=== PATIENT | male | born 1985 | race Two or more races ===

== ENCOUNTER 2017-09-08 10:29 | Inpatient (IN) | payer MEDICAID ==
[~2017-09-08] VITALS: Ht 177.8 cm; Wt 102.7 kg
[2017-09-08 11:00] VITALS: BP 170/98
[2017-09-08] MEDS ORDERED: Morphine Sulfate 4mg/ml Inj IVP ONE ×2 (11:00→12:45)
[2017-09-08 11:29] LABS: HEMATOCRIT 31.5 % (42.0-52.0); HEMOGLOBIN 10.2 G/DL (14.2-18.0); MEAN CORPUSCULAR VOLUME 92 FL (80-99); PLATELET COUNT 186 K/UL (150-450); RED BLOOD COUNT 3.41 M/UL (4.70-6.10); RED CELL DISTRIBUTION WIDTH 15.7 % (11.6-14.8); WHITE BLOOD COUNT 8.8 K/UL (4.8-10.8)
--- NOTE | 2017-09-08 11:30 | Diagnostic Imaging Report ---
Indication: Chest pain Technique: XRAY Chest 1v Comparison: None Findings: Limited exam with low lung volumes. Heart size is likely within normal limits. Mediastinal contours are sharp. Question linear atelectasis or scarring in the left mid/lower lung periphery. No pleural effusion or pneumothorax. No acute osseous abnormality appreciated. Impression: Limited exam with low lung volumes. Question linear atelectasis or scarring in the peripheral left mid/lower lung. Otherwise, no focal consolidation, pleural effusion or pneumothorax.
[2017-09-08 11:50] LABS: ANION GAP 10 mmol/L (5-15); BLOOD UREA NITROGEN 56 mg/dL (7-18); CALCIUM 7.7 MG/DL (8.5-10.1); CARBON DIOXIDE 19 MMOL/L (21-32); CHLORIDE 111 MMOL/L (98-107); CREATININE 4.4 MG/DL (0.55-1.30); POTASSIUM 5.1 MMOL/L (3.5-5.1); SODIUM 140 MMOL/L (136-145)
[2017-09-08 12:13] LABS: ALANINE AMINOTRANSFERASE 137 U/L (12-78); ALBUMIN 1.6 G/DL (3.4-5.0); ALBUMIN/GLOBULIN RATIO 0.5 (1.0-2.7); ALKALINE PHOSPHATASE 208 U/L (46-116); ASPARTATE AMINO TRANSFERASE 68 U/L (15-37); BILIRUBIN,TOTAL 0.2 MG/DL (0.2-1.0); CKMB 23.9 NG/ML (0.0-3.6); CREATINE KINASE 646 U/L (26-308)
[2017-09-08 13:00] VITALS: BP 167/87
[2017-09-08 13:24] LABS: APPEARANCE,URINE CLEAR; BILIRUBIN, URINE NEGATIVE (NEGATIVE); COLOR,URINE PALE YELLOW; GLUCOSE, URINE (UA) 2+ (NEGATIVE); KETONES,URINE 1+ (NEGATIVE); LEUKOCYTE ESTERASE ,URINE NEGATIVE (NEGATIVE); NITRITE,URINE NEGATIVE (NEGATIVE); PH,URINE 5 (4.5-8.0); PROTEIN,URINE 4+ (NEGATIVE); UROBILINOGEN,URINE NORMAL MG/DL (0.0-1.0)
[2017-09-08] MEDS ORDERED: D5 1/2NS 1,000 ML IV SCH (15:36)
[2017-09-08] MEDS ORDERED: Nitroglycerin Subl 0.4mg tab SL PRN (15:45)
[2017-09-08] MEDS ORDERED: Labetalol 5mg/ml 20ml vial IV PRN (15:45)
[2017-09-08] MEDS ORDERED: Morphine Sulfate 2mg/ml Inj IVP PRN (15:45)
[2017-09-08] MEDS ORDERED: Miralax 17gm pkt ORAL PRN (15:45)
[2017-09-08] MEDS ORDERED: Enalaprilat 2.5mg/2ml Inj IV PRN (15:45)
[2017-09-08] MEDS ORDERED: Mylanta II UD 30ml ORAL PRN (15:45)
--- NOTE | 2017-09-08 16:38 | Consultation ---
Consult Note Consult Note asked to eval for renal failure- Known CKD alerjovan: Abhijito- Reglan- Promethazine Assessment/Plan status: CKD Type I DM HTN NPO- IV fluid BP and BS control IV protonix 2D Echo OCT[facility]IO kidney 24 H urine collection LEXIS PRESTON Sep 08, 2017 16:38
--- NOTE | 2017-09-08 16:42 | Consultation ---
History of Present Illness General Date patient seen: Sep 08, 2017 Chief Complaint: Abdominal pain abnormal CXR Referring physician: Dr. Sarabia Reason for Consultation: Abnormal CXR possible pnuemonia edema Present Illness HPI Patient is a 32 yo male with pmhx of DM I HTN ESRD anemia who presents to [facility] with chief complaint of intractable abdominal pain. The patient also reported cough to his primary care doctor and I was asked to consult from internal medicine and pulmonary point of view. The patient admits to weakness and lethargy but does not admit to fever or productive cough. Upon examination of the CXR the patient may have a questionable process relating to the right lung, with patchy infiltrative patterns however hazel radiograph is not ideal because it appears the patient may have been in expiration of air during the capture. I have discussed with the patient my wishes to repeat the chest radiograph in a few days especially after hemodialysis to help rule out infectious causes. Allergies: Coded Allergies: METOCLOPRAMIDE (Unverified Allergy, Severe, 09/08/17) PROCHLORPERAZINE (Unverified Allergy, Severe, 09/08/17) VANCOMYCIN (Unverified Allergy, Severe, 09/08/17) Medication History Scheduled Amlodipine Besylate (Norvasc), 10 MG ORAL DAILY, (Reported) Carvedilol* (Carvedilol*), 12.5 MG ORAL BID, (Reported) Clonidine Hcl* (Catapres*), 0.1 MG ORAL TID, (Reported) Lisinopril (Lisinopril*), 20 MG ORAL BID, (Reported) Omeprazole (Omeprazole), 20 MG ORAL DAILY, (Reported) Sevelamer Carbonate (Renvela), 800 MG ORAL THREE TIMES A DAY, (Reported) Sevelamer Carbonate* (Renvela*), 800 MG ORAL THREE TIMES A DAY, (Reported) Scheduled PRN Diphenhydramine Hcl* (Benadryl*), 25 MG ORAL QID PRN for Itching, (Reported) Loperamide HCl (Imodium A-D), 4 MG PO TID PRN for Diarrhea, (Reported) Patient History Healthcare decision maker Resuscitation status Full Code Advanced Directive on File Past Medical/Surgical History Past Medical/Surgical History: (1) Abdominal distention (2) Anemia (3) Renal disease (4) Chronic pancreatitis (5) Gastroparesis (6) Diabetes type 1, controlled (7) Diarrhea (8) Renal failure (ARF), acute on chronic (9) Diabetic nephropathy (10) Ascites (11) ESRD (end stage renal disease) (12) Abdominal pain (13) HTN (hypertension) (14) Anemia of renal disease (15) Hypothyroidism (16) CHF (congestive heart failure) (17) Nephrotic syndrome Review of Systems Constitutional: Reports: malaise, weakness Respiratory: Reports: cough Cardiovascular: Reports: chest pain Gastrointestinal: Reports: abdominal pain Physical Exam General Appearance: moderate distress Lines, tubes and drains: peripheral HEENT: normocephalic, atraumatic, anicteric, PERRL Neck: non-tender, normal alignment, supple, normal inspection Respiratory/Chest: chest wall non-tender, decreased breath sounds, accessory muscle use, crackles/rales, rhonchi - right Breasts: no masses Cardiovascular/Chest: normal peripheral pulses, normal rate, regular rhythm, no JVD Abdomen: normal bowel sounds, non tender, soft, no organomegaly, no mass Genitourinary/Rectal: normal genital exam, normal rectal exam Extremities: normal range of motion, non-tender, normal inspection, no calf tenderness Skin Exam: normal pigmentation, warm/dry Neurologic: organic chemist II-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 grossly normal, no motor/sensory deficits Last 24 Hour Vital Signs Date Time Temp Pulse Resp B/P (MAP) Pulse Ox O2 Delivery O2 Flow Rate FiO2 09/08/17 10:31 98.8 78 18 170/98 98 Room Air Laboratory Tests Test 09/08/17 10:55 09/08/17 12:35 White Blood Count 8.8 K/UL (4.8-10.8) Red Blood Count 3.41 M/UL (4.70-6.10) L Hemoglobin 10.2 G/DL (14.2-18.0) L Hematocrit 31.5 % (42.0-52.0) L Mean Corpuscular Volume 92 FL (80-99) Mean Corpuscular Hemoglobin 30.0 PG (27.0-31.0) Mean Corpuscular Hemoglobin Concent 32.5 G/DL (32.0-36.0) Red Cell Distribution Width 15.7 % (11.6-14.8) H Platelet Count 186 K/UL (150-450) Mean Platelet Volume 7.4 FL (6.5-10.1) Neutrophils (%) (Auto) % (45.0-75.0) Lymphocytes (%) (Auto) % (20.0-45.0) Monocytes (%) (Auto) % (1.0-10.0) Eosinophils (%) (Auto) % (0.0-3.0) Basophils (%) (Auto) % (0.0-2.0) Differential Total Cells Counted 100 Neutrophils % (Manual) 86 % (45-75) H Lymphocytes % (Manual) 8 % (20-45) L Monocytes % (Manual) 4 % (1-10) Eosinophils % (Manual) 1 % (0-3) Basophils % (Manual) 0 % (0-2) Band Neutrophils 1 % (0-8) Platelet Estimate Adequate Platelet Morphology Normal Hypochromasia 1+ Anisocytosis 1+ Sodium Level 140 MMOL/L (136-145) Potassium Level 5.1 MMOL/L (3.5-5.1) Chloride Level 111 MMOL/L (98-107) H Carbon Dioxide Level 19 MMOL/L (21-32) L Anion Gap 10 mmol/L (5-15) Blood Urea Nitrogen 56 mg/dL (7-18) H Creatinine 4.4 MG/DL (0.55-1.30) H Estimat Glomerular Filtration Rate 15.8 mL/min (>60) Glucose Level 138 MG/DL (74-106) H Lactic Acid Level 1.10 mmol/L (0.66-2.22) Calcium Level 7.7 MG/DL (8.5-10.1) L Total Bilirubin 0.2 MG/DL (0.2-1.0) Aspartate Amino Transf (AST/SGOT) 68 U/L (15-37) H Alanine Aminotransferase (ALT/SGPT) 137 U/L (12-78) H Alkaline Phosphatase 208 U/L (46-116) H Total Creatine Kinase 646 U/L (26-308) H Creatine Kinase MB 23.9 NG/ML (0.0-3.6) H Creatine Kinase MB Relative Index 3.6 Total Protein 4.7 G/DL (6.4-8.2) L Albumin 1.6 G/DL (3.4-5.0) L Globulin 3.1 g/dL Albumin/Globulin Ratio 0.5 (1.0-2.7) L Lipase 25 U/L (73-393) L Urine Color Pale yellow Urine Appearance Clear Urine pH 5 (4.5-8.0) Urine Specific [place] 1.015 (1.005-1.035) Urine Protein 4+ (NEGATIVE) H Urine Glucose (UA) 2+ (NEGATIVE) H Urine Ketones 1+ (NEGATIVE) H Urine Occult Blood 1+ (NEGATIVE) H Urine Nitrite Negative (NEGATIVE) Urine Bilirubin Negative (NEGATIVE) Urine Urobilinogen Normal MG/DL (0.0-1.0) Urine Leukocyte Esterase Negative (NEGATIVE) Urine RBC 0-2 /HPF (0 - 0) H Urine WBC 0-2 /HPF (0 - 0) Urine Squamous Epithelial Cells Occasional /LPF Urine Bacteria Occasional /HPF (NONE) Height (Feet): 5 Height (Inches): 10.00 Weight (Pounds): 202 Medications Current Medications Medications (Trade) Dose Ordered Sig/Michelle Route PRN Reason Start Time Stop Time Status Last Admin Dose Admin Acetaminophen (Tylenol) 650 mg Q4H PRN ORAL fever 09/08/17 15:45 10/08/17 15:44 Dextrose (Dextrose 50%) STAT PRN IV Hypoglycemia 09/08/17 15:45 10/08/17 15:44 Dextrose/Sodium Chloride 1,000 ml @ 50 mls/hr Q20H IV 09/09/17 15:36 10/09/17 15:35 UNV Diphenhydramine HCl (Benadryl) 25 mg Q6H PRN ORAL Itching/Pruritis 09/08/17 15:45 10/08/17 15:44 Enalaprilat (Vasotec) 2.5 mg EVERY 4 HOURS PRN IV sbp more than 200 09/08/17 15:45 10/08/17 15:44 Heparin Sodium (Porcine) (Heparin 5000 units/ml) 5,000 units EVERY 12 HOURS SUBQ 09/08/17 21:00 10/08/17 20:59 Hydralazine HCl (Apresoline) 10 mg Q4H PRN IV sbp more than 160 09/08/17 19:45 10/08/17 19:44 UNV Labetalol HCl (Normodyne) 20 mg EVERY HOUR PRN IV sbo more than 180 09/08/17 15:45 10/08/17 15:44 Lorazepam (Ativan 2mg/ml 1ml) 1 mg EVERY 4 HOURS PRN IV agitation 09/08/17 15:45 09/15/17 15:44 Morphine Sulfate (Morphine Sulfate) 2 mg EVERY 4 HOURS PRN IVP severe Pain (Pain Scale 7-10) 09/08/17 15:45 09/15/17 15:44 09/08/17 16:39 Nitroglycerin (Ntg) 0.4 mg Q5M X 3 DOSES PRN SL Prn Chest Pain 09/08/17 15:45 10/08/17 15:44 Ondansetron HCl (Zofran) 4 mg Q6H PRN IVP Nausea & Vomiting 09/08/17 15:45 10/08/17 15:44 Pantoprazole (Protonix) 40 mg DAILY IV 09/09/17 09:00 10/09/17 08:59 Polyethylene Glycol (Miralax) 17 gm HSPRN PRN ORAL Constipation 09/08/17 15:45 10/08/17 15:44 Tamsulosin HCl (Flomax) 0.4 mg BID ORAL 09/08/17 18:00 10/08/17 17:59 UNV Temazepam (Restoril) 15 mg HSPRN PRN ORAL Insomnia 09/08/17 15:45 09/15/17 15:44 Assessment/Plan Status: stable, progressing Assessment/Plan Acute abdominal pain Rule out pancreatitis vs. obstruction Bronchitis Rule out right lung pneumonia Pulmonary edema? ESRD HTN DM I Diabetic gastroparesis PLAN Repeat CXR in a few days after HD Monitor WBC and cough symptoms/vitals Will wait before starting antbx Anti-tussives prn Pain management RICARDO POLANCO Sep 08, 2017 16:42
--- NOTE | 2017-09-08 16:45 | GI Initial Consult Note ---
History of Present Illness General Date patient seen: Sep 08, 2017 Time patient seen: 16:30 Reason for Hospitalization: Abdominal Pain Referring physician: AMY PERSAUD Reason for Consultation: ABDOMINAL PAIN Present Illness HPI 32 year male with history of renal insufficiency, chronic pancreatitis, DM type 1, gastroparesis presents today with c/o of diarrhea x 2 months. Denies hematochezia / melena. Stated he had a negative hepatis panel performed recently at [facility]. In addition, the patient c/o of severe epigastric pain, requesting for Dilaudid. Labs show anemia, transaminitis with elevated alkaline phosphatase, hypoalbuminemia and elevated creatinine. Denies any ETOH/ IVDA. Patient is tobacco user. No history of endoscopy / colonoscopies. Patient states he is ALLERGIC to Reglan, Compazine, and Vancomycin. Med list reviewed/reconciled: Yes Allergies: Coded Allergies: Compazine (Unverified Allergy, Severe, 09/08/17) Reglan (Unverified Allergy, Severe, 09/08/17) Vancomycin (Unverified Allergy, Severe, 09/08/17) Patient History History Provided By: Patient PMH Narrative See HPI. Social History: Denies: smoking, alcohol use, drug use, other Review of Systems All Other Systems: negative except mentioned in HPI Physical Exam Vital Signs Date Time Temp Pulse Resp B/P (MAP) Pulse Ox O2 Delivery O2 Flow Rate FiO2 09/08/17 10:31 98.8 78 18 170/98 98 Room Air Sp02 EP Interpretation: reviewed, normal Labs Laboratory Tests Test 09/08/17 10:55 09/08/17 12:35 White Blood Count 8.8 K/UL (4.8-10.8) Red Blood Count 3.41 M/UL (4.70-6.10) L Hemoglobin 10.2 G/DL (14.2-18.0) L Hematocrit 31.5 % (42.0-52.0) L Mean Corpuscular Volume 92 FL (80-99) Mean Corpuscular Hemoglobin 30.0 PG (27.0-31.0) Mean Corpuscular Hemoglobin Concent 32.5 G/DL (32.0-36.0) Red Cell Distribution Width 15.7 % (11.6-14.8) H Platelet Count 186 K/UL (150-450) Mean Platelet Volume 7.4 FL (6.5-10.1) Neutrophils (%) (Auto) % (45.0-75.0) Lymphocytes (%) (Auto) % (20.0-45.0) Monocytes (%) (Auto) % (1.0-10.0) Eosinophils (%) (Auto) % (0.0-3.0) Basophils (%) (Auto) % (0.0-2.0) Differential Total Cells Counted 100 Neutrophils % (Manual) 86 % (45-75) H Lymphocytes % (Manual) 8 % (20-45) L Monocytes % (Manual) 4 % (1-10) Eosinophils % (Manual) 1 % (0-3) Basophils % (Manual) 0 % (0-2) Band Neutrophils 1 % (0-8) Platelet Estimate Adequate Platelet Morphology Normal Hypochromasia 1+ Anisocytosis 1+ Sodium Level 140 MMOL/L (136-145) Potassium Level 5.1 MMOL/L (3.5-5.1) Chloride Level 111 MMOL/L (98-107) H Carbon Dioxide Level 19 MMOL/L (21-32) L Anion Gap 10 mmol/L (5-15) Blood Urea Nitrogen 56 mg/dL (7-18) H Creatinine 4.4 MG/DL (0.55-1.30) H Estimat Glomerular Filtration Rate 15.8 mL/min (>60) Glucose Level 138 MG/DL (74-106) H Lactic Acid Level 1.10 mmol/L (0.66-2.22) Calcium Level 7.7 MG/DL (8.5-10.1) L Total Bilirubin 0.2 MG/DL (0.2-1.0) Aspartate Amino Transf (AST/SGOT) 68 U/L (15-37) H Alanine Aminotransferase (ALT/SGPT) 137 U/L (12-78) H Alkaline Phosphatase 208 U/L (46-116) H Total Creatine Kinase 646 U/L (26-308) H Creatine Kinase MB 23.9 NG/ML (0.0-3.6) H Creatine Kinase MB Relative Index 3.6 Total Protein 4.7 G/DL (6.4-8.2) L Albumin 1.6 G/DL (3.4-5.0) L Globulin 3.1 g/dL Albumin/Globulin Ratio 0.5 (1.0-2.7) L Lipase 25 U/L (73-393) L Urine Color Pale yellow Urine Appearance Clear Urine pH 5 (4.5-8.0) Urine Specific [place] 1.015 (1.005-1.035) Urine Protein 4+ (NEGATIVE) H Urine Glucose (UA) 2+ (NEGATIVE) H Urine Ketones 1+ (NEGATIVE) H Urine Occult Blood 1+ (NEGATIVE) H Urine Nitrite Negative (NEGATIVE) Urine Bilirubin Negative (NEGATIVE) Urine Urobilinogen Normal MG/DL (0.0-1.0) Urine Leukocyte Esterase Negative (NEGATIVE) Urine RBC 0-2 /HPF (0 - 0) H Urine WBC 0-2 /HPF (0 - 0) Urine Squamous Epithelial Cells Occasional /LPF Urine Bacteria Occasional /HPF (NONE) General Appearance: well appearing, no apparent distress, alert Head: normocephalic EENT: PERRL/EOMI, normal ENT inspection Neck: supple Respiratory: normal breath sounds, no respiratory distress Cardiovascular: normal rate Gastrointestinal: normal inspection, non tender, soft, normal bowel sounds, non -distended Rectal: deferred Genitourinary: deferred Musculoskeletal: normal inspection, back normal Neurologic: normal inspection, alert, oriented x3, responsive Psychiatric: normal inspection, judgement/insight normal, memory normal Skin: normal inspection, normal color, no rash, warm/dry, palpation normal, well hydrated Lymphatic: normal inspection, no adenopathy Other Organ Systems generalized anasarca Current Medications Current Medications Medications (Trade) Dose Ordered Sig/Michelle Route PRN Reason Start Time Stop Time Status Last Admin Dose Admin Acetaminophen (Tylenol) 650 mg Q4H PRN ORAL fever 09/08/17 15:45 10/08/17 15:44 Al Hydroxide/Mg Hydroxide (Mylanta II) 30 ml Q6H PRN ORAL dyspepsia 09/08/17 15:45 10/08/17 15:44 Dextrose (Dextrose 50%) STAT PRN IV Hypoglycemia 09/08/17 15:45 10/08/17 15:44 Dextrose/Sodium Chloride 1,000 ml @ 75 mls/hr [id number] IV 09/08/17 15:36 10/08/17 15:35 09/08/17 16:07 Diphenhydramine HCl (Benadryl) 25 mg Q6H PRN ORAL Itching/Pruritis 09/08/17 15:45 10/08/17 15:44 Enalaprilat (Vasotec) 2.5 mg EVERY 4 HOURS PRN IV sbp more than 200 09/08/17 15:45 10/08/17 15:44 Heparin Sodium (Porcine) (Heparin 5000 units/ml) 5,000 units EVERY 12 HOURS SUBQ 09/08/17 21:00 10/08/17 20:59 Hydralazine HCl (Apresoline) 20 mg Q4H PRN IV sbp more than 160 09/08/17 15:45 10/08/17 15:44 Labetalol HCl (Normodyne) 20 mg EVERY HOUR PRN IV sbo more than 180 09/08/17 15:45 10/08/17 15:44 Lorazepam (Ativan 2mg/ml 1ml) 1 mg EVERY 4 HOURS PRN IV agitation 09/08/17 15:45 09/15/17 15:44 Morphine Sulfate (Morphine Sulfate) 2 mg EVERY 4 HOURS PRN IVP severe Pain (Pain Scale 7-10) 09/08/17 15:45 09/15/17 15:44 Nitroglycerin (Ntg) 0.4 mg Q5M X 3 DOSES PRN SL Prn Chest Pain 09/08/17 15:45 10/08/17 15:44 Ondansetron HCl (Zofran) 4 mg Q6H PRN IVP Nausea & Vomiting 09/08/17 15:45 10/08/17 15:44 Pantoprazole (Protonix) 40 mg DAILY IV 09/09/17 09:00 10/09/17 08:59 Polyethylene Glycol (Miralax) 17 gm HSPRN PRN ORAL Constipation 09/08/17 15:45 10/08/17 15:44 Promethazine HCl (Phenergan) 25 mg EVERY 8 HOURS PRN IV refractory nausea 09/08/17 15:45 10/08/17 15:44 Temazepam (Restoril) 15 mg HSPRN PRN ORAL Insomnia 09/08/17 15:45 09/15/17 15:44 GI: Plan Problems: (1) Renal disease (2) Gastroparesis (3) Diabetes type 1, controlled (4) Chronic pancreatitis (5) Anemia (6) Abdominal distention (7) Diarrhea Plan hepatitis panel per patient was done at [facility] and negative maintain NPO + IVFs fu abdominal U/S DM mgmt anemia work up >> most likely 2/2 to renal disease will check lipase levels pain mgmt ppi simethicone prn fu labs Discussed with Dr. Schultz. Thank you for this patient referral, we will follow. Amber Clark N.P. Sep 08, 2017 16:45
[2017-09-08] MEDS ORDERED: Simethicone 80mg tab ORAL ONE (17:00)
--- NOTE | 2017-09-08 17:12 | History & Physical ---
History and Physical History & Physicial Dictated for Int Med-Dr Voss no. [id number]. SANJIV TALBOT Sep 08, 2017 17:12
[2017-09-08] MEDS ORDERED: Simethicone 80mg tab ORAL PRN (17:15)
[2017-09-08] MEDS: Tamsulosin 0.4mg cap ORAL SCH (17:38)
[2017-09-08 20:00] VITALS: BP 152/87
[2017-09-08] MEDS ORDERED: Morphine Sulfate 4mg/ml Inj ONE (20:52)
[2017-09-08] MEDS: Morphine Sulfate 4mg/ml Inj IVP PRN (21:09)
[2017-09-08] MEDS: Heparin 5000 units/ml inj SUBQ SCH (21:10)
--- NOTE | 2017-09-08 21:30 | History and Physical Report ---
DATE OF ADMISSION: 09/08/2017 CHIEF COMPLAINT: The patient is a 32-year-old male with a history of end-stage renal disease, who presents with a chief complaint of abdominal pain. HISTORY OF PRESENT ILLNESS: The patient has a history of type 1 diabetes. The patient has a history of chronic renal failure. The patient states that history of present illness began approximately two months ago. The patient began to have profuse watery stools. The patient has up to eight stools daily. Stools used to be liquid in nature. The patient states his stool had some formed elements. The patient also began to experience left upper quadrant abdominal pain last evening. The patient presented to [place] emergency room. The patient is admitted for abdominal pain to rule out acute pancreatitis. PAST MEDICAL HISTORY: Significant for: 1. Type 1 diabetes. 2. Hypertension. 3. End-stage renal disease. 4. Anemia. 5. Diabetic gastroparesis. PAST SURGICAL HISTORY: The patient denies. CURRENT MEDICATIONS: The patient does not know dosages of any of his medications. 1. Lantus. 2. Humalog. 3. Protonix. 4. Organ. 5. Pepcid. 6. Zantac. 7. Lasix. ALLERGIES: 1. Reglan. 2. Promethazine. 3. Vancomycin. SOCIAL HISTORY: The patient is single and is disabled. The patient admits to tobacco use of one-quarter pack per day. The patient denies alcohol use. REVIEW OF SYSTEMS: CONSTITUTIONAL: The patient denies weight loss or weight gain. The patient denies fevers or chills. HEENT: The patient denies ear or throat pain. The patient denies headache. CARDIOVASCULAR: The patient denies palpitations or chest pain. CHEST: The patient denies wheeze or shortness of breath. ABDOMEN: The patient complains of abdominal pain as above. The patient complains of diarrhea as above. The patient denies constipation, nausea, or vomiting. GENITOURINARY: The patient denies dysuria or increased frequency of urination. NEUROMUSCULAR: The patient denies seizures or generalized weakness. PHYSICAL EXAMINATION: VITAL SIGNS: Temperature 98.8, respirations 18, pulse 70, and blood pressure 170/98. GENERAL: The patient is a well-developed and well-nourished white male, appears to be in moderate distress. HEENT: Eyes, pupils equal and responsive to light and accommodation. Extraocular movements are intact. NECK: Supple without lymphadenopathy. CHEST: Lungs are clear to auscultation bilaterally without wheezes or rales. CARDIOVASCULAR: Regular rhythm and rate. S1 and S2 are normal without murmurs, rubs, or gallops. ABDOMEN: Soft and tender to palpation in the bilateral upper quadrants, with decreased bowel sounds. No evidence of hepatosplenomegaly. Currently, no rebound or guarding noted. EXTREMITIES: Negative for clubbing, cyanosis, or edema. RECTAL/GENITAL: Refused. NEUROLOGIC: Cranial nerves II to XII are grossly intact without focal deficits. Motor strength is 5/5 bilaterally. Deep tendon reflexes are 2+ plantar. LABORATORY STUDIES: WBC 8.8, hemoglobin 10.2, hematocrit 31.5, and platelets 186,000. Sodium 140, potassium 5.1, chloride 111, CO2 19, BUN 56, creatinine 4.4, and glucose 138. Liver function tests elevated with AST 68, ALT elevated at 137, alkaline phosphatase elevated at 208, total CK elevated at 646. Lipase is normal at 25. Urinalysis showed 4+ protein, 2+ glucose, 1+ ketones, and 1+ occult blood. ASSESSMENT: This is a 32-year-old male. 1. Bilateral upper quadrant pain. 2. Diarrhea. 3. Diabetic gastroparesis. 4. Diabetes type 1. 5. Hypertension. 6. End-stage renal disease. 7. Anemia. TREATMENT: 1. Abdominal pain/diarrhea. A Gastroenterology consultation has been obtained with Dr. Demetrius Schultz. An abdominal ultrasound is pending. We will follow recommendations of Gastroenterology. The patient is currently receiving intravenous Dilaudid for pain management. 2. Diabetic gastroparesis. We will follow recommendations of Gastroenterology. 3. Diabetes type 1. The patient has been started on a Humalog sliding scale. 4. Hypertension. The patient is currently not on antihypertensive medication. 5. End-stage renal disease. A Nephrology consultation has been obtained with Dr. Garrett. 6. Anemia of chronic renal disease. Ozzy Sarabia M.D. DR: MARA JOB#: [id number] CC:
[2017-09-08] MEDS: LORazepam Inj 2mg/ml 1ml IV PRN (21:55)
[2017-09-09] VITALS: BP 162/90
[2017-09-09] MEDS: Morphine Sulfate 4mg/ml Inj IVP PRN ×3 (03:18→13:43)
[2017-09-09 04:00] VITALS: BP 158/91
--- NOTE | 2017-09-09 07:25 | Emergency Room Report ---
History of Present Illness General Chief Complaint: Abdominal Pain Source: Patient Present Illness HPI Patient present with complaints of diffuse upper abdominal pain Nausea vomiting Patient reports that he was just discharged from at [facility] He reports having history of renal insufficiency Patient reports several episodes of vomiting since yesterday Also complains of diarrhea Denies any chest pain or shortness of breath He does feel fevers and chills at home Denies any neck pain or photophobia Pain is 8/10 Allergies: Coded Allergies: METOCLOPRAMIDE (Unverified Allergy, Severe, 09/08/17) PROCHLORPERAZINE (Unverified Allergy, Severe, 09/08/17) VANCOMYCIN (Unverified Allergy, Severe, 09/08/17) Patient History Past Medical History: see triage record Pertinent Family History: none Reviewed Nursing Documentation: PMH: Agreed, PSxH: Agreed Nursing Documentation-PMH Past Medical History: No History, Except For Hx Cardiac Problems: No Hx Diabetes: Yes - Type 1 Hx Cancer: No Hx Gastrointestinal Problems: Yes - Gastroparesis Hx Neurological Problems: No Review of Systems All Other Systems: negative except mentioned in HPI Physical Exam Vital Signs Date Time Temp Pulse Resp B/P (MAP) Pulse Ox O2 Delivery O2 Flow Rate FiO2 09/08/17 10:31 98.8 78 18 170/98 98 Room Air Sp02 EP Interpretation: reviewed, normal General Appearance: mild distress - Appears tremulous and jaundice Head: normocephalic, atraumatic Eyes: bilateral eye PERRL, bilateral eye EOMI ENT: hearing grossly normal, TMs + canals normal, uvula midline, dry mucus membranes Neck: full range of motion, supple, no meningismus, no bony tend Respiratory: lungs clear, normal breath sounds, no rhonchi, no respiratory distress, no retraction, no accessory muscle use Cardiovascular #1: normal peripheral pulses, no gallop, no JVD, no murmur, tachycardia Gastrointestinal: normal bowel sounds, soft, no mass, no organomegaly, non- distended, no guarding, no hernia, no pulsatile mass, no rebound, tenderness - Epigastric region Genitourinary: no CVA tenderness Musculoskeletal: normal inspection Neurologic: oriented x3, responsive, learning and development administrator III-XII nml as tested, motor strength/ tone normal, sensory intact Psychiatric: mood/affect normal Skin: no rash, warm/dry, other - Dependent edema bilaterally Lymphatic: other - Lymphedema Medical Decision Making Diagnostic Impression: Primary Impression: Vomiting Additional Impressions: Diarrhea Renal failure ER Course With the history exam and presentation, multiple differentials considered, including but not limited to appendicitis, gastritis, cholecystitis, diverticulitis Patient provided with IV hydration pain medication Kidney function tests appear abnormal Patient has continued vomiting Reports history of gastroparesis With type 1 diabetes Is admitted for further care Labs Test 09/08/17 10:55 09/08/17 12:35 White Blood Count 8.8 K/UL (4.8-10.8) Red Blood Count 3.41 M/UL (4.70-6.10) Hemoglobin 10.2 G/DL (14.2-18.0) Hematocrit 31.5 % (42.0-52.0) Mean Corpuscular Volume 92 FL (80-99) Mean Corpuscular Hemoglobin 30.0 PG (27.0-31.0) Mean Corpuscular Hemoglobin Concent 32.5 G/DL (32.0-36.0) Red Cell Distribution Width 15.7 % (11.6-14.8) Platelet Count 186 K/UL (150-450) Mean Platelet Volume 7.4 FL (6.5-10.1) Neutrophils (%) (Auto) % (45.0-75.0) Lymphocytes (%) (Auto) % (20.0-45.0) Monocytes (%) (Auto) % (1.0-10.0) Eosinophils (%) (Auto) % (0.0-3.0) Basophils (%) (Auto) % (0.0-2.0) Differential Total Cells Counted 100 Neutrophils % (Manual) 86 % (45-75) Lymphocytes % (Manual) 8 % (20-45) Monocytes % (Manual) 4 % (1-10) Eosinophils % (Manual) 1 % (0-3) Basophils % (Manual) 0 % (0-2) Band Neutrophils 1 % (0-8) Platelet Estimate Adequate Platelet Morphology Normal Hypochromasia 1+ Anisocytosis 1+ Sodium Level 140 MMOL/L (136-145) Potassium Level 5.1 MMOL/L (3.5-5.1) Chloride Level 111 MMOL/L (98-107) Carbon Dioxide Level 19 MMOL/L (21-32) Anion Gap 10 mmol/L (5-15) Blood Urea Nitrogen 56 mg/dL (7-18) Creatinine 4.4 MG/DL (0.55-1.30) Estimat Glomerular Filtration Rate 15.8 mL/min (>60) Glucose Level 138 MG/DL (74-106) Lactic Acid Level 1.10 mmol/L (0.66-2.22) Calcium Level 7.7 MG/DL (8.5-10.1) Total Bilirubin 0.2 MG/DL (0.2-1.0) Aspartate Amino Transf (AST/SGOT) 68 U/L (15-37) Alanine Aminotransferase (ALT/SGPT) 137 U/L (12-78) Alkaline Phosphatase 208 U/L (46-116) Total Creatine Kinase 646 U/L (26-308) Creatine Kinase MB 23.9 NG/ML (0.0-3.6) Creatine Kinase MB Relative Index 3.6 Total Protein 4.7 G/DL (6.4-8.2) Albumin 1.6 G/DL (3.4-5.0) Globulin 3.1 g/dL Albumin/Globulin Ratio 0.5 (1.0-2.7) Lipase 25 U/L (73-393) Urine Color Pale yellow Urine Appearance Clear Urine pH 5 (4.5-8.0) Urine Specific [place] 1.015 (1.005-1.035) Urine Protein 4+ (NEGATIVE) Urine Glucose (UA) 2+ (NEGATIVE) Urine Ketones 1+ (NEGATIVE) Urine Occult Blood 1+ (NEGATIVE) Urine Nitrite Negative (NEGATIVE) Urine Bilirubin Negative (NEGATIVE) Urine Urobilinogen Normal MG/DL (0.0-1.0) Urine Leukocyte Esterase Negative (NEGATIVE) Urine RBC 0-2 /HPF (0 - 0) Urine WBC 0-2 /HPF (0 - 0) Urine Squamous Epithelial Cells Occasional /LPF Urine Bacteria Occasional /HPF (NONE) Rhythm Strip Diag. Results EP Interpretation: yes Rate: 105 Rhythm: no PVC's, no ectopy, other - Sinus tach Chest X-Ray Diagnostic Results Chest X-Ray Diagnostic Results : Chest X-Ray Ordered: Yes # of Views/Limited/Complete: 1 View Indication: Chest Pain EP Interpretation: Yes Interpretation: no consolidation, no effusion, no pneumothorax, no acute cardiopulmonary disease - Mild atelectasis Impression: No acute disease Electronically Signed by: Ali Jamehdor, DO Last Vital Signs Date Time Temp Pulse Resp B/P (MAP) Pulse Ox O2 Delivery O2 Flow Rate FiO2 09/09/17 04:00 65 09/09/17 04:00 97.9 22 158/91 98 Room Air Status: improved Disposition: ADMITTED INPATIENT Condition: Serious Referrals: NOT CHOSEN IPA/,REFERRING (PCP) ZEN ZHANG D.O. Sep 09, 2017 07:25
[2017-09-09 08:00] VITALS: BP 188/109
[2017-09-09] MEDS: Tamsulosin 0.4mg cap ORAL SCH ×2 (08:42→18:00)
[2017-09-09] MEDS: Heparin 5000 units/ml inj SUBQ SCH ×2 (08:44→21:38)
[2017-09-09] MEDS ORDERED: Pantoprazole Inj IV SCH (09:00)
[2017-09-09 09:27] LABS: BASOPHILS % (AUTO) 0.6 % (0.0-2.0); EOSINOPHILS % (AUTO) 0.5 % (0.0-3.0); HEMATOCRIT 28.3 % (42.0-52.0); HEMOGLOBIN 9.2 G/DL (14.2-18.0); LYMPHOCYTES % (AUTO) 8.1 % (20.0-45.0); MEAN CORPUSCULAR VOLUME 92 FL (80-99); MONOCYTES % (AUTO) 5.9 % (1.0-10.0); NEUTROPHILS % (AUTO) 84.9 % (45.0-75.0); PLATELET COUNT 167 K/UL (150-450); RED BLOOD COUNT 3.06 M/UL (4.70-6.10); RED CELL DISTRIBUTION WIDTH 15.8 % (11.6-14.8)
--- NOTE | 2017-09-09 09:44 | Diagnostic Imaging Report ---
Indication: Abdominal pain Technique: Guzmán-scale and duplex images of the upper abdomen were obtained Comparison: none Findings: Gallbladder demonstrates wall thickening, gallbladder wall measuring just over 3 mm thick. No gallstones are demonstrated. Sonographic Marks's sign is negative. Common bile duct measures 3 mm in diameter. No intrahepatic biliary ductal dilatation. There are demonstrates coarsened echogenicity. No focal abnormality. Portal vein and hepatic veins are patent. Pancreas is obscured by bowel gas. Spleen is unremarkable. Left kidney measures 11.8 cm in length. Right kidney measures 9.6 cm length. Kidneys demonstrate diffusely increased echogenicity. No hydronephrosis. there is a small left lower pole renal cyst . Abdominal aorta is obscured by bowel gas . There is a small to moderate amount of ascites fluid present. There is also suggestion of bilateral pleural effusions effusion. Impression: Ascites Suspect bilateral pleural effusions Negative for gallstones. There is mild gallbladder wall thickening, probably related to the same process that is causing ascites. Acute acalculous cholecystitis cannot completely excludable, however, and consideration should be given to a hepatobiliary nuclear scanning if there is high clinical suspicion Negative for dilated ducts Increased renal echogenicity bilaterally, consistent with medical renal disease Nonvisualization of the abdominal aorta and pancreas Incidental finding small left renal cyst
[2017-09-09 09:49] LABS: % IRON SATURATION 35 % (15-50); IRON 37 ug/dL (50-175); TOTAL IRON BINDING CAPACITY 106 ug/dL (250-450)
[2017-09-09 10:27] LABS: CREATINE KINASE 287 U/L (26-308); GAMMA GLUTAMYL TRANSPEPTIDASE 32 U/L (5-85); PHOSPHORUS 7.3 MG/DL (2.5-4.9)
[2017-09-09 10:38] LABS: ALANINE AMINOTRANSFERASE 112 U/L (12-78); ALBUMIN 1.4 G/DL (3.4-5.0); ALBUMIN/GLOBULIN RATIO 0.6 (1.0-2.7); ALKALINE PHOSPHATASE 189 U/L (46-116); AMYLASE 5 U/L (25-115); ANION GAP 10 mmol/L (5-15); ASPARTATE AMINO TRANSFERASE 49 U/L (15-37); BILIRUBIN,TOTAL 0.1 MG/DL (0.2-1.0); BLOOD UREA NITROGEN 55 mg/dL (7-18); CALCIUM 7.4 MG/DL (8.5-10.1); CARBON DIOXIDE 18 MMOL/L (21-32); CHLORIDE 112 MMOL/L (98-107); CHOLESTEROL 90 MG/DL (< 200); CREATININE 4.2 MG/DL (0.55-1.30); FERRITIN 496 NG/ML (8-388); HDL CHOLESTEROL 47 MG/DL (40-60); POTASSIUM 5.7 MMOL/L (3.5-5.1); SODIUM 140 MMOL/L (136-145); TRIGLYCERIDES 54 MG/DL (30-150)
[2017-09-09 12:00] VITALS: BP 177/108
[2017-09-09] MEDS: Sodium Citrate 30ml ORAL SCH ×3 (12:00→23:44)
--- NOTE | 2017-09-09 12:00 | Nephrology Progress Note ---
Assessment/Plan Problem List: (1) Renal failure (ARF), acute on chronic (2) Diabetic nephropathy Assessment Advanced renal failure due to Type I DM DIabetic Nephropathy -. Bilateral upper quadrant pain. -. Diarrhea. -. Diabetic gastroparesis. -. Diabetes type 1. -. Hypertension. -. Anemia. due to CKD -. HypoThyroid Plan Plan: Per GI 24 h urine collection pending Phos supplements Monitor renal parameters , BS and BP Avoid nephrotoxics 2D Echo pending need to entertain dialysis - discussed OCTAVIO: Left kidney measures 11.8 cm in length. Right kidney measures 9.6 cm length. Kidneys demonstrate diffusely increased echogenicity. No hydronephrosis. there is a small left lower pole renal cyst Subjective ROS Limited/Unobtainable: No Constitutional: Reports: malaise, weakness Objective Objective Last 24 Hour Vital Signs Date Time Temp Pulse Resp B/P (MAP) Pulse Ox O2 Delivery O2 Flow Rate FiO2 09/09/17 11:11 187/106 09/09/17 08:00 97.0 68 20 188/109 96 09/09/17 08:00 64 09/09/17 04:00 65 09/09/17 04:00 97.9 86 22 158/91 98 Room Air 09/09/17 00:00 97.8 65 16 162/90 97 Room Air 09/09/17 00:00 58 09/08/17 20:00 97.4 62 18 152/87 96 Room Air 09/08/17 20:00 64 09/08/17 16:20 137/72 09/08/17 16:00 61 09/08/17 14:31 62 09/08/17 13:00 98.8 18 167/87 98 Room Air Intake and Output 09/08/17 09/09/17 19:00 07:00 Intake Total 131.25 ml Balance 131.25 ml Intake Oral 0 ml IV Total 131.25 ml # Voids 2 # Bowel Movements 1 Laboratory Tests 09/08/17 12:35: Urine Color Pale yellow, Urine Appearance Clear, Urine pH 5, Urine Specific [place] 1.015, Urine Protein 4+H, Urine Glucose (UA) 2+H, Urine Ketones 1+H, Urine Occult Blood 1+H, Urine Nitrite Negative, Urine Bilirubin Negative, Urine Urobilinogen Normal, Urine Leukocyte Esterase Negative, Urine RBC 0-2H, Urine WBC 0-2, Urine Squamous Epithelial Cells Occasional, Urine Bacteria Occasional 09/09/17 08:10: White Blood Count 8.0, Red Blood Count 3.06L, Hemoglobin 9.2L, Hematocrit 28.3L , Mean Corpuscular Volume 92, Mean Corpuscular Hemoglobin 30.2, Mean Corpuscular Hemoglobin Concent 32.7, Red Cell Distribution Width 15.8H, Platelet Count 167, Mean Platelet Volume 7.5, Neutrophils (%) (Auto) 84.9H, Lymphocytes (%) (Auto) 8.1L, Monocytes (%) (Auto) 5.9, Eosinophils (%) (Auto) 0.5, Basophils (%) (Auto) 0.6, Activated Partial Thromboplast Time 27, Sodium Level 140, Potassium Level 5.7H, Chloride Level 112H, Carbon Dioxide Level 18L, Anion Gap 10, Blood Urea Nitrogen 55H, Creatinine 4.2H, Estimat Glomerular Filtration Rate 16.6, Glucose Level 88, Hemoglobin A1c 5.7, Uric Acid 7.3H, Calcium Level 7.4L, Phosphorus Level 7.3H, Magnesium Level 1.5L, Iron Level 37L , Total Iron Binding Capacity 106L, Percent Iron Saturation 35, Unsaturated Iron Binding 69L, Ferritin 496H, Total Bilirubin 0.1L, Gamma Glutamyl Transpeptidase 32, Aspartate Amino Transf (AST/SGOT) 49H, Alanine Aminotransferase (ALT/SGPT) 112H, Alkaline Phosphatase 189H, Total Creatine Kinase 287, C-Reactive Protein, Quantitative < 0.4, Total Protein 3.8L, Albumin 1.4L, Globulin 2.4, Albumin/Globulin Ratio 0.6L, Triglycerides Level 54, Cholesterol Level 90, LDL Cholesterol 44, HDL Cholesterol 47, Cholesterol/HDL Ratio 1.9L, Amylase Level 5L, Lipase 21L, Vitamin B12 Level 1433H, Folate 7.0L, Thyroid Stimulating Hormone (TSH) 8.524H 09/09/17 11:45: Hepatitis A IgM Antibody [Pending], Hepatitis B Surface Antigen [Pending], Hepatitis B Core IgM Antibody [Pending], Hepatitis C Antibody [Pending] Height (Feet): 5 Height (Inches): 10.00 Weight (Pounds): 212 General Appearance: no apparent distress, lethargic Cardiovascular: regular rhythm Respiratory/Chest: decreased breath sounds Abdomen: distended Extremities: other - 1+ edema LEXIS PRESTON Sep 09, 2017 12:00
--- NOTE | 2017-09-09 12:31 | GI Progress Note ---
Assessment/Plan Problems: (1) Renal failure (ARF), acute on chronic ICD Codes: N17.9 - Acute kidney failure, unspecified; N18.9 - Chronic kidney disease, unspecified SNOMED: 956019758 (2) Diarrhea ICD Codes: R19.7 - Diarrhea, unspecified SNOMED: 50332876 (3) Vomiting ICD Codes: R11.10 - Vomiting, unspecified SNOMED: 277089687 (4) Diabetes type 1, controlled ICD Codes: E10.9 - Type 1 diabetes mellitus without complications SNOMED: 80408755, 699963407 (5) Gastroparesis ICD Codes: K31.84 - Gastroparesis SNOMED: 521227871 (6) Chronic pancreatitis ICD Codes: K86.1 - Other chronic pancreatitis SNOMED: 995505160 (7) Anemia ICD Codes: D64.9 - Anemia, unspecified SNOMED: 211555727 Status: unchanged Status Narrative Discussed with Dr. Schultz. Assessment/Plan abdominal U/S reviewed, see full report. >> ascites. bilateral pleural effusion fu nephro recs renal diet DM mgmt anemia work up >> most likely 2/2 to renal disease pain mgmt ppi simethicone prn abdominal paracentesis >> r/o SBP fu labs, hepatitis panel, free T4 Subjective Subjective abdominal pain Objective Last 24 Hour Vital Signs Date Time Temp Pulse Resp B/P (MAP) Pulse Ox O2 Delivery O2 Flow Rate FiO2 09/09/17 11:11 187/106 09/09/17 08:00 97.0 68 20 188/109 96 09/09/17 08:00 64 09/09/17 04:00 65 09/09/17 04:00 97.9 86 22 158/91 98 Room Air 09/09/17 00:00 97.8 65 16 162/90 97 Room Air 09/09/17 00:00 58 09/08/17 20:00 97.4 62 18 152/87 96 Room Air 09/08/17 20:00 64 09/08/17 16:20 137/72 09/08/17 16:00 61 09/08/17 14:31 62 09/08/17 13:00 98.8 18 167/87 98 Room Air Intake and Output 09/08/17 09/09/17 19:00 07:00 Intake Total 131.25 ml Balance 131.25 ml Intake Oral 0 ml IV Total 131.25 ml # Voids 2 # Bowel Movements 1 Laboratory Tests Test 09/08/17 12:35 09/09/17 08:10 09/09/17 11:45 Urine Color Pale yellow Urine Appearance Clear Urine pH 5 (4.5-8.0) Urine Specific [place] 1.015 (1.005-1.035) Urine Protein 4+ (NEGATIVE) H Urine Glucose (UA) 2+ (NEGATIVE) H Urine Ketones 1+ (NEGATIVE) H Urine Occult Blood 1+ (NEGATIVE) H Urine Nitrite Negative (NEGATIVE) Urine Bilirubin Negative (NEGATIVE) Urine Urobilinogen Normal MG/DL (0.0-1.0) Urine Leukocyte Esterase Negative (NEGATIVE) Urine RBC 0-2 /HPF (0 - 0) H Urine WBC 0-2 /HPF (0 - 0) Urine Squamous Epithelial Cells Occasional /LPF Urine Bacteria Occasional /HPF (NONE) White Blood Count 8.0 K/UL (4.8-10.8) Red Blood Count 3.06 M/UL (4.70-6.10) L Hemoglobin 9.2 G/DL (14.2-18.0) L Hematocrit 28.3 % (42.0-52.0) L Mean Corpuscular Volume 92 FL (80-99) Mean Corpuscular Hemoglobin 30.2 PG (27.0-31.0) Mean Corpuscular Hemoglobin Concent 32.7 G/DL (32.0-36.0) Red Cell Distribution Width 15.8 % (11.6-14.8) H Platelet Count 167 K/UL (150-450) Mean Platelet Volume 7.5 FL (6.5-10.1) Neutrophils (%) (Auto) 84.9 % (45.0-75.0) H Lymphocytes (%) (Auto) 8.1 % (20.0-45.0) L Monocytes (%) (Auto) 5.9 % (1.0-10.0) Eosinophils (%) (Auto) 0.5 % (0.0-3.0) Basophils (%) (Auto) 0.6 % (0.0-2.0) Activated Partial Thromboplast Time 27 SEC (23-33) Sodium Level 140 MMOL/L (136-145) Potassium Level 5.7 MMOL/L (3.5-5.1) H Chloride Level 112 MMOL/L (98-107) H Carbon Dioxide Level 18 MMOL/L (21-32) L Anion Gap 10 mmol/L (5-15) Blood Urea Nitrogen 55 mg/dL (7-18) H Creatinine 4.2 MG/DL (0.55-1.30) H Estimat Glomerular Filtration Rate 16.6 mL/min (>60) Glucose Level 88 MG/DL (74-106) Hemoglobin A1c 5.7 % (4.3-6.0) Uric Acid 7.3 MG/DL (2.6-7.2) H Calcium Level 7.4 MG/DL (8.5-10.1) L Phosphorus Level 7.3 MG/DL (2.5-4.9) H Magnesium Level 1.5 MG/DL (1.8-2.4) L Iron Level 37 ug/dL (50-175) L Total Iron Binding Capacity 106 ug/dL (250-450) L Percent Iron Saturation 35 % (15-50) Unsaturated Iron Binding 69 ug/dL (112-346) L Ferritin 496 NG/ML (8-388) H Total Bilirubin 0.1 MG/DL (0.2-1.0) L Gamma Glutamyl Transpeptidase 32 U/L (5-85) Aspartate Amino Transf (AST/SGOT) 49 U/L (15-37) H Alanine Aminotransferase (ALT/SGPT) 112 U/L (12-78) H Alkaline Phosphatase 189 U/L (46-116) H Total Creatine Kinase 287 U/L (26-308) C-Reactive Protein, Quantitative < 0.4 mg/dL (0.00-0.90) Total Protein 3.8 G/DL (6.4-8.2) L Albumin 1.4 G/DL (3.4-5.0) L Globulin 2.4 g/dL Albumin/Globulin Ratio 0.6 (1.0-2.7) L Triglycerides Level 54 MG/DL (30-150) Cholesterol Level 90 MG/DL (< 200) LDL Cholesterol 44 mg/dL (<100) HDL Cholesterol 47 MG/DL (40-60) Cholesterol/HDL Ratio 1.9 (3.3-4.4) L Amylase Level 5 U/L (25-115) L Lipase 21 U/L (73-393) L Vitamin B12 Level 1433 PG/ML (193-986) H Folate 7.0 NG/ML (8.6-58.9) L Thyroid Stimulating Hormone (TSH) 8.524 uiU/mL (0.358-3.740) Hepatitis A IgM Antibody Pending Hepatitis B Surface Antigen Pending Hepatitis B Core IgM Antibody Pending Hepatitis C Antibody Pending Microbiology Date/Time Source Procedure Growth Status 09/09/17 04:00 Stool Stool Culture Pending Resulted 09/09/17 04:00 Stool Clostridium difficile Toxin Assay - Final Resulted Height (Feet): 5 Height (Inches): 10.00 Weight (Pounds): 212 General Appearance: WD/WN, no apparent distress, alert Cardiovascular: normal rate Respiratory/Chest: normal breath sounds, no respiratory distress Abdominal Exam: normal bowel sounds, non tender, soft Extremities: normal range of motion, non-tender Amber Clark N.P. Sep 09, 2017 12:31
[2017-09-09] MEDS: Docusate 100mg cap ORAL SCH ×2 (13:00→18:00)
--- NOTE | 2017-09-09 14:23 | Pulmonology Progress Note ---
Assessment/Plan Problems: (1) Renal failure (ARF), acute on chronic (2) Diabetic nephropathy (3) Diabetes type 1, controlled (4) Abdominal distention (5) Chronic pancreatitis (6) Gastroparesis Assessment/Plan renal w/u pending check electrolytes ABd US might need dialysis Subjective ROS Limited/Unobtainable: No Interval Events: still c/o abd pain Constitutional: Reports: no symptoms HEENT: Repors: no symptoms Allergies: Coded Allergies: METOCLOPRAMIDE (Unverified Allergy, Severe, 09/08/17) PROCHLORPERAZINE (Unverified Allergy, Severe, 09/08/17) VANCOMYCIN (Unverified Allergy, Severe, 09/08/17) Objective Last 24 Hour Vital Signs Date Time Temp Pulse Resp B/P (MAP) Pulse Ox O2 Delivery O2 Flow Rate FiO2 09/09/17 12:00 97.0 72 20 177/108 96 09/09/17 11:11 187/106 09/09/17 08:00 97.0 68 20 188/109 96 09/09/17 08:00 64 09/09/17 04:00 65 09/09/17 04:00 97.9 86 22 158/91 98 Room Air 09/09/17 00:00 97.8 65 16 162/90 97 Room Air 09/09/17 00:00 58 09/08/17 20:00 97.4 62 18 152/87 96 Room Air 09/08/17 20:00 64 09/08/17 16:20 137/72 09/08/17 16:00 61 09/08/17 14:31 62 Intake and Output 09/08/17 09/09/17 19:00 07:00 Intake Total 131.25 ml Balance 131.25 ml Intake Oral 0 ml IV Total 131.25 ml # Voids 2 # Bowel Movements 1 General Appearance: cachetic HEENT: normocephalic, atraumatic Respiratory/Chest: chest wall non-tender, lungs clear Cardiovascular: normal peripheral pulses, regular rhythm Abdomen: normal bowel sounds, soft, non tender Genitourinary: normal external genitalia Extremities: no clubbing Skin: no rash Lymphatic: no neck adenopathy Microbiology Date/Time Source Procedure Growth Status 09/09/17 04:00 Stool Stool Culture Pending Resulted 09/09/17 04:00 Stool Clostridium difficile Toxin Assay - Final Resulted Laboratory Tests 09/09/17 08:10: White Blood Count 8.0, Red Blood Count 3.06L, Hemoglobin 9.2L, Hematocrit 28.3L , Mean Corpuscular Volume 92, Mean Corpuscular Hemoglobin 30.2, Mean Corpuscular Hemoglobin Concent 32.7, Red Cell Distribution Width 15.8H, Platelet Count 167, Mean Platelet Volume 7.5, Neutrophils (%) (Auto) 84.9H, Lymphocytes (%) (Auto) 8.1L, Monocytes (%) (Auto) 5.9, Eosinophils (%) (Auto) 0.5, Basophils (%) (Auto) 0.6, Activated Partial Thromboplast Time 27, Sodium Level 140, Potassium Level 5.7H, Chloride Level 112H, Carbon Dioxide Level 18L, Anion Gap 10, Blood Urea Nitrogen 55H, Creatinine 4.2H, Estimat Glomerular Filtration Rate 16.6, Glucose Level 88, Hemoglobin A1c 5.7, Uric Acid 7.3H, Calcium Level 7.4L, Phosphorus Level 7.3H, Magnesium Level 1.5L, Iron Level 37L , Total Iron Binding Capacity 106L, Percent Iron Saturation 35, Unsaturated Iron Binding 69L, Ferritin 496H, Total Bilirubin 0.1L, Gamma Glutamyl Transpeptidase 32, Aspartate Amino Transf (AST/SGOT) 49H, Alanine Aminotransferase (ALT/SGPT) 112H, Alkaline Phosphatase 189H, Total Creatine Kinase 287, C-Reactive Protein, Quantitative 0.5, Total Protein 3.8L, Albumin 1.4L, Globulin 2.4, Albumin/Globulin Ratio 0.6L, Triglycerides Level 54, Cholesterol Level 90, LDL Cholesterol 44, HDL Cholesterol 47, Cholesterol/HDL Ratio 1.9L, Amylase Level 5L, Lipase 21L, Vitamin B12 Level 1433H, Folate 7.0L, Thyroid Stimulating Hormone (TSH) 8.524H 09/09/17 11:45: Hepatitis A IgM Antibody [Pending], Hepatitis B Surface Antigen [Pending], Hepatitis B Core IgM Antibody [Pending], Hepatitis C Antibody [Pending] Current Medications Medications (Trade) Dose Ordered Sig/Michelle Route PRN Reason Start Time Stop Time Status Last Admin Dose Admin Acetaminophen (Tylenol) 650 mg Q4H PRN ORAL fever 09/08/17 15:45 10/08/17 15:44 Aspirin (ASA) 81 mg DAILY ORAL 09/10/17 09:00 10/10/17 08:59 Dextrose (Dextrose 50%) STAT PRN IV Hypoglycemia 09/08/17 15:45 10/08/17 15:44 Dextrose/Sodium Chloride 1,000 ml @ 50 mls/hr Q20H IV 09/09/17 17:00 10/09/17 16:59 09/08/17 17:00 Diphenhydramine HCl (Benadryl) 25 mg Q6H PRN ORAL Itching/Pruritis 09/08/17 15:45 10/08/17 15:44 Docusate Sodium (Colace) 100 mg THREE TIMES A DAY ORAL 09/09/17 13:00 10/09/17 12:59 Heparin Sodium (Porcine) (Heparin 5000 units/ml) 5,000 units EVERY 12 HOURS SUBQ 09/08/17 21:00 10/08/17 20:59 09/09/17 08:44 Hydralazine HCl (Apresoline) 10 mg Q4H PRN IV sbp more than 160 09/08/17 17:00 10/08/17 16:59 09/09/17 11:11 Levothyroxine Sodium (Synthroid) 25 mcg DAILY@0630 ORAL 09/10/17 06:30 10/10/17 06:29 Lorazepam (Ativan 2mg/ml 1ml) 1 mg EVERY 4 HOURS PRN IV agitation 09/08/17 15:45 09/15/17 15:44 09/08/17 21:55 Morphine Sulfate (Morphine Sulfate) 2 mg Q4H PRN IVP Severe Pain (Pain Scale 7-10) 09/09/17 18:00 09/15/17 21:14 Nitroglycerin (Ntg) 0.4 mg Q5M X 3 DOSES PRN SL Prn Chest Pain 09/08/17 15:45 10/08/17 15:44 Ondansetron HCl (Zofran) 4 mg Q6H PRN IVP Nausea & Vomiting 09/08/17 15:45 10/08/17 15:44 Pantoprazole (Protonix) 40 mg DAILY IV 09/09/17 09:00 10/09/17 08:59 09/09/17 08:42 Polyethylene Glycol (Miralax) 17 gm HSPRN PRN ORAL Constipation 09/08/17 15:45 10/08/17 15:44 Sevelamer Carbonate (Renvela) 1,600 mg THREE TIMES A DAY ORAL 09/09/17 13:00 10/09/17 12:59 09/09/17 13:52 Simethicone (Mylicon) 80 mg QIDPRN PRN ORAL GAS PAIN 09/08/17 17:15 10/08/17 17:14 Sodium Citrate (Bicitra) 30 ml EVERY 6 HOURS ORAL 09/09/17 12:00 10/09/17 11:59 Tamsulosin HCl (Flomax) 0.4 mg BID ORAL 09/08/17 18:00 10/08/17 17:59 09/09/17 08:42 Temazepam (Restoril) 15 mg HSPRN PRN ORAL Insomnia 09/08/17 15:45 09/15/17 15:44 RICARDO POLANCO Sep 09, 2017 14:23
[2017-09-09 16:00] VITALS: BP 189/99
--- NOTE | 2017-09-09 16:21 | Cardiology Report ---
APPROVED REPORT EXAM: Two-dimensional and M-mode echocardiogram with Doppler and color Doppler. INDICATION Congestive Heart Failure M-Mode DIMENSIONS IVSd1.1 (0.7-1.1cm)Left Atrium (MM)4.0 (1.6-4.0cm) LVDd4.7 (3.5-5.6cm)Aortic Root4.2 (2.0-3.7cm) PWd1.4 (0.7-1.1cm)Aortic Cusp Exc.2.2 (1.5-2.0cm) IVSs1.6 cm LVDs3.3 (2.5-4.0cm) PWs1.4 cm Technically difficult study due to pts moving and pt breathing. Normal left ventricular chamber size, systolic function and wall motion to extent visualized. Left ventricular ejection fraction estimated to be 60 %. No evidence of left ventricular hypertrophy. Trace pericardial effusion . Moderate left atrial enlargement. All other cardiac chamber sizes are within normal limits. Focal aortic valve sclerosis with adequate cusp excursion. Thickened mitral valve leaflets with normal excursion. Mild Mitral annulus and aortic root calcification. Pulmonic valve not well visualized. Normal tricuspid valve structure. IVC at normal size with physiologic collapse . A color flow and spectral Doppler study was performed and revealed: No aortic insufficiency . Trace mitral regurgitation. Normal left ventricular diastolic function . Mild tricuspid regurgitation. Tricuspid systolic velocities suggests peak right ventricular systolic pressure of 29 mmHg. No Pulmonic regurgitation present.
--- NOTE | 2017-09-09 16:42 | Cardiology Report ---
APPROVED REPORT EKG Measurement Heart [id number] Normal sinus rhythm Normal ECG
[2017-09-09] MEDS ORDERED: Morphine Sulfate 2mg/ml Inj IVP PRN ×2 (16:45→18:00)
[2017-09-09] MEDS: Morphine Sulfate 2mg/ml Inj IVP PRN ×2 (16:58→19:58)
[2017-09-09] MEDS ORDERED: D5 1/2NS 1,000 ML IV SCH ×2 (17:00→22:30)
[2017-09-09] MEDS ORDERED: guaiFENesin 100mg/5ml Liq ud ORAL PRN (19:00)
--- NOTE | 2017-09-09 19:08 | Internal Med Progress Note ---
Subjective Date of Service: Sep 09, 2017 Physician Name TalbotOzzy Attending Physician Serafin Voss MD Current Medications Medications (Trade) Dose Ordered Sig/Michelle Route PRN Reason Start Time Stop Time Status Last Admin Dose Admin Acetaminophen (Tylenol) 650 mg Q4H PRN ORAL fever 09/08/17 15:45 10/08/17 15:44 Aspirin (ASA) 81 mg DAILY ORAL 09/10/17 09:00 10/10/17 08:59 Dextrose (Dextrose 50%) STAT PRN IV Hypoglycemia 09/08/17 15:45 10/08/17 15:44 Dextrose/Sodium Chloride 1,000 ml @ 50 mls/hr Q20H IV 09/09/17 17:00 10/09/17 16:59 09/08/17 17:00 Diphenhydramine HCl (Benadryl) 25 mg Q6H PRN ORAL Itching/Pruritis 09/08/17 15:45 10/08/17 15:44 Docusate Sodium (Colace) 100 mg THREE TIMES A DAY ORAL 09/09/17 13:00 10/09/17 12:59 Guaifenesin (Robitussin) 200 mg Q6HR PRN ORAL For Cough 09/09/17 19:00 10/09/17 18:59 Heparin Sodium (Porcine) (Heparin 5000 units/ml) 5,000 units EVERY 12 HOURS SUBQ 09/08/17 21:00 10/08/17 20:59 09/09/17 08:44 Hydralazine HCl (Apresoline) 10 mg Q4H PRN IV sbp more than 160 09/08/17 17:00 10/08/17 16:59 09/09/17 17:20 Levothyroxine Sodium (Synthroid) 25 mcg DAILY@0630 ORAL 09/10/17 06:30 10/10/17 06:29 Lorazepam (Ativan 2mg/ml 1ml) 1 mg EVERY 4 HOURS PRN IV agitation 09/08/17 15:45 09/15/17 15:44 09/08/17 21:55 Morphine Sulfate (Morphine Sulfate) 2 mg Q3HR PRN IVP Severe Pain (Pain Scale 7-10) 09/09/17 16:45 09/16/17 16:44 09/09/17 16:58 Nitroglycerin (Ntg) 0.4 mg Q5M X 3 DOSES PRN SL Prn Chest Pain 09/08/17 15:45 10/08/17 15:44 Ondansetron HCl (Zofran) 4 mg Q6H PRN IVP Nausea & Vomiting 09/08/17 15:45 10/08/17 15:44 Pantoprazole (Protonix) 40 mg DAILY IV 09/09/17 09:00 10/09/17 08:59 09/09/17 08:42 Polyethylene Glycol (Miralax) 17 gm HSPRN PRN ORAL Constipation 09/08/17 15:45 10/08/17 15:44 Sevelamer Carbonate (Renvela) 1,600 mg THREE TIMES A DAY ORAL 09/09/17 13:00 10/09/17 12:59 09/09/17 13:52 Simethicone (Mylicon) 80 mg QIDPRN PRN ORAL GAS PAIN 09/08/17 17:15 10/08/17 17:14 Sodium Citrate (Bicitra) 30 ml EVERY 6 HOURS ORAL 09/09/17 12:00 10/09/17 11:59 Tamsulosin HCl (Flomax) 0.4 mg BID ORAL 09/08/17 18:00 10/08/17 17:59 09/09/17 08:42 Temazepam (Restoril) 15 mg HSPRN PRN ORAL Insomnia 09/08/17 15:45 09/15/17 15:44 Allergies: Coded Allergies: METOCLOPRAMIDE (Unverified Allergy, Severe, 09/08/17) PROCHLORPERAZINE (Unverified Allergy, Severe, 09/08/17) VANCOMYCIN (Unverified Allergy, Severe, 09/08/17) ROS Limited/Unobtainable: No Constitutional: Reports: no symptoms HEENT: Reports: no symptoms Cardiovascular: Reports: no symptoms Respiratory: Reports: no symptoms Gastrointestinal/Abdominal: Reports: abdominal pain Genitourinary: Reports: no symptoms Neurologic/Psychiatric: Reports: no symptoms Subjective 32 YO M admitted with abdominal pain. Now renal failure. Cover for Int Med-Dr Voss. Await paracentesis. Objective Last Vital Signs Date Time Temp Pulse Resp B/P (MAP) Pulse Ox O2 Delivery O2 Flow Rate FiO2 09/09/17 17:20 186/99 09/09/17 16:00 96.6 86 20 96 2/9/18 04:00 Room Air General Appearance: WD/WN, alert, mild distress EENT: PERRL/EOMI, normal ENT inspection Neck: non-tender, normal alignment, supple, normal inspection Cardiovascular: normal peripheral pulses, normal rate, regular rhythm, no gallop/murmur, no JVD Respiratory/Chest: chest wall non-tender, lungs clear, normal breath sounds, no respiratory distress, no accessory muscle use Abdomen: no organomegaly, no mass, decreased bowel sounds, distended, guarding , tender Extremities: normal range of motion 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 grossly normal, no motor/sensory deficits Skin: normal pigmentation, warm/dry Laboratory Tests Test 09/09/17 08:10 09/09/17 11:45 White Blood Count 8.0 K/UL (4.8-10.8) Red Blood Count 3.06 M/UL (4.70-6.10) L Hemoglobin 9.2 G/DL (14.2-18.0) L Hematocrit 28.3 % (42.0-52.0) L Mean Corpuscular Volume 92 FL (80-99) Mean Corpuscular Hemoglobin 30.2 PG (27.0-31.0) Mean Corpuscular Hemoglobin Concent 32.7 G/DL (32.0-36.0) Red Cell Distribution Width 15.8 % (11.6-14.8) H Platelet Count 167 K/UL (150-450) Mean Platelet Volume 7.5 FL (6.5-10.1) Neutrophils (%) (Auto) 84.9 % (45.0-75.0) H Lymphocytes (%) (Auto) 8.1 % (20.0-45.0) L Monocytes (%) (Auto) 5.9 % (1.0-10.0) Eosinophils (%) (Auto) 0.5 % (0.0-3.0) Basophils (%) (Auto) 0.6 % (0.0-2.0) Activated Partial Thromboplast Time 27 SEC (23-33) Sodium Level 140 MMOL/L (136-145) Potassium Level 5.7 MMOL/L (3.5-5.1) H Chloride Level 112 MMOL/L (98-107) H Carbon Dioxide Level 18 MMOL/L (21-32) L Anion Gap 10 mmol/L (5-15) Blood Urea Nitrogen 55 mg/dL (7-18) H Creatinine 4.2 MG/DL (0.55-1.30) H Estimat Glomerular Filtration Rate 16.6 mL/min (>60) Glucose Level 88 MG/DL (74-106) Hemoglobin A1c 5.7 % (4.3-6.0) Uric Acid 7.3 MG/DL (2.6-7.2) H Calcium Level 7.4 MG/DL (8.5-10.1) L Phosphorus Level 7.3 MG/DL (2.5-4.9) H Magnesium Level 1.5 MG/DL (1.8-2.4) L Iron Level 37 ug/dL (50-175) L Total Iron Binding Capacity 106 ug/dL (250-450) L Percent Iron Saturation 35 % (15-50) Unsaturated Iron Binding 69 ug/dL (112-346) L Ferritin 496 NG/ML (8-388) H Total Bilirubin 0.1 MG/DL (0.2-1.0) L Gamma Glutamyl Transpeptidase 32 U/L (5-85) Aspartate Amino Transf (AST/SGOT) 49 U/L (15-37) H Alanine Aminotransferase (ALT/SGPT) 112 U/L (12-78) H Alkaline Phosphatase 189 U/L (46-116) H Total Creatine Kinase 287 U/L (26-308) C-Reactive Protein, Quantitative 0.5 mg/dL (0.00-0.90) Total Protein 3.8 G/DL (6.4-8.2) L Albumin 1.4 G/DL (3.4-5.0) L Globulin 2.4 g/dL Albumin/Globulin Ratio 0.6 (1.0-2.7) L Triglycerides Level 54 MG/DL (30-150) Cholesterol Level 90 MG/DL (< 200) LDL Cholesterol 44 mg/dL (<100) HDL Cholesterol 47 MG/DL (40-60) Cholesterol/HDL Ratio 1.9 (3.3-4.4) L Amylase Level 5 U/L (25-115) L Lipase 21 U/L (73-393) L Vitamin B12 Level 1433 PG/ML (193-986) H Folate 7.0 NG/ML (8.6-58.9) L Thyroid Stimulating Hormone (TSH) 8.524 uiU/mL (0.358-3.740) Hepatitis A IgM Antibody Pending Hepatitis B Surface Antigen Pending Hepatitis B Core IgM Antibody Pending Hepatitis C Antibody Pending Microbiology Date/Time Source Procedure Growth Status 09/09/17 04:00 Stool Stool Culture Pending Resulted 09/09/17 04:00 Stool Clostridium difficile Toxin Assay - Final Resulted Intake and Output 09/08/17 09/09/17 19:00 07:00 Intake Total 131.25 ml Balance 131.25 ml Intake Oral 0 ml IV Total 131.25 ml # Voids 2 # Bowel Movements 1 Assessment/Plan Problem List: (1) ESRD (end stage renal disease) Assessment & Plan: See nephrology note. (2) Anemia of renal disease (3) HTN (hypertension) (4) Ascites Assessment & Plan: Await paracentesis. See GI note. (5) Abdominal pain (6) Abdominal distention (7) Diarrhea Assessment & Plan: C. Diff neg; await stool culture (8) Gastroparesis (9) Diabetes type 1, controlled Assessment & Plan: Continue novolog sliding scale. (10) Hypothyroidism Assessment & Plan: Continue levoxyl OZZY TALBOT Sep 09, 2017 19:08
[2017-09-09 20:00] VITALS: BP 179/86
[2017-09-09] MEDS: LORazepam Inj 2mg/ml 1ml IV PRN (21:35)
[2017-09-09] MEDS ORDERED: Nitroglycerin Subl 0.4mg tab SL PRN (22:30)
[2017-09-10] VITALS: BP 171/98
[2017-09-10 04:00] VITALS: BP 185/112
[2017-09-10] MEDS: LORazepam Inj 2mg/ml 1ml IV PRN ×2 (04:15→20:45)
[2017-09-10] MEDS: Sodium Citrate 30ml ORAL SCH ×4 (06:00→23:48)
[2017-09-10] MEDS: Levothyroxine 25mcg tab ORAL SCH (06:15)
[2017-09-10] MEDS ORDERED: Levothyroxine 25mcg tab ORAL SCH (06:30)
[2017-09-10 08:48] VITALS: BP 193/123
[2017-09-10] MEDS: Aspirin Baby 81mg ORAL SCH (08:54)
[2017-09-10] MEDS: Morphine Sulfate 2mg/ml Inj IVP PRN ×4 (08:55→23:15)
[2017-09-10] MEDS: Docusate 100mg cap ORAL SCH ×3 (08:55→17:05)
[2017-09-10] MEDS: Heparin 5000 units/ml inj SUBQ SCH ×2 (09:00→20:45)
[2017-09-10] MEDS ORDERED: Pantoprazole Inj IV SCH (09:00)
[2017-09-10] MEDS ORDERED: Aspirin Baby 81mg ORAL SCH (09:00)
[2017-09-10] MEDS: Tamsulosin 0.4mg cap ORAL SCH ×2 (09:07→18:15)
[2017-09-10] MEDS: guaiFENesin 100mg/5ml Liq ud ORAL PRN (09:13)
[2017-09-10 09:24] LABS: BASOPHILS % (AUTO) 0.5 % (0.0-2.0); EOSINOPHILS % (AUTO) 0.5 % (0.0-3.0); HEMATOCRIT 28.4 % (42.0-52.0); HEMOGLOBIN 9.2 G/DL (14.2-18.0); LYMPHOCYTES % (AUTO) 8.5 % (20.0-45.0); MEAN CORPUSCULAR VOLUME 93 FL (80-99); MONOCYTES % (AUTO) 5.9 % (1.0-10.0); NEUTROPHILS % (AUTO) 84.6 % (45.0-75.0); PLATELET COUNT 175 K/UL (150-450); RED BLOOD COUNT 3.06 M/UL (4.70-6.10); RED CELL DISTRIBUTION WIDTH 15.9 % (11.6-14.8); WHITE BLOOD COUNT 8.9 K/UL (4.8-10.8)
[2017-09-10 10:06] LABS: ALANINE AMINOTRANSFERASE 116 U/L (12-78); ALBUMIN 1.3 G/DL (3.4-5.0); ALBUMIN/GLOBULIN RATIO 0.4 (1.0-2.7); ALKALINE PHOSPHATASE 198 U/L (46-116); ANION GAP 9 mmol/L (5-15); ASPARTATE AMINO TRANSFERASE 75 U/L (15-37); BILIRUBIN,TOTAL 0.1 MG/DL (0.2-1.0); BLOOD UREA NITROGEN 55 mg/dL (7-18); CALCIUM 7.5 MG/DL (8.5-10.1); CARBON DIOXIDE 18 MMOL/L (21-32); CHLORIDE 110 MMOL/L (98-107); CREATININE 4.3 MG/DL (0.55-1.30); POTASSIUM 5.9 MMOL/L (3.5-5.1); SODIUM 138 MMOL/L (136-145)
--- NOTE | 2017-09-10 11:13 | Nephrology Progress Note ---
Assessment/Plan Problem List: (1) Renal failure (ARF), acute on chronic (2) Diabetic nephropathy (3) HTN (hypertension) Assessment: hypertensive kidney disease Assessment Advanced renal failure due to Type I DM DIabetic Nephropathy- Most likely NS -. Bilateral upper quadrant pain. -. Diarrhea. -. Diabetic gastroparesis. -. Diabetes type 1. -. Hypertension. -. Anemia. due to CKD -. HypoThyroid Plan Plan: Kayexelate- Add Norvasc and Clonidin to BP meds- DC ARBs for high K Per GI 24 h urine collection pending Phos supplements Monitor renal parameters , BS and BP Avoid nephrotoxics 2D Echo : Left ventricular ejection fraction estimated to be 60 %. No evidence of left ventricular hypertrophy. Trace pericardial effusion . Moderate left atrial enlargement. need to entertain dialysis - discussed OCTAVIO: Left kidney measures 11.8 cm in length. Right kidney measures 9.6 cm length. Kidneys demonstrate diffusely increased echogenicity. No hydronephrosis. there is a small left lower pole renal cyst Subjective ROS Limited/Unobtainable: No Constitutional: Reports: malaise Objective Objective Last 24 Hour Vital Signs Date Time Temp Pulse Resp B/P (MAP) Pulse Ox O2 Delivery O2 Flow Rate FiO2 09/10/17 10:33 193/123 09/10/17 09:25 98.6 09/10/17 09:07 193/123 09/10/17 08:55 85 193/123 09/10/17 08:48 98.6 85 20 193/123 91 09/10/17 04:00 98.2 78 20 185/112 91 Room Air 09/10/17 00:00 98.2 71 18 171/98 91 Room Air 09/09/17 20:00 97.7 80 22 179/86 95 09/09/17 17:20 186/99 09/09/17 16:00 96.6 86 20 189/99 96 09/09/17 12:00 83 09/09/17 12:00 97.0 72 20 177/108 96 09/09/17 11:11 187/106 Intake and Output 09/09/17 09/10/17 19:00 07:00 Intake Total 550 ml 150 ml Output Total 650 ml Balance -100 ml 150 ml Intake Oral 500 ml IV Total 50 ml 150 ml Output Urine Total 650 ml # Voids 1 # Bowel Movements 2 Laboratory Tests 09/09/17 11:45: Hepatitis A IgM Antibody [Pending], Hepatitis B Surface Antigen [Pending], Hepatitis B Core IgM Antibody [Pending], Hepatitis C Antibody [Pending] 09/09/17 22:00: Urine Opiates Screen PositiveH, Urine Barbiturates Screen Negative, Phencyclidine (PCP) Screen Negative, Urine Amphetamines Screen Negative, Urine Benzodiazepines Screen Negative, Urine Cocaine Screen Negative, Urine Marijuana (THC) Screen Negative 09/10/17 06:40: White Blood Count 8.9, Red Blood Count 3.06L, Hemoglobin 9.2L, Hematocrit 28.4L , Mean Corpuscular Volume 93, Mean Corpuscular Hemoglobin 30.1, Mean Corpuscular Hemoglobin Concent 32.5, Red Cell Distribution Width 15.9H, Platelet Count 175, Mean Platelet Volume 7.8, Neutrophils (%) (Auto) 84.6H, Lymphocytes (%) (Auto) 8.5L, Monocytes (%) (Auto) 5.9, Eosinophils (%) (Auto) 0.5, Basophils (%) (Auto) 0.5, Sodium Level 138, Potassium Level 5.9H, Chloride Level 110H, Carbon Dioxide Level 18L, Anion Gap 9, Blood Urea Nitrogen 55H, Creatinine 4.3H, Estimat Glomerular Filtration Rate 16.2, Glucose Level 74, Uric Acid 7.2, Calcium Level 7.5L, Phosphorus Level 7.0H, Magnesium Level 1.5L, Total Bilirubin 0.1L, Aspartate Amino Transf (AST/SGOT) 75H, Alanine Aminotransferase (ALT/SGPT) 116H, Alkaline Phosphatase 198H, Pro-B-Type Natriuretic Peptide 17500F, Total Protein 4.2L, Albumin 1.3L, Globulin 2.9, Albumin/Globulin Ratio 0.4L, Free Thyroxine 0.80 Height (Feet): 5 Height (Inches): 10.00 Weight (Pounds): 206 General Appearance: no apparent distress Cardiovascular: regular rhythm Respiratory/Chest: decreased breath sounds Abdomen: soft LEXIS PRESTON Sep 10, 2017 11:13
[2017-09-10] MEDS ORDERED: Sodium Polystyrene Sulfonate 15gm Powder ORAL ONE (11:30)
[2017-09-10 11:57] VITALS: BP 196/122
--- NOTE | 2017-09-10 12:39 | Pulmonology Progress Note ---
Assessment/Plan Problems: (1) Renal failure (ARF), acute on chronic (2) Diabetic nephropathy (3) Diabetes type 1, controlled (4) Abdominal distention (5) Chronic pancreatitis (6) Gastroparesis Assessment/Plan renal w/u pending check electrolytes ABd US might need dialysis pt thinking about HD now, not decided Subjective ROS Limited/Unobtainable: No Constitutional: Reports: no symptoms HEENT: Repors: no symptoms Allergies: Coded Allergies: METOCLOPRAMIDE (Unverified Allergy, Severe, 09/08/17) PROCHLORPERAZINE (Unverified Allergy, Severe, 09/08/17) VANCOMYCIN (Unverified Allergy, Severe, 09/08/17) Objective Last 24 Hour Vital Signs Date Time Temp Pulse Resp B/P (MAP) Pulse Ox O2 Delivery O2 Flow Rate FiO2 09/10/17 12:06 74 196/122 09/10/17 12:06 196/122 09/10/17 11:57 98.4 74 20 196/122 92 09/10/17 10:33 193/123 09/10/17 09:25 98.6 09/10/17 09:07 193/123 09/10/17 08:55 85 193/123 09/10/17 08:48 98.6 85 20 193/123 91 09/10/17 04:00 98.2 78 20 185/112 91 Room Air 09/10/17 00:00 98.2 71 18 171/98 91 Room Air 09/09/17 20:00 97.7 80 22 179/86 95 09/09/17 17:20 186/99 09/09/17 16:00 96.6 86 20 189/99 96 Intake and Output 09/09/17 09/10/17 19:00 07:00 Intake Total 550 ml 150 ml Output Total 650 ml Balance -100 ml 150 ml Intake Oral 500 ml IV Total 50 ml 150 ml Output Urine Total 650 ml # Voids 1 # Bowel Movements 2 General Appearance: WD/WN HEENT: normocephalic, atraumatic Respiratory/Chest: chest wall non-tender, lungs clear Cardiovascular: normal peripheral pulses, normal rate Abdomen: normal bowel sounds, soft, non tender Genitourinary: normal external genitalia 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 Complete 09/09/17 04:00 Stool Stool Culture Pending Resulted 09/09/17 04:00 Stool Clostridium difficile Toxin Assay - Final Resulted 09/08/17 13:00 Rectum VRE Culture - Final NO VANCOMYCIN RESISTANT ENTEROCOCCUS ... Complete Laboratory Tests 09/09/17 22:00: Urine Opiates Screen PositiveH, Urine Barbiturates Screen Negative, Phencyclidine (PCP) Screen Negative, Urine Amphetamines Screen Negative, Urine Benzodiazepines Screen Negative, Urine Cocaine Screen Negative, Urine Marijuana (THC) Screen Negative 09/10/17 06:40: White Blood Count 8.9, Red Blood Count 3.06L, Hemoglobin 9.2L, Hematocrit 28.4L , Mean Corpuscular Volume 93, Mean Corpuscular Hemoglobin 30.1, Mean Corpuscular Hemoglobin Concent 32.5, Red Cell Distribution Width 15.9H, Platelet Count 175, Mean Platelet Volume 7.8, Neutrophils (%) (Auto) 84.6H, Lymphocytes (%) (Auto) 8.5L, Monocytes (%) (Auto) 5.9, Eosinophils (%) (Auto) 0.5, Basophils (%) (Auto) 0.5, Sodium Level 138, Potassium Level 5.9H, Chloride Level 110H, Carbon Dioxide Level 18L, Anion Gap 9, Blood Urea Nitrogen 55H, Creatinine 4.3H, Estimat Glomerular Filtration Rate 16.2, Glucose Level 74, Uric Acid 7.2, Calcium Level 7.5L, Phosphorus Level 7.0H, Magnesium Level 1.5L, Total Bilirubin 0.1L, Aspartate Amino Transf (AST/SGOT) 75H, Alanine Aminotransferase (ALT/SGPT) 116H, Alkaline Phosphatase 198H, Pro-B-Type Natriuretic Peptide 93626D, Total Protein 4.2L, Albumin 1.3L, Globulin 2.9, Albumin/Globulin Ratio 0.4L, Free Thyroxine 0.80 Current Medications Medications (Trade) Dose Ordered Sig/Michelle Route PRN Reason Start Time Stop Time Status Last Admin Dose Admin Acetaminophen (Tylenol) 650 mg Q4H PRN ORAL fever 09/09/17 23:45 10/08/17 15:44 Amlodipine Besylate (Norvasc) 10 mg DAILY ORAL 09/11/17 09:00 10/11/17 08:59 Aspirin (ASA) 81 mg DAILY ORAL 09/10/17 09:00 10/10/17 08:59 09/10/17 08:54 Carvedilol (Coreg) 3.125 mg EVERY 12 HOURS ORAL 09/10/17 09:00 10/10/17 08:59 09/10/17 08:55 Clonidine HCl (Catapres Tab) 0.1 mg EVERY 8 HOURS ORAL 09/10/17 14:00 10/10/17 13:59 Clonidine HCl (Catapres Tab) 0.1 mg Q6H PRN ORAL SYSTOLIC BP > 160 09/10/17 08:30 10/10/17 08:29 09/10/17 09:07 Dextrose (Dextrose 50%) STAT PRN IV Hypoglycemia 09/10/17 15:45 10/08/17 15:44 Diphenhydramine HCl (Benadryl) 25 mg Q6H PRN ORAL Itching/Pruritis 09/10/17 03:45 10/08/17 15:44 Docusate Sodium (Colace) 100 mg THREE TIMES A DAY ORAL 09/10/17 09:00 10/09/17 12:59 09/10/17 08:55 Guaifenesin (Robitussin) 200 mg Q6HR PRN ORAL For Cough 09/10/17 00:00 10/09/17 18:59 09/10/17 09:13 Heparin Sodium (Porcine) (Heparin 5000 units/ml) 5,000 units EVERY 12 HOURS SUBQ 09/10/17 09:00 10/08/17 20:59 Lansoprazole (Prevacid) 30 mg DAILY ORAL 09/11/17 09:00 10/11/17 08:59 Levothyroxine Sodium (Synthroid) 25 mcg DAILY@0630 ORAL 09/10/17 06:30 10/10/17 06:29 Lorazepam (Ativan 2mg/ml 1ml) 1 mg EVERY 4 HOURS PRN IV agitation 09/10/17 01:00 09/15/17 15:44 09/10/17 04:15 Magnesium Sulfate 100 ml @ 100 mls/hr Q1H IVPB 09/10/17 12:00 09/10/17 13:59 Morphine Sulfate (Morphine Sulfate) 2 mg Q3HR PRN IVP Severe Pain (Pain Scale 7-10) 09/10/17 00:00 09/16/17 16:44 09/10/17 08:55 Nitroglycerin (Ntg) 0.4 mg Q5M X 3 DOSES PRN SL Prn Chest Pain 09/09/17 22:30 10/08/17 15:44 Ondansetron HCl (Zofran) 4 mg Q6H PRN IVP Nausea & Vomiting 09/10/17 03:45 10/08/17 15:44 Polyethylene Glycol (Miralax) 17 gm HSPRN PRN ORAL Constipation 09/10/17 15:45 10/08/17 15:44 Sevelamer Carbonate (Renvela) 1,600 mg THREE TIMES A DAY ORAL 09/10/17 09:00 10/09/17 12:59 09/10/17 08:54 Simethicone (Mylicon) 80 mg QIDPRN PRN ORAL GAS PAIN 09/10/17 17:15 10/08/17 17:14 Sodium Citrate (Bicitra) 30 ml EVERY 6 HOURS ORAL 09/10/17 00:00 10/09/17 11:59 Tamsulosin HCl (Flomax) 0.4 mg BID ORAL 09/10/17 09:00 10/08/17 17:59 09/10/17 09:07 Temazepam (Restoril) 15 mg HSPRN PRN ORAL Insomnia 09/10/17 15:45 09/15/17 15:44 RICARDO POLANCO Sep 10, 2017 12:39
[2017-09-10] MEDS ORDERED: Miralax 17gm pkt ORAL PRN (15:45)
[2017-09-10 16:15] VITALS: BP 160/56
--- NOTE | 2017-09-10 16:23 | Internal Med Progress Note ---
Subjective Date of Service: Sep 10, 2017 Physician Name TalbotOzzy Attending Physician Serafin Voss MD Current Medications Medications (Trade) Dose Ordered Sig/Michelle Route PRN Reason Start Time Stop Time Status Last Admin Dose Admin Acetaminophen (Tylenol) 650 mg Q4H PRN ORAL fever 09/09/17 23:45 10/08/17 15:44 Amlodipine Besylate (Norvasc) 10 mg DAILY ORAL 09/11/17 09:00 10/11/17 08:59 Aspirin (ASA) 81 mg DAILY ORAL 09/10/17 09:00 10/10/17 08:59 09/10/17 08:54 Carvedilol (Coreg) 3.125 mg EVERY 12 HOURS ORAL 09/10/17 09:00 10/10/17 08:59 09/10/17 08:55 Clonidine HCl (Catapres Tab) 0.1 mg EVERY 8 HOURS ORAL 09/10/17 14:00 10/10/17 13:59 09/10/17 14:30 Clonidine HCl (Catapres Tab) 0.1 mg Q6H PRN ORAL SYSTOLIC BP > 160 09/10/17 08:30 10/10/17 08:29 09/10/17 09:07 Dextrose (Dextrose 50%) STAT PRN IV Hypoglycemia 09/10/17 15:45 10/08/17 15:44 Diphenhydramine HCl (Benadryl) 25 mg Q6H PRN ORAL Itching/Pruritis 09/10/17 03:45 10/08/17 15:44 Docusate Sodium (Colace) 100 mg THREE TIMES A DAY ORAL 09/10/17 09:00 10/09/17 12:59 09/10/17 08:55 Guaifenesin (Robitussin) 200 mg Q6HR PRN ORAL For Cough 09/10/17 00:00 10/09/17 18:59 09/10/17 09:13 Heparin Sodium (Porcine) (Heparin 5000 units/ml) 5,000 units EVERY 12 HOURS SUBQ 09/10/17 09:00 10/08/17 20:59 Lansoprazole (Prevacid) 30 mg DAILY ORAL 09/11/17 09:00 10/11/17 08:59 Levothyroxine Sodium (Synthroid) 25 mcg DAILY@0630 ORAL 09/10/17 06:30 10/10/17 06:29 Lorazepam (Ativan 2mg/ml 1ml) 1 mg EVERY 4 HOURS PRN IV agitation 09/10/17 01:00 09/15/17 15:44 09/10/17 04:15 Morphine Sulfate (Morphine Sulfate) 2 mg Q3HR PRN IVP Severe Pain (Pain Scale 7-10) 09/10/17 00:00 09/16/17 16:44 09/10/17 15:16 Nitroglycerin (Ntg) 0.4 mg Q5M X 3 DOSES PRN SL Prn Chest Pain 09/09/17 22:30 10/08/17 15:44 Ondansetron HCl (Zofran) 4 mg Q6H PRN IVP Nausea & Vomiting 09/10/17 03:45 10/08/17 15:44 Polyethylene Glycol (Miralax) 17 gm HSPRN PRN ORAL Constipation 09/10/17 15:45 10/08/17 15:44 Sevelamer Carbonate (Renvela) 1,600 mg THREE TIMES A DAY ORAL 09/10/17 09:00 10/09/17 12:59 09/10/17 13:10 Simethicone (Mylicon) 80 mg QIDPRN PRN ORAL GAS PAIN 09/10/17 17:15 10/08/17 17:14 Sodium Citrate (Bicitra) 30 ml EVERY 6 HOURS ORAL 09/10/17 00:00 10/09/17 11:59 09/10/17 13:10 Tamsulosin HCl (Flomax) 0.4 mg BID ORAL 09/10/17 09:00 10/08/17 17:59 09/10/17 09:07 Temazepam (Restoril) 15 mg HSPRN PRN ORAL Insomnia 09/10/17 15:45 09/15/17 15:44 Allergies: Coded Allergies: METOCLOPRAMIDE (Unverified Allergy, Severe, 09/08/17) PROCHLORPERAZINE (Unverified Allergy, Severe, 09/08/17) VANCOMYCIN (Unverified Allergy, Severe, 09/08/17) ROS Limited/Unobtainable: No Constitutional: Reports: no symptoms HEENT: Reports: no symptoms Cardiovascular: Reports: no symptoms Respiratory: Reports: no symptoms Gastrointestinal/Abdominal: Reports: abdominal pain Genitourinary: Reports: no symptoms Neurologic/Psychiatric: Reports: no symptoms Subjective 32 YO M admitted with abdominal pain. Now renal failure. Cover for Int Med-Dr Voss. Await paracentesis. Objective Last Vital Signs Date Time Temp Pulse Resp B/P (MAP) Pulse Ox O2 Delivery O2 Flow Rate FiO2 09/10/17 15:46 98.4 09/10/17 14:30 163/92 09/10/17 12:06 74 09/10/17 11:57 20 92 09/10/17 04:00 Room Air Laboratory Tests Test 09/09/17 22:00 09/10/17 06:40 Urine Opiates Screen Positive (NEGATIVE) H Urine Barbiturates Screen Negative (NEGATIVE) Phencyclidine (PCP) Screen Negative (NEGATIVE) Urine Amphetamines Screen Negative (NEGATIVE) Urine Benzodiazepines Screen Negative (NEGATIVE) Urine Cocaine Screen Negative (NEGATIVE) Urine Marijuana (THC) Screen Negative (NEGATIVE) White Blood Count 8.9 K/UL (4.8-10.8) Red Blood Count 3.06 M/UL (4.70-6.10) L Hemoglobin 9.2 G/DL (14.2-18.0) L Hematocrit 28.4 % (42.0-52.0) L Mean Corpuscular Volume 93 FL (80-99) Mean Corpuscular Hemoglobin 30.1 PG (27.0-31.0) Mean Corpuscular Hemoglobin Concent 32.5 G/DL (32.0-36.0) Red Cell Distribution Width 15.9 % (11.6-14.8) H Platelet Count 175 K/UL (150-450) Mean Platelet Volume 7.8 FL (6.5-10.1) Neutrophils (%) (Auto) 84.6 % (45.0-75.0) H Lymphocytes (%) (Auto) 8.5 % (20.0-45.0) L Monocytes (%) (Auto) 5.9 % (1.0-10.0) Eosinophils (%) (Auto) 0.5 % (0.0-3.0) Basophils (%) (Auto) 0.5 % (0.0-2.0) Sodium Level 138 MMOL/L (136-145) Potassium Level 5.9 MMOL/L (3.5-5.1) H Chloride Level 110 MMOL/L (98-107) H Carbon Dioxide Level 18 MMOL/L (21-32) L Anion Gap 9 mmol/L (5-15) Blood Urea Nitrogen 55 mg/dL (7-18) H Creatinine 4.3 MG/DL (0.55-1.30) H Estimat Glomerular Filtration Rate 16.2 mL/min (>60) Glucose Level 74 MG/DL (74-106) Uric Acid 7.2 MG/DL (2.6-7.2) Calcium Level 7.5 MG/DL (8.5-10.1) L Phosphorus Level 7.0 MG/DL (2.5-4.9) H Magnesium Level 1.5 MG/DL (1.8-2.4) L Total Bilirubin 0.1 MG/DL (0.2-1.0) L Aspartate Amino Transf (AST/SGOT) 75 U/L (15-37) H Alanine Aminotransferase (ALT/SGPT) 116 U/L (12-78) H Alkaline Phosphatase 198 U/L (46-116) H Pro-B-Type Natriuretic Peptide 26045 pg/mL (0-125) H Total Protein 4.2 G/DL (6.4-8.2) L Albumin 1.3 G/DL (3.4-5.0) L Globulin 2.9 g/dL Albumin/Globulin Ratio 0.4 (1.0-2.7) L Free Thyroxine 0.80 NG/DL (0.76-1.46) Microbiology Date/Time Source Procedure Growth Status 09/08/17 10:55 Blood Blood Culture - Preliminary NO GROWTH AFTER 24 HOURS Resulted 09/08/17 10:55 Blood Blood Culture - Preliminary NO GROWTH AFTER 24 HOURS Resulted 09/08/17 13:00 Nasal Nares MRSA Culture - Final NO METHICILLIN RESISTANT STAPH AUREUS... Complete 09/09/17 04:00 Stool Stool Culture Pending Resulted 09/09/17 04:00 Stool Clostridium difficile Toxin Assay - Final Resulted 09/08/17 13:00 Rectum VRE Culture - Final NO VANCOMYCIN RESISTANT ENTEROCOCCUS ... Complete Intake and Output 09/09/17 09/10/17 19:00 07:00 Intake Total 550 ml 150 ml Output Total 650 ml Balance -100 ml 150 ml Intake Oral 500 ml IV Total 50 ml 150 ml Output Urine Total 650 ml # Voids 1 # Bowel Movements 2 Objective General Appearance: WD/WN, alert, mild distress EENT: PERRL/EOMI, normal ENT inspection Neck: non-tender, normal alignment, supple, normal inspection Cardiovascular: normal peripheral pulses, normal rate, regular rhythm, no gallop/murmur, no JVD Respiratory/Chest: chest wall non-tender, lungs clear, normal breath sounds, no respiratory distress, no accessory muscle use Abdomen: no organomegaly, no mass, decreased bowel sounds, distended, guarding , tender Extremities: normal range of motion 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 (2) Anemia of renal disease (3) HTN (hypertension) Assessment & Plan: Uncontrolled. Await cardiology consult. Cont coreg and norvasc. (4) Ascites Assessment & Plan: Await paracentesis. See GI note. (5) Abdominal pain (6) Abdominal distention (7) Diarrhea Assessment & Plan: C. Diff neg; await stool culture (8) Gastroparesis (9) Diabetes type 1, controlled Assessment & Plan: Continue novolog sliding scale. (10) Hypothyroidism Assessment & Plan: Continue levoxyl Status: not improved OZZY TALBOT Sep 10, 2017 16:23
[2017-09-10] MEDS ORDERED: Simethicone 80mg tab ORAL PRN (17:15)
--- NOTE | 2017-09-10 17:37 | Cardiac Electrophysiology PN ---
Subjective Subjective [id number] Objective Last 24 Hour Vital Signs Date Time Temp Pulse Resp B/P (MAP) Pulse Ox O2 Delivery O2 Flow Rate FiO2 09/10/17 16:15 97.9 90 21 160/56 100 Room Air 09/10/17 15:46 98.4 09/10/17 14:30 163/92 09/10/17 12:06 74 196/122 09/10/17 12:06 196/122 09/10/17 11:57 98.4 74 20 196/122 92 09/10/17 10:33 193/123 09/10/17 09:07 193/123 09/10/17 08:55 85 193/123 09/10/17 08:48 98.6 85 20 193/123 91 09/10/17 04:00 98.2 78 20 185/112 91 Room Air 09/10/17 00:00 98.2 71 18 171/98 91 Room Air 09/09/17 20:00 97.7 80 22 179/86 95 Intake and Output 09/09/17 09/10/17 19:00 07:00 Intake Total 550 ml 150 ml Output Total 650 ml Balance -100 ml 150 ml Intake Oral 500 ml IV Total 50 ml 150 ml Output Urine Total 650 ml # Voids 1 # Bowel Movements 2 Laboratory Tests Test 09/09/17 22:00 09/10/17 06:40 Urine Opiates Screen Positive (NEGATIVE) H Urine Barbiturates Screen Negative (NEGATIVE) Phencyclidine (PCP) Screen Negative (NEGATIVE) Urine Amphetamines Screen Negative (NEGATIVE) Urine Benzodiazepines Screen Negative (NEGATIVE) Urine Cocaine Screen Negative (NEGATIVE) Urine Marijuana (THC) Screen Negative (NEGATIVE) White Blood Count 8.9 K/UL (4.8-10.8) Red Blood Count 3.06 M/UL (4.70-6.10) L Hemoglobin 9.2 G/DL (14.2-18.0) L Hematocrit 28.4 % (42.0-52.0) L Mean Corpuscular Volume 93 FL (80-99) Mean Corpuscular Hemoglobin 30.1 PG (27.0-31.0) Mean Corpuscular Hemoglobin Concent 32.5 G/DL (32.0-36.0) Red Cell Distribution Width 15.9 % (11.6-14.8) H Platelet Count 175 K/UL (150-450) Mean Platelet Volume 7.8 FL (6.5-10.1) Neutrophils (%) (Auto) 84.6 % (45.0-75.0) H Lymphocytes (%) (Auto) 8.5 % (20.0-45.0) L Monocytes (%) (Auto) 5.9 % (1.0-10.0) Eosinophils (%) (Auto) 0.5 % (0.0-3.0) Basophils (%) (Auto) 0.5 % (0.0-2.0) Sodium Level 138 MMOL/L (136-145) Potassium Level 5.9 MMOL/L (3.5-5.1) H Chloride Level 110 MMOL/L (98-107) H Carbon Dioxide Level 18 MMOL/L (21-32) L Anion Gap 9 mmol/L (5-15) Blood Urea Nitrogen 55 mg/dL (7-18) H Creatinine 4.3 MG/DL (0.55-1.30) H Estimat Glomerular Filtration Rate 16.2 mL/min (>60) Glucose Level 74 MG/DL (74-106) Uric Acid 7.2 MG/DL (2.6-7.2) Calcium Level 7.5 MG/DL (8.5-10.1) L Phosphorus Level 7.0 MG/DL (2.5-4.9) H Magnesium Level 1.5 MG/DL (1.8-2.4) L Total Bilirubin 0.1 MG/DL (0.2-1.0) L Aspartate Amino Transf (AST/SGOT) 75 U/L (15-37) H Alanine Aminotransferase (ALT/SGPT) 116 U/L (12-78) H Alkaline Phosphatase 198 U/L (46-116) H Pro-B-Type Natriuretic Peptide 75154 pg/mL (0-125) H Total Protein 4.2 G/DL (6.4-8.2) L Albumin 1.3 G/DL (3.4-5.0) L Globulin 2.9 g/dL Albumin/Globulin Ratio 0.4 (1.0-2.7) L Free Thyroxine 0.80 NG/DL (0.76-1.46) Microbiology Date/Time Source Procedure Growth Status 09/08/17 10:55 Blood Blood Culture - Preliminary NO GROWTH AFTER 24 HOURS Resulted 09/08/17 10:55 Blood Blood Culture - Preliminary NO GROWTH AFTER 24 HOURS Resulted 09/08/17 13:00 Nasal Nares MRSA Culture - Final NO METHICILLIN RESISTANT STAPH AUREUS... Complete 09/09/17 04:00 Stool Stool Culture Pending Resulted 09/09/17 04:00 Stool Clostridium difficile Toxin Assay - Final Resulted 09/08/17 13:00 Rectum VRE Culture - Final NO VANCOMYCIN RESISTANT ENTEROCOCCUS ... Complete MONICA DANGELO Sep 10, 2017 17:37
--- NOTE | 2017-09-10 18:06 | General Progress Note ---
Assessment/Plan Assessment/Plan Assessment (1) Renal failure (ARF), acute on chronic ICD Codes: N17.9 - Acute kidney failure, unspecified; N18.9 - Chronic kidney disease, unspecified SNOMED: 862345202 (2) Diarrhea ICD Codes: R19.7 - Diarrhea, unspecified SNOMED: 98096211 (3) Vomiting ICD Codes: R11.10 - Vomiting, unspecified SNOMED: 970793729 (4) Diabetes type 1, controlled ICD Codes: E10.9 - Type 1 diabetes mellitus without complications SNOMED: 13566222, 234679146 (5) Gastroparesis ICD Codes: K31.84 - Gastroparesis SNOMED: 946712953 (6) Chronic pancreatitis ICD Codes: K86.1 - Other chronic pancreatitis SNOMED: 180709215 (7) Anemia ICD Codes: D64.9 - Anemia, unspecified SNOMED: 536389487 Status: unchanged Assessment/Plan abdominal U/S reviewed, see full report. >> ascites. bilateral pleural effusion fu nephro recs renal diet DM mgmt anemia work up >> most likely 2/2 to renal disease pain mgmt ppi simethicone prn abdominal paracentesis >> r/o SBP fu labs, hepatitis panel, free T4 Subjective Allergies: Coded Allergies: METOCLOPRAMIDE (Unverified Allergy, Severe, 09/08/17) PROCHLORPERAZINE (Unverified Allergy, Severe, 09/08/17) VANCOMYCIN (Unverified Allergy, Severe, 09/08/17) Subjective Feels ok ate well (+) diarrhea x 2 no N/V Objective Last 24 Hour Vital Signs Date Time Temp Pulse Resp B/P (MAP) Pulse Ox O2 Delivery O2 Flow Rate FiO2 09/10/17 16:15 97.9 90 21 160/56 100 Room Air 09/10/17 15:46 98.4 09/10/17 14:30 163/92 09/10/17 12:06 74 196/122 09/10/17 12:06 196/122 09/10/17 11:57 98.4 74 20 196/122 92 09/10/17 10:33 193/123 09/10/17 09:07 193/123 09/10/17 08:55 85 193/123 09/10/17 08:48 98.6 85 20 193/123 91 09/10/17 04:00 98.2 78 20 185/112 91 Room Air 09/10/17 00:00 98.2 71 18 171/98 91 Room Air 09/09/17 20:00 97.7 80 22 179/86 95 Intake and Output 09/09/17 09/10/17 19:00 07:00 Intake Total 550 ml 150 ml Output Total 650 ml Balance -100 ml 150 ml Intake Oral 500 ml IV Total 50 ml 150 ml Output Urine Total 650 ml # Voids 1 # Bowel Movements 2 Laboratory Tests 09/09/17 22:00: Urine Opiates Screen PositiveH, Urine Barbiturates Screen Negative, Phencyclidine (PCP) Screen Negative, Urine Amphetamines Screen Negative, Urine Benzodiazepines Screen Negative, Urine Cocaine Screen Negative, Urine Marijuana (THC) Screen Negative 09/10/17 06:40: White Blood Count 8.9, Red Blood Count 3.06L, Hemoglobin 9.2L, Hematocrit 28.4L , Mean Corpuscular Volume 93, Mean Corpuscular Hemoglobin 30.1, Mean Corpuscular Hemoglobin Concent 32.5, Red Cell Distribution Width 15.9H, Platelet Count 175, Mean Platelet Volume 7.8, Neutrophils (%) (Auto) 84.6H, Lymphocytes (%) (Auto) 8.5L, Monocytes (%) (Auto) 5.9, Eosinophils (%) (Auto) 0.5, Basophils (%) (Auto) 0.5, Sodium Level 138, Potassium Level 5.9H, Chloride Level 110H, Carbon Dioxide Level 18L, Anion Gap 9, Blood Urea Nitrogen 55H, Creatinine 4.3H, Estimat Glomerular Filtration Rate 16.2, Glucose Level 74, Uric Acid 7.2, Calcium Level 7.5L, Phosphorus Level 7.0H, Magnesium Level 1.5L, Total Bilirubin 0.1L, Aspartate Amino Transf (AST/SGOT) 75H, Alanine Aminotransferase (ALT/SGPT) 116H, Alkaline Phosphatase 198H, Pro-B-Type Natriuretic Peptide 51560D, Total Protein 4.2L, Albumin 1.3L, Globulin 2.9, Albumin/Globulin Ratio 0.4L, Free Thyroxine 0.80 Height (Feet): 5 Height (Inches): 10.00 Weight (Pounds): 206 Objective WDWN man NCAT supple CTA RRR soft ND, (+) LUQ TTP no edema JUDIT BRICE Sep 10, 2017 18:06
[2017-09-10 20:00] VITALS: BP 182/109
[2017-09-10] MEDS: Carvedilol 12.5mg tab ORAL SCH (20:45)
[2017-09-10] MEDS: guaiFENesin w/Codeine 5ml Liq ud ORAL PRN (22:37)
--- NOTE | 2017-09-10 23:15 | Consultation ---
DATE OF CONSULTATION: 09/10/2017 CARDIOLOGY CONSULTATION CONSULTING PHYSICIAN: Aly Acharya M.D. REFERRING PHYSICIAN: Serafin Voss M.D. REASON FOR CONSULTATION: Accelerated hypertension. HISTORY OF PRESENT ILLNESS: The patient is a 32-year-old gentleman with history of insulin-dependent diabetes and hypertension, who was admitted to the emergency room with abdominal pain. No nausea or vomiting. The patient apparently was recently discharged from [facility], has history of renal insufficiency. The patient did not have any chest pain or shortness of breath. The patient was admitted and blood pressure was as high as almost 200. A Cardiology consultation was requested for further evaluation and management. PAST MEDICAL HISTORY: 1. Hypertension. 2. Diabetes. 3. Chronic kidney disease. 4. Gastroparesis. FAMILY HISTORY: Noncontributory. REVIEW OF SYSTEMS: Review of systems was performed and was negative other than what was mentioned in the history of present illness. PHYSICAL EXAMINATION: VITAL SIGNS: Blood pressure is 196/122, pulse 90, respirations 20, and temperature 97.9. HEAD AND NECK: Showed no JVD. LUNGS: Clear. CARDIOVASCULAR: Shows regular S1 and S2. No gallop or murmur. ABDOMEN: Soft. EXTREMITIES: No pitting edema. LABORATORY DATA: White count of 8.9, hemoglobin 9.2, hematocrit 28.4, and platelet count was 175. Sodium 138, potassium 5.9, BUN of 55, creatinine 4.3. PTT is 27. Urine toxicology is positive for opiates. ASSESSMENT AND PLAN: 1. Accelerated hypertension. He is on Norvasc 10 mg daily and clonidine 0.1 mg every eight hours. I will increase clonidine to 0.2 mg every eight hours and increase the Coreg to 6.25 mg. Avoid ALEJANDRO inhibitor and angiotensin receptor blockers in view of patient's renal failure. 2. Chronic kidney disease. Volume overload. Further evaluation by Dr. Garrett. 3. Insulin-dependent diabetes. 4. Anemia of renal disease. 5. Abdominal pain and distention, diarrhea, and gastroparesis. Further evaluation by GI. 6. Hypothyroidism, on Synthroid. Thank very much, Dr. Voss, for allowing me to participate in the care of this patient. Please do not hesitate to contact me for any questions regarding my evaluation. Aly Acharya M.D. DR: Nimisha JOB#: [id number] CC:
[2017-09-11 00:15] VITALS: BP 144/97
[2017-09-11] MEDS: Morphine Sulfate 2mg/ml Inj IVP PRN ×4 (02:59→21:49)
[2017-09-11 04:16] VITALS: BP 165/94
[2017-09-11] MEDS: Levothyroxine 25mcg tab ORAL SCH (06:01)
[2017-09-11] MEDS: Sodium Citrate 30ml ORAL SCH (06:04)
[2017-09-11] MEDS: guaiFENesin 100mg/5ml Liq ud ORAL PRN (06:35)
[2017-09-11 08:00] VITALS: BP 148/85
[2017-09-11 08:32] LABS: BASOPHILS % (AUTO) 0.3 % (0.0-2.0); EOSINOPHILS % (AUTO) 0.5 % (0.0-3.0); HEMOGLOBIN 8.4 G/DL (14.2-18.0); MEAN CORPUSCULAR VOLUME 92 FL (80-99); MONOCYTES % (AUTO) 5.1 % (1.0-10.0); NEUTROPHILS % (AUTO) 83.1 % (45.0-75.0); PLATELET COUNT 144 K/UL (150-450); RED BLOOD COUNT 2.73 M/UL (4.70-6.10); RED CELL DISTRIBUTION WIDTH 15.2 % (11.6-14.8); WHITE BLOOD COUNT 8.3 K/UL (4.8-10.8)
[2017-09-11] MEDS: Heparin 5000 units/ml inj SUBQ SCH ×2 (09:00→21:32)
[2017-09-11] MEDS: Docusate 100mg cap ORAL SCH ×3 (09:00→18:00)
[2017-09-11 09:27] LABS: ALANINE AMINOTRANSFERASE 90 U/L (12-78); ALBUMIN 1.1 G/DL (3.4-5.0); ALBUMIN/GLOBULIN RATIO 0.4 (1.0-2.7); ALKALINE PHOSPHATASE 169 U/L (46-116); ANION GAP 8 mmol/L (5-15); ASPARTATE AMINO TRANSFERASE 50 U/L (15-37); BILIRUBIN,TOTAL 0.1 MG/DL (0.2-1.0); BLOOD UREA NITROGEN 55 mg/dL (7-18); CALCIUM 7.2 MG/DL (8.5-10.1); CARBON DIOXIDE 19 MMOL/L (21-32); CHLORIDE 109 MMOL/L (98-107); CREATININE 4.2 MG/DL (0.55-1.30); PHOSPHORUS 7.6 MG/DL (2.5-4.9); POTASSIUM 5.2 MMOL/L (3.5-5.1); SODIUM 136 MMOL/L (136-145)
[2017-09-11] MEDS: Aspirin Baby 81mg ORAL SCH (09:39)
[2017-09-11] MEDS: Tamsulosin 0.4mg cap ORAL SCH ×2 (09:39→18:32)
[2017-09-11] MEDS: Carvedilol 12.5mg tab ORAL SCH ×2 (09:40→21:29)
[2017-09-11] MEDS: guaiFENesin w/Codeine 5ml Liq ud ORAL PRN (09:58)
[2017-09-11] MEDS ORDERED: Sodium Polystyrene Sulfonate 15gm Powder ORAL ONE (10:00)
--- NOTE | 2017-09-11 10:44 | Diagnostic Imaging Report ---
Indication: Cough Technique: XRAY Chest 1v Comparison: September 08, 2017 Findings: Limited exam as low lung volumes. Heart size and mediastinal contours are stable. There is development of interstitial opacification and patchy predominantly right-sided airspace opacities. There is no large pleural effusion. No definite pneumothorax. Impression: Interval development of slight interstitial haziness and patchy predominantly right-sided airspace opacities. Findings are most concerning for multifocal pneumonia given history of cough. Degree of interstitial edema not entirely excluded. Clinical correlation and follow-up exam recommended.
--- NOTE | 2017-09-11 11:03 | Nephrology Progress Note ---
Assessment/Plan Problem List: (1) Renal failure (ARF), acute on chronic (2) Diabetic nephropathy (3) HTN (hypertension) Assessment: hypertensive kidney disease Assessment Advanced renal failure due to Type I DM DIabetic Nephropathy- Most likely NS -. Bilateral upper quadrant pain. -. Diarrhea. -. Diabetic gastroparesis. -. Diabetes type 1. -. Hypertension. -. Anemia. due to CKD -. HypoThyroid Plan Plan: agreed with HD- Will do in am after insertion of permacath Kayexelate- Add Norvasc and Clonidin to BP meds- DC ARBs for high K Per GI 24 h urine collection pending Phos supplements Monitor renal parameters , BS and BP Avoid nephrotoxics 2D Echo : Left ventricular ejection fraction estimated to be 60 %. No evidence of left ventricular hypertrophy. Trace pericardial effusion . Moderate left atrial enlargement. need to entertain dialysis - discussed OCTAVIO: Left kidney measures 11.8 cm in length. Right kidney measures 9.6 cm length. Kidneys demonstrate diffusely increased echogenicity. No hydronephrosis. there is a small left lower pole renal cyst Subjective ROS Limited/Unobtainable: No Constitutional: Reports: malaise Objective Objective Last 24 Hour Vital Signs Date Time Temp Pulse Resp B/P (MAP) Pulse Ox O2 Delivery O2 Flow Rate FiO2 09/11/17 09:40 63 148/85 09/11/17 09:40 63 148/85 09/11/17 08:00 98.2 63 19 148/85 93 09/11/17 06:39 97.7 09/11/17 06:02 165/94 09/11/17 04:16 97.7 72 20 165/94 98 Room Air 09/11/17 00:15 97.7 71 21 144/97 98 09/10/17 22:36 162/100 09/10/17 20:45 83 182/109 09/10/17 20:00 97.7 83 21 182/109 98 09/10/17 16:15 97.9 90 21 160/56 100 Room Air 09/10/17 14:30 163/92 09/10/17 12:06 74 196/122 09/10/17 12:06 196/122 09/10/17 11:57 98.4 74 20 196/122 92 Intake and Output 09/10/17 09/11/17 19:00 07:00 Intake Total 1200 ml Output Total 700 ml Balance 1200 ml -700 ml Intake Oral 1200 ml Output Urine Total 700 ml # Voids 2 2 Laboratory Tests 09/11/17 06:25: White Blood Count 8.3, Red Blood Count 2.73L, Hemoglobin 8.4L, Hematocrit 25.0L , Mean Corpuscular Volume 92, Mean Corpuscular Hemoglobin 30.6, Mean Corpuscular Hemoglobin Concent 33.4, Red Cell Distribution Width 15.2H, Platelet Count 144L, Mean Platelet Volume 7.0, Neutrophils (%) (Auto) 83.1H, Lymphocytes (%) (Auto) 11.0L, Monocytes (%) (Auto) 5.1, Eosinophils (%) (Auto) 0.5, Basophils (%) (Auto) 0.3, Sodium Level 136, Potassium Level 5.2H, Chloride Level 109H, Carbon Dioxide Level 19L, Anion Gap 8, Blood Urea Nitrogen 55H, Creatinine 4.2H, Estimat Glomerular Filtration Rate 16.6, Glucose Level 113H, Uric Acid 7.1, Calcium Level 7.2L, Phosphorus Level 7.6H, Magnesium Level 1.5L, Total Bilirubin 0.1L, Aspartate Amino Transf (AST/SGOT) 50H, Alanine Aminotransferase (ALT/SGPT) 90H, Alkaline Phosphatase 169H, C-Reactive Protein, Quantitative 4.2H, Pro-B-Type Natriuretic Peptide 10620N, Total Protein 3.9L, Albumin 1.1L, Globulin 2.8, Albumin/Globulin Ratio 0.4L Height (Feet): 5 Height (Inches): 10.00 Weight (Pounds): 205 General Appearance: no apparent distress, lethargic Cardiovascular: normal rate Respiratory/Chest: decreased breath sounds Abdomen: distended Extremities: other - edema LEXIS PRESTON Sep 11, 2017 11:03
--- NOTE | 2017-09-11 11:13 | Pulmonology Progress Note ---
Assessment/Plan Problems: (1) Renal failure (ARF), acute on chronic (2) Diabetic nephropathy (3) Diabetes type 1, controlled (4) Abdominal distention (5) Chronic pancreatitis (6) Gastroparesis Assessment/Plan renal w/u pending check electrolytes ABd US might need dialysis pt agreed about HD now, Subjective ROS Limited/Unobtainable: No Interval Events: wants more pain med Allergies: Coded Allergies: METOCLOPRAMIDE (Unverified Allergy, Severe, 09/08/17) PROCHLORPERAZINE (Unverified Allergy, Severe, 09/08/17) VANCOMYCIN (Unverified Allergy, Severe, 09/08/17) Objective Last 24 Hour Vital Signs Date Time Temp Pulse Resp B/P (MAP) Pulse Ox O2 Delivery O2 Flow Rate FiO2 09/11/17 09:40 63 148/85 09/11/17 09:40 63 148/85 09/11/17 08:00 98.2 63 19 148/85 93 09/11/17 06:39 97.7 09/11/17 06:02 165/94 09/11/17 04:16 97.7 72 20 165/94 98 Room Air 09/11/17 00:15 97.7 71 21 144/97 98 09/10/17 22:36 162/100 09/10/17 20:45 83 182/109 09/10/17 20:00 97.7 83 21 182/109 98 09/10/17 16:15 97.9 90 21 160/56 100 Room Air 09/10/17 14:30 163/92 09/10/17 12:06 74 196/122 09/10/17 12:06 196/122 09/10/17 11:57 98.4 74 20 196/122 92 Intake and Output 09/10/17 09/11/17 19:00 07:00 Intake Total 1200 ml Output Total 700 ml Balance 1200 ml -700 ml Intake Oral 1200 ml Output Urine Total 700 ml # Voids 2 2 Objective General Appearance: no apparent distress Head: normocephalic, atraumatic Eyes: bilateral eye PERRL, bilateral eye EOMI ENT: normal pharynx, no angioedema Neck: supple, thyroid normal Respiratory: lungs clear, normal breath sounds Cardiovascular #1: regular rate, rhythm Gastrointestinal: non tender, soft Microbiology Date/Time Source Procedure Growth Status 09/08/17 13:00 Nasal Nares MRSA Culture - Final NO METHICILLIN RESISTANT STAPH AUREUS... Complete 09/09/17 04:00 Stool Stool Culture Pending Resulted 09/09/17 04:00 Stool Clostridium difficile Toxin Assay - Final Resulted 09/08/17 13:00 Rectum VRE Culture - Final NO VANCOMYCIN RESISTANT ENTEROCOCCUS ... Complete Laboratory Tests 09/11/17 06:25: White Blood Count 8.3, Red Blood Count 2.73L, Hemoglobin 8.4L, Hematocrit 25.0L , Mean Corpuscular Volume 92, Mean Corpuscular Hemoglobin 30.6, Mean Corpuscular Hemoglobin Concent 33.4, Red Cell Distribution Width 15.2H, Platelet Count 144L, Mean Platelet Volume 7.0, Neutrophils (%) (Auto) 83.1H, Lymphocytes (%) (Auto) 11.0L, Monocytes (%) (Auto) 5.1, Eosinophils (%) (Auto) 0.5, Basophils (%) (Auto) 0.3, Sodium Level 136, Potassium Level 5.2H, Chloride Level 109H, Carbon Dioxide Level 19L, Anion Gap 8, Blood Urea Nitrogen 55H, Creatinine 4.2H, Estimat Glomerular Filtration Rate 16.6, Glucose Level 113H, Uric Acid 7.1, Calcium Level 7.2L, Phosphorus Level 7.6H, Magnesium Level 1.5L, Total Bilirubin 0.1L, Aspartate Amino Transf (AST/SGOT) 50H, Alanine Aminotransferase (ALT/SGPT) 90H, Alkaline Phosphatase 169H, C-Reactive Protein, Quantitative 4.2H, Pro-B-Type Natriuretic Peptide 67268Z, Total Protein 3.9L, Albumin 1.1L, Globulin 2.8, Albumin/Globulin Ratio 0.4L Current Medications Medications (Trade) Dose Ordered Sig/Michelle Route PRN Reason Start Time Stop Time Status Last Admin Dose Admin Acetaminophen (Tylenol) 650 mg Q4H PRN ORAL fever 09/09/17 23:45 10/08/17 15:44 Amlodipine Besylate (Norvasc) 10 mg DAILY ORAL 09/11/17 09:00 10/11/17 08:59 09/11/17 09:40 Aspirin (ASA) 81 mg DAILY ORAL 09/10/17 09:00 10/10/17 08:59 09/11/17 09:39 Carvedilol (Coreg) 12.5 mg EVERY 12 HOURS ORAL 09/10/17 21:00 10/10/17 20:59 09/11/17 09:40 Clonidine HCl (Catapres Tab) 0.1 mg EVERY 8 HOURS ORAL 09/10/17 14:00 10/10/17 13:59 09/11/17 06:02 Clonidine HCl (Catapres Tab) 0.1 mg Q6H PRN ORAL SYSTOLIC BP > 160 09/10/17 08:30 10/10/17 08:29 09/10/17 09:07 Dextrose (Dextrose 50%) STAT PRN IV Hypoglycemia 09/10/17 15:45 10/08/17 15:44 Diphenhydramine HCl (Benadryl) 25 mg Q6H PRN ORAL Itching/Pruritis 09/10/17 03:45 10/08/17 15:44 Docusate Sodium (Colace) 100 mg THREE TIMES A DAY ORAL 09/10/17 09:00 10/09/17 12:59 09/10/17 08:55 Epoetin Curry (Procrit (for ESRD on dialysis)) 10,000 units TUE-TUE-TUE SUBQ 09/12/17 21:00 10/12/17 20:59 Guaifenesin (Robitussin) 200 mg Q6HR PRN ORAL For Cough 09/10/17 00:00 10/09/17 18:59 09/11/17 06:35 Guaifenesin/ Codeine Phosphate (Robitussin with codeine) 5 ml Q6H PRN ORAL For Cough 09/10/17 17:00 10/10/17 16:59 09/11/17 09:58 Heparin Sodium (Porcine) (Heparin 5000 units/ml) 5,000 units EVERY 12 HOURS SUBQ 09/10/17 09:00 10/08/17 20:59 Lansoprazole (Prevacid) 30 mg DAILY ORAL 09/11/17 09:00 10/11/17 08:59 09/11/17 09:39 Levothyroxine Sodium (Synthroid) 25 mcg DAILY@0630 ORAL 09/10/17 06:30 10/10/17 06:29 09/11/17 06:01 Lorazepam (Ativan 2mg/ml 1ml) 1 mg EVERY 4 HOURS PRN IV agitation 09/10/17 01:00 09/15/17 15:44 09/10/17 20:45 Morphine Sulfate (Morphine Sulfate) 2 mg Q3HR PRN IVP Severe Pain (Pain Scale 7-10) 09/10/17 00:00 09/16/17 16:44 09/11/17 06:01 Nitroglycerin (Ntg) 0.4 mg Q5M X 3 DOSES PRN SL Prn Chest Pain 09/09/17 22:30 10/08/17 15:44 Ondansetron HCl (Zofran) 4 mg Q6H PRN IVP Nausea & Vomiting 09/10/17 03:45 10/08/17 15:44 Polyethylene Glycol (Miralax) 17 gm HSPRN PRN ORAL Constipation 09/10/17 15:45 10/08/17 15:44 Sevelamer Carbonate (Renvela) 2,400 mg THREE TIMES A DAY ORAL 09/11/17 13:00 10/11/17 12:59 Tamsulosin HCl (Flomax) 0.4 mg BID ORAL 09/10/17 09:00 10/08/17 17:59 09/11/17 09:39 Temazepam (Restoril) 15 mg HSPRN PRN ORAL Insomnia 09/10/17 15:45 09/15/17 15:44 RICARDO POLANCO Sep 11, 2017 11:12
[2017-09-11 12:00] VITALS: BP 172/69
[2017-09-11] MEDS: LORazepam Inj 2mg/ml 1ml IV PRN ×2 (15:35→22:57)
[2017-09-11 16:00] VITALS: BP 139/77
--- NOTE | 2017-09-11 17:17 | Internal Med Progress Note ---
Subjective Date of Service: Sep 11, 2017 Physician Name Sanjiv Talbot Attending Physician Serafin Voss MD Current Medications Medications (Trade) Dose Ordered Sig/Michelle Route PRN Reason Start Time Stop Time Status Last Admin Dose Admin Acetaminophen (Tylenol) 650 mg Q4H PRN ORAL fever 09/09/17 23:45 10/08/17 15:44 Amlodipine Besylate (Norvasc) 10 mg DAILY ORAL 09/11/17 09:00 10/11/17 08:59 09/11/17 09:40 Aspirin (ASA) 81 mg DAILY ORAL 09/10/17 09:00 10/10/17 08:59 09/11/17 09:39 Carvedilol (Coreg) 12.5 mg EVERY 12 HOURS ORAL 09/10/17 21:00 10/10/17 20:59 09/11/17 09:40 Clonidine HCl (Catapres Tab) 0.1 mg EVERY 8 HOURS ORAL 09/10/17 14:00 10/10/17 13:59 09/11/17 13:10 Clonidine HCl (Catapres Tab) 0.1 mg Q6H PRN ORAL SYSTOLIC BP > 160 09/10/17 08:30 10/10/17 08:29 09/10/17 09:07 Dextrose (Dextrose 50%) STAT PRN IV Hypoglycemia 09/10/17 15:45 10/08/17 15:44 Diphenhydramine HCl (Benadryl) 25 mg Q6H PRN ORAL Itching/Pruritis 09/10/17 03:45 10/08/17 15:44 Docusate Sodium (Colace) 100 mg THREE TIMES A DAY ORAL 09/10/17 09:00 10/09/17 12:59 09/10/17 08:55 Epoetin Curry (Procrit (for ESRD on dialysis)) 10,000 units MON-WED-TUE SUBQ 09/12/17 21:00 10/12/17 20:59 Guaifenesin (Robitussin) 200 mg Q6HR PRN ORAL For Cough 09/10/17 00:00 10/09/17 18:59 09/11/17 06:35 Guaifenesin/ Codeine Phosphate (Robitussin with codeine) 5 ml Q6H PRN ORAL For Cough 09/10/17 17:00 10/10/17 16:59 09/11/17 09:58 Heparin Sodium (Porcine) (Heparin 5000 units/ml) 5,000 units EVERY 12 HOURS SUBQ 09/10/17 09:00 10/08/17 20:59 Lansoprazole (Prevacid) 30 mg DAILY ORAL 09/11/17 09:00 10/11/17 08:59 09/11/17 09:39 Levothyroxine Sodium (Synthroid) 25 mcg DAILY@0630 ORAL 09/10/17 06:30 10/10/17 06:29 09/11/17 06:01 Lorazepam (Ativan 2mg/ml 1ml) 1 mg EVERY 4 HOURS PRN IV agitation 09/10/17 01:00 09/15/17 15:44 09/11/17 15:35 Morphine Sulfate (Morphine Sulfate) 2 mg Q3HR PRN IVP Severe Pain (Pain Scale 7-10) 09/10/17 00:00 09/16/17 16:44 09/11/17 14:10 Nitroglycerin (Ntg) 0.4 mg Q5M X 3 DOSES PRN SL Prn Chest Pain 09/09/17 22:30 10/08/17 15:44 Ondansetron HCl (Zofran) 4 mg Q6H PRN IVP Nausea & Vomiting 09/10/17 03:45 10/08/17 15:44 Polyethylene Glycol (Miralax) 17 gm HSPRN PRN ORAL Constipation 09/10/17 15:45 10/08/17 15:44 Sevelamer Carbonate (Renvela) 2,400 mg THREE TIMES A DAY ORAL 09/11/17 13:00 10/11/17 12:59 09/11/17 13:11 Tamsulosin HCl (Flomax) 0.4 mg BID ORAL 09/10/17 09:00 10/08/17 17:59 09/11/17 09:39 Temazepam (Restoril) 15 mg HSPRN PRN ORAL Insomnia 09/10/17 15:45 09/15/17 15:44 Allergies: Coded Allergies: METOCLOPRAMIDE (Unverified Allergy, Severe, 09/08/17) PROCHLORPERAZINE (Unverified Allergy, Severe, 09/08/17) VANCOMYCIN (Unverified Allergy, Severe, 09/08/17) ROS Limited/Unobtainable: No Constitutional: Reports: no symptoms HEENT: Reports: no symptoms Cardiovascular: Reports: no symptoms Respiratory: Reports: no symptoms Gastrointestinal/Abdominal: Reports: abdomen distended, abdominal pain Genitourinary: Reports: no symptoms Neurologic/Psychiatric: Reports: no symptoms Subjective 32 YO M admitted with abdominal pain. Now renal failure. Cover for Int Reinaldo-Dr Voss. Await paracentesis. Objective Last Vital Signs Date Time Temp Pulse Resp B/P (MAP) Pulse Ox O2 Delivery O2 Flow Rate FiO2 09/11/17 16:00 98.2 68 19 139/77 90 09/11/17 04:16 Room Air Laboratory Tests Test 09/11/17 06:25 White Blood Count 8.3 K/UL (4.8-10.8) Red Blood Count 2.73 M/UL (4.70-6.10) L Hemoglobin 8.4 G/DL (14.2-18.0) L Hematocrit 25.0 % (42.0-52.0) L Mean Corpuscular Volume 92 FL (80-99) Mean Corpuscular Hemoglobin 30.6 PG (27.0-31.0) Mean Corpuscular Hemoglobin Concent 33.4 G/DL (32.0-36.0) Red Cell Distribution Width 15.2 % (11.6-14.8) H Platelet Count 144 K/UL (150-450) L Mean Platelet Volume 7.0 FL (6.5-10.1) Neutrophils (%) (Auto) 83.1 % (45.0-75.0) H Lymphocytes (%) (Auto) 11.0 % (20.0-45.0) L Monocytes (%) (Auto) 5.1 % (1.0-10.0) Eosinophils (%) (Auto) 0.5 % (0.0-3.0) Basophils (%) (Auto) 0.3 % (0.0-2.0) Sodium Level 136 MMOL/L (136-145) Potassium Level 5.2 MMOL/L (3.5-5.1) H Chloride Level 109 MMOL/L (98-107) H Carbon Dioxide Level 19 MMOL/L (21-32) L Anion Gap 8 mmol/L (5-15) Blood Urea Nitrogen 55 mg/dL (7-18) H Creatinine 4.2 MG/DL (0.55-1.30) H Estimat Glomerular Filtration Rate 16.6 mL/min (>60) Glucose Level 113 MG/DL (74-106) H Uric Acid 7.1 MG/DL (2.6-7.2) Calcium Level 7.2 MG/DL (8.5-10.1) L Phosphorus Level 7.6 MG/DL (2.5-4.9) H Magnesium Level 1.5 MG/DL (1.8-2.4) L Total Bilirubin 0.1 MG/DL (0.2-1.0) L Aspartate Amino Transf (AST/SGOT) 50 U/L (15-37) H Alanine Aminotransferase (ALT/SGPT) 90 U/L (12-78) H Alkaline Phosphatase 169 U/L (46-116) H C-Reactive Protein, Quantitative 4.2 mg/dL (0.00-0.90) H Pro-B-Type Natriuretic Peptide 05163 pg/mL (0-125) H Total Protein 3.9 G/DL (6.4-8.2) L Albumin 1.1 G/DL (3.4-5.0) L Globulin 2.8 g/dL Albumin/Globulin Ratio 0.4 (1.0-2.7) L Microbiology Date/Time Source Procedure Growth Status 09/09/17 04:00 Stool Stool Culture - Preliminary NO SALMONELLA,SHIGELLA,OR CAMPYLOBACT... Resulted 09/09/17 04:00 Stool Clostridium difficile Toxin Assay - Final Resulted Intake and Output 09/10/17 09/11/17 19:00 07:00 Intake Total 1200 ml Output Total 700 ml Balance 1200 ml -700 ml Intake Oral 1200 ml Output Urine Total 700 ml # Voids 2 2 Objective General Appearance: WD/WN, alert, mild distress EENT: PERRL/EOMI, normal ENT inspection Neck: non-tender, normal alignment, supple, normal inspection Cardiovascular: normal peripheral pulses, normal rate, regular rhythm, no gallop/murmur, no JVD Respiratory/Chest: chest wall non-tender, lungs clear, normal breath sounds, no respiratory distress, no accessory muscle use Abdomen: no organomegaly, no mass, decreased bowel sounds, distended, guarding , tender Extremities: normal range of motion 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 (2) Anemia of renal disease (3) HTN (hypertension) Assessment & Plan: Uncontrolled. Await cardiology consult. Cont coreg and norvasc. (4) Ascites Assessment & Plan: Await paracentesis. See GI note. (5) Abdominal pain (6) Abdominal distention (7) Diarrhea Assessment & Plan: C. Diff neg; await stool culture (8) Gastroparesis (9) Diabetes type 1, controlled Assessment & Plan: Continue novolog sliding scale. (10) Hypothyroidism Assessment & Plan: Continue levoxyl Status: progressing SANJIV TALBOT Sep 11, 2017 17:17
[2017-09-11 20:00] VITALS: BP 178/110
--- NOTE | 2017-09-11 20:58 | General Progress Note ---
Assessment/Plan Assessment/Plan Assessment (1) Renal failure (ARF), acute on chronic ICD Codes: N17.9 - Acute kidney failure, unspecified; N18.9 - Chronic kidney disease, unspecified SNOMED: 363699581 (2) Diarrhea ICD Codes: R19.7 - Diarrhea, unspecified SNOMED: 70190146 (3) Vomiting ICD Codes: R11.10 - Vomiting, unspecified SNOMED: 937788197 (4) Diabetes type 1, controlled ICD Codes: E10.9 - Type 1 diabetes mellitus without complications SNOMED: 87584384, 565837239 (5) Gastroparesis ICD Codes: K31.84 - Gastroparesis SNOMED: 862478232 (6) Chronic pancreatitis ICD Codes: K86.1 - Other chronic pancreatitis SNOMED: 206050887 (7) Anemia ICD Codes: D64.9 - Anemia, unspecified SNOMED: 573778208 Status: unchanged Assessment/Plan abdominal U/S reviewed --> will check CT fu nephro recs renal diet DM mgmt anemia work up >> most likely 2/2 to renal disease pain mgmt ppi simethicone prn abdominal paracentesis >> r/o SBP fu labs, hepatitis panel, free T4 Subjective Allergies: Coded Allergies: METOCLOPRAMIDE (Unverified Allergy, Severe, 09/08/17) PROCHLORPERAZINE (Unverified Allergy, Severe, 09/08/17) VANCOMYCIN (Unverified Allergy, Severe, 09/08/17) Subjective c/o loose stools c/o some abd pain tolerating PO Objective Last 24 Hour Vital Signs Date Time Temp Pulse Resp B/P (MAP) Pulse Ox O2 Delivery O2 Flow Rate FiO2 09/11/17 20:00 97.9 75 19 178/110 91 09/11/17 16:00 98.2 68 19 139/77 90 09/11/17 14:40 98.0 09/11/17 13:10 172/69 09/11/17 12:00 98.0 69 19 172/69 94 09/11/17 09:40 63 148/85 09/11/17 09:40 63 148/85 09/11/17 08:00 98.2 63 19 148/85 93 09/11/17 06:02 165/94 09/11/17 04:16 97.7 72 20 165/94 98 Room Air 09/11/17 00:15 97.7 71 21 144/97 98 09/10/17 22:36 162/100 Intake and Output 09/10/17 09/11/17 19:00 07:00 Intake Total 1200 ml Output Total 700 ml Balance 1200 ml -700 ml Intake Oral 1200 ml Output Urine Total 700 ml # Voids 2 2 Laboratory Tests 09/11/17 06:25: White Blood Count 8.3, Red Blood Count 2.73L, Hemoglobin 8.4L, Hematocrit 25.0L , Mean Corpuscular Volume 92, Mean Corpuscular Hemoglobin 30.6, Mean Corpuscular Hemoglobin Concent 33.4, Red Cell Distribution Width 15.2H, Platelet Count 144L, Mean Platelet Volume 7.0, Neutrophils (%) (Auto) 83.1H, Lymphocytes (%) (Auto) 11.0L, Monocytes (%) (Auto) 5.1, Eosinophils (%) (Auto) 0.5, Basophils (%) (Auto) 0.3, Sodium Level 136, Potassium Level 5.2H, Chloride Level 109H, Carbon Dioxide Level 19L, Anion Gap 8, Blood Urea Nitrogen 55H, Creatinine 4.2H, Estimat Glomerular Filtration Rate 16.6, Glucose Level 113H, Uric Acid 7.1, Calcium Level 7.2L, Phosphorus Level 7.6H, Magnesium Level 1.5L, Total Bilirubin 0.1L, Aspartate Amino Transf (AST/SGOT) 50H, Alanine Aminotransferase (ALT/SGPT) 90H, Alkaline Phosphatase 169H, C-Reactive Protein, Quantitative 4.2H, Pro-B-Type Natriuretic Peptide 26702Q, Total Protein 3.9L, Albumin 1.1L, Globulin 2.8, Albumin/Globulin Ratio 0.4L Height (Feet): 5 Height (Inches): 10.00 Weight (Pounds): 205 Objective WDWN man NCAT supple CTA RRR soft ND, mild diffuse TTP no edema JUDIT BRICE Sep 11, 2017 20:58
[2017-09-12] VITALS (7 sets, daily range): BP systolic 147–188; BP diastolic 95–113
[2017-09-12] MEDS: guaiFENesin w/Codeine 5ml Liq ud ORAL PRN (01:37)
[2017-09-12] MEDS: Morphine Sulfate 2mg/ml Inj IVP PRN ×4 (03:19→13:55)
[2017-09-12] MEDS: Levothyroxine 25mcg tab ORAL SCH (06:27)
[2017-09-12 08:08] LABS: HEMATOCRIT 24.5 % (42.0-52.0); HEMOGLOBIN 7.9 G/DL (14.2-18.0); MEAN CORPUSCULAR VOLUME 92 FL (80-99); PLATELET COUNT 163 K/UL (150-450); RED BLOOD COUNT 2.66 M/UL (4.70-6.10); WHITE BLOOD COUNT 6.1 K/UL (4.8-10.8)
[2017-09-12 08:31] LABS: ALANINE AMINOTRANSFERASE 74 U/L (12-78); ALBUMIN 1.1 G/DL (3.4-5.0); ALBUMIN/GLOBULIN RATIO 0.4 (1.0-2.7); ALKALINE PHOSPHATASE 155 U/L (46-116); ANION GAP 9 mmol/L (5-15); ASPARTATE AMINO TRANSFERASE 47 U/L (15-37); BILIRUBIN,TOTAL 0.2 MG/DL (0.2-1.0); BLOOD UREA NITROGEN 53 mg/dL (7-18); CALCIUM 6.9 MG/DL (8.5-10.1); CARBON DIOXIDE 20 MMOL/L (21-32); CHLORIDE 111 MMOL/L (98-107); CREATININE 4.3 MG/DL (0.55-1.30); PHOSPHORUS 7.3 MG/DL (2.5-4.9); POTASSIUM 5.2 MMOL/L (3.5-5.1); SODIUM 140 MMOL/L (136-145)
[2017-09-12] MEDS: Carvedilol 12.5mg tab ORAL SCH ×2 (09:00→21:25)
[2017-09-12] MEDS: Heparin 5000 units/ml inj SUBQ SCH ×2 (09:00→21:00)
[2017-09-12] MEDS: Aspirin Baby 81mg ORAL SCH (09:00)
[2017-09-12] MEDS: Tamsulosin 0.4mg cap ORAL SCH ×2 (09:00→18:03)
[2017-09-12] MEDS: Docusate 100mg cap ORAL SCH ×3 (09:00→18:00)
--- NOTE | 2017-09-12 11:04 | Nephrology Progress Note ---
Assessment/Plan Problem List: (1) Renal failure (ARF), acute on chronic (2) Diabetic nephropathy (3) HTN (hypertension) Assessment: hypertensive kidney disease Assessment Advanced renal failure due to Type I DM DIabetic Nephropathy- Most likely NS -. Bilateral upper quadrant pain. -. Diarrhea. -. Diabetic gastroparesis. -. Diabetes type 1. -. Hypertension. -. Anemia. due to CKD -. HypoThyroid Plan Plan: agreed with HD- Will do HD today after insertion of permacath Add Norvasc and Clonidin to BP meds- DC ARBs for high K Per GI 24 h urine collection pending Phos supplements Monitor renal parameters , BS and BP Avoid nephrotoxics 2D Echo : Left ventricular ejection fraction estimated to be 60 %. No evidence of left ventricular hypertrophy. Trace pericardial effusion . Moderate left atrial enlargement. need to entertain dialysis - discussed OCTAVIO: Left kidney measures 11.8 cm in length. Right kidney measures 9.6 cm length. Kidneys demonstrate diffusely increased echogenicity. No hydronephrosis. there is a small left lower pole renal cyst Subjective ROS Limited/Unobtainable: No Constitutional: Reports: malaise Objective Objective Last 24 Hour Vital Signs Date Time Temp Pulse Resp B/P (MAP) Pulse Ox O2 Delivery O2 Flow Rate FiO2 09/12/17 08:00 98.2 60 20 153/95 94 09/12/17 06:28 160/100 09/12/17 03:43 98.4 63 20 167/102 96 Room Air 09/12/17 00:00 98.4 79 20 170/100 92 09/11/17 21:30 161/103 09/11/17 21:29 80 161/103 09/11/17 20:00 97.9 75 19 178/110 91 09/11/17 16:00 98.2 68 19 139/77 90 09/11/17 14:40 98.0 09/11/17 13:10 172/69 09/11/17 12:00 98.0 69 19 172/69 94 Intake and Output 09/11/17 09/12/17 19:00 07:00 Intake Total 560 ml 650 ml Output Total 1000 ml Balance 560 ml -350 ml Intake Oral 560 ml 650 ml Output Urine Total 1000 ml # Voids 1 # Bowel Movements 2 2 Laboratory Tests 09/12/17 07:35: White Blood Count 6.1, Red Blood Count 2.66L, Hemoglobin 7.9L, Hematocrit 24.5L , Mean Corpuscular Volume 92, Mean Corpuscular Hemoglobin 29.5, Mean Corpuscular Hemoglobin Concent 32.1, Red Cell Distribution Width 15.0H, Platelet Count 163, Mean Platelet Volume 7.5, Neutrophils (%) (Auto) , Lymphocytes (%) (Auto) , Monocytes (%) (Auto) , Eosinophils (%) (Auto) , Basophils (%) (Auto) , Differential Total Cells Counted 100, Neutrophils % ( Manual) 70, Lymphocytes % (Manual) 20, Monocytes % (Manual) 8, Eosinophils % ( Manual) 2, Basophils % (Manual) 0, Band Neutrophils 0, Platelet Estimate Adequate, Platelet Morphology Normal, Hypochromasia 1+, Anisocytosis 1+, Prothrombin Time 10.8, Prothromb Time International Ratio 1.0, Activated Partial Thromboplast Time 27, Sodium Level 140, Potassium Level 5.2H, Chloride Level 111H, Carbon Dioxide Level 20L, Anion Gap 9, Blood Urea Nitrogen 53H, Creatinine 4.3H, Estimat Glomerular Filtration Rate 16.2, Glucose Level 114H, Uric Acid 7.0, Calcium Level 6.9L, Phosphorus Level 7.3H, Magnesium Level 1.5L, Total Bilirubin 0.2, Aspartate Amino Transf (AST/SGOT) 47H, Alanine Aminotransferase (ALT/SGPT) 74, Alkaline Phosphatase 155H, C-Reactive Protein, Quantitative 5.8H, Pro-B-Type Natriuretic Peptide 74923X, Total Protein 3.8L, Albumin 1.1L, Globulin 2.7, Albumin/Globulin Ratio 0.4L, Hepatitis B Surface Antigen [Pending], Hepatitis B Surface Antibody, Quant [Pending], Hepatitis C Antibody [Pending] Height (Feet): 5 Height (Inches): 10.00 Weight (Pounds): 206 General Appearance: no apparent distress Respiratory/Chest: decreased breath sounds Abdomen: distended Objective no change LEXIS PRESTON Sep 12, 2017 11:04
--- NOTE | 2017-09-12 11:50 | GI Progress Note ---
Assessment/Plan Problems: (1) Renal failure (ARF), acute on chronic ICD Codes: N17.9 - Acute kidney failure, unspecified; N18.9 - Chronic kidney disease, unspecified SNOMED: 429718828 (2) Diarrhea ICD Codes: R19.7 - Diarrhea, unspecified SNOMED: 90808256 (3) Vomiting ICD Codes: R11.10 - Vomiting, unspecified SNOMED: 681426070 (4) Diabetes type 1, controlled ICD Codes: E10.9 - Type 1 diabetes mellitus without complications SNOMED: 53014616, 874075841 (5) Gastroparesis ICD Codes: K31.84 - Gastroparesis SNOMED: 204832089 (6) Chronic pancreatitis ICD Codes: K86.1 - Other chronic pancreatitis SNOMED: 524667001 (7) Anemia ICD Codes: D64.9 - Anemia, unspecified SNOMED: 464488817 Status: unchanged Status Narrative Discussed with Dr. Schultz. Assessment/Plan abdominal U/S reviewed --> will check CT Hep panel negative cdiff / O&P negative fu nephro recs renal diet DM mgmt anemia work up >> most likely 2/2 to renal disease pain mgmt ppi simethicone prn abdominal paracentesis >> r/o SBP fu labs, free T4 Subjective Subjective abdominal pain Objective Last 24 Hour Vital Signs Date Time Temp Pulse Resp B/P (MAP) Pulse Ox O2 Delivery O2 Flow Rate FiO2 09/12/17 08:00 98.2 60 20 153/95 94 09/12/17 06:28 160/100 09/12/17 03:43 98.4 63 20 167/102 96 Room Air 09/12/17 00:00 98.4 79 20 170/100 92 09/11/17 21:30 161/103 09/11/17 21:29 80 161/103 09/11/17 20:00 97.9 75 19 178/110 91 09/11/17 16:00 98.2 68 19 139/77 90 09/11/17 14:40 98.0 09/11/17 13:10 172/69 09/11/17 12:00 98.0 69 19 172/69 94 Intake and Output 09/11/17 09/12/17 19:00 07:00 Intake Total 560 ml 650 ml Output Total 1000 ml Balance 560 ml -350 ml Intake Oral 560 ml 650 ml Output Urine Total 1000 ml # Voids 1 # Bowel Movements 2 2 Laboratory Tests Test 09/12/17 07:35 White Blood Count 6.1 K/UL (4.8-10.8) Red Blood Count 2.66 M/UL (4.70-6.10) L Hemoglobin 7.9 G/DL (14.2-18.0) L Hematocrit 24.5 % (42.0-52.0) L Mean Corpuscular Volume 92 FL (80-99) Mean Corpuscular Hemoglobin 29.5 PG (27.0-31.0) Mean Corpuscular Hemoglobin Concent 32.1 G/DL (32.0-36.0) Red Cell Distribution Width 15.0 % (11.6-14.8) H Platelet Count 163 K/UL (150-450) Mean Platelet Volume 7.5 FL (6.5-10.1) Neutrophils (%) (Auto) % (45.0-75.0) Lymphocytes (%) (Auto) % (20.0-45.0) Monocytes (%) (Auto) % (1.0-10.0) Eosinophils (%) (Auto) % (0.0-3.0) Basophils (%) (Auto) % (0.0-2.0) Differential Total Cells Counted 100 Neutrophils % (Manual) 70 % (45-75) Lymphocytes % (Manual) 20 % (20-45) Monocytes % (Manual) 8 % (1-10) Eosinophils % (Manual) 2 % (0-3) Basophils % (Manual) 0 % (0-2) Band Neutrophils 0 % (0-8) Platelet Estimate Adequate Platelet Morphology Normal Hypochromasia 1+ Anisocytosis 1+ Prothrombin Time 10.8 SEC (9.30-11.50) Prothromb Time International Ratio 1.0 (0.9-1.1) Activated Partial Thromboplast Time 27 SEC (23-33) Sodium Level 140 MMOL/L (136-145) Potassium Level 5.2 MMOL/L (3.5-5.1) H Chloride Level 111 MMOL/L (98-107) H Carbon Dioxide Level 20 MMOL/L (21-32) L Anion Gap 9 mmol/L (5-15) Blood Urea Nitrogen 53 mg/dL (7-18) H Creatinine 4.3 MG/DL (0.55-1.30) H Estimat Glomerular Filtration Rate 16.2 mL/min (>60) Glucose Level 114 MG/DL (74-106) H Uric Acid 7.0 MG/DL (2.6-7.2) Calcium Level 6.9 MG/DL (8.5-10.1) L Phosphorus Level 7.3 MG/DL (2.5-4.9) H Magnesium Level 1.5 MG/DL (1.8-2.4) L Total Bilirubin 0.2 MG/DL (0.2-1.0) Aspartate Amino Transf (AST/SGOT) 47 U/L (15-37) H Alanine Aminotransferase (ALT/SGPT) 74 U/L (12-78) Alkaline Phosphatase 155 U/L (46-116) H C-Reactive Protein, Quantitative 5.8 mg/dL (0.00-0.90) H Pro-B-Type Natriuretic Peptide 28177 pg/mL (0-125) H Total Protein 3.8 G/DL (6.4-8.2) L Albumin 1.1 G/DL (3.4-5.0) L Globulin 2.7 g/dL Albumin/Globulin Ratio 0.4 (1.0-2.7) L Hepatitis B Surface Antigen Pending Hepatitis B Surface Antibody, Quant Pending Hepatitis C Antibody Pending Height (Feet): 5 Height (Inches): 10.00 Weight (Pounds): 206 General Appearance: WD/WN, no apparent distress, alert Cardiovascular: normal rate Respiratory/Chest: no respiratory distress Abdominal Exam: normal bowel sounds, non tender, soft, distended, ascites Extremities: non-tender Amber Clark N.P. Sep 12, 2017 11:50
--- NOTE | 2017-09-12 12:16 | Cardiac Electrophysiology PN ---
Assessment/Plan Assessment/Plan 1. Accelerated hypertension. Better on Norvasc 10 mg daily and clonidine 0.1 mg every eight hours and Coreg 12.5 mg bid. Avoid ALEJANDRO inhibitor and angiotensin receptor blockers in view of patient's renal failure. 2. Chronic kidney disease. Volume overload. HD catheter pending today by Dr. Garrett. 3. Insulin-dependent diabetes. 4. Anemia of renal disease. 5. Abdominal pain and distention, diarrhea, and gastroparesis. Further evaluation by GI. 6. Hypothyroidism, on Synthroid. SUZANNA RN Subjective Subjective Scheduled ofr HD catheter placement and paracentesis today.No CP. SOB better. Objective Last 24 Hour Vital Signs Date Time Temp Pulse Resp B/P (MAP) Pulse Ox O2 Delivery O2 Flow Rate FiO2 09/12/17 11:55 97.7 57 20 147/99 95 09/12/17 09:35 97.7 09/12/17 09:00 57 147/99 09/12/17 09:00 57 147/99 09/12/17 08:00 98.2 60 20 153/95 94 09/12/17 06:28 160/100 09/12/17 03:43 98.4 63 20 167/102 96 Room Air 09/12/17 00:00 98.4 79 20 170/100 92 09/11/17 21:30 161/103 09/11/17 21:29 80 161/103 09/11/17 20:00 97.9 75 19 178/110 91 09/11/17 16:00 98.2 68 19 139/77 90 09/11/17 13:10 172/69 Intake and Output 09/11/17 09/12/17 19:00 07:00 Intake Total 560 ml 650 ml Output Total 1000 ml Balance 560 ml -350 ml Intake Oral 560 ml 650 ml Output Urine Total 1000 ml # Voids 1 # Bowel Movements 2 2 Laboratory Tests Test 09/12/17 07:35 White Blood Count 6.1 K/UL (4.8-10.8) Red Blood Count 2.66 M/UL (4.70-6.10) L Hemoglobin 7.9 G/DL (14.2-18.0) L Hematocrit 24.5 % (42.0-52.0) L Mean Corpuscular Volume 92 FL (80-99) Mean Corpuscular Hemoglobin 29.5 PG (27.0-31.0) Mean Corpuscular Hemoglobin Concent 32.1 G/DL (32.0-36.0) Red Cell Distribution Width 15.0 % (11.6-14.8) H Platelet Count 163 K/UL (150-450) Mean Platelet Volume 7.5 FL (6.5-10.1) Neutrophils (%) (Auto) % (45.0-75.0) Lymphocytes (%) (Auto) % (20.0-45.0) Monocytes (%) (Auto) % (1.0-10.0) Eosinophils (%) (Auto) % (0.0-3.0) Basophils (%) (Auto) % (0.0-2.0) Differential Total Cells Counted 100 Neutrophils % (Manual) 70 % (45-75) Lymphocytes % (Manual) 20 % (20-45) Monocytes % (Manual) 8 % (1-10) Eosinophils % (Manual) 2 % (0-3) Basophils % (Manual) 0 % (0-2) Band Neutrophils 0 % (0-8) Platelet Estimate Adequate Platelet Morphology Normal Hypochromasia 1+ Anisocytosis 1+ Prothrombin Time 10.8 SEC (9.30-11.50) Prothromb Time International Ratio 1.0 (0.9-1.1) Activated Partial Thromboplast Time 27 SEC (23-33) Sodium Level 140 MMOL/L (136-145) Potassium Level 5.2 MMOL/L (3.5-5.1) H Chloride Level 111 MMOL/L (98-107) H Carbon Dioxide Level 20 MMOL/L (21-32) L Anion Gap 9 mmol/L (5-15) Blood Urea Nitrogen 53 mg/dL (7-18) H Creatinine 4.3 MG/DL (0.55-1.30) H Estimat Glomerular Filtration Rate 16.2 mL/min (>60) Glucose Level 114 MG/DL (74-106) H Uric Acid 7.0 MG/DL (2.6-7.2) Calcium Level 6.9 MG/DL (8.5-10.1) L Phosphorus Level 7.3 MG/DL (2.5-4.9) H Magnesium Level 1.5 MG/DL (1.8-2.4) L Total Bilirubin 0.2 MG/DL (0.2-1.0) Aspartate Amino Transf (AST/SGOT) 47 U/L (15-37) H Alanine Aminotransferase (ALT/SGPT) 74 U/L (12-78) Alkaline Phosphatase 155 U/L (46-116) H C-Reactive Protein, Quantitative 5.8 mg/dL (0.00-0.90) H Pro-B-Type Natriuretic Peptide 02865 pg/mL (0-125) H Total Protein 3.8 G/DL (6.4-8.2) L Albumin 1.1 G/DL (3.4-5.0) L Globulin 2.7 g/dL Albumin/Globulin Ratio 0.4 (1.0-2.7) L Hepatitis B Surface Antigen Pending Hepatitis B Surface Antibody, Quant Pending Hepatitis C Antibody Pending Objective HEAD AND NECK: No JVD. LUNGS: Clear. CARDIOVASCULAR: Regular S1 and S2. No gallop or murmur. ABDOMEN: Soft. EXTREMITIES: No pitting edema. MONICA DANGELO Sep 12, 2017 12:16
--- NOTE | 2017-09-12 13:42 | Internal Med Progress Note ---
Subjective Date of Service: Sep 12, 2017 Physician Name Sanjiv Talbot Attending Physician Serafin Voss MD Current Medications Medications (Trade) Dose Ordered Sig/Michelle Route PRN Reason Start Time Stop Time Status Last Admin Dose Admin Acetaminophen (Tylenol) 650 mg Q4H PRN ORAL fever 09/09/17 23:45 10/08/17 15:44 Amlodipine Besylate (Norvasc) 10 mg DAILY ORAL 09/11/17 09:00 10/11/17 08:59 09/11/17 09:40 Aspirin (ASA) 81 mg DAILY ORAL 09/10/17 09:00 10/10/17 08:59 09/11/17 09:39 Carvedilol (Coreg) 12.5 mg EVERY 12 HOURS ORAL 09/10/17 21:00 10/10/17 20:59 09/11/17 21:29 Clonidine HCl (Catapres Tab) 0.1 mg EVERY 8 HOURS ORAL 09/10/17 14:00 10/10/17 13:59 09/12/17 06:28 Clonidine HCl (Catapres Tab) 0.1 mg Q6H PRN ORAL SYSTOLIC BP > 160 09/10/17 08:30 10/10/17 08:29 09/10/17 09:07 Dextrose (Dextrose 50%) STAT PRN IV Hypoglycemia 09/10/17 15:45 10/08/17 15:44 Diphenhydramine HCl (Benadryl) 25 mg Q6H PRN ORAL Itching/Pruritis 09/10/17 03:45 10/08/17 15:44 Docusate Sodium (Colace) 100 mg THREE TIMES A DAY ORAL 09/10/17 09:00 10/09/17 12:59 09/10/17 08:55 Epoetin Curry (Procrit (for ESRD on dialysis)) 10,000 units TUE-WED-TUE SUBQ 09/12/17 21:00 10/12/17 20:59 Guaifenesin (Robitussin) 200 mg Q6HR PRN ORAL For Cough 09/10/17 00:00 10/09/17 18:59 09/11/17 06:35 Guaifenesin/ Codeine Phosphate (Robitussin with codeine) 5 ml Q6H PRN ORAL For Cough 09/10/17 17:00 10/10/17 16:59 09/12/17 01:37 Heparin Sodium (Porcine) (Heparin 5000 units/ml) 5,000 units EVERY 12 HOURS SUBQ 09/10/17 09:00 10/08/17 20:59 09/11/17 21:32 Lansoprazole (Prevacid) 30 mg DAILY ORAL 09/11/17 09:00 10/11/17 08:59 09/11/17 09:39 Levothyroxine Sodium (Synthroid) 25 mcg DAILY@0630 ORAL 09/10/17 06:30 10/10/17 06:29 09/12/17 06:27 Lorazepam (Ativan 2mg/ml 1ml) 1 mg EVERY 4 HOURS PRN IV agitation 09/10/17 01:00 09/15/17 15:44 09/11/17 22:57 Morphine Sulfate (Morphine Sulfate) 2 mg Q3HR PRN IVP Severe Pain (Pain Scale 7-10) 09/10/17 00:00 09/16/17 16:44 09/12/17 09:05 Nitroglycerin (Ntg) 0.4 mg Q5M X 3 DOSES PRN SL Prn Chest Pain 09/09/17 22:30 10/08/17 15:44 Ondansetron HCl (Zofran) 4 mg Q6H PRN IVP Nausea & Vomiting 09/10/17 03:45 10/08/17 15:44 Polyethylene Glycol (Miralax) 17 gm HSPRN PRN ORAL Constipation 09/10/17 15:45 10/08/17 15:44 Sevelamer Carbonate (Renvela) 2,400 mg THREE TIMES A DAY ORAL 09/11/17 13:00 10/11/17 12:59 09/11/17 18:32 Tamsulosin HCl (Flomax) 0.4 mg BID ORAL 09/10/17 09:00 10/08/17 17:59 09/11/17 18:32 Temazepam (Restoril) 15 mg HSPRN PRN ORAL Insomnia 09/10/17 15:45 09/15/17 15:44 Allergies: Coded Allergies: METOCLOPRAMIDE (Unverified Allergy, Severe, 09/08/17) PROCHLORPERAZINE (Unverified Allergy, Severe, 09/08/17) VANCOMYCIN (Unverified Allergy, Severe, 09/08/17) ROS Limited/Unobtainable: No Constitutional: Reports: no symptoms HEENT: Reports: no symptoms Cardiovascular: Reports: no symptoms Respiratory: Reports: no symptoms Gastrointestinal/Abdominal: Reports: no symptoms Genitourinary: Reports: no symptoms Neurologic/Psychiatric: Reports: no symptoms Subjective 32 YO M admitted with abdominal pain. Now renal failure. Cover for Int Reinaldo-Dr Voss. Await paracentesis. Objective Last Vital Signs Date Time Temp Pulse Resp B/P (MAP) Pulse Ox O2 Delivery O2 Flow Rate FiO2 09/12/17 11:55 97.7 57 20 147/99 95 09/12/17 03:43 Room Air Laboratory Tests Test 09/12/17 07:35 White Blood Count 6.1 K/UL (4.8-10.8) Red Blood Count 2.66 M/UL (4.70-6.10) L Hemoglobin 7.9 G/DL (14.2-18.0) L Hematocrit 24.5 % (42.0-52.0) L Mean Corpuscular Volume 92 FL (80-99) Mean Corpuscular Hemoglobin 29.5 PG (27.0-31.0) Mean Corpuscular Hemoglobin Concent 32.1 G/DL (32.0-36.0) Red Cell Distribution Width 15.0 % (11.6-14.8) H Platelet Count 163 K/UL (150-450) Mean Platelet Volume 7.5 FL (6.5-10.1) Neutrophils (%) (Auto) % (45.0-75.0) Lymphocytes (%) (Auto) % (20.0-45.0) Monocytes (%) (Auto) % (1.0-10.0) Eosinophils (%) (Auto) % (0.0-3.0) Basophils (%) (Auto) % (0.0-2.0) Differential Total Cells Counted 100 Neutrophils % (Manual) 70 % (45-75) Lymphocytes % (Manual) 20 % (20-45) Monocytes % (Manual) 8 % (1-10) Eosinophils % (Manual) 2 % (0-3) Basophils % (Manual) 0 % (0-2) Band Neutrophils 0 % (0-8) Platelet Estimate Adequate Platelet Morphology Normal Hypochromasia 1+ Anisocytosis 1+ Prothrombin Time 10.8 SEC (9.30-11.50) Prothromb Time International Ratio 1.0 (0.9-1.1) Activated Partial Thromboplast Time 27 SEC (23-33) Sodium Level 140 MMOL/L (136-145) Potassium Level 5.2 MMOL/L (3.5-5.1) H Chloride Level 111 MMOL/L (98-107) H Carbon Dioxide Level 20 MMOL/L (21-32) L Anion Gap 9 mmol/L (5-15) Blood Urea Nitrogen 53 mg/dL (7-18) H Creatinine 4.3 MG/DL (0.55-1.30) H Estimat Glomerular Filtration Rate 16.2 mL/min (>60) Glucose Level 114 MG/DL (74-106) H Uric Acid 7.0 MG/DL (2.6-7.2) Calcium Level 6.9 MG/DL (8.5-10.1) L Phosphorus Level 7.3 MG/DL (2.5-4.9) H Magnesium Level 1.5 MG/DL (1.8-2.4) L Total Bilirubin 0.2 MG/DL (0.2-1.0) Aspartate Amino Transf (AST/SGOT) 47 U/L (15-37) H Alanine Aminotransferase (ALT/SGPT) 74 U/L (12-78) Alkaline Phosphatase 155 U/L (46-116) H C-Reactive Protein, Quantitative 5.8 mg/dL (0.00-0.90) H Pro-B-Type Natriuretic Peptide 07237 pg/mL (0-125) H Total Protein 3.8 G/DL (6.4-8.2) L Albumin 1.1 G/DL (3.4-5.0) L Globulin 2.7 g/dL Albumin/Globulin Ratio 0.4 (1.0-2.7) L Hepatitis B Surface Antigen Pending Hepatitis B Surface Antibody, Quant Pending Hepatitis C Antibody Pending Intake and Output 09/11/17 09/12/17 19:00 07:00 Intake Total 560 ml 650 ml Output Total 1000 ml Balance 560 ml -350 ml Intake Oral 560 ml 650 ml Output Urine Total 1000 ml # Voids 1 # Bowel Movements 2 2 Objective General Appearance: WD/WN, alert, mild distress EENT: PERRL/EOMI, normal ENT inspection Neck: non-tender, normal alignment, supple, normal inspection Cardiovascular: normal peripheral pulses, normal rate, regular rhythm, no gallop/murmur, no JVD Respiratory/Chest: chest wall non-tender, lungs clear, normal breath sounds, no respiratory distress, no accessory muscle use Abdomen: no organomegaly, no mass, decreased bowel sounds, distended, guarding , tender Extremities: normal range of motion 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 (2) Anemia of renal disease (3) HTN (hypertension) Assessment & Plan: Uncontrolled. Await cardiology consult. Cont coreg and norvasc. (4) Ascites Assessment & Plan: Await paracentesis. See GI note. (5) Abdominal pain (6) Abdominal distention (7) Diarrhea Assessment & Plan: C. Diff neg; await stool culture (8) Gastroparesis (9) Diabetes type 1, controlled Assessment & Plan: Continue novolog sliding scale. (10) Hypothyroidism Assessment & Plan: Continue levoxyl Status: not improved SANJIV TALBOT Sep 12, 2017 13:42
[2017-09-12] MEDS: LORazepam Inj 2mg/ml 1ml IV PRN ×2 (13:55→21:27)
[2017-09-12 16:47] LABS: CREATININE 4.2 MG/DL (0.55-1.30)
--- NOTE | 2017-09-12 18:02 | Pulmonology Progress Note ---
Assessment/Plan Problems: (1) Renal failure (ARF), acute on chronic (2) Diabetic nephropathy (3) Diabetes type 1, controlled (4) Abdominal distention (5) Chronic pancreatitis (6) Gastroparesis Assessment/Plan renal w/u pending check electrolytes getting Hd symptomatic treatment dvt prophylaxis Subjective Allergies: Coded Allergies: METOCLOPRAMIDE (Unverified Allergy, Severe, 09/08/17) PROCHLORPERAZINE (Unverified Allergy, Severe, 09/08/17) VANCOMYCIN (Unverified Allergy, Severe, 09/08/17) Objective Last 24 Hour Vital Signs Date Time Temp Pulse Resp B/P (MAP) Pulse Ox O2 Delivery O2 Flow Rate FiO2 09/12/17 15:51 97.7 61 20 161/97 95 09/12/17 14:25 97.7 09/12/17 14:00 147/99 09/12/17 13:55 97.7 09/12/17 11:55 97.7 57 20 147/99 95 09/12/17 09:00 57 147/99 09/12/17 09:00 57 147/99 09/12/17 08:00 98.2 60 20 153/95 94 09/12/17 06:28 160/100 09/12/17 03:43 98.4 63 20 167/102 96 Room Air 09/12/17 00:00 98.4 79 20 170/100 92 09/11/17 21:30 161/103 09/11/17 21:29 80 161/103 09/11/17 20:00 97.9 75 19 178/110 91 Intake and Output 09/11/17 09/12/17 19:00 07:00 Intake Total 560 ml 650 ml Output Total 1000 ml Balance 560 ml -350 ml Intake Oral 560 ml 650 ml Output Urine Total 1000 ml # Voids 1 # Bowel Movements 2 2 Objective General Appearance: no apparent distress Head: normocephalic, atraumatic Eyes: bilateral eye PERRL, bilateral eye EOMI ENT: normal pharynx, no angioedema Neck: supple, thyroid normal Respiratory: lungs clear, normal breath sounds Cardiovascular #1: regular rate, rhythm Gastrointestinal: non tender, soft Laboratory Tests 09/12/17 07:35: White Blood Count 6.1, Red Blood Count 2.66L, Hemoglobin 7.9L, Hematocrit 24.5L , Mean Corpuscular Volume 92, Mean Corpuscular Hemoglobin 29.5, Mean Corpuscular Hemoglobin Concent 32.1, Red Cell Distribution Width 15.0H, Platelet Count 163, Mean Platelet Volume 7.5, Neutrophils (%) (Auto) , Lymphocytes (%) (Auto) , Monocytes (%) (Auto) , Eosinophils (%) (Auto) , Basophils (%) (Auto) , Differential Total Cells Counted 100, Neutrophils % ( Manual) 70, Lymphocytes % (Manual) 20, Monocytes % (Manual) 8, Eosinophils % ( Manual) 2, Basophils % (Manual) 0, Band Neutrophils 0, Platelet Estimate Adequate, Platelet Morphology Normal, Hypochromasia 1+, Anisocytosis 1+, Prothrombin Time 10.8, Prothromb Time International Ratio 1.0, Activated Partial Thromboplast Time 27, Sodium Level 140, Potassium Level 5.2H, Chloride Level 111H, Carbon Dioxide Level 20L, Anion Gap 9, Blood Urea Nitrogen 53H, Creatinine 4.3H, Estimat Glomerular Filtration Rate 16.2, Glucose Level 114H, Uric Acid 7.0, Calcium Level 6.9L, Phosphorus Level 7.3H, Magnesium Level 1.5L, Total Bilirubin 0.2, Aspartate Amino Transf (AST/SGOT) 47H, Alanine Aminotransferase (ALT/SGPT) 74, Alkaline Phosphatase 155H, C-Reactive Protein, Quantitative 5.8H, Pro-B-Type Natriuretic Peptide 04258J, Total Protein 3.8L, Albumin 1.1L, Globulin 2.7, Albumin/Globulin Ratio 0.4L, Hepatitis B Surface Antigen [Pending], Hepatitis B Surface Antibody, Quant [Pending], Hepatitis C Antibody [Pending] Current Medications Medications (Trade) Dose Ordered Sig/Michelle Route PRN Reason Start Time Stop Time Status Last Admin Dose Admin Acetaminophen (Tylenol) 650 mg Q4H PRN ORAL fever 09/09/17 23:45 10/08/17 15:44 Amlodipine Besylate (Norvasc) 10 mg DAILY ORAL 09/11/17 09:00 10/11/17 08:59 09/11/17 09:40 Aspirin (ASA) 81 mg DAILY ORAL 09/10/17 09:00 10/10/17 08:59 09/11/17 09:39 Carvedilol (Coreg) 12.5 mg EVERY 12 HOURS ORAL 09/10/17 21:00 10/10/17 20:59 09/11/17 21:29 Clonidine HCl (Catapres Tab) 0.1 mg EVERY 8 HOURS ORAL 09/10/17 14:00 10/10/17 13:59 09/12/17 06:28 Clonidine HCl (Catapres Tab) 0.1 mg Q6H PRN ORAL SYSTOLIC BP > 160 09/10/17 08:30 10/10/17 08:29 09/10/17 09:07 Dextrose (Dextrose 50%) STAT PRN IV Hypoglycemia 09/10/17 15:45 10/08/17 15:44 Diphenhydramine HCl (Benadryl) 25 mg Q6H PRN ORAL Itching/Pruritis 09/10/17 03:45 10/08/17 15:44 Docusate Sodium (Colace) 100 mg THREE TIMES A DAY ORAL 09/10/17 09:00 10/09/17 12:59 09/10/17 08:55 Epoetin Curry (Procrit (for ESRD on dialysis)) 10,000 units TUE-TUE-TUE SUBQ 09/12/17 21:00 10/12/17 20:59 Guaifenesin (Robitussin) 200 mg Q6HR PRN ORAL For Cough 09/10/17 00:00 10/09/17 18:59 09/11/17 06:35 Guaifenesin/ Codeine Phosphate (Robitussin with codeine) 5 ml Q6H PRN ORAL For Cough 09/10/17 17:00 10/10/17 16:59 09/12/17 01:37 Heparin Sodium (Porcine) (Heparin 5000 units/ml) 5,000 units EVERY 12 HOURS SUBQ 09/10/17 09:00 10/08/17 20:59 09/11/17 21:32 Lansoprazole (Prevacid) 30 mg DAILY ORAL 09/11/17 09:00 10/11/17 08:59 09/11/17 09:39 Levothyroxine Sodium (Synthroid) 25 mcg DAILY@0630 ORAL 09/10/17 06:30 10/10/17 06:29 09/12/17 06:27 Lorazepam (Ativan 2mg/ml 1ml) 1 mg EVERY 4 HOURS PRN IV agitation 09/10/17 01:00 09/15/17 15:44 09/12/17 13:55 Morphine Sulfate (Morphine Sulfate) 2 mg Q3HR PRN IVP Severe Pain (Pain Scale 7-10) 09/10/17 00:00 09/16/17 16:44 09/12/17 13:55 Nitroglycerin (Ntg) 0.4 mg Q5M X 3 DOSES PRN SL Prn Chest Pain 09/09/17 22:30 10/08/17 15:44 Ondansetron HCl (Zofran) 4 mg Q6H PRN IVP Nausea & Vomiting 09/10/17 03:45 10/08/17 15:44 Polyethylene Glycol (Miralax) 17 gm HSPRN PRN ORAL Constipation 09/10/17 15:45 10/08/17 15:44 Sevelamer Carbonate (Renvela) 2,400 mg THREE TIMES A DAY ORAL 09/11/17 13:00 10/11/17 12:59 09/11/17 18:32 Tamsulosin HCl (Flomax) 0.4 mg BID ORAL 09/10/17 09:00 10/08/17 17:59 09/11/17 18:32 Temazepam (Restoril) 15 mg HSPRN PRN ORAL Insomnia 09/10/17 15:45 09/15/17 15:44 RICARDO POLANCO Sep 12, 2017 18:02
[2017-09-12] MEDS: Epogen (for ESRD on dialysis) SUBQ SCH (21:26)
[2017-09-13] VITALS (25 sets, daily range): BP systolic 129–207; BP diastolic 8–128
[2017-09-13] MEDS: Morphine Sulfate 2mg/ml Inj IVP PRN ×5 (00:51→21:28)
[2017-09-13] MEDS: LORazepam Inj 2mg/ml 1ml IV PRN ×3 (02:55→22:02)
[2017-09-13] MEDS: Levothyroxine 25mcg tab ORAL SCH (06:29)
[2017-09-13] MEDS: guaiFENesin 100mg/5ml Liq ud ORAL PRN (06:48)
[2017-09-13 07:16] LABS: HEMOGLOBIN 7.7 G/DL (14.2-18.0); MEAN CORPUSCULAR VOLUME 92 FL (80-99); PLATELET COUNT 165 K/UL (150-450); RED CELL DISTRIBUTION WIDTH 15.6 % (11.6-14.8); WHITE BLOOD COUNT 6.4 K/UL (4.8-10.8)
[2017-09-13 07:53] LABS: ALANINE AMINOTRANSFERASE 88 U/L (12-78); ALBUMIN/GLOBULIN RATIO 0.4 (1.0-2.7); ALKALINE PHOSPHATASE 177 U/L (46-116); ANION GAP 9 mmol/L (5-15); ASPARTATE AMINO TRANSFERASE 66 U/L (15-37); BILIRUBIN,TOTAL 0.1 MG/DL (0.2-1.0); BLOOD UREA NITROGEN 53 mg/dL (7-18); CALCIUM 7.1 MG/DL (8.5-10.1); CARBON DIOXIDE 19 MMOL/L (21-32); CHLORIDE 111 MMOL/L (98-107); PHOSPHORUS 6.7 MG/DL (2.5-4.9); POTASSIUM 4.9 MMOL/L (3.5-5.1); SODIUM 139 MMOL/L (136-145)
[2017-09-13] MEDS: Tamsulosin 0.4mg cap ORAL SCH ×2 (08:59→17:57)
[2017-09-13] MEDS: Carvedilol 12.5mg tab ORAL SCH ×2 (08:59→21:28)
[2017-09-13] MEDS: Docusate 100mg cap ORAL SCH ×3 (08:59→17:57)
[2017-09-13] MEDS: Aspirin Baby 81mg ORAL SCH (09:00)
[2017-09-13] MEDS: Heparin 5000 units/ml inj SUBQ SCH ×2 (09:00→21:32)
[2017-09-13] MEDS ORDERED: Heparin 2000 units/Ns 1000ml 1,000 ML ONE (09:20)
[2017-09-13] MEDS ORDERED: Heparin Sod 1000 units/ml 10ml ONE (09:20)
[2017-09-13] MEDS ORDERED: Lidocaine 2% 20mg/ml/Epi 0.005mg/ml 20ml vial INJ ONE (09:45)
[2017-09-13] MEDS ORDERED: fentaNYL 100 mcg/2 mL IV ONE ×3 (10:14→14:00)
[2017-09-13] MEDS ORDERED: Midazolam 2mg/2ml Inj IVP ONE (10:15)
--- NOTE | 2017-09-13 10:32 | Pre-Procedure Note/Attestation ---
Pre-Procedure Note/Attestation Complete Prior to Procedure Planned Procedure: right Procedure Narrative: permacath for hemodialysis Indications for Procedure Pre-Operative Diagnosis: requires hemodialysis Attestation I attest that I discussed the nature of the procedure; its benefits; risks and complications; and alternatives (and the risks and benefits of such alternatives ), prior to the procedure, with the patient (or the patient's legal sales and merchandising representative). I attest that, if there was a reasonable possibility of needing a blood transfusion, the patient (or the patient's legal sales and merchandising representative) was given the [facility] standardized written summary, pursuant to the Jonah Dary Blood Safety Act ([place] Health and Safety Code # 1645, as amended). I attest that I re-evaluated the patient just prior to the surgery and that there has been no change in the patient's H&P, except as documented below: MELANIA ALMEIDA M.D. Sep 13, 2017 10:32
--- NOTE | 2017-09-13 10:35 | Moderate Sedation - Procedural ---
Moderate Sedation Patient History Allergies: Coded Allergies: METOCLOPRAMIDE (Unverified Allergy, Severe, 09/08/17) PROCHLORPERAZINE (Unverified Allergy, Severe, 09/08/17) VANCOMYCIN (Unverified Allergy, Severe, 09/08/17) PAST MEDICAL HISTORY: Past Surgeries: Social History: Pre-Procedural Mod Sedation Date: Sep 13, 2017 Pre-Assessment Time: 10:35 Vital Signs stable Pre-Sedation Assessment: Elective Airway Assessment (Malampati): I Heart: normal Lungs: normal Abdomen: normal Extremities: normal Pre-op Diagnosis: requires hemodialysis. renal failure Evaluation Hx of untoward rxns to mod sed: No Procedures/Plans: Radiology Plan for Moderate Sedation: Midazolam, Fentanyl ASA Score: II Informed Consent The nature of the procedure/sedation; its benefits; risks and complications; and alternatives (and the risks and benefits of such alternatives) were discussed with the patient (or their legal customer sales representative), prior to the procedure. All questions were answered to the patient's (or their legal customer sales representative's) satisfaction and the patient (or their legal customer sales representative) gave informed consent to the procedure. I attest that I re-evaluated the patient just prior to the surgery and that there has been no change in the patient's H&P, except as documented below: MELANIA ALMEIDA M.D. Sep 13, 2017 10:35
--- NOTE | 2017-09-13 11:38 | Nephrology Progress Note ---
Assessment/Plan Problem List: (1) Renal failure (ARF), acute on chronic (2) Diabetic nephropathy (3) HTN (hypertension) Assessment: hypertensive kidney disease Assessment Advanced renal failure due to Type I DM DIabetic Nephropathy- Most likely NS -. Bilateral upper quadrant pain. -. Diarrhea. -. Diabetic gastroparesis. -. Diabetes type 1. -. Hypertension. -. Anemia. due to CKD -. HypoThyroid Plan Plan: agreed with HD- Cath placement and dialysis not done yesterday due to Radiology issues abd being done today- due for one unit blood transfusion today- Add Norvasc and Clonidine to BP meds- DC ARBs for high K Per GI 24 h urine collection over 3 gram protein Monitor renal parameters , BS and BP Avoid nephrotoxics 2D Echo : Left ventricular ejection fraction estimated to be 60 %. No evidence of left ventricular hypertrophy. Trace pericardial effusion . Moderate left atrial enlargement. OCTAVIO: Left kidney measures 11.8 cm in length. Right kidney measures 9.6 cm length. Kidneys demonstrate diffusely increased echogenicity. No hydronephrosis. there is a small left lower pole renal cyst Subjective ROS Limited/Unobtainable: No Constitutional: Reports: malaise Objective Objective Last 24 Hour Vital Signs Date Time Temp Pulse Resp B/P (MAP) Pulse Ox O2 Delivery O2 Flow Rate FiO2 09/13/17 11:10 67 15 207/121 100 Nasal Cannula 2.0 09/13/17 11:05 66 15 165/103 100 Nasal Cannula 2.0 09/13/17 11:00 67 15 164/104 100 Nasal Cannula 2.0 09/13/17 10:55 66 20 171/107 100 Nasal Cannula 2.0 09/13/17 10:50 65 16 168/106 99 Nasal Cannula 2.0 09/13/17 09:00 71 155/95 09/13/17 08:59 71 155/95 09/13/17 08:01 98.2 71 20 155/95 96 Room Air 09/13/17 06:29 150/100 09/13/17 05:10 97.9 09/13/17 04:38 97.9 09/13/17 04:00 97.9 72 20 150/100 95 Room Air 09/13/17 00:51 187/113 09/13/17 00:51 97.9 09/12/17 23:47 97.9 78 20 187/113 96 Room Air 09/12/17 21:25 74 188/107 09/12/17 21:25 188/107 09/12/17 20:02 97.7 74 20 188/107 95 Room Air 09/12/17 15:51 97.7 61 20 161/97 95 09/12/17 14:00 147/99 09/12/17 13:55 97.7 09/12/17 11:55 97.7 57 20 147/99 95 Intake and Output 09/12/17 09/13/17 19:00 07:00 Intake Total 240 ml Balance 240 ml Intake Oral 240 ml # Voids 3 2 # Bowel Movements 2 1 Laboratory Tests 09/13/17 05:30: White Blood Count 6.4, Red Blood Count 2.60L, Hemoglobin 7.7L, Hematocrit 24.0L , Mean Corpuscular Volume 92, Mean Corpuscular Hemoglobin 29.6, Mean Corpuscular Hemoglobin Concent 32.2, Red Cell Distribution Width 15.6H, Platelet Count 165, Mean Platelet Volume 7.3, Neutrophils (%) (Auto) , Lymphocytes (%) (Auto) , Monocytes (%) (Auto) , Eosinophils (%) (Auto) , Basophils (%) (Auto) , Differential Total Cells Counted 100, Neutrophils % ( Manual) 75, Lymphocytes % (Manual) 20, Monocytes % (Manual) 5, Eosinophils % ( Manual) 0, Basophils % (Manual) 0, Band Neutrophils 0, Platelet Estimate Adequate, Platelet Morphology Normal, Hypochromasia 1+, Anisocytosis 1+, Sodium Level 139, Potassium Level 4.9, Chloride Level 111H, Carbon Dioxide Level 19L, Anion Gap 9, Blood Urea Nitrogen 53H, Creatinine 4.0H, Estimat Glomerular Filtration Rate 17.6, Glucose Level 104, Calcium Level 7.1L, Phosphorus Level 6.7H, Magnesium Level 1.4L, Total Bilirubin 0.1L, Aspartate Amino Transf (AST/ SGOT) 66H, Alanine Aminotransferase (ALT/SGPT) 88H, Alkaline Phosphatase 177H, Pro-B-Type Natriuretic Peptide 15290N, Total Protein 3.8L, Albumin 1.0L, Globulin 2.8, Albumin/Globulin Ratio 0.4L Height (Feet): 5 Height (Inches): 10.00 Weight (Pounds): 207 General Appearance: no apparent distress Objective no change LEXIS PRESTON Sep 13, 2017 11:38
--- NOTE | 2017-09-13 12:20 | Diagnostic Imaging Report ---
Indication: Abdominal pain Technique: Continuous helical transaxial imaging of the abdomen and pelvis was obtained from the lung bases to the pubic symphysis. No intravenous contrast was administered. Coronal 2-D reformats were also obtained. Automatic Exposure Control was utilized. Total Dose length Product (DLP): 1221.[address] Dose Index Volume (CTDIvol): 19.28 mGy Comparison: none Findings: Patchy infiltrates are demonstrated within the visualized lung bases characterized by both linear and airspace opacities and groundglass opacities. Small bilateral pleural effusions are present. There is ascites noted. Evaluation is limited by the absence of intravenous contrast not given. There is oral contrast in the stomach and small bowel. Gallbladder is identified but not evaluated well. There is a moderate amount of fecal retention within the colon. The bladder is mildly distended. There is generalized anasarca. Appendix is not seen. There is no free air. Arterial calcifications noted involving small vessels mainly, which is seen usually in end-stage renal disease. Patient has known end-stage renal disease. The pancreas is atrophic. There are parenchymal calcifications within the pancreas. IMPRESSION: Mild to moderate ascites. Bilateral pleural effusions. Anasarca Multifocal infiltrates suspected within the lungs bilaterally. Small vessel arterial vascular disease. Moderate stool retention Limited evaluation due to absence of intravenous contrast. The CT scanner at [facility] is accredited by the [employer] and the scans are performed using dose optimization techniques as appropriate to a performed exam including Automatic Exposure control.
--- NOTE | 2017-09-13 13:23 | Diagnostic Imaging Report ---
Indication: Patient requires long-term hemodialysis. Findings: After the indications, procedure, risks, complications, and alternatives of the procedure were explained, written informed consent was obtained. Patient was brought to the angio-fluoroscopic suite and placed supine on the table. All elements of maximum sterile barrier technique were followed including use of a cap and mask, sterile gown, sterile gloves, and a large sterile sheet. Alcohol used to prep the skin. 1% lidocaine was used to anesthetize the skin and subcutaneous tissue. Sonographic evaluation of the the right jugular vein was performed demonstrating a patent and compressible vein. Access using an 18 gauge needle was obtained under real-time ultrasound guidance and digital image was saved in archive. An 035 wire was then advanced into the vein and negotiated fluoroscopically into the inferior vena cava. Lidocaine infiltration of the right anterior chest wall was then performed followed by dermatotomy. A tunnel of lidocaine was then made between this site and the venous puncture site. A 14.5 surinamese 23 cm dual-lumen catheter was then tunneled through the tract. The wire within the jugular vein was then exchanged for a dilator. Serial dilatations were performed. The catheter was then inserted into the last dilator/peel-away sheath such that the tip resides in the SVC. The dilator/peel-away sheath and wire were removed and the catheter was completely buried under the skin. Proximal portion of the catheter was secured to the skin using 2-0 Prolene suture. Both ports aspirate and flush easily. Both dermatotomy sites were closed with Dermabond. Total fluoroscopic time 1.8 minutes. Impression: Successful placement of tunneled right jugular hemodialysis catheter. No complications.
--- NOTE | 2017-09-13 13:43 | GI Progress Note ---
Assessment/Plan Problems: (1) Renal failure (ARF), acute on chronic ICD Codes: N17.9 - Acute kidney failure, unspecified; N18.9 - Chronic kidney disease, unspecified SNOMED: 950628006 (2) Diarrhea ICD Codes: R19.7 - Diarrhea, unspecified SNOMED: 38010962 (3) Vomiting ICD Codes: R11.10 - Vomiting, unspecified SNOMED: 214651154 (4) Diabetes type 1, controlled ICD Codes: E10.9 - Type 1 diabetes mellitus without complications SNOMED: 15360192, 922262901 (5) Gastroparesis ICD Codes: K31.84 - Gastroparesis SNOMED: 958523347 (6) Chronic pancreatitis ICD Codes: K86.1 - Other chronic pancreatitis SNOMED: 601535184 (7) Anemia ICD Codes: D64.9 - Anemia, unspecified SNOMED: 969963737 Status: unchanged Status Narrative Discussed with Dr. Schultz. Assessment/Plan abdominal U/S reviewed Hep panel >> negative cdiff / O&P >> negative CT reviewed >> stool retention >> begin mild bowel regime fu nephro recs renal diet DM mgmt anemia work up >> most likely 2/2 to renal disease pain mgmt ppi simethicone prn fu labs, free T4 Subjective Subjective generalized weakness denies any diarrhea at this time Objective Last 24 Hour Vital Signs Date Time Temp Pulse Resp B/P (MAP) Pulse Ox O2 Delivery O2 Flow Rate FiO2 09/13/17 12:30 98.5 71 15 154/97 100 Nasal Cannula 3.0 09/13/17 12:20 72 19 158/98 100 Nasal Cannula 3.0 09/13/17 12:15 71 16 154/100 100 Nasal Cannula 3.0 09/13/17 12:10 71 19 164/100 100 Nasal Cannula 3.0 09/13/17 12:05 71 15 162/104 100 Nasal Cannula 3.0 09/13/17 12:00 98.2 75 16 167/108 100 Nasal Cannula 3.0 09/13/17 11:50 77 15 175/110 99 Nasal Cannula 2.0 09/13/17 11:35 80 15 180/114 100 Nasal Cannula 2.0 09/13/17 11:30 82 15 194/118 100 Nasal Cannula 2.0 09/13/17 11:25 82 22 191/121 100 Nasal Cannula 2.0 09/13/17 11:20 83 22 205/128 100 Nasal Cannula 2.0 09/13/17 11:15 86 15 206/127 100 Nasal Cannula 2.0 09/13/17 11:10 67 15 207/121 100 Nasal Cannula 2.0 09/13/17 11:05 66 15 165/103 100 Nasal Cannula 2.0 09/13/17 11:00 67 15 164/104 100 Nasal Cannula 2.0 09/13/17 10:55 66 20 171/107 100 Nasal Cannula 2.0 09/13/17 10:50 65 16 168/106 99 Nasal Cannula 2.0 09/13/17 10:27 98.0 80 20 100 Nasal Cannula 2.0 65 96 09/13/17 09:00 71 155/95 09/13/17 08:59 71 155/95 09/13/17 08:01 98.2 71 20 155/95 96 Room Air 09/13/17 06:29 150/100 09/13/17 05:10 97.9 09/13/17 04:38 97.9 09/13/17 04:00 97.9 72 20 150/100 95 Room Air 09/13/17 00:51 187/113 09/13/17 00:51 97.9 09/12/17 23:47 97.9 78 20 187/113 96 Room Air 09/12/17 21:25 74 188/107 09/12/17 21:25 188/107 09/12/17 20:02 97.7 74 20 188/107 95 Room Air 09/12/17 15:51 97.7 61 20 161/97 95 09/12/17 14:00 147/99 09/12/17 13:55 97.7 Intake and Output 09/12/17 09/13/17 19:00 07:00 Intake Total 240 ml Balance 240 ml Intake Oral 240 ml # Voids 3 2 # Bowel Movements 2 1 Laboratory Tests Test 09/13/17 05:30 White Blood Count 6.4 K/UL (4.8-10.8) Red Blood Count 2.60 M/UL (4.70-6.10) L Hemoglobin 7.7 G/DL (14.2-18.0) L Hematocrit 24.0 % (42.0-52.0) L Mean Corpuscular Volume 92 FL (80-99) Mean Corpuscular Hemoglobin 29.6 PG (27.0-31.0) Mean Corpuscular Hemoglobin Concent 32.2 G/DL (32.0-36.0) Red Cell Distribution Width 15.6 % (11.6-14.8) H Platelet Count 165 K/UL (150-450) Mean Platelet Volume 7.3 FL (6.5-10.1) Neutrophils (%) (Auto) % (45.0-75.0) Lymphocytes (%) (Auto) % (20.0-45.0) Monocytes (%) (Auto) % (1.0-10.0) Eosinophils (%) (Auto) % (0.0-3.0) Basophils (%) (Auto) % (0.0-2.0) Differential Total Cells Counted 100 Neutrophils % (Manual) 75 % (45-75) Lymphocytes % (Manual) 20 % (20-45) Monocytes % (Manual) 5 % (1-10) Eosinophils % (Manual) 0 % (0-3) Basophils % (Manual) 0 % (0-2) Band Neutrophils 0 % (0-8) Platelet Estimate Adequate Platelet Morphology Normal Hypochromasia 1+ Anisocytosis 1+ Sodium Level 139 MMOL/L (136-145) Potassium Level 4.9 MMOL/L (3.5-5.1) Chloride Level 111 MMOL/L (98-107) H Carbon Dioxide Level 19 MMOL/L (21-32) L Anion Gap 9 mmol/L (5-15) Blood Urea Nitrogen 53 mg/dL (7-18) H Creatinine 4.0 MG/DL (0.55-1.30) H Estimat Glomerular Filtration Rate 17.6 mL/min (>60) Glucose Level 104 MG/DL (74-106) Calcium Level 7.1 MG/DL (8.5-10.1) L Phosphorus Level 6.7 MG/DL (2.5-4.9) H Magnesium Level 1.4 MG/DL (1.8-2.4) L Total Bilirubin 0.1 MG/DL (0.2-1.0) L Aspartate Amino Transf (AST/SGOT) 66 U/L (15-37) H Alanine Aminotransferase (ALT/SGPT) 88 U/L (12-78) H Alkaline Phosphatase 177 U/L (46-116) H C-Reactive Protein, Quantitative 4.8 mg/dL (0.00-0.90) H Pro-B-Type Natriuretic Peptide 62254 pg/mL (0-125) H Total Protein 3.8 G/DL (6.4-8.2) L Albumin 1.0 G/DL (3.4-5.0) L Globulin 2.8 g/dL Albumin/Globulin Ratio 0.4 (1.0-2.7) L Height (Feet): 5 Height (Inches): 10.00 Weight (Pounds): 207 General Appearance: WD/WN, no apparent distress, alert Cardiovascular: normal rate Respiratory/Chest: normal breath sounds, no respiratory distress Abdominal Exam: normal bowel sounds, non tender, soft, ascites Extremities: non-tender Amber Clark N.P. Sep 13, 2017 13:43
[2017-09-13] MEDS ORDERED: ceFAZolin 1gm/50ml Premix 50 ML IV ONE ×2 (13:45→16:00)
--- NOTE | 2017-09-13 16:22 | Pulmonology Progress Note ---
Assessment/Plan Problems: (1) Renal failure (ARF), acute on chronic (2) Diabetic nephropathy (3) Diabetes type 1, controlled (4) Abdominal distention (5) Chronic pancreatitis (6) Gastroparesis Assessment/Plan renal w/u pending check electrolytes getting Hd symptomatic treatment dvt prophylaxis dc planning Subjective ROS Limited/Unobtainable: No Constitutional: Reports: no symptoms HEENT: Repors: no symptoms Respiratory: Reports: no symptoms Allergies: Coded Allergies: METOCLOPRAMIDE (Unverified Allergy, Severe, 09/08/17) PROCHLORPERAZINE (Unverified Allergy, Severe, 09/08/17) VANCOMYCIN (Unverified Allergy, Severe, 09/08/17) Objective Last 24 Hour Vital Signs Date Time Temp Pulse Resp B/P (MAP) Pulse Ox O2 Delivery O2 Flow Rate FiO2 09/13/17 15:37 98.2 65 18 150/100 97 Room Air 09/13/17 14:29 154/97 09/13/17 14:13 98.5 09/13/17 12:30 98.5 71 15 154/97 100 Nasal Cannula 3.0 09/13/17 12:20 72 19 158/98 100 Nasal Cannula 3.0 09/13/17 12:15 71 16 154/100 100 Nasal Cannula 3.0 09/13/17 12:10 71 19 164/100 100 Nasal Cannula 3.0 09/13/17 12:05 71 15 162/104 100 Nasal Cannula 3.0 09/13/17 12:00 98.2 75 16 167/108 100 Nasal Cannula 3.0 09/13/17 11:50 77 15 175/110 99 Nasal Cannula 2.0 09/13/17 11:35 80 15 180/114 100 Nasal Cannula 2.0 09/13/17 11:30 82 15 194/118 100 Nasal Cannula 2.0 09/13/17 11:25 82 22 191/121 100 Nasal Cannula 2.0 09/13/17 11:20 83 22 205/128 100 Nasal Cannula 2.0 09/13/17 11:15 86 15 206/127 100 Nasal Cannula 2.0 09/13/17 11:10 67 15 207/121 100 Nasal Cannula 2.0 09/13/17 11:05 66 15 165/103 100 Nasal Cannula 2.0 09/13/17 11:00 67 15 164/104 100 Nasal Cannula 2.0 09/13/17 10:55 66 20 171/107 100 Nasal Cannula 2.0 09/13/17 10:50 65 16 168/106 99 Nasal Cannula 2.0 09/13/17 10:27 98.0 80 20 100 Nasal Cannula 2.0 65 96 09/13/17 09:00 71 155/95 09/13/17 08:59 71 155/95 09/13/17 08:01 98.2 71 20 155/95 96 Room Air 09/13/17 06:29 150/100 09/13/17 05:10 97.9 09/13/17 04:38 97.9 09/13/17 04:00 97.9 72 20 150/100 95 Room Air 09/13/17 00:51 187/113 09/13/17 00:51 97.9 09/12/17 23:47 97.9 78 20 187/113 96 Room Air 09/12/17 21:25 74 188/107 09/12/17 21:25 188/107 09/12/17 20:02 97.7 74 20 188/107 95 Room Air Intake and Output 09/12/17 09/13/17 19:00 07:00 Intake Total 240 ml Balance 240 ml Intake Oral 240 ml # Voids 3 2 # Bowel Movements 2 1 Objective General Appearance: no apparent distress Head: normocephalic, atraumatic Eyes: bilateral eye PERRL, bilateral eye EOMI ENT: normal pharynx, no angioedema Neck: supple, thyroid normal Respiratory: lungs clear, normal breath sounds Cardiovascular #1: regular rate, rhythm Gastrointestinal: non tender, soft Laboratory Tests 09/13/17 05:30: White Blood Count 6.4, Red Blood Count 2.60L, Hemoglobin 7.7L, Hematocrit 24.0L , Mean Corpuscular Volume 92, Mean Corpuscular Hemoglobin 29.6, Mean Corpuscular Hemoglobin Concent 32.2, Red Cell Distribution Width 15.6H, Platelet Count 165, Mean Platelet Volume 7.3, Neutrophils (%) (Auto) , Lymphocytes (%) (Auto) , Monocytes (%) (Auto) , Eosinophils (%) (Auto) , Basophils (%) (Auto) , Differential Total Cells Counted 100, Neutrophils % ( Manual) 75, Lymphocytes % (Manual) 20, Monocytes % (Manual) 5, Eosinophils % ( Manual) 0, Basophils % (Manual) 0, Band Neutrophils 0, Platelet Estimate Adequate, Platelet Morphology Normal, Hypochromasia 1+, Anisocytosis 1+, Sodium Level 139, Potassium Level 4.9, Chloride Level 111H, Carbon Dioxide Level 19L, Anion Gap 9, Blood Urea Nitrogen 53H, Creatinine 4.0H, Estimat Glomerular Filtration Rate 17.6, Glucose Level 104, Calcium Level 7.1L, Phosphorus Level 6.7H, Magnesium Level 1.4L, Total Bilirubin 0.1L, Aspartate Amino Transf (AST/ SGOT) 66H, Alanine Aminotransferase (ALT/SGPT) 88H, Alkaline Phosphatase 177H, C -Reactive Protein, Quantitative 4.8H, Pro-B-Type Natriuretic Peptide 40937M, Total Protein 3.8L, Albumin 1.0L, Globulin 2.8, Albumin/Globulin Ratio 0.4L Current Medications Medications (Trade) Dose Ordered Sig/Michelle Route PRN Reason Start Time Stop Time Status Last Admin Dose Admin Acetaminophen (Tylenol) 650 mg Q4H PRN ORAL fever 09/09/17 23:45 10/08/17 15:44 Amlodipine Besylate (Norvasc) 10 mg DAILY ORAL 09/11/17 09:00 10/11/17 08:59 09/13/17 09:00 Aspirin (ASA) 81 mg DAILY ORAL 09/10/17 09:00 10/10/17 08:59 09/11/17 09:39 Carvedilol (Coreg) 12.5 mg EVERY 12 HOURS ORAL 09/10/17 21:00 10/10/17 20:59 09/13/17 08:59 Cefazolin Sodium 50 ml @ 100 mls/hr ONCE ONCE IV 09/13/17 16:00 09/13/17 16:29 09/13/17 16:15 Clonidine HCl (Catapres Tab) 0.1 mg EVERY 8 HOURS ORAL 09/10/17 14:00 10/10/17 13:59 09/13/17 14:29 Clonidine HCl (Catapres Tab) 0.1 mg Q6H PRN ORAL SYSTOLIC BP > 160 09/10/17 08:30 10/10/17 08:29 09/13/17 00:51 Dextrose (Dextrose 50%) STAT PRN IV Hypoglycemia 09/10/17 15:45 10/08/17 15:44 Diphenhydramine HCl (Benadryl) 25 mg Q6H PRN ORAL Itching/Pruritis 09/10/17 03:45 10/08/17 15:44 Docusate Sodium (Colace) 100 mg THREE TIMES A DAY ORAL 09/10/17 09:00 10/09/17 12:59 09/13/17 14:29 Epoetin Curry (Procrit (for ESRD on dialysis)) 10,000 units TUE-TUE-TUE SUBQ 09/12/17 21:00 10/12/17 20:59 09/12/17 21:26 Guaifenesin/ Codeine Phosphate (Robitussin with codeine) 5 ml Q6H PRN ORAL For Cough 09/10/17 17:00 10/10/17 16:59 09/12/17 01:37 Heparin Sodium (Porcine) (Heparin 5000 units/ml) 5,000 units EVERY 12 HOURS SUBQ 09/10/17 09:00 10/08/17 20:59 09/11/17 21:32 Lansoprazole (Prevacid) 30 mg DAILY ORAL 09/11/17 09:00 10/11/17 08:59 09/13/17 08:59 Levothyroxine Sodium (Synthroid) 25 mcg DAILY@0630 ORAL 09/10/17 06:30 10/10/17 06:29 09/13/17 06:29 Lorazepam (Ativan 2mg/ml 1ml) 1 mg EVERY 4 HOURS PRN IV agitation 09/10/17 01:00 09/15/17 15:44 09/13/17 06:48 Morphine Sulfate (Morphine Sulfate) 2 mg Q3HR PRN IVP Severe Pain (Pain Scale 7-10) 09/10/17 00:00 09/16/17 16:44 09/13/17 09:38 Nitroglycerin (Ntg) 0.4 mg Q5M X 3 DOSES PRN SL Prn Chest Pain 09/09/17 22:30 10/08/17 15:44 Ondansetron HCl (Zofran) 4 mg Q6H PRN IVP Nausea & Vomiting 09/10/17 03:45 10/08/17 15:44 Polyethylene Glycol (Miralax) 17 gm HSPRN PRN ORAL Constipation 09/10/17 15:45 10/08/17 15:44 Sevelamer Carbonate (Renvela) 2,400 mg THREE TIMES A DAY ORAL 09/11/17 13:00 10/11/17 12:59 09/13/17 14:31 Tamsulosin HCl (Flomax) 0.4 mg BID ORAL 09/10/17 09:00 10/08/17 17:59 09/13/17 08:59 Temazepam (Restoril) 15 mg HSPRN PRN ORAL Insomnia 09/10/17 15:45 09/15/17 15:44 RICARDO POLANCO Sep 13, 2017 16:22
--- NOTE | 2017-09-13 16:50 | Cardiac Electrophysiology PN ---
Assessment/Plan Assessment/Plan 1. Accelerated hypertension.Continue Norvasc 10 mg daily, clonidine 0.1 mg every eight hours, HD and Coreg 12.5 mg bid. Avoid ALEJANDRO inhibitor and angiotensin receptor blockers in view of patient's renal failure. 2. Chronic kidney disease. Volume overload. On HD by Dr. Garrett. 3. Insulin-dependent diabetes. 4. Anemia of renal disease. 5. Abdominal pain and distention, diarrhea, and gastroparesis. Further evaluation by GI. 6. Hypothyroidism, on Synthroid. SUZANNA RN Subjective Subjective Getting HD .No CP. SOB better. Objective Last 24 Hour Vital Signs Date Time Temp Pulse Resp B/P (MAP) Pulse Ox O2 Delivery O2 Flow Rate FiO2 09/13/17 15:37 98.2 65 18 150/100 97 Room Air 09/13/17 14:29 154/97 09/13/17 14:13 98.5 09/13/17 12:30 98.5 71 15 154/97 100 Nasal Cannula 3.0 09/13/17 12:20 72 19 158/98 100 Nasal Cannula 3.0 09/13/17 12:15 71 16 154/100 100 Nasal Cannula 3.0 09/13/17 12:10 71 19 164/100 100 Nasal Cannula 3.0 09/13/17 12:05 71 15 162/104 100 Nasal Cannula 3.0 09/13/17 12:00 98.2 75 16 167/108 100 Nasal Cannula 3.0 09/13/17 11:50 77 15 175/110 99 Nasal Cannula 2.0 09/13/17 11:35 80 15 180/114 100 Nasal Cannula 2.0 09/13/17 11:30 82 15 194/118 100 Nasal Cannula 2.0 09/13/17 11:25 82 22 191/121 100 Nasal Cannula 2.0 09/13/17 11:20 83 22 205/128 100 Nasal Cannula 2.0 09/13/17 11:15 86 15 206/127 100 Nasal Cannula 2.0 09/13/17 11:10 67 15 207/121 100 Nasal Cannula 2.0 09/13/17 11:05 66 15 165/103 100 Nasal Cannula 2.0 09/13/17 11:00 67 15 164/104 100 Nasal Cannula 2.0 09/13/17 10:55 66 20 171/107 100 Nasal Cannula 2.0 09/13/17 10:50 65 16 168/106 99 Nasal Cannula 2.0 09/13/17 10:27 98.0 80 20 100 Nasal Cannula 2.0 65 96 09/13/17 09:00 71 155/95 09/13/17 08:59 71 155/95 09/13/17 08:01 98.2 71 20 155/95 96 Room Air 09/13/17 06:29 150/100 09/13/17 05:10 97.9 09/13/17 04:38 97.9 09/13/17 04:00 97.9 72 20 150/100 95 Room Air 09/13/17 00:51 187/113 09/13/17 00:51 97.9 09/12/17 23:47 97.9 78 20 187/113 96 Room Air 09/12/17 21:25 74 188/107 09/12/17 21:25 188/107 09/12/17 20:02 97.7 74 20 188/107 95 Room Air Intake and Output 09/12/17 09/13/17 19:00 07:00 Intake Total 240 ml Balance 240 ml Intake Oral 240 ml # Voids 3 2 # Bowel Movements 2 1 Laboratory Tests Test 09/13/17 05:30 White Blood Count 6.4 K/UL (4.8-10.8) Red Blood Count 2.60 M/UL (4.70-6.10) L Hemoglobin 7.7 G/DL (14.2-18.0) L Hematocrit 24.0 % (42.0-52.0) L Mean Corpuscular Volume 92 FL (80-99) Mean Corpuscular Hemoglobin 29.6 PG (27.0-31.0) Mean Corpuscular Hemoglobin Concent 32.2 G/DL (32.0-36.0) Red Cell Distribution Width 15.6 % (11.6-14.8) H Platelet Count 165 K/UL (150-450) Mean Platelet Volume 7.3 FL (6.5-10.1) Neutrophils (%) (Auto) % (45.0-75.0) Lymphocytes (%) (Auto) % (20.0-45.0) Monocytes (%) (Auto) % (1.0-10.0) Eosinophils (%) (Auto) % (0.0-3.0) Basophils (%) (Auto) % (0.0-2.0) Differential Total Cells Counted 100 Neutrophils % (Manual) 75 % (45-75) Lymphocytes % (Manual) 20 % (20-45) Monocytes % (Manual) 5 % (1-10) Eosinophils % (Manual) 0 % (0-3) Basophils % (Manual) 0 % (0-2) Band Neutrophils 0 % (0-8) Platelet Estimate Adequate Platelet Morphology Normal Hypochromasia 1+ Anisocytosis 1+ Sodium Level 139 MMOL/L (136-145) Potassium Level 4.9 MMOL/L (3.5-5.1) Chloride Level 111 MMOL/L (98-107) H Carbon Dioxide Level 19 MMOL/L (21-32) L Anion Gap 9 mmol/L (5-15) Blood Urea Nitrogen 53 mg/dL (7-18) H Creatinine 4.0 MG/DL (0.55-1.30) H Estimat Glomerular Filtration Rate 17.6 mL/min (>60) Glucose Level 104 MG/DL (74-106) Calcium Level 7.1 MG/DL (8.5-10.1) L Phosphorus Level 6.7 MG/DL (2.5-4.9) H Magnesium Level 1.4 MG/DL (1.8-2.4) L Total Bilirubin 0.1 MG/DL (0.2-1.0) L Aspartate Amino Transf (AST/SGOT) 66 U/L (15-37) H Alanine Aminotransferase (ALT/SGPT) 88 U/L (12-78) H Alkaline Phosphatase 177 U/L (46-116) H C-Reactive Protein, Quantitative 4.8 mg/dL (0.00-0.90) H Pro-B-Type Natriuretic Peptide 74105 pg/mL (0-125) H Total Protein 3.8 G/DL (6.4-8.2) L Albumin 1.0 G/DL (3.4-5.0) L Globulin 2.8 g/dL Albumin/Globulin Ratio 0.4 (1.0-2.7) L Objective HEAD AND NECK: No JVD. LUNGS: Clear. CARDIOVASCULAR: Regular S1 and S2. No gallop or murmur. ABDOMEN: Soft. EXTREMITIES: No pitting edema. MONICA DANGELO Sep 13, 2017 16:50
--- NOTE | 2017-09-13 16:53 | Internal Med Progress Note ---
Subjective Date of Service: Sep 13, 2017 Physician Name Sanjiv Talbot Attending Physician Serafin Voss MD Current Medications Medications (Trade) Dose Ordered Sig/Michelle Route PRN Reason Start Time Stop Time Status Last Admin Dose Admin Acetaminophen (Tylenol) 650 mg Q4H PRN ORAL fever 09/09/17 23:45 10/08/17 15:44 Amlodipine Besylate (Norvasc) 10 mg DAILY ORAL 09/11/17 09:00 10/11/17 08:59 09/13/17 09:00 Aspirin (ASA) 81 mg DAILY ORAL 09/10/17 09:00 10/10/17 08:59 09/11/17 09:39 Carvedilol (Coreg) 12.5 mg EVERY 12 HOURS ORAL 09/10/17 21:00 10/10/17 20:59 09/13/17 08:59 Clonidine HCl (Catapres Tab) 0.1 mg EVERY 8 HOURS ORAL 09/10/17 14:00 10/10/17 13:59 09/13/17 14:29 Clonidine HCl (Catapres Tab) 0.1 mg Q6H PRN ORAL SYSTOLIC BP > 160 09/10/17 08:30 10/10/17 08:29 09/13/17 00:51 Dextrose (Dextrose 50%) STAT PRN IV Hypoglycemia 09/10/17 15:45 10/08/17 15:44 Diphenhydramine HCl (Benadryl) 25 mg Q6H PRN ORAL Itching/Pruritis 09/10/17 03:45 10/08/17 15:44 Docusate Sodium (Colace) 100 mg THREE TIMES A DAY ORAL 09/10/17 09:00 10/09/17 12:59 09/13/17 14:29 Epoetin Curry (Procrit (for ESRD on dialysis)) 10,000 units MON-WED-TUE SUBQ 09/12/17 21:00 10/12/17 20:59 09/12/17 21:26 Guaifenesin/ Codeine Phosphate (Robitussin with codeine) 5 ml Q6H PRN ORAL For Cough 09/10/17 17:00 10/10/17 16:59 09/12/17 01:37 Heparin Sodium (Porcine) (Heparin 5000 units/ml) 5,000 units EVERY 12 HOURS SUBQ 09/10/17 09:00 10/08/17 20:59 09/11/17 21:32 Lansoprazole (Prevacid) 30 mg DAILY ORAL 09/11/17 09:00 10/11/17 08:59 09/13/17 08:59 Levothyroxine Sodium (Synthroid) 25 mcg DAILY@0630 ORAL 09/10/17 06:30 10/10/17 06:29 09/13/17 06:29 Lorazepam (Ativan 2mg/ml 1ml) 1 mg EVERY 4 HOURS PRN IV agitation 09/10/17 01:00 09/15/17 15:44 09/13/17 06:48 Morphine Sulfate (Morphine Sulfate) 2 mg Q3HR PRN IVP Severe Pain (Pain Scale 7-10) 09/10/17 00:00 09/16/17 16:44 09/13/17 09:38 Nitroglycerin (Ntg) 0.4 mg Q5M X 3 DOSES PRN SL Prn Chest Pain 09/09/17 22:30 10/08/17 15:44 Ondansetron HCl (Zofran) 4 mg Q6H PRN IVP Nausea & Vomiting 09/10/17 03:45 10/08/17 15:44 Polyethylene Glycol (Miralax) 17 gm HSPRN PRN ORAL Constipation 09/10/17 15:45 10/08/17 15:44 Sevelamer Carbonate (Renvela) 2,400 mg THREE TIMES A DAY ORAL 09/11/17 13:00 10/11/17 12:59 09/13/17 14:31 Tamsulosin HCl (Flomax) 0.4 mg BID ORAL 09/10/17 09:00 10/08/17 17:59 09/13/17 08:59 Temazepam (Restoril) 15 mg HSPRN PRN ORAL Insomnia 09/10/17 15:45 09/15/17 15:44 Allergies: Coded Allergies: METOCLOPRAMIDE (Unverified Allergy, Severe, 09/08/17) PROCHLORPERAZINE (Unverified Allergy, Severe, 09/08/17) VANCOMYCIN (Unverified Allergy, Severe, 09/08/17) ROS Limited/Unobtainable: No Constitutional: Reports: no symptoms HEENT: Reports: no symptoms Cardiovascular: Reports: no symptoms Respiratory: Reports: no symptoms Gastrointestinal/Abdominal: Reports: no symptoms Genitourinary: Reports: no symptoms Neurologic/Psychiatric: Reports: no symptoms Subjective 32 YO M admitted with abdominal pain. Now renal failure. S/P central line placement for dialysis today. Cover for Int Med-Dr Voss. Await paracentesis. Objective Last Vital Signs Date Time Temp Pulse Resp B/P (MAP) Pulse Ox O2 Delivery O2 Flow Rate FiO2 09/13/17 15:37 98.2 65 18 150/100 97 Room Air 09/13/17 12:30 3.0 Laboratory Tests Test 09/13/17 05:30 White Blood Count 6.4 K/UL (4.8-10.8) Red Blood Count 2.60 M/UL (4.70-6.10) L Hemoglobin 7.7 G/DL (14.2-18.0) L Hematocrit 24.0 % (42.0-52.0) L Mean Corpuscular Volume 92 FL (80-99) Mean Corpuscular Hemoglobin 29.6 PG (27.0-31.0) Mean Corpuscular Hemoglobin Concent 32.2 G/DL (32.0-36.0) Red Cell Distribution Width 15.6 % (11.6-14.8) H Platelet Count 165 K/UL (150-450) Mean Platelet Volume 7.3 FL (6.5-10.1) Neutrophils (%) (Auto) % (45.0-75.0) Lymphocytes (%) (Auto) % (20.0-45.0) Monocytes (%) (Auto) % (1.0-10.0) Eosinophils (%) (Auto) % (0.0-3.0) Basophils (%) (Auto) % (0.0-2.0) Differential Total Cells Counted 100 Neutrophils % (Manual) 75 % (45-75) Lymphocytes % (Manual) 20 % (20-45) Monocytes % (Manual) 5 % (1-10) Eosinophils % (Manual) 0 % (0-3) Basophils % (Manual) 0 % (0-2) Band Neutrophils 0 % (0-8) Platelet Estimate Adequate Platelet Morphology Normal Hypochromasia 1+ Anisocytosis 1+ Sodium Level 139 MMOL/L (136-145) Potassium Level 4.9 MMOL/L (3.5-5.1) Chloride Level 111 MMOL/L (98-107) H Carbon Dioxide Level 19 MMOL/L (21-32) L Anion Gap 9 mmol/L (5-15) Blood Urea Nitrogen 53 mg/dL (7-18) H Creatinine 4.0 MG/DL (0.55-1.30) H Estimat Glomerular Filtration Rate 17.6 mL/min (>60) Glucose Level 104 MG/DL (74-106) Calcium Level 7.1 MG/DL (8.5-10.1) L Phosphorus Level 6.7 MG/DL (2.5-4.9) H Magnesium Level 1.4 MG/DL (1.8-2.4) L Total Bilirubin 0.1 MG/DL (0.2-1.0) L Aspartate Amino Transf (AST/SGOT) 66 U/L (15-37) H Alanine Aminotransferase (ALT/SGPT) 88 U/L (12-78) H Alkaline Phosphatase 177 U/L (46-116) H C-Reactive Protein, Quantitative 4.8 mg/dL (0.00-0.90) H Pro-B-Type Natriuretic Peptide 45980 pg/mL (0-125) H Total Protein 3.8 G/DL (6.4-8.2) L Albumin 1.0 G/DL (3.4-5.0) L Globulin 2.8 g/dL Albumin/Globulin Ratio 0.4 (1.0-2.7) L Intake and Output 09/12/17 09/13/17 19:00 07:00 Intake Total 240 ml Balance 240 ml Intake Oral 240 ml # Voids 3 2 # Bowel Movements 2 1 Objective General Appearance: WD/WN, alert, mild distress EENT: PERRL/EOMI, normal ENT inspection Neck: non-tender, normal alignment, supple, normal inspection Cardiovascular: normal peripheral pulses, normal rate, regular rhythm, no gallop/murmur, no JVD Respiratory/Chest: chest wall non-tender, lungs clear, normal breath sounds, no respiratory distress, no accessory muscle use Abdomen: no organomegaly, no mass, decreased bowel sounds, distended, guarding , tender Extremities: normal range of motion Neurologic: drag out man II-XII grossly normal, no motor/sensory deficits Skin: normal pigmentation, warm/dry Assessment/Plan Problem List: (1) ESRD (end stage renal disease) Assessment & Plan: S/P central line placement today. Await hemodialysis. See nephrology note. (2) Anemia of renal disease Assessment & Plan: Transfuse 1 unit PRBC today. (3) HTN (hypertension) Assessment & Plan: Uncontrolled. Await cardiology consult. Cont coreg and norvasc. (4) Ascites Assessment & Plan: Await paracentesis. See GI note. (5) Abdominal pain (6) Abdominal distention (7) Diarrhea Assessment & Plan: C. Diff neg; await stool culture (8) Gastroparesis (9) Diabetes type 1, controlled Assessment & Plan: Continue novolog sliding scale. (10) Hypothyroidism Assessment & Plan: Continue levoxyl (11) CHF (congestive heart failure) Assessment & Plan: Volume overload. See cardiology note. await hemodialysis SANJIV TALBOT Sep 13, 2017 16:53
[2017-09-13] MEDS ORDERED: Docusate 100mg cap ORAL SCH (18:00)
[2017-09-13] MEDS: guaiFENesin w/Codeine 5ml Liq ud ORAL PRN (22:11)
[2017-09-14] VITALS: BP 171/98
[2017-09-14] MEDS ORDERED: Morphine Sulfate 4mg/ml Inj ONE ×3 (00:51→09:09)
[2017-09-14] MEDS: Morphine Sulfate 2mg/ml Inj IVP PRN ×2 (01:00→04:11)
[2017-09-14] MEDS: LORazepam Inj 2mg/ml 1ml IV PRN ×3 (02:10→15:48)
[2017-09-14 04:00] VITALS: BP 155/85
[2017-09-14] MEDS: Levothyroxine 25mcg tab ORAL SCH (06:16)
[2017-09-14 07:42] LABS: HEMATOCRIT 26.1 % (42.0-52.0); HEMOGLOBIN 8.6 G/DL (14.2-18.0); MEAN CORPUSCULAR VOLUME 92 FL (80-99); PLATELET COUNT 163 K/UL (150-450); RED BLOOD COUNT 2.86 M/UL (4.70-6.10); WHITE BLOOD COUNT 5.5 K/UL (4.8-10.8)
[2017-09-14 07:43] LABS: BASOPHILS % (AUTO) 1.2 % (0.0-2.0); EOSINOPHILS % (AUTO) 1.4 % (0.0-3.0); LYMPHOCYTES % (AUTO) 24.8 % (20.0-45.0); MONOCYTES % (AUTO) 8.4 % (1.0-10.0); NEUTROPHILS % (AUTO) 64.2 % (45.0-75.0)
[2017-09-14 08:00] VITALS: BP 161/95
[2017-09-14 08:15] LABS: ALANINE AMINOTRANSFERASE 73 U/L (12-78); ALBUMIN/GLOBULIN RATIO 0.3 (1.0-2.7); ALKALINE PHOSPHATASE 169 U/L (46-116); ANION GAP 6 mmol/L (5-15); ASPARTATE AMINO TRANSFERASE 50 U/L (15-37); BILIRUBIN,TOTAL 0.2 MG/DL (0.2-1.0); BLOOD UREA NITROGEN 33 mg/dL (7-18); CALCIUM 6.9 MG/DL (8.5-10.1); CARBON DIOXIDE 27 MMOL/L (21-32); CHLORIDE 107 MMOL/L (98-107); GAMMA GLUTAMYL TRANSPEPTIDASE 25 U/L (5-85); PHOSPHORUS 5.6 MG/DL (2.5-4.9); POTASSIUM 4.6 MMOL/L (3.5-5.1); SODIUM 140 MMOL/L (136-145)
[2017-09-14] MEDS: Aspirin Baby 81mg ORAL SCH (09:00)
[2017-09-14] MEDS: Docusate 100mg cap ORAL SCH ×2 (09:00→12:01)
[2017-09-14] MEDS: Heparin 5000 units/ml inj SUBQ SCH ×2 (09:00→21:25)
[2017-09-14] MEDS: Tamsulosin 0.4mg cap ORAL SCH (09:41)
[2017-09-14] MEDS: Carvedilol 12.5mg tab ORAL SCH ×2 (09:43→21:26)
[2017-09-14] MEDS: Morphine Sulfate 4mg/ml Inj IVP PRN ×4 (09:43→22:09)
[2017-09-14 12:00] VITALS: BP 157/92
--- NOTE | 2017-09-14 12:30 | Internal Med Progress Note ---
Subjective Date of Service: Sep 14, 2017 Physician Name Sanjiv Sarabia Attending Physician Serafin Voss MD Current Medications Medications (Trade) Dose Ordered Sig/Michelle Route PRN Reason Start Time Stop Time Status Last Admin Dose Admin Acetaminophen (Tylenol) 650 mg Q4H PRN ORAL fever 09/09/17 23:45 10/08/17 15:44 Amlodipine Besylate (Norvasc) 10 mg DAILY ORAL 09/11/17 09:00 10/11/17 08:59 09/14/17 09:42 Aspirin (ASA) 81 mg DAILY ORAL 09/10/17 09:00 10/10/17 08:59 09/11/17 09:39 Carvedilol (Coreg) 12.5 mg EVERY 12 HOURS ORAL 09/10/17 21:00 10/10/17 20:59 09/14/17 09:43 Clonidine HCl (Catapres Tab) 0.1 mg EVERY 8 HOURS ORAL 09/10/17 14:00 10/10/17 13:59 09/14/17 00:05 Clonidine HCl (Catapres Tab) 0.1 mg Q6H PRN ORAL SYSTOLIC BP > 160 09/10/17 08:30 10/10/17 08:29 09/14/17 00:10 Dextrose (Dextrose 50%) STAT PRN IV Hypoglycemia 09/10/17 15:45 10/08/17 15:44 Diphenhydramine HCl (Benadryl) 25 mg Q6H PRN ORAL Itching/Pruritis 09/10/17 03:45 10/08/17 15:44 Docusate Sodium (Colace) 100 mg THREE TIMES A DAY ORAL 09/10/17 09:00 10/09/17 12:59 09/13/17 17:57 Epoetin Curry (Procrit (for ESRD on dialysis)) 10,000 units MON-WED-TUE SUBQ 09/12/17 21:00 10/12/17 20:59 09/12/17 21:26 Guaifenesin/ Codeine Phosphate (Robitussin with codeine) 5 ml Q6H PRN ORAL For Cough 09/10/17 17:00 10/10/17 16:59 09/13/17 22:11 Heparin Sodium (Porcine) (Heparin 5000 units/ml) 5,000 units EVERY 12 HOURS SUBQ 09/10/17 09:00 10/08/17 20:59 09/13/17 21:32 Lansoprazole (Prevacid) 30 mg DAILY ORAL 09/11/17 09:00 10/11/17 08:59 09/14/17 09:42 Levothyroxine Sodium (Synthroid) 25 mcg DAILY@0630 ORAL 09/10/17 06:30 10/10/17 06:29 09/14/17 06:16 Lorazepam (Ativan 2mg/ml 1ml) 1 mg EVERY 4 HOURS PRN IV agitation 09/10/17 01:00 09/15/17 15:44 09/14/17 06:16 Morphine Sulfate (Morphine Sulfate) 2 mg Q3H PRN IVP Severe Pain (Pain Scale 7-10) 09/14/17 09:30 09/21/17 09:29 09/14/17 09:43 Nitroglycerin (Ntg) 0.4 mg Q5M X 3 DOSES PRN SL Prn Chest Pain 09/09/17 22:30 10/08/17 15:44 Ondansetron HCl (Zofran) 4 mg Q6H PRN IVP Nausea & Vomiting 09/10/17 03:45 10/08/17 15:44 Polyethylene Glycol (Miralax) 17 gm HSPRN PRN ORAL Constipation 09/10/17 15:45 10/08/17 15:44 Sevelamer Carbonate (Renvela) 2,400 mg THREE TIMES A DAY ORAL 09/11/17 13:00 10/11/17 12:59 09/14/17 12:02 Tamsulosin HCl (Flomax) 0.4 mg BID ORAL 09/10/17 09:00 10/08/17 17:59 09/14/17 09:41 Temazepam (Restoril) 15 mg HSPRN PRN ORAL Insomnia 09/10/17 15:45 09/15/17 15:44 Allergies: Coded Allergies: METOCLOPRAMIDE (Unverified Allergy, Severe, 09/08/17) PROCHLORPERAZINE (Unverified Allergy, Severe, 09/08/17) VANCOMYCIN (Unverified Allergy, Severe, 09/08/17) ROS Limited/Unobtainable: No Constitutional: Reports: no symptoms HEENT: Reports: no symptoms Cardiovascular: Reports: no symptoms Respiratory: Reports: no symptoms Gastrointestinal/Abdominal: Reports: no symptoms Genitourinary: Reports: no symptoms Neurologic/Psychiatric: Reports: no symptoms Subjective 32 YO M admitted with abdominal pain. Now renal failure; S/P hemodialysis . Cover for Int Med-Dr Voss. Await paracentesis. Objective Last Vital Signs Date Time Temp Pulse Resp B/P (MAP) Pulse Ox O2 Delivery O2 Flow Rate FiO2 09/14/17 10:13 98.6 09/14/17 09:43 67 161/95 09/14/17 08:00 19 96 09/13/17 18:40 Room Air 09/13/17 12:30 3.0 Laboratory Tests Test 09/14/17 05:25 White Blood Count 5.5 K/UL (4.8-10.8) Red Blood Count 2.86 M/UL (4.70-6.10) L Hemoglobin 8.6 G/DL (14.2-18.0) L Hematocrit 26.1 % (42.0-52.0) L Mean Corpuscular Volume 92 FL (80-99) Mean Corpuscular Hemoglobin 30.0 PG (27.0-31.0) Mean Corpuscular Hemoglobin Concent 32.8 G/DL (32.0-36.0) Red Cell Distribution Width 15.0 % (11.6-14.8) H Platelet Count 163 K/UL (150-450) Mean Platelet Volume 7.2 FL (6.5-10.1) Neutrophils (%) (Auto) 64.2 % (45.0-75.0) Lymphocytes (%) (Auto) 24.8 % (20.0-45.0) Monocytes (%) (Auto) 8.4 % (1.0-10.0) Eosinophils (%) (Auto) 1.4 % (0.0-3.0) Basophils (%) (Auto) 1.2 % (0.0-2.0) Sodium Level 140 MMOL/L (136-145) Potassium Level 4.6 MMOL/L (3.5-5.1) Chloride Level 107 MMOL/L (98-107) Carbon Dioxide Level 27 MMOL/L (21-32) Anion Gap 6 mmol/L (5-15) Blood Urea Nitrogen 33 mg/dL (7-18) H Creatinine 3.0 MG/DL (0.55-1.30) H Estimat Glomerular Filtration Rate 24.5 mL/min (>60) Glucose Level 101 MG/DL (74-106) Uric Acid 5.1 MG/DL (2.6-7.2) Calcium Level 6.9 MG/DL (8.5-10.1) L Phosphorus Level 5.6 MG/DL (2.5-4.9) H Magnesium Level 1.5 MG/DL (1.5-2.4) Total Bilirubin 0.2 MG/DL (0.2-1.0) Gamma Glutamyl Transpeptidase 25 U/L (5-85) Aspartate Amino Transf (AST/SGOT) 50 U/L (15-37) H Alanine Aminotransferase (ALT/SGPT) 73 U/L (12-78) Alkaline Phosphatase 169 U/L (46-116) H C-Reactive Protein, Quantitative 4.2 mg/dL (0.00-0.90) H Pro-B-Type Natriuretic Peptide 78189 pg/mL (0-125) H Total Protein 4.0 G/DL (6.4-8.2) L Albumin 1.0 G/DL (3.4-5.0) L Globulin 3.0 g/dL Albumin/Globulin Ratio 0.3 (1.0-2.7) L Intake and Output 09/13/17 09/14/17 18:59 06:59 Intake Total 200 ml 240 ml Output Total 2000 ml Balance -1800 ml 240 ml Intake Oral 240 ml IV Total 200 ml Hemodialysis UF 2000 ml # Voids 1 # Bowel Movements 2 Objective General Appearance: WD/WN, alert, mild distress EENT: PERRL/EOMI, normal ENT inspection Neck: non-tender, normal alignment, supple, normal inspection Cardiovascular: normal peripheral pulses, normal rate, regular rhythm, no gallop/murmur, no JVD Respiratory/Chest: chest wall non-tender, lungs clear, normal breath sounds, no respiratory distress, no accessory muscle use Abdomen: no organomegaly, no mass, decreased bowel sounds, distended, guarding , tender Extremities: normal range of motion Neurologic: welder gas II-XII grossly normal, no motor/sensory deficits Skin: normal pigmentation, warm/dry Assessment/Plan Problem List: (1) ESRD (end stage renal disease) Assessment & Plan: S/P hemodialysis09/13/17. See nephrology note. (2) Anemia of renal disease Assessment & Plan: Transfuse 1 unit PRBC today. (3) HTN (hypertension) Assessment & Plan: Uncontrolled. Await cardiology consult. Cont coreg and norvasc. (4) Ascites Assessment & Plan: Await paracentesis. See GI note. (5) Abdominal pain (6) Abdominal distention (7) Diarrhea Assessment & Plan: C. Diff neg; await stool culture (8) Gastroparesis (9) Diabetes type 1, controlled Assessment & Plan: Continue novolog sliding scale. (10) Hypothyroidism Assessment & Plan: Continue levoxyl (11) CHF (congestive heart failure) Assessment & Plan: Volume overload. See cardiology note. await hemodialysis Status: SANJIV Steve Sep 14, 2017 12:30
--- NOTE | 2017-09-14 12:40 | GI Progress Note ---
Assessment/Plan Problems: (1) Renal failure (ARF), acute on chronic ICD Codes: N17.9 - Acute kidney failure, unspecified; N18.9 - Chronic kidney disease, unspecified SNOMED: 378725443 (2) Diarrhea ICD Codes: R19.7 - Diarrhea, unspecified SNOMED: 31304832 (3) Vomiting ICD Codes: R11.10 - Vomiting, unspecified SNOMED: 173538376 (4) Diabetes type 1, controlled ICD Codes: E10.9 - Type 1 diabetes mellitus without complications SNOMED: 82437347, 140828480 (5) Gastroparesis ICD Codes: K31.84 - Gastroparesis SNOMED: 050559091 (6) Chronic pancreatitis ICD Codes: K86.1 - Other chronic pancreatitis SNOMED: 474951223 (7) Anemia ICD Codes: D64.9 - Anemia, unspecified SNOMED: 440386973 Status: progressing Status Narrative Discussed with Dr. Schultz. Assessment/Plan abdominal U/S reviewed Hep panel >> negative cdiff / O&P >> negative CT reviewed >> stool retention fu nephro recs renal diet DM mgmt anemia work up >> most likely 2/2 to renal disease colace pain mgmt ppi fu labs Subjective Subjective generalized weakness c/o of diarrhea feels better after dialysis Objective Last 24 Hour Vital Signs Date Time Temp Pulse Resp B/P (MAP) Pulse Ox O2 Delivery O2 Flow Rate FiO2 09/14/17 12:00 97.3 68 19 157/92 93 09/14/17 10:13 98.6 09/14/17 09:43 98.6 09/14/17 09:43 67 161/95 09/14/17 09:42 67 161/95 09/14/17 08:00 98.6 67 19 161/95 96 09/14/17 04:00 97.1 67 18 155/85 94 09/14/17 00:10 171/98 09/14/17 00:05 171/98 09/14/17 00:00 99.7 79 18 171/98 91 09/13/17 22:25 99.0 72 16 156/89 95 09/13/17 22:24 156/89 09/13/17 21:28 60 146/8 09/13/17 20:00 97.0 60 16 146/8 95 09/13/17 18:40 98.0 60 20 129/78 Room Air 09/13/17 18:30 Room Air 09/13/17 15:37 98.2 65 18 150/100 97 Room Air 09/13/17 15:00 Room Air 09/13/17 15:00 97.8 63 20 153/103 Room Air 09/13/17 14:29 154/97 09/13/17 14:13 98.5 Intake and Output 09/13/17 09/14/17 19:00 07:00 Intake Total 200 ml 240 ml Output Total 2000 ml Balance -1800 ml 240 ml Intake Oral 240 ml IV Total 200 ml Hemodialysis UF 2000 ml # Voids 1 # Bowel Movements 2 Laboratory Tests Test 09/14/17 05:25 White Blood Count 5.5 K/UL (4.8-10.8) Red Blood Count 2.86 M/UL (4.70-6.10) L Hemoglobin 8.6 G/DL (14.2-18.0) L Hematocrit 26.1 % (42.0-52.0) L Mean Corpuscular Volume 92 FL (80-99) Mean Corpuscular Hemoglobin 30.0 PG (27.0-31.0) Mean Corpuscular Hemoglobin Concent 32.8 G/DL (32.0-36.0) Red Cell Distribution Width 15.0 % (11.6-14.8) H Platelet Count 163 K/UL (150-450) Mean Platelet Volume 7.2 FL (6.5-10.1) Neutrophils (%) (Auto) 64.2 % (45.0-75.0) Lymphocytes (%) (Auto) 24.8 % (20.0-45.0) Monocytes (%) (Auto) 8.4 % (1.0-10.0) Eosinophils (%) (Auto) 1.4 % (0.0-3.0) Basophils (%) (Auto) 1.2 % (0.0-2.0) Sodium Level 140 MMOL/L (136-145) Potassium Level 4.6 MMOL/L (3.5-5.1) Chloride Level 107 MMOL/L (98-107) Carbon Dioxide Level 27 MMOL/L (21-32) Anion Gap 6 mmol/L (5-15) Blood Urea Nitrogen 33 mg/dL (7-18) H Creatinine 3.0 MG/DL (0.55-1.30) H Estimat Glomerular Filtration Rate 24.5 mL/min (>60) Glucose Level 101 MG/DL (74-106) Uric Acid 5.1 MG/DL (2.6-7.2) Calcium Level 6.9 MG/DL (8.5-10.1) L Phosphorus Level 5.6 MG/DL (2.5-4.9) H Magnesium Level 1.5 MG/DL (1.5-2.4) Total Bilirubin 0.2 MG/DL (0.2-1.0) Gamma Glutamyl Transpeptidase 25 U/L (5-85) Aspartate Amino Transf (AST/SGOT) 50 U/L (15-37) H Alanine Aminotransferase (ALT/SGPT) 73 U/L (12-78) Alkaline Phosphatase 169 U/L (46-116) H C-Reactive Protein, Quantitative 4.2 mg/dL (0.00-0.90) H Pro-B-Type Natriuretic Peptide 93416 pg/mL (0-125) H Total Protein 4.0 G/DL (6.4-8.2) L Albumin 1.0 G/DL (3.4-5.0) L Globulin 3.0 g/dL Albumin/Globulin Ratio 0.3 (1.0-2.7) L Height (Feet): 5 Height (Inches): 10.00 Weight (Pounds): 207 General Appearance: WD/WN, no apparent distress, alert Cardiovascular: normal rate Respiratory/Chest: normal breath sounds, no respiratory distress Abdominal Exam: normal bowel sounds, non tender, soft, ascites Extremities: normal range of motion, non-tender Amber Clark N.P. Sep 14, 2017 12:40
--- NOTE | 2017-09-14 14:48 | Nephrology Progress Note ---
Assessment/Plan Problem List: (1) Renal failure (ARF), acute on chronic (2) Diabetic nephropathy (3) HTN (hypertension) Assessment: hypertensive kidney disease Assessment Advanced renal failure due to Type I DM DIabetic Nephropathy- Most likely NS -. Bilateral upper quadrant pain. -. Diarrhea. -. Diabetic gastroparesis. -. Diabetes type 1. -. Hypertension. -. Anemia. due to CKD -. HypoThyroid Plan Plan: dialysed 09/13 nexr 09/15 Transfused yesterday Add Norvasc and Clonidine to BP meds- DC ARBs for high K Per GI 24 h urine collection over 3 gram protein Monitor renal parameters , BS and BP Avoid nephrotoxics 2D Echo : Left ventricular ejection fraction estimated to be 60 %. No evidence of left ventricular hypertrophy. Trace pericardial effusion . Moderate left atrial enlargement. OCTAVIO: Left kidney measures 11.8 cm in length. Right kidney measures 9.6 cm length. Kidneys demonstrate diffusely increased echogenicity. No hydronephrosis. there is a small left lower pole renal cyst Subjective ROS Limited/Unobtainable: No Constitutional: Reports: malaise, weakness Objective Objective Last 24 Hour Vital Signs Date Time Temp Pulse Resp B/P (MAP) Pulse Ox O2 Delivery O2 Flow Rate FiO2 09/14/17 13:54 97.3 09/14/17 13:24 97.3 09/14/17 13:24 157/92 09/14/17 12:00 97.3 68 19 157/92 93 09/14/17 09:43 98.6 09/14/17 09:43 67 161/95 09/14/17 09:42 67 161/95 09/14/17 08:00 98.6 67 19 161/95 96 09/14/17 04:00 97.1 67 18 155/85 94 09/14/17 00:10 171/98 09/14/17 00:05 171/98 09/14/17 00:00 99.7 79 18 171/98 91 09/13/17 22:25 99.0 72 16 156/89 95 09/13/17 22:24 156/89 09/13/17 21:28 60 146/8 09/13/17 20:00 97.0 60 16 146/8 95 09/13/17 18:40 98.0 60 20 129/78 Room Air 09/13/17 18:30 Room Air 2/13/18 15:37 98.2 65 18 150/100 97 Room Air 09/13/17 15:00 Room Air 09/13/17 15:00 97.8 63 20 153/103 Room Air Intake and Output 09/13/17 09/14/17 19:00 07:00 Intake Total 200 ml 240 ml Output Total 2000 ml Balance -1800 ml 240 ml Intake Oral 240 ml IV Total 200 ml Hemodialysis UF 2000 ml # Voids 1 # Bowel Movements 2 Laboratory Tests 09/14/17 05:25: White Blood Count 5.5, Red Blood Count 2.86L, Hemoglobin 8.6L, Hematocrit 26.1L , Mean Corpuscular Volume 92, Mean Corpuscular Hemoglobin 30.0, Mean Corpuscular Hemoglobin Concent 32.8, Red Cell Distribution Width 15.0H, Platelet Count 163, Mean Platelet Volume 7.2, Neutrophils (%) (Auto) 64.2, Lymphocytes (%) (Auto) 24.8, Monocytes (%) (Auto) 8.4, Eosinophils (%) (Auto) 1.4, Basophils (%) (Auto) 1.2, Sodium Level 140, Potassium Level 4.6, Chloride Level 107, Carbon Dioxide Level 27, Anion Gap 6, Blood Urea Nitrogen 33H, Creatinine 3.0H, Estimat Glomerular Filtration Rate 24.5, Glucose Level 101, Uric Acid 5.1, Calcium Level 6.9L, Phosphorus Level 5.6H, Magnesium Level 1.5, Total Bilirubin 0.2, Gamma Glutamyl Transpeptidase 25, Aspartate Amino Transf ( AST/SGOT) 50H, Alanine Aminotransferase (ALT/SGPT) 73, Alkaline Phosphatase 169H , C-Reactive Protein, Quantitative 4.2H, Pro-B-Type Natriuretic Peptide 07911N, Total Protein 4.0L, Albumin 1.0L, Globulin 3.0, Albumin/Globulin Ratio 0.3L Height (Feet): 5 Height (Inches): 10.00 Weight (Pounds): 207 General Appearance: no apparent distress Cardiovascular: normal rate Respiratory/Chest: decreased breath sounds Abdomen: soft Objective no change LEXIS PRESTON Sep 14, 2017 14:48
--- NOTE | 2017-09-14 15:28 | Cardiac Electrophysiology PN ---
Assessment/Plan Assessment/Plan 1. Accelerated hypertension.Continue Norvasc 10 mg daily, clonidine 0.1 mg every eight hours, Coreg 12.5 mg bid and HD 2. Chronic kidney disease. Volume overload. On HD by Dr. Garrett. 3. Insulin-dependent diabetes. 4. Anemia of renal disease. 5. Abdominal pain and distention, diarrhea, and gastroparesis. Further evaluation by GI. 6. Hypothyroidism, on Synthroid. SUZANNA RN Subjective Subjective S/P HD yesterday .No CP. SOB better. Objective Last 24 Hour Vital Signs Date Time Temp Pulse Resp B/P (MAP) Pulse Ox O2 Delivery O2 Flow Rate FiO2 09/14/17 13:54 97.3 09/14/17 13:24 97.3 09/14/17 13:24 157/92 09/14/17 12:00 97.3 68 19 157/92 93 09/14/17 09:43 98.6 09/14/17 09:43 67 161/95 09/14/17 09:42 67 161/95 09/14/17 08:00 98.6 67 19 161/95 96 09/14/17 04:00 97.1 67 18 155/85 94 09/14/17 00:10 171/98 09/14/17 00:05 171/98 09/14/17 00:00 99.7 79 18 171/98 91 09/13/17 22:25 99.0 72 16 156/89 95 09/13/17 22:24 156/89 09/13/17 21:28 60 146/8 09/13/17 20:00 97.0 60 16 146/8 95 09/13/17 18:40 98.0 60 20 129/78 Room Air 09/13/17 18:30 Room Air 09/13/17 15:37 98.2 65 18 150/100 97 Room Air Intake and Output 09/13/17 09/14/17 19:00 07:00 Intake Total 200 ml 240 ml Output Total 2000 ml Balance -1800 ml 240 ml Intake Oral 240 ml IV Total 200 ml Hemodialysis UF 2000 ml # Voids 1 # Bowel Movements 2 Laboratory Tests Test 09/14/17 05:25 White Blood Count 5.5 K/UL (4.8-10.8) Red Blood Count 2.86 M/UL (4.70-6.10) L Hemoglobin 8.6 G/DL (14.2-18.0) L Hematocrit 26.1 % (42.0-52.0) L Mean Corpuscular Volume 92 FL (80-99) Mean Corpuscular Hemoglobin 30.0 PG (27.0-31.0) Mean Corpuscular Hemoglobin Concent 32.8 G/DL (32.0-36.0) Red Cell Distribution Width 15.0 % (11.6-14.8) H Platelet Count 163 K/UL (150-450) Mean Platelet Volume 7.2 FL (6.5-10.1) Neutrophils (%) (Auto) 64.2 % (45.0-75.0) Lymphocytes (%) (Auto) 24.8 % (20.0-45.0) Monocytes (%) (Auto) 8.4 % (1.0-10.0) Eosinophils (%) (Auto) 1.4 % (0.0-3.0) Basophils (%) (Auto) 1.2 % (0.0-2.0) Sodium Level 140 MMOL/L (136-145) Potassium Level 4.6 MMOL/L (3.5-5.1) Chloride Level 107 MMOL/L (98-107) Carbon Dioxide Level 27 MMOL/L (21-32) Anion Gap 6 mmol/L (5-15) Blood Urea Nitrogen 33 mg/dL (7-18) H Creatinine 3.0 MG/DL (0.55-1.30) H Estimat Glomerular Filtration Rate 24.5 mL/min (>60) Glucose Level 101 MG/DL (74-106) Uric Acid 5.1 MG/DL (2.6-7.2) Calcium Level 6.9 MG/DL (8.5-10.1) L Phosphorus Level 5.6 MG/DL (2.5-4.9) H Magnesium Level 1.5 MG/DL (1.5-2.4) Total Bilirubin 0.2 MG/DL (0.2-1.0) Gamma Glutamyl Transpeptidase 25 U/L (5-85) Aspartate Amino Transf (AST/SGOT) 50 U/L (15-37) H Alanine Aminotransferase (ALT/SGPT) 73 U/L (12-78) Alkaline Phosphatase 169 U/L (46-116) H C-Reactive Protein, Quantitative 4.2 mg/dL (0.00-0.90) H Pro-B-Type Natriuretic Peptide 96870 pg/mL (0-125) H Total Protein 4.0 G/DL (6.4-8.2) L Albumin 1.0 G/DL (3.4-5.0) L Globulin 3.0 g/dL Albumin/Globulin Ratio 0.3 (1.0-2.7) L Objective HEAD AND NECK: No JVD.Right IJ HD LUNGS: Clear. CARDIOVASCULAR: Regular S1 and S2. No gallop or murmur. ABDOMEN: Soft. EXTREMITIES: No pitting edema. MONICA DANGELO Sep 14, 2017 15:28
--- NOTE | 2017-09-14 15:35 | Pulmonology Progress Note ---
Assessment/Plan Problems: (1) Renal failure (ARF), acute on chronic (2) Diabetic nephropathy (3) Diabetes type 1, controlled (4) Abdominal distention (5) Chronic pancreatitis (6) Gastroparesis Assessment/Plan no new complains renal w/u pending check electrolytes getting Hd symptomatic treatment dvt prophylaxis dc planning Subjective ROS Limited/Unobtainable: No Allergies: Coded Allergies: METOCLOPRAMIDE (Unverified Allergy, Severe, 09/08/17) PROCHLORPERAZINE (Unverified Allergy, Severe, 09/08/17) VANCOMYCIN (Unverified Allergy, Severe, 09/08/17) Objective Last 24 Hour Vital Signs Date Time Temp Pulse Resp B/P (MAP) Pulse Ox O2 Delivery O2 Flow Rate FiO2 09/14/17 13:54 97.3 09/14/17 13:24 97.3 09/14/17 13:24 157/92 09/14/17 12:00 97.3 68 19 157/92 93 09/14/17 09:43 98.6 09/14/17 09:43 67 161/95 09/14/17 09:42 67 161/95 09/14/17 08:00 98.6 67 19 161/95 96 09/14/17 04:00 97.1 67 18 155/85 94 09/14/17 00:10 171/98 09/14/17 00:05 171/98 09/14/17 00:00 99.7 79 18 171/98 91 09/13/17 22:25 99.0 72 16 156/89 95 09/13/17 22:24 156/89 09/13/17 21:28 60 146/8 09/13/17 20:00 97.0 60 16 146/8 95 09/13/17 18:40 98.0 60 20 129/78 Room Air 09/13/17 18:30 Room Air 09/13/17 15:37 98.2 65 18 150/100 97 Room Air Intake and Output 09/13/17 09/14/17 19:00 07:00 Intake Total 200 ml 240 ml Output Total 2000 ml Balance -1800 ml 240 ml Intake Oral 240 ml IV Total 200 ml Hemodialysis UF 2000 ml # Voids 1 # Bowel Movements 2 Objective General Appearance: no apparent distress Head: normocephalic, atraumatic Eyes: bilateral eye PERRL, bilateral eye EOMI ENT: normal pharynx, no angioedema Neck: supple, thyroid normal Respiratory: lungs clear, normal breath sounds Cardiovascular #1: regular rate, rhythm Gastrointestinal: non tender, soft Laboratory Tests 09/14/17 05:25: White Blood Count 5.5, Red Blood Count 2.86L, Hemoglobin 8.6L, Hematocrit 26.1L , Mean Corpuscular Volume 92, Mean Corpuscular Hemoglobin 30.0, Mean Corpuscular Hemoglobin Concent 32.8, Red Cell Distribution Width 15.0H, Platelet Count 163, Mean Platelet Volume 7.2, Neutrophils (%) (Auto) 64.2, Lymphocytes (%) (Auto) 24.8, Monocytes (%) (Auto) 8.4, Eosinophils (%) (Auto) 1.4, Basophils (%) (Auto) 1.2, Sodium Level 140, Potassium Level 4.6, Chloride Level 107, Carbon Dioxide Level 27, Anion Gap 6, Blood Urea Nitrogen 33H, Creatinine 3.0H, Estimat Glomerular Filtration Rate 24.5, Glucose Level 101, Uric Acid 5.1, Calcium Level 6.9L, Phosphorus Level 5.6H, Magnesium Level 1.5, Total Bilirubin 0.2, Gamma Glutamyl Transpeptidase 25, Aspartate Amino Transf ( AST/SGOT) 50H, Alanine Aminotransferase (ALT/SGPT) 73, Alkaline Phosphatase 169H , C-Reactive Protein, Quantitative 4.2H, Pro-B-Type Natriuretic Peptide 71261M, Total Protein 4.0L, Albumin 1.0L, Globulin 3.0, Albumin/Globulin Ratio 0.3L Current Medications Medications (Trade) Dose Ordered Sig/Michelle Route PRN Reason Start Time Stop Time Status Last Admin Dose Admin Acetaminophen (Tylenol) 650 mg Q4H PRN ORAL fever 09/09/17 23:45 10/08/17 15:44 Amlodipine Besylate (Norvasc) 10 mg DAILY ORAL 09/11/17 09:00 10/11/17 08:59 09/14/17 09:42 Aspirin (ASA) 81 mg DAILY ORAL 09/10/17 09:00 10/10/17 08:59 09/11/17 09:39 Carvedilol (Coreg) 12.5 mg EVERY 12 HOURS ORAL 09/10/17 21:00 10/10/17 20:59 09/14/17 09:43 Clonidine HCl (Catapres Tab) 0.1 mg EVERY 8 HOURS ORAL 09/10/17 14:00 10/10/17 13:59 09/14/17 13:24 Clonidine HCl (Catapres Tab) 0.1 mg Q6H PRN ORAL SYSTOLIC BP > 160 09/10/17 08:30 10/10/17 08:29 09/14/17 00:10 Dextrose (Dextrose 50%) STAT PRN IV Hypoglycemia 09/10/17 15:45 10/08/17 15:44 Diphenhydramine HCl (Benadryl) 25 mg Q6H PRN ORAL Itching/Pruritis 09/10/17 03:45 10/08/17 15:44 Epoetin Curry (Procrit (for ESRD on dialysis)) 10,000 units TUE-TUE-TUE SUBQ 09/12/17 21:00 10/12/17 20:59 09/12/17 21:26 Guaifenesin/ Codeine Phosphate (Robitussin with codeine) 5 ml Q6H PRN ORAL For Cough 09/10/17 17:00 10/10/17 16:59 09/13/17 22:11 Heparin Sodium (Porcine) (Heparin 5000 units/ml) 5,000 units EVERY 12 HOURS SUBQ 09/10/17 09:00 10/08/17 20:59 09/13/17 21:32 Hydralazine HCl (Apresoline) 25 mg Q8HR ORAL 09/14/17 22:00 10/14/17 21:59 Lansoprazole (Prevacid) 30 mg DAILY ORAL 09/11/17 09:00 10/11/17 08:59 09/14/17 09:42 Levothyroxine Sodium (Synthroid) 25 mcg DAILY@0630 ORAL 09/10/17 06:30 10/10/17 06:29 09/14/17 06:16 Lorazepam (Ativan 2mg/ml 1ml) 1 mg EVERY 4 HOURS PRN IV agitation 09/10/17 01:00 09/15/17 15:44 09/14/17 06:16 Morphine Sulfate (Morphine Sulfate) 2 mg Q3H PRN IVP Severe Pain (Pain Scale 7-10) 09/14/17 09:30 09/21/17 09:29 09/14/17 13:24 Ondansetron HCl (Zofran) 4 mg Q6H PRN IVP Nausea & Vomiting 09/10/17 03:45 10/08/17 15:44 Polyethylene Glycol (Miralax) 17 gm HSPRN PRN ORAL Constipation 09/10/17 15:45 10/08/17 15:44 Sevelamer Carbonate (Renvela) 2,400 mg THREE TIMES A DAY ORAL 09/11/17 13:00 10/11/17 12:59 09/14/17 12:02 Temazepam (Restoril) 15 mg HSPRN PRN ORAL Insomnia 09/10/17 15:45 09/15/17 15:44 RICARDO POLANCO Sep 14, 2017 15:35
[2017-09-14 16:00] VITALS: BP 146/92
[2017-09-14 19:33] VITALS: BP 155/97
[2017-09-14] MEDS: HydrALAZINE 50mg tab ORAL SCH (21:25)
[2017-09-14] MEDS: Epogen (for ESRD on dialysis) SUBQ SCH (21:26)
[2017-09-15] VITALS (7 sets, daily range): BP systolic 142–177; BP diastolic 94–112
[2017-09-15] MEDS: LORazepam Inj 2mg/ml 1ml IV PRN ×4 (00:10→21:16)
[2017-09-15] MEDS: Morphine Sulfate 4mg/ml Inj IVP PRN ×4 (03:05→23:07)
[2017-09-15] MEDS: HydrALAZINE 50mg tab ORAL SCH (05:47)
[2017-09-15] MEDS: Levothyroxine 25mcg tab ORAL SCH (05:47)
--- NOTE | 2017-09-15 08:20 | Pulmonology Progress Note ---
Assessment/Plan Assessment/Plan ASSESSMENT Acute on chronic renal failure with new initiation of HD diabetic nephropathy most likely nephrotic syndrome DM type 1 HTN chronic pancreatitis gastroparesis anemia of renal disease hypothyroidism HTN urgency fluid overload elevated LFT PLAN OF CARE MS floor started on HD after placement by IR Right jugular HD catheter nephro follows monitor renal parameters, correct lytes, avoid nephrotoxic 24 hr urine with > 3 gm protein, most likely nephrotic syndrome abdominal OCTAVIO with evidence of increased echogenicity c/w medical renal disease , no hydro On EPO monitor HH, transfuse prn to keep Hgb above 7, s/p 1 u PRBC 09/14, HH at baseline LFT trending down hep panel negative abdominal US no gallstones, no dilated ducts ECHO with pEF 60% and RVSP of 29 BP management with BB, CCB, Clonidine and Hydralazine, currently controlled bl and stool cx negative, stool for OP negative lipase stable pain management bowel regimen Started on levothyroxine, check TFT in 1 month case discussed and evaluated by supervising physician Subjective Allergies: Coded Allergies: METOCLOPRAMIDE (Unverified Allergy, Severe, 09/08/17) PROCHLORPERAZINE (Unverified Allergy, Severe, 09/08/17) VANCOMYCIN (Unverified Allergy, Severe, 09/08/17) Subjective s/p initiation of HD, dialyzed 09/13 and 09/15 creat down to 3.1 afebrile, no leucocytosis s/p 1 u PBC 09/14 HH at baseline, BP still elevated Objective Last 24 Hour Vital Signs Date Time Temp Pulse Resp B/P (MAP) Pulse Ox O2 Delivery O2 Flow Rate FiO2 09/15/17 05:47 142/100 09/15/17 05:47 142/100 09/15/17 03:35 96.8 09/15/17 03:33 96.8 77 20 142/100 96 Room Air 09/15/17 02:02 98.1 91 20 156/98 98 Room Air 09/15/17 00:00 99 Room Air 09/15/17 00:00 98.1 91 20 153/98 99 Room Air 09/14/17 22:09 97.7 09/14/17 21:26 63 155/97 09/14/17 21:26 155/97 09/14/17 21:25 155/97 2/14/18 19:33 97.7 20 155/97 95 Room Air 09/14/17 19:33 95 Room Air 09/14/17 18:49 97.2 09/14/17 16:00 97.2 63 18 146/92 94 09/14/17 13:24 97.3 09/14/17 13:24 157/92 09/14/17 12:00 97.3 68 19 157/92 93 09/14/17 09:43 98.6 09/14/17 09:43 67 161/95 09/14/17 09:42 67 161/95 Intake and Output 09/14/17 09/15/17 19:00 07:00 Intake Total 560 ml Output Total 2 ml 2000 ml Balance 558 ml -2000 ml Intake Oral 560 ml Output Urine Total 2000 ml Stool Total 2 ml # Voids 6 # Bowel Movements 1 3 General Appearance: no acute distress HEENT: anicteric Respiratory/Chest: lungs clear, no respiratory distress Cardiovascular: normal rate, regular rhythm, other - R jugular HD catheter Abdomen: soft, non tender, non distended Extremities: no edema Neurologic/Psychiatric: no motor/sensory deficits, alert, oriented x 3, responsive Musculoskeletal: normal muscle bulk Current Medications Medications (Trade) Dose Ordered Sig/Michelle Route PRN Reason Start Time Stop Time Status Last Admin Dose Admin Acetaminophen (Tylenol) 650 mg Q4H PRN ORAL fever 09/09/17 23:45 10/08/17 15:44 Amlodipine Besylate (Norvasc) 10 mg DAILY ORAL 09/11/17 09:00 10/11/17 08:59 09/14/17 09:42 Aspirin (ASA) 81 mg DAILY ORAL 09/10/17 09:00 10/10/17 08:59 09/11/17 09:39 Carvedilol (Coreg) 12.5 mg EVERY 12 HOURS ORAL 09/10/17 21:00 10/10/17 20:59 09/14/17 21:26 Clonidine HCl (Catapres Tab) 0.1 mg EVERY 8 HOURS ORAL 09/10/17 14:00 10/10/17 13:59 09/15/17 05:47 Clonidine HCl (Catapres Tab) 0.1 mg Q6H PRN ORAL SYSTOLIC BP > 160 09/10/17 08:30 10/10/17 08:29 09/14/17 00:10 Dextrose (Dextrose 50%) STAT PRN IV Hypoglycemia 09/10/17 15:45 10/08/17 15:44 Diphenhydramine HCl (Benadryl) 25 mg Q6H PRN ORAL Itching/Pruritis 09/10/17 03:45 10/08/17 15:44 Epoetin Curry (Procrit (for ESRD on dialysis)) 10,000 units TUE-TUE-TUE SUBQ 09/12/17 21:00 10/12/17 20:59 09/14/17 21:26 Guaifenesin/ Codeine Phosphate (Robitussin with codeine) 5 ml Q6H PRN ORAL For Cough 09/10/17 17:00 10/10/17 16:59 09/13/17 22:11 Heparin Sodium (Porcine) (Heparin 5000 units/ml) 5,000 units EVERY 12 HOURS SUBQ 09/10/17 09:00 10/08/17 20:59 09/14/17 21:25 Hydralazine HCl (Apresoline) 25 mg Q8HR ORAL 09/14/17 22:00 10/14/17 21:59 09/15/17 05:47 Lansoprazole (Prevacid) 30 mg DAILY ORAL 09/11/17 09:00 10/11/17 08:59 09/14/17 09:42 Levothyroxine Sodium (Synthroid) 25 mcg DAILY@0630 ORAL 09/10/17 06:30 10/10/17 06:29 09/15/17 05:47 Lorazepam (Ativan 2mg/ml 1ml) 1 mg EVERY 4 HOURS PRN IV agitation 09/10/17 01:00 09/15/17 15:44 09/15/17 04:14 Morphine Sulfate (Morphine Sulfate) 2 mg Q3H PRN IVP Severe Pain (Pain Scale 7-10) 09/14/17 09:30 09/21/17 09:29 09/15/17 03:05 Ondansetron HCl (Zofran) 4 mg Q6H PRN IVP Nausea & Vomiting 09/10/17 03:45 10/08/17 15:44 Polyethylene Glycol (Miralax) 17 gm HSPRN PRN ORAL Constipation 09/10/17 15:45 10/08/17 15:44 Sevelamer Carbonate (Renvela) 2,400 mg THREE TIMES A DAY ORAL 09/11/17 13:00 10/11/17 12:59 09/14/17 17:21 Temazepam (Restoril) 15 mg HSPRN PRN ORAL Insomnia 09/10/17 15:45 09/15/17 15:44 Jesse ([facility])Shama NP Sep 15, 2017 08:20
[2017-09-15] MEDS: Aspirin Baby 81mg ORAL SCH (09:00)
[2017-09-15] MEDS: Heparin 5000 units/ml inj SUBQ SCH ×2 (09:00→21:21)
[2017-09-15] MEDS: Carvedilol 12.5mg tab ORAL SCH ×2 (09:24→21:15)
[2017-09-15 10:30] LABS: BASOPHILS % (AUTO) 0.8 % (0.0-2.0); EOSINOPHILS % (AUTO) 1.3 % (0.0-3.0); HEMATOCRIT 25.9 % (42.0-52.0); HEMOGLOBIN 8.5 G/DL (14.2-18.0); LYMPHOCYTES % (AUTO) 24.3 % (20.0-45.0); MEAN CORPUSCULAR VOLUME 92 FL (80-99); NEUTROPHILS % (AUTO) 65.6 % (45.0-75.0); PLATELET COUNT 174 K/UL (150-450); RED BLOOD COUNT 2.82 M/UL (4.70-6.10); RED CELL DISTRIBUTION WIDTH 14.9 % (11.6-14.8); WHITE BLOOD COUNT 5.4 K/UL (4.8-10.8)
--- NOTE | 2017-09-15 10:39 | Cardiac Electrophysiology PN ---
Assessment/Plan Assessment/Plan 1. Accelerated hypertension.Continue Norvasc 10 mg daily, clonidine 0.1 mg q8, Coreg 12.5 mg bid and HD 2. Chronic kidney disease. On HD by Dr. Garrett. 3. Insulin-dependent diabetes. 4. Anemia of renal disease. 5. Abdominal pain and distention, diarrhea, and gastroparesis. Further evaluation by GI. 6. Hypothyroidism, on Synthroid. SUZANNA RN Subjective Subjective No CP or SOB. Scheduled for HD today. Objective Last 24 Hour Vital Signs Date Time Temp Pulse Resp B/P (MAP) Pulse Ox O2 Delivery O2 Flow Rate FiO2 09/15/17 09:25 64 172/95 09/15/17 09:24 64 172/95 09/15/17 08:00 97.7 64 20 172/95 95 09/15/17 05:47 142/100 09/15/17 05:47 142/100 09/15/17 03:35 96.8 09/15/17 03:33 96.8 77 20 142/100 96 Room Air 09/15/17 02:02 98.1 91 20 156/98 98 Room Air 09/15/17 00:00 99 Room Air 09/15/17 00:00 98.1 91 20 153/98 99 Room Air 09/14/17 22:09 97.7 09/14/17 21:26 63 155/97 09/14/17 21:26 155/97 09/14/17 21:25 155/97 09/14/17 19:33 97.7 20 155/97 95 Room Air 09/14/17 19:33 95 Room Air 09/14/17 18:49 97.2 09/14/17 16:00 97.2 63 18 146/92 94 09/14/17 13:24 97.3 09/14/17 13:24 157/92 09/14/17 12:00 97.3 68 19 157/92 93 Intake and Output 09/14/17 09/15/17 19:00 07:00 Intake Total 560 ml Output Total 2 ml 2000 ml Balance 558 ml -2000 ml Intake Oral 560 ml Output Urine Total 2000 ml Stool Total 2 ml # Voids 6 # Bowel Movements 1 3 Laboratory Tests Test 09/15/17 10:00 White Blood Count 5.4 K/UL (4.8-10.8) Red Blood Count 2.82 M/UL (4.70-6.10) L Hemoglobin 8.5 G/DL (14.2-18.0) L Hematocrit 25.9 % (42.0-52.0) L Mean Corpuscular Volume 92 FL (80-99) Mean Corpuscular Hemoglobin 30.2 PG (27.0-31.0) Mean Corpuscular Hemoglobin Concent 32.9 G/DL (32.0-36.0) Red Cell Distribution Width 14.9 % (11.6-14.8) H Platelet Count 174 K/UL (150-450) Mean Platelet Volume 7.7 FL (6.5-10.1) Neutrophils (%) (Auto) 65.6 % (45.0-75.0) Lymphocytes (%) (Auto) 24.3 % (20.0-45.0) Monocytes (%) (Auto) 8.0 % (1.0-10.0) Eosinophils (%) (Auto) 1.3 % (0.0-3.0) Basophils (%) (Auto) 0.8 % (0.0-2.0) Sodium Level Pending Potassium Level Pending Chloride Level Pending Carbon Dioxide Level Pending Blood Urea Nitrogen Pending Creatinine Pending Estimat Glomerular Filtration Rate Pending Glucose Level Pending Calcium Level Pending Phosphorus Level Pending Magnesium Level Pending Total Bilirubin Pending Aspartate Amino Transf (AST/SGOT) Pending Alanine Aminotransferase (ALT/SGPT) Pending Alkaline Phosphatase Pending Total Protein Pending Albumin Pending Globulin Pending Objective HEAD AND NECK: No JVD.Right IJ HD LUNGS: Clear. CARDIOVASCULAR: Regular S1 and S2. No gallop or murmur. ABDOMEN: Soft. EXTREMITIES: No pitting edema. MONICA DANGELO Sep 15, 2017 10:39
--- NOTE | 2017-09-15 11:08 | GI Progress Note ---
Assessment/Plan Problems: (1) Renal failure (ARF), acute on chronic ICD Codes: N17.9 - Acute kidney failure, unspecified; N18.9 - Chronic kidney disease, unspecified SNOMED: 893501831 (2) Diarrhea ICD Codes: R19.7 - Diarrhea, unspecified SNOMED: 67128939 (3) Vomiting ICD Codes: R11.10 - Vomiting, unspecified SNOMED: 390460426 (4) Diabetes type 1, controlled ICD Codes: E10.9 - Type 1 diabetes mellitus without complications SNOMED: 28047216, 495494578 (5) Gastroparesis ICD Codes: K31.84 - Gastroparesis SNOMED: 022698308 (6) Chronic pancreatitis ICD Codes: K86.1 - Other chronic pancreatitis SNOMED: 027026437 (7) Anemia ICD Codes: D64.9 - Anemia, unspecified SNOMED: 972788419 Status: unchanged Status Narrative Discussed with Dr. Schultz. Assessment/Plan abdominal U/S reviewed Hep panel >> negative cdiff / O&P >> negative CT reviewed >> stool retention refused paracentesis anemia work up 2/2 to renal disease fu nephro recs renal diet DM mgmt imodium prn pain mgmt ppi fu labs Subjective Subjective generalized weakness c/o of diarrhea feels better after dialysis Objective Last 24 Hour Vital Signs Date Time Temp Pulse Resp B/P (MAP) Pulse Ox O2 Delivery O2 Flow Rate FiO2 09/15/17 09:25 64 172/95 09/15/17 09:24 64 172/95 09/15/17 08:00 97.7 64 20 172/95 95 09/15/17 05:47 142/100 09/15/17 05:47 142/100 09/15/17 03:35 96.8 09/15/17 03:33 96.8 77 20 142/100 96 Room Air 09/15/17 02:02 98.1 91 20 156/98 98 Room Air 09/15/17 00:00 99 Room Air 09/15/17 00:00 98.1 91 20 153/98 99 Room Air 09/14/17 22:09 97.7 09/14/17 21:26 63 155/97 09/14/17 21:26 155/97 09/14/17 21:25 155/97 09/14/17 19:33 97.7 20 155/97 95 Room Air 09/14/17 19:33 95 Room Air 09/14/17 18:49 97.2 09/14/17 16:00 97.2 63 18 146/92 94 09/14/17 13:24 97.3 09/14/17 13:24 157/92 09/14/17 12:00 97.3 68 19 157/92 93 Intake and Output 09/14/17 09/15/17 19:00 07:00 Intake Total 560 ml Output Total 2 ml 2000 ml Balance 558 ml -2000 ml Intake Oral 560 ml Output Urine Total 2000 ml Stool Total 2 ml # Voids 6 # Bowel Movements 1 3 Laboratory Tests Test 09/15/17 10:00 White Blood Count 5.4 K/UL (4.8-10.8) Red Blood Count 2.82 M/UL (4.70-6.10) L Hemoglobin 8.5 G/DL (14.2-18.0) L Hematocrit 25.9 % (42.0-52.0) L Mean Corpuscular Volume 92 FL (80-99) Mean Corpuscular Hemoglobin 30.2 PG (27.0-31.0) Mean Corpuscular Hemoglobin Concent 32.9 G/DL (32.0-36.0) Red Cell Distribution Width 14.9 % (11.6-14.8) H Platelet Count 174 K/UL (150-450) Mean Platelet Volume 7.7 FL (6.5-10.1) Neutrophils (%) (Auto) 65.6 % (45.0-75.0) Lymphocytes (%) (Auto) 24.3 % (20.0-45.0) Monocytes (%) (Auto) 8.0 % (1.0-10.0) Eosinophils (%) (Auto) 1.3 % (0.0-3.0) Basophils (%) (Auto) 0.8 % (0.0-2.0) Sodium Level Pending Potassium Level Pending Chloride Level Pending Carbon Dioxide Level Pending Blood Urea Nitrogen Pending Creatinine Pending Estimat Glomerular Filtration Rate Pending Glucose Level Pending Calcium Level Pending Phosphorus Level 6.0 MG/DL (2.5-4.9) H Magnesium Level 1.6 MG/DL (1.8-2.4) L Total Bilirubin Pending Aspartate Amino Transf (AST/SGOT) Pending Alanine Aminotransferase (ALT/SGPT) Pending Alkaline Phosphatase Pending Total Protein Pending Albumin Pending Globulin Pending Height (Feet): 5 Height (Inches): 10.00 Weight (Pounds): 210 General Appearance: WD/WN, no apparent distress, alert Cardiovascular: normal rate Respiratory/Chest: normal breath sounds, no respiratory distress Abdominal Exam: normal bowel sounds, non tender, soft Extremities: normal range of motion, non-tender Amber Clark N.P. Sep 15, 2017 11:08
[2017-09-15 11:16] LABS: ALANINE AMINOTRANSFERASE 68 U/L (12-78); ALBUMIN/GLOBULIN RATIO 0.3 (1.0-2.7); ALKALINE PHOSPHATASE 169 U/L (46-116); ANION GAP 3 mmol/L (5-15); ASPARTATE AMINO TRANSFERASE 46 U/L (15-37); BILIRUBIN,TOTAL 0.2 MG/DL (0.2-1.0); BLOOD UREA NITROGEN 38 mg/dL (7-18); CALCIUM 7.1 MG/DL (8.5-10.1); CARBON DIOXIDE 27 MMOL/L (21-32); CHLORIDE 107 MMOL/L (98-107); CREATININE 3.1 MG/DL (0.55-1.30); POTASSIUM 5.2 MMOL/L (3.5-5.1); SODIUM 137 MMOL/L (136-145)
--- NOTE | 2017-09-15 12:33 | Nephrology Progress Note ---
Assessment/Plan Problem List: (1) Renal failure (ARF), acute on chronic (2) Nephrotic syndrome (3) Diabetic nephropathy (4) HTN (hypertension) Assessment: hypertensive kidney disease Assessment Advanced renal failure due to Type I DM DIabetic Nephropathy- Most likely NS -. Bilateral upper quadrant pain. -. Diarrhea. -. Diabetic gastroparesis. -. Diabetes type 1. -. Hypertension. -. Anemia. due to CKD -. HypoThyroid Plan Plan: dialysed 09/13 next 09/15 Transfused yesterday Add Zestril Norvasc and Clonidine to BP meds- Per GI 24 h urine collection over 3 gram protein Monitor renal parameters , BS and BP Avoid nephrotoxics 2D Echo : Left ventricular ejection fraction estimated to be 60 %. No evidence of left ventricular hypertrophy. Trace pericardial effusion . Moderate left atrial enlargement. OCTAVIO: Left kidney measures 11.8 cm in length. Right kidney measures 9.6 cm length. Kidneys demonstrate diffusely increased echogenicity. No hydronephrosis. there is a small left lower pole renal cyst Subjective ROS Limited/Unobtainable: No Constitutional: Reports: malaise Objective Objective Last 24 Hour Vital Signs Date Time Temp Pulse Resp B/P (MAP) Pulse Ox O2 Delivery O2 Flow Rate FiO2 09/15/17 09:25 64 172/95 09/15/17 09:24 64 172/95 09/15/17 08:00 97.7 64 20 172/95 95 09/15/17 05:47 142/100 09/15/17 05:47 142/100 09/15/17 03:35 96.8 09/15/17 03:33 96.8 77 20 142/100 96 Room Air 09/15/17 02:02 98.1 91 20 156/98 98 Room Air 09/15/17 00:00 99 Room Air 09/15/17 00:00 98.1 91 20 153/98 99 Room Air 09/14/17 22:09 97.7 09/14/17 21:26 63 155/97 09/14/17 21:26 155/97 09/14/17 21:25 155/97 09/14/17 19:33 97.7 20 155/97 95 Room Air 09/14/17 19:33 95 Room Air 09/14/17 18:49 97.2 09/14/17 16:00 97.2 63 18 146/92 94 09/14/17 13:24 97.3 09/14/17 13:24 157/92 Intake and Output 09/14/17 09/15/17 19:00 07:00 Intake Total 560 ml Output Total 2 ml 2000 ml Balance 558 ml -2000 ml Intake Oral 560 ml Output Urine Total 2000 ml Stool Total 2 ml # Voids 6 # Bowel Movements 1 3 Laboratory Tests 09/15/17 10:00: White Blood Count 5.4, Red Blood Count 2.82L, Hemoglobin 8.5L, Hematocrit 25.9L , Mean Corpuscular Volume 92, Mean Corpuscular Hemoglobin 30.2, Mean Corpuscular Hemoglobin Concent 32.9, Red Cell Distribution Width 14.9H, Platelet Count 174, Mean Platelet Volume 7.7, Neutrophils (%) (Auto) 65.6, Lymphocytes (%) (Auto) 24.3, Monocytes (%) (Auto) 8.0, Eosinophils (%) (Auto) 1.3, Basophils (%) (Auto) 0.8, Sodium Level 137, Potassium Level 5.2H, Chloride Level 107, Carbon Dioxide Level 27, Anion Gap 3L, Blood Urea Nitrogen 38H, Creatinine 3.1H, Estimat Glomerular Filtration Rate 23.6, Glucose Level 124H, Calcium Level 7.1L, Phosphorus Level 6.0H, Magnesium Level 1.6L, Total Bilirubin 0.2, Aspartate Amino Transf (AST/SGOT) 46H, Alanine Aminotransferase ( ALT/SGPT) 68, Alkaline Phosphatase 169H, Total Protein 4.0L, Albumin 1.0L, Globulin 3.0, Albumin/Globulin Ratio 0.3L Height (Feet): 5 Height (Inches): 10.00 Weight (Pounds): 210 General Appearance: no apparent distress, lethargic Cardiovascular: normal rate Respiratory/Chest: decreased breath sounds Abdomen: distended Objective no change LEXIS PRESTON Sep 15, 2017 12:33
[2017-09-15] MEDS: Loperamide 2mg cap ORAL PRN ×2 (12:48→18:15)
[2017-09-15] MEDS ORDERED: Lisinopril 10mg tab ORAL ONE (13:00)
[2017-09-15] MEDS ORDERED: Tubing Blood Filter IV ONE (17:48)
[2017-09-15] MEDS ORDERED: Lisinopril 10mg tab ORAL SCH (18:00)
--- NOTE | 2017-09-15 18:27 | Internal Med Progress Note ---
Subjective Date of Service: Sep 15, 2017 Physician Name Sanjiv Talbot Attending Physician Serafin Voss MD Current Medications Medications (Trade) Dose Ordered Sig/Michelle Route PRN Reason Start Time Stop Time Status Last Admin Dose Admin Acetaminophen (Tylenol) 650 mg Q4H PRN ORAL fever 09/09/17 23:45 10/08/17 15:44 Amlodipine Besylate (Norvasc) 10 mg DAILY ORAL 09/11/17 09:00 10/11/17 08:59 09/15/17 18:16 Aspirin (ASA) 81 mg DAILY ORAL 09/10/17 09:00 10/10/17 08:59 09/11/17 09:39 Carvedilol (Coreg) 12.5 mg EVERY 12 HOURS ORAL 09/10/17 21:00 10/10/17 20:59 09/15/17 09:24 Clonidine HCl (Catapres Tab) 0.1 mg EVERY 12 HOURS ORAL 09/15/17 21:00 10/10/17 13:59 Clonidine HCl (Catapres Tab) 0.1 mg Q6H PRN ORAL SYSTOLIC BP > 160 09/10/17 08:30 10/10/17 08:29 09/14/17 00:10 Dextrose (Dextrose 50%) STAT PRN IV Hypoglycemia 09/10/17 15:45 10/08/17 15:44 Diphenhydramine HCl (Benadryl) 25 mg Q6H PRN ORAL Itching/Pruritis 09/10/17 03:45 10/08/17 15:44 Epoetin Curry (Procrit (for ESRD on dialysis)) 10,000 units TUE-TUE-TUE SUBQ 09/12/17 21:00 10/12/17 20:59 09/14/17 21:26 Guaifenesin/ Codeine Phosphate (Robitussin with codeine) 5 ml Q6H PRN ORAL For Cough 09/10/17 17:00 10/10/17 16:59 09/13/17 22:11 Heparin Sodium (Porcine) (Heparin 5000 units/ml) 5,000 units EVERY 12 HOURS SUBQ 09/10/17 09:00 10/08/17 20:59 09/14/17 21:25 Lansoprazole (Prevacid) 30 mg DAILY ORAL 09/11/17 09:00 10/11/17 08:59 09/15/17 09:25 Levothyroxine Sodium (Synthroid) 25 mcg DAILY@0630 ORAL 09/10/17 06:30 10/10/17 06:29 09/15/17 05:47 Lisinopril (Zestril) 10 mg BID ORAL 09/15/17 18:00 10/15/17 17:59 09/15/17 18:17 Loperamide HCl (Imodium) 2 mg Q4H PRN ORAL Diarrhea 09/15/17 11:15 10/15/17 11:14 09/15/17 18:15 Morphine Sulfate (Morphine Sulfate) 2 mg Q3H PRN IVP Severe Pain (Pain Scale 7-10) 09/14/17 09:30 09/21/17 09:29 09/15/17 15:38 Ondansetron HCl (Zofran) 4 mg Q6H PRN IVP Nausea & Vomiting 09/10/17 03:45 10/08/17 15:44 Polyethylene Glycol (Miralax) 17 gm HSPRN PRN ORAL Constipation 09/10/17 15:45 10/08/17 15:44 Sevelamer Carbonate (Renvela) 2,400 mg THREE TIMES A DAY ORAL 09/11/17 13:00 10/11/17 12:59 09/15/17 18:14 Allergies: Coded Allergies: METOCLOPRAMIDE (Unverified Allergy, Severe, 09/08/17) PROCHLORPERAZINE (Unverified Allergy, Severe, 09/08/17) VANCOMYCIN (Unverified Allergy, Severe, 09/08/17) Subjective 32 YO M admitted with abdominal pain. Now renal failure; S/P hemodialysis 09/15. Cover for Int Med-Dr Voss. Objective Last Vital Signs Date Time Temp Pulse Resp B/P (MAP) Pulse Ox O2 Delivery O2 Flow Rate FiO2 09/15/17 18:17 153/94 09/15/17 18:16 70 09/15/17 16:08 97.0 09/15/17 16:00 20 96 09/15/17 14:25 Room Air 09/13/17 12:30 3.0 Laboratory Tests Test 09/15/17 10:00 White Blood Count 5.4 K/UL (4.8-10.8) Red Blood Count 2.82 M/UL (4.70-6.10) L Hemoglobin 8.5 G/DL (14.2-18.0) L Hematocrit 25.9 % (42.0-52.0) L Mean Corpuscular Volume 92 FL (80-99) Mean Corpuscular Hemoglobin 30.2 PG (27.0-31.0) Mean Corpuscular Hemoglobin Concent 32.9 G/DL (32.0-36.0) Red Cell Distribution Width 14.9 % (11.6-14.8) H Platelet Count 174 K/UL (150-450) Mean Platelet Volume 7.7 FL (6.5-10.1) Neutrophils (%) (Auto) 65.6 % (45.0-75.0) Lymphocytes (%) (Auto) 24.3 % (20.0-45.0) Monocytes (%) (Auto) 8.0 % (1.0-10.0) Eosinophils (%) (Auto) 1.3 % (0.0-3.0) Basophils (%) (Auto) 0.8 % (0.0-2.0) Sodium Level 137 MMOL/L (136-145) Potassium Level 5.2 MMOL/L (3.5-5.1) H Chloride Level 107 MMOL/L (98-107) Carbon Dioxide Level 27 MMOL/L (21-32) Anion Gap 3 mmol/L (5-15) L Blood Urea Nitrogen 38 mg/dL (7-18) H Creatinine 3.1 MG/DL (0.55-1.30) H Estimat Glomerular Filtration Rate 23.6 mL/min (>60) Glucose Level 124 MG/DL (74-106) H Calcium Level 7.1 MG/DL (8.5-10.1) L Phosphorus Level 6.0 MG/DL (2.5-4.9) H Magnesium Level 1.6 MG/DL (1.8-2.4) L Total Bilirubin 0.2 MG/DL (0.2-1.0) Aspartate Amino Transf (AST/SGOT) 46 U/L (15-37) H Alanine Aminotransferase (ALT/SGPT) 68 U/L (12-78) Alkaline Phosphatase 169 U/L (46-116) H Total Protein 4.0 G/DL (6.4-8.2) L Albumin 1.0 G/DL (3.4-5.0) L Globulin 3.0 g/dL Albumin/Globulin Ratio 0.3 (1.0-2.7) L Intake and Output 09/14/17 09/15/17 19:00 07:00 Intake Total 560 ml Output Total 2 ml 2000 ml Balance 558 ml -2000 ml Intake Oral 560 ml Output Urine Total 2000 ml Stool Total 2 ml # Voids 6 # Bowel Movements 1 3 Objective General Appearance: WD/WN, alert, mild distress EENT: PERRL/EOMI, normal ENT inspection Neck: non-tender, normal alignment, supple, normal inspection Cardiovascular: normal peripheral pulses, normal rate, regular rhythm, no gallop/murmur, no JVD Respiratory/Chest: chest wall non-tender, lungs clear, normal breath sounds, no respiratory distress, no accessory muscle use Abdomen: no organomegaly, no mass, decreased bowel sounds, distended, guarding , tender Extremities: normal range of motion 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 See nephrology note. (2) Anemia of renal disease Assessment & Plan: Transfuse 1 unit PRBC today. (3) HTN (hypertension) Assessment & Plan: Uncontrolled. Await cardiology consult. Cont coreg and norvasc. (4) Ascites Assessment & Plan: Await paracentesis. See GI note. (5) Abdominal pain (6) Abdominal distention (7) Diarrhea Assessment & Plan: C. Diff neg; await stool culture (8) Gastroparesis (9) Diabetes type 1, controlled Assessment & Plan: Continue novolog sliding scale. (10) Hypothyroidism Assessment & Plan: Continue levoxyl (11) CHF (congestive heart failure) Assessment & Plan: Volume overload. See cardiology note. await hemodialysis (12) Anemia Assessment & Plan: S/P transfusion 1 unit PRBC on 09/13/17 SANJIV TALBOT Sep 15, 2017 18:27
[2017-09-15] MEDS ORDERED: LORazepam 0.5mg tab ORAL PRN (19:00)
[2017-09-16 00:42] VITALS: BP 144/87
[2017-09-16] MEDS: LORazepam Inj 2mg/ml 1ml IV PRN ×2 (01:59→06:41)
[2017-09-16 04:28] VITALS: BP 140/81
[2017-09-16] MEDS: Morphine Sulfate 4mg/ml Inj IVP PRN ×2 (04:34→09:00)
[2017-09-16] MEDS: Levothyroxine 25mcg tab ORAL SCH (06:13)
[2017-09-16 07:01] LABS: ALANINE AMINOTRANSFERASE 57 U/L (12-78); ALBUMIN/GLOBULIN RATIO 0.3 (1.0-2.7); ALKALINE PHOSPHATASE 160 U/L (46-116); ANION GAP 3 mmol/L (5-15); ASPARTATE AMINO TRANSFERASE 37 U/L (15-37); BILIRUBIN,TOTAL 0.2 MG/DL (0.2-1.0); BLOOD UREA NITROGEN 28 mg/dL (7-18); CALCIUM 6.8 MG/DL (8.5-10.1); CARBON DIOXIDE 27 MMOL/L (21-32); CHLORIDE 106 MMOL/L (98-107); CREATININE 2.8 MG/DL (0.55-1.30); PHOSPHORUS 5.2 MG/DL (2.5-4.9); POTASSIUM 4.7 MMOL/L (3.5-5.1); SODIUM 136 MMOL/L (136-145)
[2017-09-16 07:21] LABS: BASOPHILS % (AUTO) 1.2 % (0.0-2.0); EOSINOPHILS % (AUTO) 1.5 % (0.0-3.0); HEMATOCRIT 24.9 % (42.0-52.0); HEMOGLOBIN 8.1 G/DL (14.2-18.0); LYMPHOCYTES % (AUTO) 29.9 % (20.0-45.0); MEAN CORPUSCULAR VOLUME 92 FL (80-99); MONOCYTES % (AUTO) 8.3 % (1.0-10.0); NEUTROPHILS % (AUTO) 59.1 % (45.0-75.0); PLATELET COUNT 174 K/UL (150-450); RED BLOOD COUNT 2.72 M/UL (4.70-6.10); RED CELL DISTRIBUTION WIDTH 14.8 % (11.6-14.8); WHITE BLOOD COUNT 5.2 K/UL (4.8-10.8)
--- NOTE | 2017-09-16 07:52 | Pulmonology Progress Note ---
Assessment/Plan Assessment/Plan ASSESSMENT Acute on chronic renal failure with new initiation of HD diabetic nephropathy nephrotic syndrome DM type 1 HTN chronic pancreatitis gastroparesis anemia of renal disease hypothyroidism HTN urgency fluid overload elevated LFT PLAN OF CARE [facility] floor started on HD after placement by IR Right jugular HD catheter nephro follows monitor renal parameters, correct lytes, avoid nephrotoxic 24 hr urine with > 3 gm protein, most likely nephrotic syndrome abdominal OCTAVIO with evidence of increased echogenicity c/w medical renal disease , no hydro On EPO monitor HH, transfuse prn to keep Hgb above 7, s/p 1 u PRBC 09/14, LFT trending down hep panel negative abdominal US no gallstones, no dilated ducts ECHO with pEF 60% and RVSP of 29 BP management with BB, CCB, Clonidine and Hydralazine, currently controlled bl and stool cx negative, stool for OP negative lipase stable pain management bowel regimen Started on levothyroxine, check TFT in 1 month dc plan, creat trending down- to continue HD will need HD arrangement pt has tunneled HD catheter inserted Mg replacement per nephro dc plan working with PT not able to be dc until Tuesday - per JAMES Heart case discussed and evaluated by supervising physician Subjective Allergies: Coded Allergies: METOCLOPRAMIDE (Unverified Allergy, Severe, 09/08/17) PROCHLORPERAZINE (Unverified Allergy, Severe, 09/08/17) VANCOMYCIN (Unverified Allergy, Severe, 09/08/17) Subjective s/p initiation of HD, dialyzed 09/13 and 09/15 creat down to 2.8 afebrile, no leucocytosis s/p 1 u PRBC 09/14 awaiting for disposition Objective Last 24 Hour Vital Signs Date Time Temp Pulse Resp B/P (MAP) Pulse Ox O2 Delivery O2 Flow Rate FiO2 09/16/17 05:04 98.0 09/16/17 04:34 98.0 09/16/17 04:28 98.0 68 20 140/81 96 09/16/17 00:42 98.8 70 20 144/87 95 09/15/17 23:07 97.0 09/15/17 21:15 177/112 09/15/17 21:15 74 177/112 09/15/17 20:38 97.0 74 20 177/112 95 09/15/17 18:57 97.0 2/15/18 18:17 153/94 09/15/17 18:16 70 153/94 09/15/17 18:15 70 153/94 09/15/17 17:30 Room Air 09/15/17 16:00 97.7 71 20 153/94 96 09/15/17 15:38 97.0 09/15/17 14:25 Room Air 09/15/17 12:48 160/98 09/15/17 12:00 97.0 66 20 160/98 95 09/15/17 09:25 64 172/95 09/15/17 09:24 64 172/95 09/15/17 08:00 97.7 64 20 172/95 95 Intake and Output 09/15/17 09/16/17 19:00 07:00 Intake Total 240 ml 450 ml Output Total 6320 ml 1150 ml Balance -6080 ml -700 ml Intake Oral 240 ml 450 ml Output Urine Total 1150 ml Hemodialysis UF 6320 ml # Voids 2 # Bowel Movements 2 2 Objective General Appearance: no acute distress HEENT: anicteric Respiratory/Chest: lungs clear, no respiratory distress Cardiovascular: normal rate, regular rhythm, R jugular tunneled HD catheter Abdomen: soft, non tender, non distended Extremities: no edema Neurologic/Psychiatric: no motor/sensory deficits, alert, oriented x 3, responsive Musculoskeletal: normal muscle bulk Laboratory Tests 09/15/17 10:00: White Blood Count 5.4, Red Blood Count 2.82L, Hemoglobin 8.5L, Hematocrit 25.9L , Mean Corpuscular Volume 92, Mean Corpuscular Hemoglobin 30.2, Mean Corpuscular Hemoglobin Concent 32.9, Red Cell Distribution Width 14.9H, Platelet Count 174, Mean Platelet Volume 7.7, Neutrophils (%) (Auto) 65.6, Lymphocytes (%) (Auto) 24.3, Monocytes (%) (Auto) 8.0, Eosinophils (%) (Auto) 1.3, Basophils (%) (Auto) 0.8, Sodium Level 137, Potassium Level 5.2H, Chloride Level 107, Carbon Dioxide Level 27, Anion Gap 3L, Blood Urea Nitrogen 38H, Creatinine 3.1H, Estimat Glomerular Filtration Rate 23.6, Glucose Level 124H, Calcium Level 7.1L, Phosphorus Level 6.0H, Magnesium Level 1.6L, Total Bilirubin 0.2, Aspartate Amino Transf (AST/SGOT) 46H, Alanine Aminotransferase ( ALT/SGPT) 68, Alkaline Phosphatase 169H, Total Protein 4.0L, Albumin 1.0L, Globulin 3.0, Albumin/Globulin Ratio 0.3L 09/16/17 05:50: White Blood Count 5.2, Red Blood Count 2.72L, Hemoglobin 8.1L, Hematocrit 24.9L , Mean Corpuscular Volume 92, Mean Corpuscular Hemoglobin 29.7, Mean Corpuscular Hemoglobin Concent 32.4, Red Cell Distribution Width 14.8, Platelet Count 174, Mean Platelet Volume 7.1, Neutrophils (%) (Auto) 59.1, Lymphocytes (% ) (Auto) 29.9, Monocytes (%) (Auto) 8.3, Eosinophils (%) (Auto) 1.5, Basophils ( %) (Auto) 1.2, Sodium Level 136, Potassium Level 4.7, Chloride Level 106, Carbon Dioxide Level 27, Anion Gap 3L, Blood Urea Nitrogen 28H, Creatinine 2.8H , Estimat Glomerular Filtration Rate 26.6, Glucose Level 112H, Calcium Level 6.8L, Phosphorus Level 5.2H, Magnesium Level 1.4L, Total Bilirubin 0.2, Aspartate Amino Transf (AST/SGOT) 37, Alanine Aminotransferase (ALT/SGPT) 57, Alkaline Phosphatase 160H, Total Protein 3.9L, Albumin 1.0L, Globulin 2.9, Albumin/Globulin Ratio 0.3L Current Medications Medications (Trade) Dose Ordered Sig/Michelle Route PRN Reason Start Time Stop Time Status Last Admin Dose Admin Acetaminophen (Tylenol) 650 mg Q4H PRN ORAL fever 09/09/17 23:45 10/08/17 15:44 Amlodipine Besylate (Norvasc) 10 mg DAILY ORAL 09/11/17 09:00 10/11/17 08:59 09/15/17 18:16 Aspirin (ASA) 81 mg DAILY ORAL 09/10/17 09:00 10/10/17 08:59 09/11/17 09:39 Carvedilol (Coreg) 12.5 mg EVERY 12 HOURS ORAL 09/10/17 21:00 10/10/17 20:59 09/15/17 21:15 Clonidine HCl (Catapres Tab) 0.1 mg EVERY 12 HOURS ORAL 09/15/17 21:00 10/10/17 13:59 09/15/17 21:15 Clonidine HCl (Catapres Tab) 0.1 mg Q6H PRN ORAL SYSTOLIC BP > 160 09/10/17 08:30 10/10/17 08:29 09/14/17 00:10 Dextrose (Dextrose 50%) STAT PRN IV Hypoglycemia 09/10/17 15:45 10/08/17 15:44 Diphenhydramine HCl (Benadryl) 25 mg Q6H PRN ORAL Itching/Pruritis 09/10/17 03:45 10/08/17 15:44 09/16/17 00:51 Epoetin Curry (Procrit (for ESRD on dialysis)) 10,000 units TUE-TUE-TUE SUBQ 09/12/17 21:00 10/12/17 20:59 09/14/17 21:26 Guaifenesin/ Codeine Phosphate (Robitussin with codeine) 5 ml Q6H PRN ORAL For Cough 09/10/17 17:00 10/10/17 16:59 09/13/17 22:11 Heparin Sodium (Porcine) (Heparin 5000 units/ml) 5,000 units EVERY 12 HOURS SUBQ 09/10/17 09:00 10/08/17 20:59 09/15/17 21:21 Lansoprazole (Prevacid) 30 mg DAILY ORAL 09/11/17 09:00 10/11/17 08:59 09/15/17 09:25 Levothyroxine Sodium (Synthroid) 25 mcg DAILY@0630 ORAL 09/10/17 06:30 10/10/17 06:29 09/16/17 06:13 Lisinopril (Zestril) 10 mg BID ORAL 09/15/17 18:00 10/15/17 17:59 09/15/17 18:17 Loperamide HCl (Imodium) 2 mg Q4H PRN ORAL Diarrhea 09/15/17 11:15 10/15/17 11:14 09/15/17 18:15 Lorazepam (Ativan 2mg/ml 1ml) 1 mg Q4H PRN IV For Anxiety 09/15/17 19:00 09/22/17 18:59 09/16/17 06:41 Morphine Sulfate (Morphine Sulfate) 2 mg Q3H PRN IVP Severe Pain (Pain Scale 7-10) 09/14/17 09:30 09/21/17 09:29 09/16/17 04:34 Ondansetron HCl (Zofran) 4 mg Q6H PRN IVP Nausea & Vomiting 09/10/17 03:45 10/08/17 15:44 Polyethylene Glycol (Miralax) 17 gm HSPRN PRN ORAL Constipation 09/10/17 15:45 10/08/17 15:44 Sevelamer Carbonate (Renvela) 2,400 mg THREE TIMES A DAY ORAL 09/11/17 13:00 10/11/17 12:59 09/15/17 18:14 [facility]Shama NP Sep 16, 2017 07:52
[2017-09-16 08:00] VITALS: BP 147/96
[2017-09-16] MEDS: Loperamide 2mg cap ORAL PRN ×2 (08:57→15:57)
[2017-09-16] MEDS: Aspirin Baby 81mg ORAL SCH (08:57)
[2017-09-16] MEDS: Lisinopril 20mg tab ORAL SCH ×2 (08:58→17:48)
[2017-09-16] MEDS: Carvedilol 12.5mg tab ORAL SCH ×2 (08:58→20:43)
--- NOTE | 2017-09-16 09:09 | Cardiac Electrophysiology PN ---
Assessment/Plan Assessment/Plan 1. Accelerated hypertension.Continue Norvasc 10 mg daily, clonidine 0.1 mg q8, Coreg 12.5 mg bid and HD 2. Chronic kidney disease. On HD by Dr. Garrett. 3. Insulin-dependent diabetes. 4. Anemia of renal disease. 5. Abdominal pain and distention, diarrhea, and gastroparesis. Negative for C Diff. Still has diarrhea 6. Hypothyroidism, on Synthroid. DW RN Subjective Subjective No CP or SOB. Had HD yesterday. Still has diarrhea Objective Last 24 Hour Vital Signs Date Time Temp Pulse Resp B/P (MAP) Pulse Ox O2 Delivery O2 Flow Rate FiO2 09/16/17 08:00 98.1 72 20 147/96 94 09/16/17 05:04 98.0 09/16/17 04:34 98.0 09/16/17 04:28 98.0 68 20 140/81 96 09/16/17 00:42 98.8 70 20 144/87 95 09/15/17 23:07 97.0 09/15/17 21:15 177/112 09/15/17 21:15 74 177/112 09/15/17 20:38 97.0 74 20 177/112 95 09/15/17 18:57 97.0 09/15/17 18:17 153/94 09/15/17 18:16 70 153/94 09/15/17 18:15 70 153/94 09/15/17 17:30 Room Air 09/15/17 16:00 97.7 71 20 153/94 96 09/15/17 15:38 97.0 09/15/17 14:25 Room Air 09/15/17 12:48 160/98 09/15/17 12:00 97.0 66 20 160/98 95 09/15/17 09:25 64 172/95 09/15/17 09:24 64 172/95 Intake and Output 09/15/17 09/16/17 19:00 07:00 Intake Total 240 ml 450 ml Output Total 6320 ml 1150 ml Balance -6080 ml -700 ml Intake Oral 240 ml 450 ml Output Urine Total 1150 ml Hemodialysis UF 6320 ml # Voids 2 # Bowel Movements 2 2 Laboratory Tests Test 09/15/17 10:00 09/16/17 05:50 White Blood Count 5.4 K/UL (4.8-10.8) 5.2 K/UL (4.8-10.8) Red Blood Count 2.82 M/UL (4.70-6.10) L 2.72 M/UL (4.70-6.10) L Hemoglobin 8.5 G/DL (14.2-18.0) L 8.1 G/DL (14.2-18.0) L Hematocrit 25.9 % (42.0-52.0) L 24.9 % (42.0-52.0) L Mean Corpuscular Volume 92 FL (80-99) 92 FL (80-99) Mean Corpuscular Hemoglobin 30.2 PG (27.0-31.0) 29.7 PG (27.0-31.0) Mean Corpuscular Hemoglobin Concent 32.9 G/DL (32.0-36.0) 32.4 G/DL (32.0-36.0) Red Cell Distribution Width 14.9 % (11.6-14.8) H 14.8 % (11.6-14.8) Platelet Count 174 K/UL (150-450) 174 K/UL (150-450) Mean Platelet Volume 7.7 FL (6.5-10.1) 7.1 FL (6.5-10.1) Neutrophils (%) (Auto) 65.6 % (45.0-75.0) 59.1 % (45.0-75.0) Lymphocytes (%) (Auto) 24.3 % (20.0-45.0) 29.9 % (20.0-45.0) Monocytes (%) (Auto) 8.0 % (1.0-10.0) 8.3 % (1.0-10.0) Eosinophils (%) (Auto) 1.3 % (0.0-3.0) 1.5 % (0.0-3.0) Basophils (%) (Auto) 0.8 % (0.0-2.0) 1.2 % (0.0-2.0) Sodium Level 137 MMOL/L (136-145) 136 MMOL/L (136-145) Potassium Level 5.2 MMOL/L (3.5-5.1) H 4.7 MMOL/L (3.5-5.1) Chloride Level 107 MMOL/L (98-107) 106 MMOL/L (98-107) Carbon Dioxide Level 27 MMOL/L (21-32) 27 MMOL/L (21-32) Anion Gap 3 mmol/L (5-15) L 3 mmol/L (5-15) L Blood Urea Nitrogen 38 mg/dL (7-18) H 28 mg/dL (7-18) H Creatinine 3.1 MG/DL (0.55-1.30) H 2.8 MG/DL (0.55-1.30) H Estimat Glomerular Filtration Rate 23.6 mL/min (>60) 26.6 mL/min (>60) Glucose Level 124 MG/DL (74-106) H 112 MG/DL (74-106) H Calcium Level 7.1 MG/DL (8.5-10.1) L 6.8 MG/DL (8.5-10.1) L Phosphorus Level 6.0 MG/DL (2.5-4.9) H 5.2 MG/DL (2.5-4.9) H Magnesium Level 1.6 MG/DL (1.8-2.4) L 1.4 MG/DL (1.8-2.4) L Total Bilirubin 0.2 MG/DL (0.2-1.0) 0.2 MG/DL (0.2-1.0) Aspartate Amino Transf (AST/SGOT) 46 U/L (15-37) H 37 U/L (15-37) Alanine Aminotransferase (ALT/SGPT) 68 U/L (12-78) 57 U/L (12-78) Alkaline Phosphatase 169 U/L (46-116) H 160 U/L (46-116) H Total Protein 4.0 G/DL (6.4-8.2) L 3.9 G/DL (6.4-8.2) L Albumin 1.0 G/DL (3.4-5.0) L 1.0 G/DL (3.4-5.0) L Globulin 3.0 g/dL 2.9 g/dL Albumin/Globulin Ratio 0.3 (1.0-2.7) L 0.3 (1.0-2.7) L Objective HEAD AND NECK: No JVD. Right IJ HD LUNGS: Clear. CARDIOVASCULAR: Regular S1 and S2. No gallop or murmur. ABDOMEN: Soft. EXTREMITIES: No pitting edema. MONICA DANGELO Sep 16, 2017 09:09
[2017-09-16] MEDS: Heparin 5000 units/ml inj SUBQ SCH ×2 (09:10→20:51)
--- NOTE | 2017-09-16 10:48 | GI Progress Note ---
Assessment/Plan Problems: (1) Renal failure (ARF), acute on chronic ICD Codes: N17.9 - Acute kidney failure, unspecified; N18.9 - Chronic kidney disease, unspecified SNOMED: 790487335 (2) Diarrhea ICD Codes: R19.7 - Diarrhea, unspecified SNOMED: 38764981 (3) Vomiting ICD Codes: R11.10 - Vomiting, unspecified SNOMED: 750966154 (4) Diabetes type 1, controlled ICD Codes: E10.9 - Type 1 diabetes mellitus without complications SNOMED: 18084458, 561008484 (5) Gastroparesis ICD Codes: K31.84 - Gastroparesis SNOMED: 183323587 (6) Chronic pancreatitis ICD Codes: K86.1 - Other chronic pancreatitis SNOMED: 757695594 (7) Anemia ICD Codes: D64.9 - Anemia, unspecified SNOMED: 947272835 Status: unchanged Status Narrative Discussed with Dr. Schultz. Assessment/Plan abdominal U/S reviewed Hep panel >> negative cdiff / O&P >> negative CT reviewed >> stool retention refused paracentesis anemia work up 2/2 to renal disease fu nephro recs renal diet DM mgmt imodium prn pain mgmt ppi fu labs Subjective Subjective generalized weakness and pain c/o of diarrhea feels better after dialysis Objective Last 24 Hour Vital Signs Date Time Temp Pulse Resp B/P (MAP) Pulse Ox O2 Delivery O2 Flow Rate FiO2 09/16/17 09:30 98.1 09/16/17 09:00 98.1 09/16/17 08:58 147/96 09/16/17 08:58 72 147/96 09/16/17 08:57 147/96 09/16/17 08:00 98.1 72 20 147/96 94 09/16/17 04:34 98.0 09/16/17 04:28 98.0 68 20 140/81 96 09/16/17 00:42 98.8 70 20 144/87 95 09/15/17 23:07 97.0 09/15/17 21:15 177/112 09/15/17 21:15 74 177/112 09/15/17 20:38 97.0 74 20 177/112 95 09/15/17 18:57 97.0 09/15/17 18:17 153/94 09/15/17 18:16 70 153/94 09/15/17 18:15 70 153/94 09/15/17 17:30 Room Air 09/15/17 16:00 97.7 71 20 153/94 96 09/15/17 15:38 97.0 09/15/17 14:25 Room Air 09/15/17 12:48 160/98 09/15/17 12:00 97.0 66 20 160/98 95 Intake and Output 09/15/17 09/16/17 19:00 07:00 Intake Total 240 ml 450 ml Output Total 6320 ml 1150 ml Balance -6080 ml -700 ml Intake Oral 240 ml 450 ml Output Urine Total 1150 ml Hemodialysis UF 6320 ml # Voids 2 # Bowel Movements 2 2 Laboratory Tests Test 09/16/17 05:50 White Blood Count 5.2 K/UL (4.8-10.8) Red Blood Count 2.72 M/UL (4.70-6.10) L Hemoglobin 8.1 G/DL (14.2-18.0) L Hematocrit 24.9 % (42.0-52.0) L Mean Corpuscular Volume 92 FL (80-99) Mean Corpuscular Hemoglobin 29.7 PG (27.0-31.0) Mean Corpuscular Hemoglobin Concent 32.4 G/DL (32.0-36.0) Red Cell Distribution Width 14.8 % (11.6-14.8) Platelet Count 174 K/UL (150-450) Mean Platelet Volume 7.1 FL (6.5-10.1) Neutrophils (%) (Auto) 59.1 % (45.0-75.0) Lymphocytes (%) (Auto) 29.9 % (20.0-45.0) Monocytes (%) (Auto) 8.3 % (1.0-10.0) Eosinophils (%) (Auto) 1.5 % (0.0-3.0) Basophils (%) (Auto) 1.2 % (0.0-2.0) Sodium Level 136 MMOL/L (136-145) Potassium Level 4.7 MMOL/L (3.5-5.1) Chloride Level 106 MMOL/L (98-107) Carbon Dioxide Level 27 MMOL/L (21-32) Anion Gap 3 mmol/L (5-15) L Blood Urea Nitrogen 28 mg/dL (7-18) H Creatinine 2.8 MG/DL (0.55-1.30) H Estimat Glomerular Filtration Rate 26.6 mL/min (>60) Glucose Level 112 MG/DL (74-106) H Calcium Level 6.8 MG/DL (8.5-10.1) L Phosphorus Level 5.2 MG/DL (2.5-4.9) H Magnesium Level 1.4 MG/DL (1.8-2.4) L Total Bilirubin 0.2 MG/DL (0.2-1.0) Aspartate Amino Transf (AST/SGOT) 37 U/L (15-37) Alanine Aminotransferase (ALT/SGPT) 57 U/L (12-78) Alkaline Phosphatase 160 U/L (46-116) H Total Protein 3.9 G/DL (6.4-8.2) L Albumin 1.0 G/DL (3.4-5.0) L Globulin 2.9 g/dL Albumin/Globulin Ratio 0.3 (1.0-2.7) L Height (Feet): 5 Height (Inches): 10.00 Weight (Pounds): 211 General Appearance: WD/WN, no apparent distress, alert Cardiovascular: normal rate Respiratory/Chest: normal breath sounds, no respiratory distress Abdominal Exam: normal bowel sounds, non tender, soft Extremities: normal range of motion, non-tender Amber Clark N.P. Sep 16, 2017 10:48
[2017-09-16 11:46] VITALS: BP 147/96
--- NOTE | 2017-09-16 12:30 | Nephrology Progress Note ---
Assessment/Plan Problem List: (1) Renal failure (ARF), acute on chronic (2) Nephrotic syndrome (3) Diabetic nephropathy (4) HTN (hypertension) Assessment: hypertensive kidney disease Assessment Advanced renal failure due to Type I DM DIabetic Nephropathy- Most likely NS -. Bilateral upper quadrant pain. -. Diarrhea. -. Diabetic gastroparesis. -. Diabetes type 1. -. Hypertension. -. Anemia. due to CKD -. HypoThyroid Plan Plan: Dialysed 09/15 Transfused Add Zestril Norvasc and Clonidine to BP meds- Per GI 24 h urine collection over 3 gram protein Monitor renal parameters , BS and BP Avoid nephrotoxics Due DC and OP HD 2D Echo : Left ventricular ejection fraction estimated to be 60 %. No evidence of left ventricular hypertrophy. Trace pericardial effusion . Moderate left atrial enlargement. OCTAVIO: Left kidney measures 11.8 cm in length. Right kidney measures 9.6 cm length. Kidneys demonstrate diffusely increased echogenicity. No hydronephrosis. there is a small left lower pole renal cyst Subjective ROS Limited/Unobtainable: No Constitutional: Reports: malaise, weakness Objective Objective Last 24 Hour Vital Signs Date Time Temp Pulse Resp B/P (MAP) Pulse Ox O2 Delivery O2 Flow Rate FiO2 09/16/17 11:46 98.1 72 20 147/96 94 09/16/17 09:30 98.1 09/16/17 09:00 98.1 09/16/17 08:58 147/96 09/16/17 08:58 72 147/96 09/16/17 08:57 147/96 09/16/17 08:00 98.1 72 20 147/96 94 09/16/17 04:34 98.0 09/16/17 04:28 98.0 68 20 140/81 96 09/16/17 00:42 98.8 70 20 144/87 95 09/15/17 23:07 97.0 09/15/17 21:15 177/112 09/15/17 21:15 74 177/112 09/15/17 20:38 97.0 74 20 177/112 95 09/15/17 18:57 97.0 09/15/17 18:17 153/94 09/15/17 18:16 70 153/94 09/15/17 18:15 70 153/94 09/15/17 17:30 Room Air 09/15/17 16:00 97.7 71 20 153/94 96 09/15/17 15:38 97.0 09/15/17 14:25 Room Air 09/15/17 12:48 160/98 Intake and Output 09/15/17 09/16/17 19:00 07:00 Intake Total 240 ml 450 ml Output Total 6320 ml 1150 ml Balance -6080 ml -700 ml Intake Oral 240 ml 450 ml Output Urine Total 1150 ml Hemodialysis UF 6320 ml # Voids 2 # Bowel Movements 2 2 Current Medications Medications (Trade) Dose Ordered Sig/Michelle Route PRN Reason Start Time Stop Time Status Last Admin Dose Admin Acetaminophen (Tylenol) 650 mg Q4H PRN ORAL fever 09/09/17 23:45 10/08/17 15:44 Amlodipine Besylate (Norvasc) 10 mg DAILY ORAL 09/11/17 09:00 10/11/17 08:59 09/15/17 18:16 Aspirin (ASA) 81 mg DAILY ORAL 09/10/17 09:00 10/10/17 08:59 09/16/17 08:57 Carvedilol (Coreg) 12.5 mg EVERY 12 HOURS ORAL 09/10/17 21:00 10/10/17 20:59 09/16/17 08:58 Clonidine HCl (Catapres Tab) 0.1 mg EVERY 12 HOURS ORAL 09/15/17 21:00 10/10/17 13:59 09/16/17 08:57 Clonidine HCl (Catapres Tab) 0.1 mg Q6H PRN ORAL SYSTOLIC BP > 160 09/10/17 08:30 10/10/17 08:29 09/14/17 00:10 Dextrose (Dextrose 50%) STAT PRN IV Hypoglycemia 09/10/17 15:45 10/08/17 15:44 Diphenhydramine HCl (Benadryl) 25 mg Q6H PRN ORAL Itching/Pruritis 09/10/17 03:45 10/08/17 15:44 09/16/17 08:57 Guaifenesin/ Codeine Phosphate (Robitussin with codeine) 5 ml Q6H PRN ORAL For Cough 09/10/17 17:00 10/10/17 16:59 09/13/17 22:11 Heparin Sodium (Porcine) (Heparin 5000 units/ml) 5,000 units EVERY 12 HOURS SUBQ 09/10/17 09:00 10/08/17 20:59 09/16/17 09:10 Lansoprazole (Prevacid) 30 mg DAILY ORAL 09/11/17 09:00 10/11/17 08:59 09/16/17 08:57 Levothyroxine Sodium (Synthroid) 25 mcg DAILY@0630 ORAL 09/10/17 06:30 10/10/17 06:29 09/16/17 06:13 Lisinopril (Prinivil) 20 mg BID ORAL 09/16/17 09:00 10/16/17 08:59 09/16/17 08:58 Loperamide HCl (Imodium) 2 mg Q4H PRN ORAL Diarrhea 09/15/17 11:15 10/15/17 11:14 09/16/17 08:57 Polyethylene Glycol (Miralax) 17 gm HSPRN PRN ORAL Constipation 09/10/17 15:45 10/08/17 15:44 Sevelamer Carbonate (Renvela) 2,400 mg THREE TIMES A DAY ORAL 09/11/17 13:00 10/11/17 12:59 09/16/17 09:15 Laboratory Tests 09/16/17 05:50: White Blood Count 5.2, Red Blood Count 2.72L, Hemoglobin 8.1L, Hematocrit 24.9L , Mean Corpuscular Volume 92, Mean Corpuscular Hemoglobin 29.7, Mean Corpuscular Hemoglobin Concent 32.4, Red Cell Distribution Width 14.8, Platelet Count 174, Mean Platelet Volume 7.1, Neutrophils (%) (Auto) 59.1, Lymphocytes (% ) (Auto) 29.9, Monocytes (%) (Auto) Laboratory Tests Test 09/16/17 05:50 White Blood Count 5.2 K/UL (4.8-10.8) Red Blood Count 2.72 M/UL (4.70-6.10) L Hemoglobin 8.1 G/DL (14.2-18.0) L Hematocrit 24.9 % (42.0-52.0) L Mean Corpuscular Volume 92 FL (80-99) Mean Corpuscular Hemoglobin 29.7 PG (27.0-31.0) Mean Corpuscular Hemoglobin Concent 32.4 G/DL (32.0-36.0) Red Cell Distribution Width 14.8 % (11.6-14.8) Platelet Count 174 K/UL (150-450) Mean Platelet Volume 7.1 FL (6.5-10.1) Neutrophils (%) (Auto) 59.1 % (45.0-75.0) Lymphocytes (%) (Auto) 29.9 % (20.0-45.0) Monocytes (%) (Auto) 8.3 % (1.0-10.0) Eosinophils (%) (Auto) 1.5 % (0.0-3.0) Basophils (%) (Auto) 1.2 % (0.0-2.0) Sodium Level 136 MMOL/L (136-145) Potassium Level 4.7 MMOL/L (3.5-5.1) Chloride Level 106 MMOL/L (98-107) Carbon Dioxide Level 27 MMOL/L (21-32) Anion Gap 3 mmol/L (5-15) L Blood Urea Nitrogen 28 mg/dL (7-18) H Creatinine 2.8 MG/DL (0.55-1.30) H Estimat Glomerular Filtration Rate 26.6 mL/min (>60) Glucose Level 112 MG/DL (74-106) H Calcium Level 6.8 MG/DL (8.5-10.1) L Phosphorus Level 5.2 MG/DL (2.5-4.9) H Magnesium Level 1.4 MG/DL (1.8-2.4) L Total Bilirubin 0.2 MG/DL (0.2-1.0) Aspartate Amino Transf (AST/SGOT) 37 U/L (15-37) Alanine Aminotransferase (ALT/SGPT) 57 U/L (12-78) Alkaline Phosphatase 160 U/L (46-116) H Total Protein 3.9 G/DL (6.4-8.2) L Albumin 1.0 G/DL (3.4-5.0) L Globulin 2.9 g/dL Albumin/Globulin Ratio 0.3 (1.0-2.7) L 8.3, Eosinophils (%) (Auto) 1.5, Basophils (%) (Auto) 1.2, Sodium Level 136, Potassium Level 4.7, Chloride Level 106, Carbon Dioxide Level 27, Anion Gap 3L, Blood Urea Nitrogen 28H, Creatinine 2.8H, Estimat Glomerular Filtration Rate 26.6, Glucose Level 112H, Calcium Level 6.8L, Phosphorus Level 5.2H, Magnesium Level 1.4L, Total Bilirubin 0.2, Aspartate Amino Transf (AST/SGOT) 37, Alanine Aminotransferase (ALT/SGPT) 57, Alkaline Phosphatase 160H, Total Protein 3.9L, Albumin 1.0L, Globulin 2.9, Albumin/Globulin Ratio 0.3L Height (Feet): 5 Height (Inches): 10.00 Weight (Pounds): 211 General Appearance: no apparent distress, lethargic Cardiovascular: normal rate Respiratory/Chest: decreased breath sounds Abdomen: soft Objective no change LEXIS PRESTON Sep 16, 2017 12:30
[2017-09-16] MEDS: Norco 5mg/325mg tab ORAL PRN ×2 (15:57→20:43)
[2017-09-16 16:00] VITALS: BP 162/104
--- NOTE | 2017-09-16 17:47 | Internal Med Progress Note ---
Subjective Date of Service: Sep 16, 2017 Physician Name Ozzy Talbot Attending Physician Serafin Voss MD Current Medications Medications (Trade) Dose Ordered Sig/Michelle Route PRN Reason Start Time Stop Time Status Last Admin Dose Admin Acetaminophen (Tylenol) 650 mg Q4H PRN ORAL fever 09/09/17 23:45 10/08/17 15:44 Acetaminophen/ Hydrocodone Bitart ([place] 5/325) 1 tab Q4H PRN ORAL Moderate Pain (Pain Scale 4-6) 09/16/17 15:15 09/23/17 15:14 09/16/17 15:57 Amlodipine Besylate (Norvasc) 10 mg DAILY ORAL 09/11/17 09:00 10/11/17 08:59 09/15/17 18:16 Aspirin (ASA) 81 mg DAILY ORAL 09/10/17 09:00 10/10/17 08:59 09/16/17 08:57 Carvedilol (Coreg) 12.5 mg EVERY 12 HOURS ORAL 09/10/17 21:00 10/10/17 20:59 09/16/17 08:58 Clonidine HCl (Catapres Tab) 0.1 mg EVERY 12 HOURS ORAL 09/15/17 21:00 10/10/17 13:59 09/16/17 15:58 Clonidine HCl (Catapres Tab) 0.1 mg Q6H PRN ORAL SYSTOLIC BP > 160 09/10/17 08:30 10/10/17 08:29 09/14/17 00:10 Dextrose (Dextrose 50%) STAT PRN IV Hypoglycemia 09/10/17 15:45 10/08/17 15:44 Diphenhydramine HCl (Benadryl) 25 mg Q6H PRN ORAL Itching/Pruritis 09/10/17 03:45 10/08/17 15:44 09/16/17 08:57 Guaifenesin/ Codeine Phosphate (Robitussin with codeine) 5 ml Q6H PRN ORAL For Cough 09/10/17 17:00 10/10/17 16:59 09/13/17 22:11 Heparin Sodium (Porcine) (Heparin 5000 units/ml) 5,000 units EVERY 12 HOURS SUBQ 09/10/17 09:00 10/08/17 20:59 09/16/17 09:10 Lansoprazole (Prevacid) 30 mg DAILY ORAL 09/11/17 09:00 10/11/17 08:59 09/16/17 08:57 Levothyroxine Sodium (Synthroid) 25 mcg DAILY@0630 ORAL 09/10/17 06:30 10/10/17 06:29 09/16/17 06:13 Lisinopril (Prinivil) 20 mg BID ORAL 09/16/17 09:00 10/16/17 08:59 09/16/17 08:58 Loperamide HCl (Imodium) 2 mg Q4H PRN ORAL Diarrhea 09/15/17 11:15 10/15/17 11:14 09/16/17 15:57 Polyethylene Glycol (Miralax) 17 gm HSPRN PRN ORAL Constipation 09/10/17 15:45 10/08/17 15:44 Sevelamer Carbonate (Renvela) 2,400 mg THREE TIMES A DAY ORAL 09/11/17 13:00 10/11/17 12:59 09/16/17 13:54 Allergies: Coded Allergies: METOCLOPRAMIDE (Unverified Allergy, Severe, 09/08/17) PROCHLORPERAZINE (Unverified Allergy, Severe, 09/08/17) VANCOMYCIN (Unverified Allergy, Severe, 09/08/17) ROS Limited/Unobtainable: No Constitutional: Reports: no symptoms HEENT: Reports: no symptoms Cardiovascular: Reports: no symptoms Respiratory: Reports: no symptoms Gastrointestinal/Abdominal: Reports: no symptoms Genitourinary: Reports: no symptoms Neurologic/Psychiatric: Reports: no symptoms Subjective 32 YO M admitted with abdominal pain. Now renal failure; S/P hemodialysis 09/15. Cover for Int Med-Dr Voss. Discharge held-see soc work note. Objective Last Vital Signs Date Time Temp Pulse Resp B/P (MAP) Pulse Ox O2 Delivery O2 Flow Rate FiO2 09/16/17 16:56 98.1 09/16/17 16:00 74 20 162/104 95 09/15/17 17:30 Room Air 09/13/17 12:30 3.0 Laboratory Tests Test 09/16/17 05:50 White Blood Count 5.2 K/UL (4.8-10.8) Red Blood Count 2.72 M/UL (4.70-6.10) L Hemoglobin 8.1 G/DL (14.2-18.0) L Hematocrit 24.9 % (42.0-52.0) L Mean Corpuscular Volume 92 FL (80-99) Mean Corpuscular Hemoglobin 29.7 PG (27.0-31.0) Mean Corpuscular Hemoglobin Concent 32.4 G/DL (32.0-36.0) Red Cell Distribution Width 14.8 % (11.6-14.8) Platelet Count 174 K/UL (150-450) Mean Platelet Volume 7.1 FL (6.5-10.1) Neutrophils (%) (Auto) 59.1 % (45.0-75.0) Lymphocytes (%) (Auto) 29.9 % (20.0-45.0) Monocytes (%) (Auto) 8.3 % (1.0-10.0) Eosinophils (%) (Auto) 1.5 % (0.0-3.0) Basophils (%) (Auto) 1.2 % (0.0-2.0) Sodium Level 136 MMOL/L (136-145) Potassium Level 4.7 MMOL/L (3.5-5.1) Chloride Level 106 MMOL/L (98-107) Carbon Dioxide Level 27 MMOL/L (21-32) Anion Gap 3 mmol/L (5-15) L Blood Urea Nitrogen 28 mg/dL (7-18) H Creatinine 2.8 MG/DL (0.55-1.30) H Estimat Glomerular Filtration Rate 26.6 mL/min (>60) Glucose Level 112 MG/DL (74-106) H Calcium Level 6.8 MG/DL (8.5-10.1) L Phosphorus Level 5.2 MG/DL (2.5-4.9) H Magnesium Level 1.4 MG/DL (1.8-2.4) L Total Bilirubin 0.2 MG/DL (0.2-1.0) Aspartate Amino Transf (AST/SGOT) 37 U/L (15-37) Alanine Aminotransferase (ALT/SGPT) 57 U/L (12-78) Alkaline Phosphatase 160 U/L (46-116) H Total Protein 3.9 G/DL (6.4-8.2) L Albumin 1.0 G/DL (3.4-5.0) L Globulin 2.9 g/dL Albumin/Globulin Ratio 0.3 (1.0-2.7) L Intake and Output 09/15/17 09/16/17 19:00 07:00 Intake Total 240 ml 450 ml Output Total 6320 ml 1150 ml Balance -6080 ml -700 ml Intake Oral 240 ml 450 ml Output Urine Total 1150 ml Hemodialysis UF 6320 ml # Voids 2 # Bowel Movements 2 2 Objective General Appearance: WD/WN, alert, mild distress EENT: PERRL/EOMI, normal ENT inspection Neck: non-tender, normal alignment, supple, normal inspection Cardiovascular: normal peripheral pulses, normal rate, regular rhythm, no gallop/murmur, no JVD Respiratory/Chest: chest wall non-tender, lungs clear, normal breath sounds, no respiratory distress, no accessory muscle use Abdomen: no organomegaly, no mass, decreased bowel sounds, distended, guarding , tender Extremities: normal range of motion Neurologic: auto body man II-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 See nephrology note. (2) Anemia of renal disease Assessment & Plan: S/P transfusion (3) HTN (hypertension) Assessment & Plan: Uncontrolled. Await cardiology consult. Cont coreg and norvasc. (4) Ascites Assessment & Plan: Await paracentesis. See GI note. (5) Abdominal pain (6) Abdominal distention (7) Diarrhea Assessment & Plan: C. Diff neg; await stool culture (8) Gastroparesis (9) Diabetes type 1, controlled Assessment & Plan: Continue novolog sliding scale. (10) Hypothyroidism Assessment & Plan: Continue levoxyl (11) CHF (congestive heart failure) Assessment & Plan: Volume overload. See cardiology note. await hemodialysis (12) Anemia Assessment & Plan: S/P transfusion 1 unit PRBC on 09/13/17 Status: stable Assessment/Plan Discharge planning. On hold-sse social work note. OZZY TALBOT Sep 16, 2017 17:47
[2017-09-16 20:00] VITALS: BP 190/119
[2017-09-17] VITALS (9 sets, daily range): BP systolic 115–179; BP diastolic 71–107
[2017-09-17] MEDS: Norco 5mg/325mg tab ORAL PRN ×4 (00:59→14:34)
[2017-09-17] MEDS: guaiFENesin w/Codeine 5ml Liq ud ORAL PRN ×2 (01:00→12:30)
[2017-09-17] MEDS: Loperamide 2mg cap ORAL PRN ×2 (01:03→05:20)
[2017-09-17] MEDS: Levothyroxine 25mcg tab ORAL SCH (05:17)
[2017-09-17 07:32] LABS: HEMATOCRIT 23.9 % (42.0-52.0); HEMOGLOBIN 7.8 G/DL (14.2-18.0); MEAN CORPUSCULAR VOLUME 91 FL (80-99); PLATELET COUNT 186 K/UL (150-450); RED BLOOD COUNT 2.61 M/UL (4.70-6.10); RED CELL DISTRIBUTION WIDTH 14.7 % (11.6-14.8); WHITE BLOOD COUNT 5.7 K/UL (4.8-10.8)
[2017-09-17 07:47] LABS: ANION GAP 7 mmol/L (5-15); BLOOD UREA NITROGEN 28 mg/dL (7-18); CALCIUM 7.1 MG/DL (8.5-10.1); CARBON DIOXIDE 25 MMOL/L (21-32); CHLORIDE 107 MMOL/L (98-107); CREATININE 3.5 MG/DL (0.55-1.30); SODIUM 139 MMOL/L (136-145)
[2017-09-17 08:06] LABS: PHOSPHORUS 5.7 MG/DL (2.5-4.9)
[2017-09-17] MEDS: Heparin 5000 units/ml inj SUBQ SCH ×3 (09:00→21:00)
--- NOTE | 2017-09-17 09:02 | Nephrology Progress Note ---
Assessment/Plan Problem List: (1) Renal failure (ARF), acute on chronic (2) Nephrotic syndrome (3) Diabetic nephropathy (4) HTN (hypertension) Assessment: hypertensive kidney disease Assessment Advanced renal failure due to Type I DM DIabetic Nephropathy- Most likely NS -. Bilateral upper quadrant pain. -. Diarrhea. -. Diabetic gastroparesis. -. Diabetes type 1. -. Hypertension. -. Anemia. due to CKD -. HypoThyroid Plan Plan: Dialysed 09/15 due today Transfused , will transfuse again Zestril Procardia and Clonidine to BP meds- adjust meds Per GI 24 h urine collection over 3 gram protein Monitor renal parameters , BS and BP Avoid nephrotoxics Due DC and OP HD 2D Echo : Left ventricular ejection fraction estimated to be 60 %. No evidence of left ventricular hypertrophy. Trace pericardial effusion . Moderate left atrial enlargement. OCTAVIO: Left kidney measures 11.8 cm in length. Right kidney measures 9.6 cm length. Kidneys demonstrate diffusely increased echogenicity. No hydronephrosis. there is a small left lower pole renal cyst Subjective ROS Limited/Unobtainable: No Constitutional: Reports: malaise Objective Objective Last 24 Hour Vital Signs Date Time Temp Pulse Resp B/P (MAP) Pulse Ox O2 Delivery O2 Flow Rate FiO2 09/17/17 08:00 97.9 61 20 161/95 96 Room Air 09/17/17 06:17 98.1 09/17/17 05:30 156/105 09/17/17 05:24 156/105 09/17/17 05:18 98.1 09/17/17 04:35 162/100 09/17/17 04:00 98.1 71 20 162/100 96 Room Air 09/17/17 01:00 179/107 09/17/17 00:59 98.2 09/17/17 00:00 98.2 73 21 179/107 98 09/16/17 20:46 190/119 09/16/17 20:43 98.1 09/16/17 20:43 71 190/119 09/16/17 20:00 98.1 71 21 190/119 95 09/16/17 17:48 162/104 09/16/17 16:00 98.1 74 20 162/104 95 09/16/17 15:58 171/99 09/16/17 15:57 98.1 09/16/17 11:46 98.1 72 20 147/96 94 09/16/17 09:30 98.1 09/16/17 09:00 98.1 09/16/17 08:58 147/96 09/16/17 08:58 72 147/96 Intake and Output 09/16/17 09/17/17 19:00 07:00 Intake Total 600 ml 1200 ml Output Total 450 ml Balance 600 ml 750 ml Intake Oral 600 ml 1200 ml Output Urine Total 450 ml # Voids 4 2 # Bowel Movements 3 1 Laboratory Tests 09/17/17 04:45: White Blood Count 5.7, Red Blood Count 2.61L, Hemoglobin 7.8L, Hematocrit 23.9L , Mean Corpuscular Volume 91, Mean Corpuscular Hemoglobin 29.9, Mean Corpuscular Hemoglobin Concent 32.8, Red Cell Distribution Width 14.7, Platelet Count 186, Mean Platelet Volume 7.1, Neutrophils (%) (Auto) , Lymphocytes (%) ( Auto) , Monocytes (%) (Auto) , Eosinophils (%) (Auto) , Basophils (%) (Auto) , Differential Total Cells Counted 100, Neutrophils % (Manual) 68, Lymphocytes % ( Manual) 25, Monocytes % (Manual) 7, Eosinophils % (Manual) 0, Basophils % ( Manual) 0, Band Neutrophils 0, Platelet Estimate Adequate, Platelet Morphology Normal, Hypochromasia 1+, Anisocytosis 1+, Sodium Level 139, Potassium Level 5.0 , Chloride Level 107, Carbon Dioxide Level 25, Anion Gap 7, Blood Urea Nitrogen 28H, Creatinine 3.5H, Estimat Glomerular Filtration Rate 20.5, Glucose Level 123H, Calcium Level 7.1L, Phosphorus Level 5.7H, Magnesium Level 1.5L Height (Feet): 5 Height (Inches): 10.00 Weight (Pounds): 212 General Appearance: no apparent distress Cardiovascular: normal rate Respiratory/Chest: lungs clear Abdomen: soft, distended Extremities: other - edema ++ Objective no change LEXIS PRESTON Sep 17, 2017 09:02
[2017-09-17] MEDS: Carvedilol 25mg Tab ORAL SCH ×2 (09:35→21:23)
[2017-09-17] MEDS: Lisinopril 20mg tab ORAL SCH ×3 (09:36→18:36)
[2017-09-17] MEDS: Aspirin Baby 81mg ORAL SCH ×2 (09:36→09:56)
--- NOTE | 2017-09-17 10:58 | General Progress Note ---
Assessment/Plan Problem List: (1) Anemia of renal disease ICD Codes: D63.1 - Anemia in chronic kidney disease SNOMED: 894499996, 261159100 (2) HTN (hypertension) ICD Codes: I10 - Essential (primary) hypertension SNOMED: 94900539 (3) ESRD (end stage renal disease) ICD Codes: N18.6 - End stage renal disease SNOMED: 18607857 (4) Abdominal pain ICD Codes: R10.9 - Unspecified abdominal pain SNOMED: 21224018 (5) Ascites ICD Codes: R18.8 - Other ascites SNOMED: 738059177 (6) Diabetic nephropathy ICD Codes: E11.21 - Type 2 diabetes mellitus with diabetic nephropathy SNOMED: 30225800, 507781326 Assessment/Plan paracentesis on Tuesday if he agrees HD per nephrology DM control fu Subjective ROS Limited/Unobtainable: Yes Allergies: Coded Allergies: METOCLOPRAMIDE (Unverified Allergy, Severe, 09/08/17) PROCHLORPERAZINE (Unverified Allergy, Severe, 09/08/17) VANCOMYCIN (Unverified Allergy, Severe, 09/08/17) Subjective no event Objective Last 24 Hour Vital Signs Date Time Temp Pulse Resp B/P (MAP) Pulse Ox O2 Delivery O2 Flow Rate FiO2 09/17/17 09:56 161/95 09/17/17 09:41 61 161/95 09/17/17 09:35 61 161/95 09/17/17 08:00 97.9 61 20 161/95 96 Room Air 09/17/17 06:17 98.1 09/17/17 05:30 156/105 09/17/17 05:24 156/105 09/17/17 05:18 98.1 09/17/17 04:35 162/100 09/17/17 04:00 98.1 71 20 162/100 96 Room Air 09/17/17 01:00 179/107 09/17/17 00:59 98.2 09/17/17 00:00 98.2 73 21 179/107 98 09/16/17 20:46 190/119 09/16/17 20:43 98.1 09/16/17 20:43 71 190/119 09/16/17 20:00 98.1 71 21 190/119 95 09/16/17 17:48 162/104 09/16/17 16:00 98.1 74 20 162/104 95 09/16/17 15:58 171/99 09/16/17 15:57 98.1 09/16/17 11:46 98.1 72 20 147/96 94 Intake and Output 09/16/17 09/17/17 19:00 07:00 Intake Total 600 ml 1200 ml Output Total 450 ml Balance 600 ml 750 ml Intake Oral 600 ml 1200 ml Output Urine Total 450 ml # Voids 4 2 # Bowel Movements 3 1 Laboratory Tests 09/17/17 04:45: White Blood Count 5.7, Red Blood Count 2.61L, Hemoglobin 7.8L, Hematocrit 23.9L , Mean Corpuscular Volume 91, Mean Corpuscular Hemoglobin 29.9, Mean Corpuscular Hemoglobin Concent 32.8, Red Cell Distribution Width 14.7, Platelet Count 186, Mean Platelet Volume 7.1, Neutrophils (%) (Auto) , Lymphocytes (%) ( Auto) , Monocytes (%) (Auto) , Eosinophils (%) (Auto) , Basophils (%) (Auto) , Differential Total Cells Counted 100, Neutrophils % (Manual) 68, Lymphocytes % ( Manual) 25, Monocytes % (Manual) 7, Eosinophils % (Manual) 0, Basophils % ( Manual) 0, Band Neutrophils 0, Platelet Estimate Adequate, Platelet Morphology Normal, Hypochromasia 1+, Anisocytosis 1+, Sodium Level 139, Potassium Level 5.0 , Chloride Level 107, Carbon Dioxide Level 25, Anion Gap 7, Blood Urea Nitrogen 28H, Creatinine 3.5H, Estimat Glomerular Filtration Rate 20.5, Glucose Level 123H, Calcium Level 7.1L, Phosphorus Level 5.7H, Magnesium Level 1.5L Height (Feet): 5 Height (Inches): 10.00 Weight (Pounds): 212 General Appearance: no apparent distress EENT: normal ENT inspection Neck: supple Cardiovascular: normal rate Respiratory/Chest: decreased breath sounds Abdomen: normal bowel sounds, non tender, soft Extremities: non-tender JAZZ SEVERINO Sep 17, 2017 10:58
[2017-09-17] MEDS ORDERED: Epogen (for ESRD on dialysis) SUBQ ONE (13:00)
--- NOTE | 2017-09-17 13:05 | Pulmonology Progress Note ---
Assessment/Plan Assessment/Plan ASSESSMENT Acute on chronic renal failure with new initiation of HD diabetic nephropathy nephrotic syndrome DM type 1 HTN chronic pancreatitis gastroparesis anemia of renal disease hypothyroidism HTN urgency fluid overload elevated LFT PLAN OF CARE MS floor started on HD after placement by IR Right jugular HD catheter nephro follows monitor renal parameters, correct lytes, avoid nephrotoxic 24 hr urine with > 3 gm protein, most likely nephrotic syndrome abdominal OCTAVIO with evidence of increased echogenicity c/w medical renal disease , no hydro On EPO monitor HH, transfuse today as per nephro and prn s/p 1 u PRBC 09/14, LFT trending down hep panel negative abdominal US no gallstones, no dilated ducts ECHO with pEF 60% and RVSP of 29 BP management with BB, CCB, Clonidine and Hydralazine, currently controlled bl and stool cx negative, stool for OP negative lipase stable pain management bowel regimen on levothyroxine now, check TFT in 1 month dc plan, to continue HD will need HD arrangement pt has tunneled HD catheter inserted Mg replacement per nephro dc plan working with PT not able to be dc until Tuesday - per JAMES Heart case discussed and evaluated by supervising physician Subjective Allergies: Coded Allergies: METOCLOPRAMIDE (Unverified Allergy, Severe, 09/08/17) PROCHLORPERAZINE (Unverified Allergy, Severe, 09/08/17) VANCOMYCIN (Unverified Allergy, Severe, 09/08/17) Subjective s/p initiation of HD, dialyzed 09/13 and 09/15 afebrile, no leucocytosis s/p 1 u PRBC 09/14 awaiting for disposition Objective Last 24 Hour Vital Signs Date Time Temp Pulse Resp B/P (MAP) Pulse Ox O2 Delivery O2 Flow Rate FiO2 09/17/17 12:00 97.9 62 20 146/90 97 Room Air 09/17/17 09:56 161/95 09/17/17 09:41 61 161/95 09/17/17 09:35 61 161/95 09/17/17 08:00 97.9 61 20 161/95 96 Room Air 09/17/17 06:17 98.1 09/17/17 05:30 156/105 09/17/17 05:24 156/105 09/17/17 05:18 98.1 09/17/17 04:35 162/100 09/17/17 04:00 98.1 71 20 162/100 96 Room Air 09/17/17 01:00 179/107 09/17/17 00:59 98.2 09/17/17 00:00 98.2 73 21 179/107 98 09/16/17 20:46 190/119 09/16/17 20:43 98.1 09/16/17 20:43 71 190/119 09/16/17 20:00 98.1 71 21 190/119 95 09/16/17 17:48 162/104 09/16/17 16:00 98.1 74 20 162/104 95 09/16/17 15:58 171/99 09/16/17 15:57 98.1 Intake and Output 09/16/17 09/17/17 19:00 07:00 Intake Total 600 ml 1200 ml Output Total 450 ml Balance 600 ml 750 ml Intake Oral 600 ml 1200 ml Output Urine Total 450 ml # Voids 4 2 # Bowel Movements 3 1 Objective General Appearance: no acute distress HEENT: anicteric Respiratory/Chest: lungs clear, no respiratory distress Cardiovascular: normal rate, regular rhythm, R jugular tunneled HD catheter Abdomen: soft, non tender, non distended Extremities: no edema Neurologic/Psychiatric: no motor/sensory deficits, alert, oriented x 3, responsive Musculoskeletal: normal muscle bulk Laboratory Tests 09/17/17 04:45: White Blood Count 5.7, Red Blood Count 2.61L, Hemoglobin 7.8L, Hematocrit 23.9L , Mean Corpuscular Volume 91, Mean Corpuscular Hemoglobin 29.9, Mean Corpuscular Hemoglobin Concent 32.8, Red Cell Distribution Width 14.7, Platelet Count 186, Mean Platelet Volume 7.1, Neutrophils (%) (Auto) , Lymphocytes (%) ( Auto) , Monocytes (%) (Auto) , Eosinophils (%) (Auto) , Basophils (%) (Auto) , Differential Total Cells Counted 100, Neutrophils % (Manual) 68, Lymphocytes % ( Manual) 25, Monocytes % (Manual) 7, Eosinophils % (Manual) 0, Basophils % ( Manual) 0, Band Neutrophils 0, Platelet Estimate Adequate, Platelet Morphology Normal, Hypochromasia 1+, Anisocytosis 1+, Sodium Level 139, Potassium Level 5.0 , Chloride Level 107, Carbon Dioxide Level 25, Anion Gap 7, Blood Urea Nitrogen 28H, Creatinine 3.5H, Estimat Glomerular Filtration Rate 20.5, Glucose Level 123H, Calcium Level 7.1L, Phosphorus Level 5.7H, Magnesium Level 1.5L Current Medications Medications (Trade) Dose Ordered Sig/Michelle Route PRN Reason Start Time Stop Time Status Last Admin Dose Admin Acetaminophen (Tylenol) 650 mg Q4H PRN ORAL fever 09/09/17 23:45 10/08/17 15:44 Acetaminophen/ Hydrocodone Bitart ([place] 5/325) 1 tab Q4H PRN ORAL Moderate Pain (Pain Scale 4-6) 09/16/17 15:15 09/23/17 15:14 09/17/17 09:35 Aspirin (ASA) 81 mg DAILY ORAL 09/10/17 09:00 10/10/17 08:59 09/17/17 09:56 Carvedilol (Coreg) 25 mg EVERY 12 HOURS ORAL 09/17/17 09:00 10/17/17 08:59 09/17/17 09:35 Clonidine HCl (Catapres Tab) 0.1 mg EVERY 8 HOURS ORAL 09/17/17 14:00 10/10/17 13:59 Clonidine HCl (Catapres Tab) 0.1 mg Q4H PRN ORAL SYSTOLIC BP > 160 09/16/17 20:45 10/10/17 08:29 09/17/17 04:35 Dextrose (Dextrose 50%) STAT PRN IV Hypoglycemia 09/10/17 15:45 10/08/17 15:44 Diphenhydramine HCl (Benadryl) 25 mg Q6H PRN ORAL Itching/Pruritis 09/10/17 03:45 10/08/17 15:44 09/17/17 04:35 Epoetin [place] (Procrit (for ESRD on dialysis)) 10,000 units TUE-WED-TUE SUBQ 09/19/17 21:00 10/19/17 20:59 Guaifenesin/ Codeine Phosphate (Robitussin with codeine) 5 ml Q6H PRN ORAL For Cough 09/10/17 17:00 10/10/17 16:59 09/17/17 12:30 Heparin Sodium (Porcine) (Heparin 5000 units/ml) 5,000 units EVERY 12 HOURS SUBQ 09/10/17 09:00 10/08/17 20:59 09/16/17 20:51 Lansoprazole (Prevacid) 30 mg BID ORAL 09/17/17 18:00 10/11/17 08:59 Levothyroxine Sodium (Synthroid) 25 mcg DAILY@0630 ORAL 09/10/17 06:30 10/10/17 06:29 09/17/17 05:17 Lisinopril (Prinivil) 20 mg BID ORAL 09/16/17 09:00 10/16/17 08:59 09/17/17 09:56 Loperamide HCl (Imodium) 2 mg Q4H PRN ORAL Diarrhea 09/15/17 11:15 10/15/17 11:14 09/17/17 05:20 Nifedipine (Procardia XL) 60 mg BID ORAL 09/17/17 09:00 10/17/17 08:59 09/17/17 09:41 Polyethylene Glycol (Miralax) 17 gm HSPRN PRN ORAL Constipation 09/10/17 15:45 10/08/17 15:44 Sevelamer Carbonate (Renvela) 2,400 mg THREE TIMES A DAY ORAL 09/11/17 13:00 10/11/17 12:59 09/17/17 09:36 Jesse ([facility])Shama NP Sep 17, 2017 13:05
--- NOTE | 2017-09-17 14:30 | Internal Med Progress Note ---
Subjective Date of Service: Sep 17, 2017 Physician Name Talbot,Sajniv Attending Physician Serafin Voss MD Current Medications Medications (Trade) Dose Ordered Sig/Michelle Route PRN Reason Start Time Stop Time Status Last Admin Dose Admin Acetaminophen (Tylenol) 650 mg Q4H PRN ORAL fever 09/09/17 23:45 10/08/17 15:44 Acetaminophen/ Hydrocodone Bitart ([place] 5/325) 1 tab Q4H PRN ORAL Moderate Pain (Pain Scale 4-6) 09/16/17 15:15 09/23/17 15:14 09/17/17 09:35 Aspirin (ASA) 81 mg DAILY ORAL 09/10/17 09:00 10/10/17 08:59 09/17/17 09:56 Carvedilol (Coreg) 25 mg EVERY 12 HOURS ORAL 09/17/17 09:00 10/17/17 08:59 09/17/17 09:35 Clonidine HCl (Catapres Tab) 0.1 mg EVERY 8 HOURS ORAL 09/17/17 14:00 10/10/17 13:59 Clonidine HCl (Catapres Tab) 0.1 mg Q4H PRN ORAL SYSTOLIC BP > 160 09/16/17 20:45 10/10/17 08:29 09/17/17 04:35 Dextrose (Dextrose 50%) STAT PRN IV Hypoglycemia 09/10/17 15:45 10/08/17 15:44 Diphenhydramine HCl (Benadryl) 25 mg Q6H PRN ORAL Itching/Pruritis 09/10/17 03:45 10/08/17 15:44 09/17/17 04:35 Epoetin Curry (Procrit (for ESRD on dialysis)) 10,000 units TUE-TUE-TUE SUBQ 09/19/17 21:00 10/19/17 20:59 Guaifenesin/ Codeine Phosphate (Robitussin with codeine) 5 ml Q6H PRN ORAL For Cough 09/10/17 17:00 10/10/17 16:59 09/17/17 12:30 Heparin Sodium (Porcine) (Heparin 5000 units/ml) 5,000 units EVERY 12 HOURS SUBQ 09/10/17 09:00 10/08/17 20:59 09/16/17 20:51 Lansoprazole (Prevacid) 30 mg BID ORAL 09/17/17 18:00 10/11/17 08:59 Levothyroxine Sodium (Synthroid) 25 mcg DAILY@0630 ORAL 09/10/17 06:30 10/10/17 06:29 09/17/17 05:17 Lisinopril (Prinivil) 20 mg BID ORAL 09/16/17 09:00 10/16/17 08:59 09/17/17 09:56 Loperamide HCl (Imodium) 2 mg Q4H PRN ORAL Diarrhea 09/15/17 11:15 10/15/17 11:14 09/17/17 05:20 Nifedipine (Procardia XL) 60 mg BID ORAL 09/17/17 09:00 10/17/17 08:59 09/17/17 09:41 Polyethylene Glycol (Miralax) 17 gm HSPRN PRN ORAL Constipation 09/10/17 15:45 10/08/17 15:44 Sevelamer Carbonate (Renvela) 2,400 mg THREE TIMES A DAY ORAL 09/11/17 13:00 10/11/17 12:59 09/17/17 09:36 Allergies: Coded Allergies: METOCLOPRAMIDE (Unverified Allergy, Severe, 09/08/17) PROCHLORPERAZINE (Unverified Allergy, Severe, 09/08/17) VANCOMYCIN (Unverified Allergy, Severe, 09/08/17) ROS Limited/Unobtainable: No Constitutional: Reports: no symptoms HEENT: Reports: no symptoms Cardiovascular: Reports: no symptoms Respiratory: Reports: no symptoms Gastrointestinal/Abdominal: Reports: no symptoms Genitourinary: Reports: no symptoms Neurologic/Psychiatric: Reports: no symptoms Subjective 32 YO M admitted with abdominal pain. Now renal failure; S/P hemodialysis 09/15. Cover for Int Med-Dr Voss. Discharge held-see soc work note. Objective Last Vital Signs Date Time Temp Pulse Resp B/P (MAP) Pulse Ox O2 Delivery O2 Flow Rate FiO2 09/17/17 12:00 97.9 62 20 146/90 97 Room Air 09/13/17 12:30 3.0 Laboratory Tests Test 09/17/17 04:45 White Blood Count 5.7 K/UL (4.8-10.8) Red Blood Count 2.61 M/UL (4.70-6.10) L Hemoglobin 7.8 G/DL (14.2-18.0) L Hematocrit 23.9 % (42.0-52.0) L Mean Corpuscular Volume 91 FL (80-99) Mean Corpuscular Hemoglobin 29.9 PG (27.0-31.0) Mean Corpuscular Hemoglobin Concent 32.8 G/DL (32.0-36.0) Red Cell Distribution Width 14.7 % (11.6-14.8) Platelet Count 186 K/UL (150-450) Mean Platelet Volume 7.1 FL (6.5-10.1) Neutrophils (%) (Auto) % (45.0-75.0) Lymphocytes (%) (Auto) % (20.0-45.0) Monocytes (%) (Auto) % (1.0-10.0) Eosinophils (%) (Auto) % (0.0-3.0) Basophils (%) (Auto) % (0.0-2.0) Differential Total Cells Counted 100 Neutrophils % (Manual) 68 % (45-75) Lymphocytes % (Manual) 25 % (20-45) Monocytes % (Manual) 7 % (1-10) Eosinophils % (Manual) 0 % (0-3) Basophils % (Manual) 0 % (0-2) Band Neutrophils 0 % (0-8) Platelet Estimate Adequate Platelet Morphology Normal Hypochromasia 1+ Anisocytosis 1+ Sodium Level 139 MMOL/L (136-145) Potassium Level 5.0 MMOL/L (3.5-5.1) Chloride Level 107 MMOL/L (98-107) Carbon Dioxide Level 25 MMOL/L (21-32) Anion Gap 7 mmol/L (5-15) Blood Urea Nitrogen 28 mg/dL (7-18) H Creatinine 3.5 MG/DL (0.55-1.30) H Estimat Glomerular Filtration Rate 20.5 mL/min (>60) Glucose Level 123 MG/DL (74-106) H Calcium Level 7.1 MG/DL (8.5-10.1) L Phosphorus Level 5.7 MG/DL (2.5-4.9) H Magnesium Level 1.5 MG/DL (1.8-2.4) L Intake and Output 09/16/17 09/17/17 19:00 07:00 Intake Total 600 ml 1200 ml Output Total 450 ml Balance 600 ml 750 ml Intake Oral 600 ml 1200 ml Output Urine Total 450 ml # Voids 4 2 # Bowel Movements 3 1 Objective General Appearance: WD/WN, alert, mild distress EENT: PERRL/EOMI, normal ENT inspection Neck: non-tender, normal alignment, supple, normal inspection Cardiovascular: normal peripheral pulses, normal rate, regular rhythm, no gallop/murmur, no JVD Respiratory/Chest: chest wall non-tender, lungs clear, normal breath sounds, no respiratory distress, no accessory muscle use Abdomen: no organomegaly, no mass, decreased bowel sounds, distended, guarding , tender Extremities: normal range of motion Neurologic: dishroom attendant II-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 See nephrology note. (2) Anemia of renal disease Assessment & Plan: S/P transfusion (3) HTN (hypertension) Assessment & Plan: Uncontrolled. Await cardiology consult. Cont coreg and norvasc. (4) Ascites Assessment & Plan: Await paracentesis. See GI note. (5) Abdominal pain (6) Abdominal distention (7) Diarrhea Assessment & Plan: C. Diff neg; await stool culture (8) Gastroparesis (9) Diabetes type 1, controlled Assessment & Plan: Continue novolog sliding scale. (10) Hypothyroidism Assessment & Plan: Continue levoxyl (11) CHF (congestive heart failure) Assessment & Plan: Volume overload. See cardiology note. await hemodialysis (12) Anemia Assessment & Plan: S/P transfusion 1 unit PRBC on 09/13/17 Status: stable Assessment/Plan Discharge planning. On hold-sse social work note. SANJIV TALBOT Sep 17, 2017 14:30
--- NOTE | 2017-09-17 15:39 | Cardiac Electrophysiology PN ---
Assessment/Plan Assessment/Plan 1. Accelerated hypertension.Continue Procardia XL 60 bid, clonidine 0.1 mg q8, Coreg 25 mg bid and HD 2. Chronic kidney disease. On HD by Dr. Garrett. 3. Insulin-dependent diabetes. 4. Anemia of renal disease.Getting PRBC today 5. Abdominal pain and distention, diarrhea, and gastroparesis. Negative for C Diff. 6. Hypothyroidism, on Synthroid. DW RN Subjective Subjective No CP or SOB. Awaiting HD today. Getting blood transfusion. Objective Last 24 Hour Vital Signs Date Time Temp Pulse Resp B/P (MAP) Pulse Ox O2 Delivery O2 Flow Rate FiO2 09/17/17 15:24 98.7 59 20 144/98 98 09/17/17 14:33 150/95 09/17/17 12:00 97.9 62 20 146/90 97 Room Air 09/17/17 09:56 161/95 09/17/17 09:41 61 161/95 09/17/17 09:35 61 161/95 09/17/17 08:00 97.9 61 20 161/95 96 Room Air 09/17/17 06:17 98.1 09/17/17 05:30 156/105 09/17/17 05:24 156/105 09/17/17 05:18 98.1 09/17/17 04:35 162/100 09/17/17 04:00 98.1 71 20 162/100 96 Room Air 09/17/17 01:00 179/107 09/17/17 00:59 98.2 09/17/17 00:00 98.2 73 21 179/107 98 09/16/17 20:46 190/119 09/16/17 20:43 98.1 09/16/17 20:43 71 190/119 09/16/17 20:00 98.1 71 21 190/119 95 09/16/17 17:48 162/104 09/16/17 16:00 98.1 74 20 162/104 95 09/16/17 15:58 171/99 09/16/17 15:57 98.1 Intake and Output 09/16/17 09/17/17 19:00 07:00 Intake Total 600 ml 1200 ml Output Total 450 ml Balance 600 ml 750 ml Intake Oral 600 ml 1200 ml Output Urine Total 450 ml # Voids 4 2 # Bowel Movements 3 1 Laboratory Tests Test 09/17/17 04:45 White Blood Count 5.7 K/UL (4.8-10.8) Red Blood Count 2.61 M/UL (4.70-6.10) L Hemoglobin 7.8 G/DL (14.2-18.0) L Hematocrit 23.9 % (42.0-52.0) L Mean Corpuscular Volume 91 FL (80-99) Mean Corpuscular Hemoglobin 29.9 PG (27.0-31.0) Mean Corpuscular Hemoglobin Concent 32.8 G/DL (32.0-36.0) Red Cell Distribution Width 14.7 % (11.6-14.8) Platelet Count 186 K/UL (150-450) Mean Platelet Volume 7.1 FL (6.5-10.1) Neutrophils (%) (Auto) % (45.0-75.0) Lymphocytes (%) (Auto) % (20.0-45.0) Monocytes (%) (Auto) % (1.0-10.0) Eosinophils (%) (Auto) % (0.0-3.0) Basophils (%) (Auto) % (0.0-2.0) Differential Total Cells Counted 100 Neutrophils % (Manual) 68 % (45-75) Lymphocytes % (Manual) 25 % (20-45) Monocytes % (Manual) 7 % (1-10) Eosinophils % (Manual) 0 % (0-3) Basophils % (Manual) 0 % (0-2) Band Neutrophils 0 % (0-8) Platelet Estimate Adequate Platelet Morphology Normal Hypochromasia 1+ Anisocytosis 1+ Sodium Level 139 MMOL/L (136-145) Potassium Level 5.0 MMOL/L (3.5-5.1) Chloride Level 107 MMOL/L (98-107) Carbon Dioxide Level 25 MMOL/L (21-32) Anion Gap 7 mmol/L (5-15) Blood Urea Nitrogen 28 mg/dL (7-18) H Creatinine 3.5 MG/DL (0.55-1.30) H Estimat Glomerular Filtration Rate 20.5 mL/min (>60) Glucose Level 123 MG/DL (74-106) H Calcium Level 7.1 MG/DL (8.5-10.1) L Phosphorus Level 5.7 MG/DL (2.5-4.9) H Magnesium Level 1.5 MG/DL (1.8-2.4) L Objective HEAD AND NECK: No JVD. Right IJ HD LUNGS: Clear. CARDIOVASCULAR: Regular S1 and S2. No gallop or murmur. ABDOMEN: Soft. EXTREMITIES: No pitting edema. MONICA DANGELO Sep 17, 2017 15:39
[2017-09-17] MEDS: Morphine Sulfate 4mg/ml Inj IM PRN ×2 (15:52→21:26)
[2017-09-17] MEDS: LORazepam Inj 2mg/ml 1ml IV PRN ×2 (17:31→22:27)
[2017-09-18] VITALS (7 sets, daily range): BP systolic 106–170; BP diastolic 68–100
[2017-09-18] MEDS: guaiFENesin w/Codeine 5ml Liq ud ORAL PRN (00:10)
[2017-09-18] MEDS: Morphine Sulfate 4mg/ml Inj IM PRN ×4 (01:50→23:26)
[2017-09-18] MEDS: LORazepam Inj 2mg/ml 1ml IV PRN ×4 (04:41→19:52)
[2017-09-18 06:01] LABS: BASOPHILS % (AUTO) 1.1 % (0.0-2.0); EOSINOPHILS % (AUTO) 1.2 % (0.0-3.0); HEMATOCRIT 31.1 % (42.0-52.0); HEMOGLOBIN 10.3 G/DL (14.2-18.0); LYMPHOCYTES % (AUTO) 21.8 % (20.0-45.0); MEAN CORPUSCULAR VOLUME 91 FL (80-99); MONOCYTES % (AUTO) 7.3 % (1.0-10.0); NEUTROPHILS % (AUTO) 68.7 % (45.0-75.0); PLATELET COUNT 217 K/UL (150-450); RED BLOOD COUNT 3.41 M/UL (4.70-6.10); WHITE BLOOD COUNT 6.1 K/UL (4.8-10.8)
[2017-09-18 06:13] LABS: ANION GAP 4 mmol/L (5-15); BLOOD UREA NITROGEN 19 mg/dL (7-18); CALCIUM 7.5 MG/DL (8.5-10.1); CARBON DIOXIDE 30 MMOL/L (21-32); CHLORIDE 109 MMOL/L (98-107); CREATININE 2.7 MG/DL (0.55-1.30); POTASSIUM 4.5 MMOL/L (3.5-5.1); SODIUM 142 MMOL/L (136-145)
[2017-09-18] MEDS: Levothyroxine 25mcg tab ORAL SCH (06:34)
--- NOTE | 2017-09-18 08:31 | General Progress Note ---
Assessment/Plan Problem List: (1) Anemia of renal disease ICD Codes: D63.1 - Anemia in chronic kidney disease SNOMED: 236268240, 944275519 (2) HTN (hypertension) ICD Codes: I10 - Essential (primary) hypertension SNOMED: 86951350 (3) ESRD (end stage renal disease) ICD Codes: N18.6 - End stage renal disease SNOMED: 05950782 (4) Abdominal pain ICD Codes: R10.9 - Unspecified abdominal pain SNOMED: 94140160 (5) Ascites ICD Codes: R18.8 - Other ascites SNOMED: 495097462 (6) Diabetic nephropathy ICD Codes: E11.21 - Type 2 diabetes mellitus with diabetic nephropathy SNOMED: 62246593, 253972680 Assessment/Plan paracentesis on Tuesday if he agrees HD per nephrology DM control fu Subjective ROS Limited/Unobtainable: Yes Allergies: Coded Allergies: METOCLOPRAMIDE (Unverified Allergy, Severe, 09/08/17) PROCHLORPERAZINE (Unverified Allergy, Severe, 09/08/17) VANCOMYCIN (Unverified Allergy, Severe, 09/08/17) Subjective no event Objective Last 24 Hour Vital Signs Date Time Temp Pulse Resp B/P (MAP) Pulse Ox O2 Delivery O2 Flow Rate FiO2 09/18/17 06:00 113/70 09/18/17 04:00 97.7 66 18 113/70 92 Room Air 09/18/17 01:40 Room Air 09/18/17 01:40 98.2 67 20 119/74 Room Air 09/18/17 00:00 98.1 108 19 106/70 94 Room Air 09/17/17 22:00 98.6 63 20 122/74 Room Air 09/17/17 22:00 Room Air 09/17/17 22:00 120/58 09/17/17 21:23 70 126/79 09/17/17 20:00 97.3 66 20 115/71 Room Air 09/17/17 18:37 64 122/81 09/17/17 18:37 97.8 64 18 122/81 96 Room Air 09/17/17 18:36 122/81 09/17/17 15:24 98.7 59 20 144/98 98 09/17/17 14:33 150/95 09/17/17 12:00 97.9 62 20 146/90 97 Room Air 09/17/17 09:56 161/95 09/17/17 09:41 61 161/95 09/17/17 09:35 61 161/95 Intake and Output 09/17/17 09/18/17 19:00 07:00 Intake Total 625 ml Output Total 675 ml 3000 ml Balance -50 ml -3000 ml Intake Oral 625 ml Output Urine Total 675 ml Hemodialysis UF 3000 ml # Voids 3 # Bowel Movements 3 Laboratory Tests 09/18/17 03:50: White Blood Count 6.1, Red Blood Count 3.41L, Hemoglobin 10.3#L, Hematocrit 31.1 #L, Mean Corpuscular Volume 91, Mean Corpuscular Hemoglobin 30.0, Mean Corpuscular Hemoglobin Concent 33.0, Red Cell Distribution Width 14.0, Platelet Count 217, Mean Platelet Volume 7.8, Neutrophils (%) (Auto) 68.7, Lymphocytes (% ) (Auto) 21.8, Monocytes (%) (Auto) 7.3, Eosinophils (%) (Auto) 1.2, Basophils ( %) (Auto) 1.1, Sodium Level 142, Potassium Level 4.5, Chloride Level 109H, Carbon Dioxide Level 30, Anion Gap 4L, Blood Urea Nitrogen 19H, Creatinine 2.7H , Estimat Glomerular Filtration Rate 27.7, Glucose Level 103, Calcium Level 7.5L Height (Feet): 5 Height (Inches): 10.00 Weight (Pounds): 212 General Appearance: no apparent distress EENT: normal ENT inspection Neck: supple Cardiovascular: regular rhythm Respiratory/Chest: decreased breath sounds Abdomen: normal bowel sounds, non tender, soft Extremities: non-tender JAZZ SEVERINO Sep 18, 2017 08:31
[2017-09-18] MEDS: Lisinopril 20mg tab ORAL SCH ×2 (09:00→17:35)
[2017-09-18] MEDS: Carvedilol 25mg Tab ORAL SCH ×2 (09:00→23:21)
[2017-09-18] MEDS: Aspirin Baby 81mg ORAL SCH (09:03)
[2017-09-18] MEDS: Heparin 5000 units/ml inj SUBQ SCH ×2 (09:17→21:00)
[2017-09-18] MEDS ORDERED: NS 275ml ONE (10:06)
[2017-09-18] MEDS ORDERED: Tubing Blood Filter IV ONE (10:06)
--- NOTE | 2017-09-18 10:53 | Nephrology Progress Note ---
Assessment/Plan Problem List: (1) Renal failure (ARF), acute on chronic (2) Nephrotic syndrome (3) Diabetic nephropathy (4) HTN (hypertension) Assessment: hypertensive kidney disease Assessment Advanced renal failure due to Type I DM DIabetic Nephropathy- Most likely NS -. Bilateral upper quadrant pain. -. Diarrhea. -. Diabetic gastroparesis. -. Diabetes type 1. -. Hypertension. -. Anemia. due to CKD -. HypoThyroid Plan Plan: Dialysed 09/17 , due again 09/19 Transfused , will transfuse again Zestril Procardia and Clonidine to BP meds- adjust meds Per GI 24 h urine collection over 3 gram protein Monitor renal parameters , BS and BP Avoid nephrotoxics Due DC and OP HD 2D Echo : Left ventricular ejection fraction estimated to be 60 %. No evidence of left ventricular hypertrophy. Trace pericardial effusion . Moderate left atrial enlargement. OCTAVIO: Left kidney measures 11.8 cm in length. Right kidney measures 9.6 cm length. Kidneys demonstrate diffusely increased echogenicity. No hydronephrosis. there is a small left lower pole renal cyst Subjective ROS Limited/Unobtainable: No Constitutional: Reports: malaise Objective Objective Last 24 Hour Vital Signs Date Time Temp Pulse Resp B/P (MAP) Pulse Ox O2 Delivery O2 Flow Rate FiO2 09/18/17 10:49 72 134/73 09/18/17 09:00 70 112/68 09/18/17 09:00 70 112/68 09/18/17 09:00 112/68 09/18/17 08:00 98.2 70 20 112/68 92 09/18/17 06:00 113/70 09/18/17 04:00 97.7 66 18 113/70 92 Room Air 09/18/17 01:40 Room Air 09/18/17 01:40 98.2 67 20 119/74 Room Air 09/18/17 00:00 98.1 108 19 106/70 94 Room Air 09/17/17 22:00 98.6 63 20 122/74 Room Air 09/17/17 22:00 Room Air 09/17/17 22:00 120/58 09/17/17 21:23 70 126/79 09/17/17 20:00 97.3 66 20 115/71 Room Air 09/17/17 18:37 64 122/81 09/17/17 18:37 97.8 64 18 122/81 96 Room Air 09/17/17 18:36 122/81 09/17/17 15:24 98.7 59 20 144/98 98 09/17/17 14:33 150/95 09/17/17 12:00 97.9 62 20 146/90 97 Room Air Intake and Output 09/17/17 09/18/17 19:00 07:00 Intake Total 625 ml Output Total 675 ml 3000 ml Balance -50 ml -3000 ml Intake Oral 625 ml Output Urine Total 675 ml Hemodialysis UF 3000 ml # Voids 3 # Bowel Movements 3 Laboratory Tests 09/18/17 03:50: White Blood Count 6.1, Red Blood Count 3.41L, Hemoglobin 10.3#L, Hematocrit 31.1 #L, Mean Corpuscular Volume 91, Mean Corpuscular Hemoglobin 30.0, Mean Corpuscular Hemoglobin Concent 33.0, Red Cell Distribution Width 14.0, Platelet Count 217, Mean Platelet Volume 7.8, Neutrophils (%) (Auto) 68.7, Lymphocytes (% ) (Auto) 21.8, Monocytes (%) (Auto) 7.3, Eosinophils (%) (Auto) 1.2, Basophils ( %) (Auto) 1.1, Sodium Level 142, Potassium Level 4.5, Chloride Level 109H, Carbon Dioxide Level 30, Anion Gap 4L, Blood Urea Nitrogen 19H, Creatinine 2.7H , Estimat Glomerular Filtration Rate 27.7, Glucose Level 103, Calcium Level 7.5L Height (Feet): 5 Height (Inches): 10.00 Weight (Pounds): 212 General Appearance: mild distress Cardiovascular: normal rate Respiratory/Chest: decreased breath sounds Abdomen: soft, distended Objective no change LEXIS PRESTON Sep 18, 2017 10:53
--- NOTE | 2017-09-18 12:30 | Pulmonology Progress Note ---
Assessment/Plan Assessment/Plan ASSESSMENT Acute on chronic renal failure with new initiation of HD diabetic nephropathy nephrotic syndrome DM type 1 HTN chronic pancreatitis gastroparesis anemia of renal disease hypothyroidism HTN urgency fluid overload elevated LFT PLAN OF CARE MS floor started on HD after placement by IR Right jugular HD catheter nephro follows monitor renal parameters, correct lytes, avoid nephrotoxic 24 hr urine with > 3 gm protein, most likely nephrotic syndrome abdominal OCTAVIO with evidence of increased echogenicity c/w medical renal disease , no hydro On EPO monitor HH, transfuse today as per nephro and prn s/p 1 u PRBC 09/14, LFT trending down hep panel negative abdominal US no gallstones, no dilated ducts ECHO with pEF 60% and RVSP of 29 BP management with BB, CCB, Clonidine and Hydralazine, currently controlled bl and stool cx negative, stool for OP negative lipase stable pain management bowel regimen on levothyroxine now, check TFT in 1 month dc plan, to continue HD will need HD arrangement pt has tunneled HD catheter inserted M dc plan working with PT not able to be dc until Tuesday - per JAMES Una HD on Tuesday 09/19 and dc plan for Tuesday case discussed and evaluated by supervising physician Subjective Allergies: Coded Allergies: METOCLOPRAMIDE (Unverified Allergy, Severe, 09/08/17) PROCHLORPERAZINE (Unverified Allergy, Severe, 09/08/17) VANCOMYCIN (Unverified Allergy, Severe, 09/08/17) Subjective s/p initiation of HD, dialyzed 09/13 , 09/15 and 09/17 afebrile, no leucocytosis s/p 1 u PRBC 09/14 awaiting for disposition Objective Last 24 Hour Vital Signs Date Time Temp Pulse Resp B/P (MAP) Pulse Ox O2 Delivery O2 Flow Rate FiO2 09/18/17 12:00 98.1 72 20 125/72 95 09/18/17 10:49 72 134/73 09/18/17 09:00 70 112/68 09/18/17 09:00 70 112/68 09/18/17 09:00 112/68 09/18/17 08:00 98.2 70 20 112/68 92 09/18/17 06:00 113/70 09/18/17 04:00 97.7 66 18 113/70 92 Room Air 09/18/17 01:40 Room Air 09/18/17 01:40 98.2 67 20 119/74 Room Air 09/18/17 00:00 98.1 108 19 106/70 94 Room Air 09/17/17 22:00 98.6 63 20 122/74 Room Air 09/17/17 22:00 Room Air 09/17/17 22:00 120/58 09/17/17 21:23 70 126/79 09/17/17 20:00 97.3 66 20 115/71 Room Air 09/17/17 18:37 64 122/81 09/17/17 18:37 97.8 64 18 122/81 96 Room Air 09/17/17 18:36 122/81 09/17/17 15:24 98.7 59 20 144/98 98 09/17/17 14:33 150/95 Intake and Output 09/17/17 09/18/17 19:00 07:00 Intake Total 625 ml Output Total 675 ml 3000 ml Balance -50 ml -3000 ml Intake Oral 625 ml Output Urine Total 675 ml Hemodialysis UF 3000 ml # Voids 3 # Bowel Movements 3 Objective General Appearance: no acute distress HEENT: anicteric Respiratory/Chest: lungs clear, no respiratory distress Cardiovascular: normal rate, regular rhythm, R jugular tunneled HD catheter Abdomen: soft, non tender, non distended Extremities: no edema Neurologic/Psychiatric: no motor/sensory deficits, alert, oriented x 3, responsive Musculoskeletal: normal muscle bulk Microbiology Date/Time Source Procedure Growth Status 09/17/17 17:30 Stool Stool Culture Pending Resulted 09/17/17 17:30 Stool Clostridium difficile Toxin Assay - Final Resulted Laboratory Tests 09/18/17 03:50: White Blood Count 6.1, Red Blood Count 3.41L, Hemoglobin 10.3#L, Hematocrit 31.1 #L, Mean Corpuscular Volume 91, Mean Corpuscular Hemoglobin 30.0, Mean Corpuscular Hemoglobin Concent 33.0, Red Cell Distribution Width 14.0, Platelet Count 217, Mean Platelet Volume 7.8, Neutrophils (%) (Auto) 68.7, Lymphocytes (% ) (Auto) 21.8, Monocytes (%) (Auto) 7.3, Eosinophils (%) (Auto) 1.2, Basophils ( %) (Auto) 1.1, Sodium Level 142, Potassium Level 4.5, Chloride Level 109H, Carbon Dioxide Level 30, Anion Gap 4L, Blood Urea Nitrogen 19H, Creatinine 2.7H , Estimat Glomerular Filtration Rate 27.7, Glucose Level 103, Calcium Level 7.5L Current Medications Medications (Trade) Dose Ordered Sig/Michelle Route PRN Reason Start Time Stop Time Status Last Admin Dose Admin Acetaminophen (Tylenol) 650 mg Q4H PRN ORAL fever 09/09/17 23:45 10/08/17 15:44 Acetaminophen/ Hydrocodone Bitart ([place] 5/325) 1 tab Q4H PRN ORAL Moderate Pain (Pain Scale 4-6) 09/16/17 15:15 09/23/17 15:14 09/17/17 14:34 Aspirin (ASA) 81 mg DAILY ORAL 09/10/17 09:00 10/10/17 08:59 09/18/17 09:03 Carvedilol (Coreg) 25 mg EVERY 12 HOURS ORAL 09/17/17 09:00 10/17/17 08:59 09/17/17 21:23 Chlorhexidine Gluconate (Gail-Hex 2%) 1 applic DAILY@1999 TOPIC 09/18/17 20:00 10/18/17 19:59 Clonidine HCl (Catapres Tab) 0.1 mg Q4H PRN ORAL SYSTOLIC BP > 160 09/16/17 20:45 10/10/17 08:29 09/17/17 04:35 Dextrose (Dextrose 50%) STAT PRN IV Hypoglycemia 09/10/17 15:45 10/08/17 15:44 Diphenhydramine HCl (Benadryl) 25 mg Q6H PRN ORAL Itching/Pruritis 09/10/17 03:45 10/08/17 15:44 09/17/17 04:35 Epoetin Curry (Procrit (for ESRD on dialysis)) 10,000 units TUE-WED-TUE SUBQ 09/19/17 21:00 10/19/17 20:59 Guaifenesin/ Codeine Phosphate (Robitussin with codeine) 5 ml Q6H PRN ORAL For Cough 09/10/17 17:00 10/10/17 16:59 09/18/17 00:10 Heparin Sodium (Porcine) (Heparin 5000 units/ml) 5,000 units EVERY 12 HOURS SUBQ 09/10/17 09:00 10/08/17 20:59 09/18/17 09:17 Lansoprazole (Prevacid) 30 mg BID ORAL 09/17/17 18:00 10/11/17 08:59 09/18/17 09:03 Levothyroxine Sodium (Synthroid) 25 mcg DAILY@0630 ORAL 09/10/17 06:30 10/10/17 06:29 09/18/17 06:34 Lisinopril (Prinivil) 20 mg BID ORAL 09/16/17 09:00 10/16/17 08:59 09/17/17 18:36 Loperamide HCl (Imodium) 2 mg Q4H PRN ORAL Diarrhea 09/15/17 11:15 10/15/17 11:14 09/17/17 05:20 Lorazepam (Ativan 2mg/ml 1ml) 1 mg Q4H PRN IV For Anxiety 09/17/17 14:30 09/24/17 14:29 09/18/17 09:04 Morphine Sulfate (Morphine Sulfate) 2 mg EVERY 3 HOURS PRN IM Severe Pain (Pain Scale 7-10) 09/17/17 15:00 09/24/17 14:59 09/18/17 10:45 Nifedipine (Procardia XL) 60 mg BID ORAL 09/17/17 09:00 10/17/17 08:59 09/17/17 18:37 Polyethylene Glycol (Miralax) 17 gm HSPRN PRN ORAL Constipation 09/10/17 15:45 10/08/17 15:44 Sevelamer Carbonate (Renvela) 2,400 mg THREE TIMES A DAY ORAL 09/11/17 13:00 10/11/17 12:59 09/18/17 09:04 [id number] Bee NP Sep 18, 2017 12:30
[2017-09-18] MEDS: Loperamide 2mg cap ORAL PRN ×3 (13:40→23:22)
--- NOTE | 2017-09-18 14:54 | Internal Med Progress Note ---
Subjective Date of Service: Sep 18, 2017 Physician Name SarabiaSanjiv jurado Attending Physician Serafin Voss MD Current Medications Medications (Trade) Dose Ordered Sig/Michelle Route PRN Reason Start Time Stop Time Status Last Admin Dose Admin Acetaminophen (Tylenol) 650 mg Q4H PRN ORAL fever 09/09/17 23:45 10/08/17 15:44 Acetaminophen/ Hydrocodone Bitart ([place] 5/325) 1 tab Q4H PRN ORAL Moderate Pain (Pain Scale 4-6) 09/16/17 15:15 09/23/17 15:14 09/17/17 14:34 Aspirin (ASA) 81 mg DAILY ORAL 09/10/17 09:00 10/10/17 08:59 09/18/17 09:03 Carvedilol (Coreg) 25 mg EVERY 12 HOURS ORAL 09/17/17 09:00 10/17/17 08:59 09/17/17 21:23 Chlorhexidine Gluconate (Gail-Hex 2%) 1 applic DAILY@2000 TOPIC 09/18/17 20:00 10/18/17 19:59 Clonidine HCl (Catapres Tab) 0.1 mg Q4H PRN ORAL SYSTOLIC BP > 160 09/16/17 20:45 10/10/17 08:29 09/17/17 04:35 Dextrose (Dextrose 50%) STAT PRN IV Hypoglycemia 09/10/17 15:45 10/08/17 15:44 Diphenhydramine HCl (Benadryl) 25 mg Q6H PRN ORAL Itching/Pruritis 09/10/17 03:45 10/08/17 15:44 09/17/17 04:35 Epoetin Curry (Procrit (for ESRD on dialysis)) 10,000 units TUE-TUE-TUE SUBQ 09/19/17 21:00 10/19/17 20:59 Guaifenesin/ Codeine Phosphate (Robitussin with codeine) 5 ml Q6H PRN ORAL For Cough 09/10/17 17:00 10/10/17 16:59 09/18/17 00:10 Heparin Sodium (Porcine) (Heparin 5000 units/ml) 5,000 units EVERY 12 HOURS SUBQ 09/10/17 09:00 10/08/17 20:59 09/18/17 09:17 Lansoprazole (Prevacid) 30 mg BID ORAL 09/17/17 18:00 10/11/17 08:59 09/18/17 09:03 Levothyroxine Sodium (Synthroid) 25 mcg DAILY@0630 ORAL 09/10/17 06:30 10/10/17 06:29 09/18/17 06:34 Lisinopril (Prinivil) 20 mg BID ORAL 09/16/17 09:00 10/16/17 08:59 09/17/17 18:36 Loperamide HCl (Imodium) 2 mg Q4H PRN ORAL Diarrhea 09/15/17 11:15 10/15/17 11:14 09/18/17 13:40 Lorazepam (Ativan 2mg/ml 1ml) 1 mg Q4H PRN IV For Anxiety 09/17/17 14:30 09/24/17 14:29 09/18/17 09:04 Morphine Sulfate (Morphine Sulfate) 2 mg EVERY 3 HOURS PRN IM Severe Pain (Pain Scale 7-10) 09/17/17 15:00 09/24/17 14:59 09/18/17 14:00 Nifedipine (Procardia XL) 60 mg BID ORAL 09/17/17 09:00 10/17/17 08:59 09/17/17 18:37 Polyethylene Glycol (Miralax) 17 gm HSPRN PRN ORAL Constipation 09/10/17 15:45 10/08/17 15:44 Sevelamer Carbonate (Renvela) 2,400 mg THREE TIMES A DAY ORAL 09/11/17 13:00 10/11/17 12:59 09/18/17 13:17 Allergies: Coded Allergies: METOCLOPRAMIDE (Unverified Allergy, Severe, 09/08/17) PROCHLORPERAZINE (Unverified Allergy, Severe, 09/08/17) VANCOMYCIN (Unverified Allergy, Severe, 09/08/17) ROS Limited/Unobtainable: No Constitutional: Reports: no symptoms HEENT: Reports: no symptoms Cardiovascular: Reports: no symptoms Respiratory: Reports: no symptoms Gastrointestinal/Abdominal: Reports: no symptoms Genitourinary: Reports: no symptoms Neurologic/Psychiatric: Reports: no symptoms Subjective 32 YO M admitted with abdominal pain. Now renal failure; S/P hemodialysis 09/15. Cover for Int Med-Dr Voss. Discharge held-see soc work note. Objective Last Vital Signs Date Time Temp Pulse Resp B/P (MAP) Pulse Ox O2 Delivery O2 Flow Rate FiO2 09/18/17 12:00 98.1 72 20 125/72 95 09/18/17 04:00 Room Air 09/13/17 12:30 3.0 Laboratory Tests Test 09/18/17 03:50 White Blood Count 6.1 K/UL (4.8-10.8) Red Blood Count 3.41 M/UL (4.70-6.10) L Hemoglobin 10.3 G/DL (14.2-18.0) #L Hematocrit 31.1 % (42.0-52.0) #L Mean Corpuscular Volume 91 FL (80-99) Mean Corpuscular Hemoglobin 30.0 PG (27.0-31.0) Mean Corpuscular Hemoglobin Concent 33.0 G/DL (32.0-36.0) Red Cell Distribution Width 14.0 % (11.6-14.8) Platelet Count 217 K/UL (150-450) Mean Platelet Volume 7.8 FL (6.5-10.1) Neutrophils (%) (Auto) 68.7 % (45.0-75.0) Lymphocytes (%) (Auto) 21.8 % (20.0-45.0) Monocytes (%) (Auto) 7.3 % (1.0-10.0) Eosinophils (%) (Auto) 1.2 % (0.0-3.0) Basophils (%) (Auto) 1.1 % (0.0-2.0) Sodium Level 142 MMOL/L (136-145) Potassium Level 4.5 MMOL/L (3.5-5.1) Chloride Level 109 MMOL/L (98-107) H Carbon Dioxide Level 30 MMOL/L (21-32) Anion Gap 4 mmol/L (5-15) L Blood Urea Nitrogen 19 mg/dL (7-18) H Creatinine 2.7 MG/DL (0.55-1.30) H Estimat Glomerular Filtration Rate 27.7 mL/min (>60) Glucose Level 103 MG/DL (74-106) Calcium Level 7.5 MG/DL (8.5-10.1) L Microbiology Date/Time Source Procedure Growth Status 09/17/17 17:30 Stool Stool Culture Pending Resulted 09/17/17 17:30 Stool Clostridium difficile Toxin Assay - Final Resulted Intake and Output 09/17/17 09/18/17 19:00 07:00 Intake Total 625 ml Output Total 675 ml 3000 ml Balance -50 ml -3000 ml Intake Oral 625 ml Output Urine Total 675 ml Hemodialysis UF 3000 ml # Voids 3 # Bowel Movements 3 Objective General Appearance: WD/WN, alert, mild distress EENT: PERRL/EOMI, normal ENT inspection Neck: non-tender, normal alignment, supple, normal inspection Cardiovascular: normal peripheral pulses, normal rate, regular rhythm, no gallop/murmur, no JVD Respiratory/Chest: chest wall non-tender, lungs clear, normal breath sounds, no respiratory distress, no accessory muscle use Abdomen: no organomegaly, no mass, decreased bowel sounds, distended, guarding , tender Extremities: normal range of motion Neurologic: 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 See nephrology note. (2) Anemia of renal disease Assessment & Plan: S/P transfusion (3) HTN (hypertension) Assessment & Plan: Uncontrolled. Await cardiology consult. Cont coreg and norvasc. (4) Ascites Assessment & Plan: Await paracentesis. See GI note. (5) Abdominal pain (6) Abdominal distention (7) Diarrhea Assessment & Plan: C. Diff neg; await stool culture (8) Gastroparesis (9) Diabetes type 1, controlled Assessment & Plan: Continue novolog sliding scale. (10) Hypothyroidism Assessment & Plan: Continue levoxyl (11) CHF (congestive heart failure) Assessment & Plan: Volume overload. See cardiology note. await hemodialysis (12) Anemia Assessment & Plan: S/P transfusion 1 unit PRBC on 09/13/17 Assessment/Plan Discharge planning. On hold-sse social work note. SANJIV SARABIA Sep 18, 2017 14:54
[2017-09-18] MEDS: Dyna-Hex 2% Top Sol 2oz TOPIC SCH (23:21)
[2017-09-19] VITALS (10 sets, daily range): BP systolic 128–226; BP diastolic 75–120
[2017-09-19] MEDS: LORazepam Inj 2mg/ml 1ml IV PRN ×5 (00:48→22:54)
[2017-09-19] MEDS: guaiFENesin w/Codeine 5ml Liq ud ORAL PRN ×2 (00:54→20:51)
[2017-09-19] MEDS: Morphine Sulfate 4mg/ml Inj IM PRN ×4 (02:34→15:27)
[2017-09-19] MEDS: Levothyroxine 25mcg tab ORAL SCH (06:39)
[2017-09-19] MEDS: Loperamide 2mg cap ORAL PRN (06:39)
[2017-09-19] MEDS: Lisinopril 20mg tab ORAL SCH ×2 (08:42→18:25)
[2017-09-19] MEDS: Aspirin Baby 81mg ORAL SCH (08:42)
[2017-09-19] MEDS: Carvedilol 25mg Tab ORAL SCH ×2 (08:43→20:43)
[2017-09-19] MEDS: Heparin 5000 units/ml inj SUBQ SCH ×2 (08:44→20:44)
--- NOTE | 2017-09-19 09:49 | Pulmonology Progress Note ---
Assessment/Plan Assessment/Plan ASSESSMENT Acute on chronic renal failure with new initiation of HD diabetic nephropathy nephrotic syndrome DM type 1 HTN chronic pancreatitis gastroparesis anemia of renal disease hypothyroidism HTN urgency fluid overload elevated LFT PLAN OF CARE MS floor started on HD after placement by IR Right jugular HD catheter nephro follows monitor renal parameters, correct lytes, avoid nephrotoxic 24 hr urine with > 3 gm protein, most likely nephrotic syndrome abdominal OCTAVIO with evidence of increased echogenicity c/w medical renal disease , no hydro On EPO monitor HH, transfuse today as per nephro and prn s/p 1 u PRBC 09/14, LFT trending down hep panel negative abdominal US no gallstones, no dilated ducts ECHO with pEF 60% and RVSP of 29 BP management with BB, CCB, Clonidine and Hydralazine, currently controlled bl and stool cx negative, stool for OP negative lipase stable pain management bowel regimen on levothyroxine now, check TFT in 1 month dc plan, to continue HD will need HD arrangement pt has tunneled HD catheter inserted M dc plan working with PT not able to be dc until Tuesday - per JAMES Un[facility] HD today and dc plan for Tuesday case discussed and evaluated by supervising physician Subjective Allergies: Coded Allergies: METOCLOPRAMIDE (Unverified Allergy, Severe, 09/08/17) PROCHLORPERAZINE (Unverified Allergy, Severe, 09/08/17) VANCOMYCIN (Unverified Allergy, Severe, 09/08/17) Subjective s/p initiation of HD, dialyzed 09/13 , 09/15 and 09/17 afebrile, no leucocytosis s/p 1 u PRBC 09/14 awaiting for disposition Objective Last 24 Hour Vital Signs Date Time Temp Pulse Resp B/P (MAP) Pulse Ox O2 Delivery O2 Flow Rate FiO2 09/19/17 08:47 75 172/105 09/19/17 08:43 75 172/105 09/19/17 08:42 172/105 09/19/17 08:00 98.7 75 19 172/105 98 09/19/17 07:15 98.6 09/19/17 06:48 79 176/105 09/19/17 06:40 190/110 09/19/17 06:39 98.6 09/19/17 04:00 98.4 81 19 190/110 98 09/19/17 02:34 98.6 09/19/17 00:33 98.6 84 20 198/120 98 09/18/17 23:26 98.8 09/18/17 23:21 82 170/100 09/18/17 20:00 98.8 82 19 170/100 98 18 19:53 170/100 09/18/17 17:35 72 125/72 09/18/17 17:35 125/72 09/18/17 12:00 98.1 72 20 125/72 95 09/18/17 10:49 72 134/73 Intake and Output 09/18/17 09/19/17 19:00 07:00 Intake Total 600 ml 680 ml Balance 600 ml 680 ml Intake Oral 600 ml 680 ml # Voids 4 3 # Bowel Movements 5 3 Objective General Appearance: no acute distress HEENT: anicteric Respiratory/Chest: lungs clear, no respiratory distress Cardiovascular: normal rate, regular rhythm, R jugular tunneled HD catheter Abdomen: soft, non tender, non distended Extremities: no edema Neurologic/Psychiatric: no motor/sensory deficits, alert, oriented x 3, responsive Musculoskeletal: normal muscle bulk Microbiology Date/Time Source Procedure Growth Status 09/17/17 17:30 Stool Stool Culture Pending Resulted 09/17/17 17:30 Stool Clostridium difficile Toxin Assay - Final Resulted Current Medications Medications (Trade) Dose Ordered Sig/Michelle Route PRN Reason Start Time Stop Time Status Last Admin Dose Admin Acetaminophen (Tylenol) 650 mg Q4H PRN ORAL fever 09/09/17 23:45 10/08/17 15:44 Acetaminophen/ Hydrocodone Bitart ([place] 5/325) 1 tab Q4H PRN ORAL Moderate Pain (Pain Scale 4-6) 09/16/17 15:15 09/23/17 15:14 09/17/17 14:34 Aspirin (ASA) 81 mg DAILY ORAL 09/10/17 09:00 10/10/17 08:59 09/19/17 08:42 Carvedilol (Coreg) 25 mg EVERY 12 HOURS ORAL 09/17/17 09:00 10/17/17 08:59 09/19/17 08:43 Chlorhexidine Gluconate (Gail-Hex 2%) 1 applic DAILY@1999 TOPIC 09/18/17 20:00 10/18/17 19:59 09/18/17 23:21 Clonidine HCl (Catapres Tab) 0.1 mg Q4H PRN ORAL SYSTOLIC BP > 160 09/16/17 20:45 10/10/17 08:29 09/19/17 06:40 Dextrose (Dextrose 50%) STAT PRN IV Hypoglycemia 09/10/17 15:45 10/08/17 15:44 Diphenhydramine HCl (Benadryl) 25 mg Q6H PRN ORAL Itching/Pruritis 09/10/17 03:45 10/08/17 15:44 09/17/17 04:35 Epoetin Curry (Procrit (for ESRD on dialysis)) 10,000 units TUE-TUE-TUE SUBQ 09/19/17 21:00 10/19/17 20:59 Guaifenesin/ Codeine Phosphate (Robitussin with codeine) 5 ml Q6H PRN ORAL For Cough 09/10/17 17:00 10/10/17 16:59 09/19/17 00:54 Heparin Sodium (Porcine) (Heparin 5000 units/ml) 5,000 units EVERY 12 HOURS SUBQ 09/10/17 09:00 10/08/17 20:59 09/19/17 08:44 Lansoprazole (Prevacid) 30 mg BID ORAL 09/17/17 18:00 10/11/17 08:59 09/19/17 08:42 Levothyroxine Sodium (Synthroid) 25 mcg DAILY@0630 ORAL 09/10/17 06:30 10/10/17 06:29 09/19/17 06:39 Lisinopril (Prinivil) 20 mg BID ORAL 09/16/17 09:00 10/16/17 08:59 09/19/17 08:42 Loperamide HCl (Imodium) 2 mg Q4H PRN ORAL Diarrhea 09/15/17 11:15 10/15/17 11:14 09/19/17 06:39 Lorazepam (Ativan 2mg/ml 1ml) 1 mg Q4H PRN IV For Anxiety 09/17/17 14:30 09/24/17 14:29 09/19/17 05:05 Morphine Sulfate (Morphine Sulfate) 2 mg EVERY 3 HOURS PRN IM Severe Pain (Pain Scale 7-10) 09/17/17 15:00 09/24/17 14:59 09/19/17 06:39 Nifedipine (Procardia XL) 60 mg BID ORAL 09/17/17 09:00 10/17/17 08:59 09/19/17 08:47 Polyethylene Glycol (Miralax) 17 gm HSPRN PRN ORAL Constipation 09/10/17 15:45 10/08/17 15:44 Sevelamer Carbonate (Renvela) 2,400 mg THREE TIMES A DAY ORAL 09/11/17 13:00 10/11/17 12:59 09/19/17 08:42 Jesse (Eric)Shama NP Sep 19, 2017 09:49
--- NOTE | 2017-09-19 10:34 | Internal Med Progress Note ---
Subjective Date of Service: Sep 19, 2017 Physician Name Sanjiv Talbot Attending Physician Serafin Voss MD Current Medications Medications (Trade) Dose Ordered Sig/Michelle Route PRN Reason Start Time Stop Time Status Last Admin Dose Admin Acetaminophen (Tylenol) 650 mg Q4H PRN ORAL fever 09/09/17 23:45 10/08/17 15:44 Acetaminophen/ Hydrocodone Bitart ([place] 5/325) 1 tab Q4H PRN ORAL Moderate Pain (Pain Scale 4-6) 09/16/17 15:15 09/23/17 15:14 09/17/17 14:34 Aspirin (ASA) 81 mg DAILY ORAL 09/10/17 09:00 10/10/17 08:59 09/19/17 08:42 Carvedilol (Coreg) 25 mg EVERY 12 HOURS ORAL 09/17/17 09:00 10/17/17 08:59 09/19/17 08:43 Chlorhexidine Gluconate (Gail-Hex 2%) 1 applic DAILY@2000 TOPIC 09/18/17 20:00 10/18/17 19:59 09/18/17 23:21 Clonidine HCl (Catapres Tab) 0.1 mg Q4H PRN ORAL SYSTOLIC BP > 160 09/16/17 20:45 10/10/17 08:29 09/19/17 06:40 Dextrose (Dextrose 50%) STAT PRN IV Hypoglycemia 09/10/17 15:45 10/08/17 15:44 Diphenhydramine HCl (Benadryl) 25 mg Q6H PRN ORAL Itching/Pruritis 09/10/17 03:45 10/08/17 15:44 09/17/17 04:35 Epoetin Curry (Procrit (for ESRD on dialysis)) 10,000 units MON-WED-TUE SUBQ 09/19/17 21:00 10/19/17 20:59 Guaifenesin/ Codeine Phosphate (Robitussin with codeine) 5 ml Q6H PRN ORAL For Cough 09/10/17 17:00 10/10/17 16:59 09/19/17 00:54 Heparin Sodium (Porcine) (Heparin 5000 units/ml) 5,000 units EVERY 12 HOURS SUBQ 09/10/17 09:00 10/08/17 20:59 09/19/17 08:44 Lansoprazole (Prevacid) 30 mg BID ORAL 09/17/17 18:00 10/11/17 08:59 09/19/17 08:42 Levothyroxine Sodium (Synthroid) 25 mcg DAILY@0630 ORAL 09/10/17 06:30 10/10/17 06:29 09/19/17 06:39 Lisinopril (Prinivil) 20 mg BID ORAL 09/16/17 09:00 10/16/17 08:59 09/19/17 08:42 Loperamide HCl (Imodium) 2 mg Q4H PRN ORAL Diarrhea 09/15/17 11:15 10/15/17 11:14 09/19/17 06:39 Lorazepam (Ativan 2mg/ml 1ml) 1 mg Q4H PRN IV For Anxiety 09/17/17 14:30 09/24/17 14:29 09/19/17 05:05 Morphine Sulfate (Morphine Sulfate) 2 mg EVERY 3 HOURS PRN IM Severe Pain (Pain Scale 7-10) 09/17/17 15:00 09/24/17 14:59 09/19/17 06:39 Nifedipine (Procardia XL) 60 mg BID ORAL 09/17/17 09:00 10/17/17 08:59 09/19/17 08:47 Polyethylene Glycol (Miralax) 17 gm HSPRN PRN ORAL Constipation 09/10/17 15:45 10/08/17 15:44 Sevelamer Carbonate (Renvela) 2,400 mg THREE TIMES A DAY ORAL 09/11/17 13:00 10/11/17 12:59 09/19/17 08:42 Allergies: Coded Allergies: METOCLOPRAMIDE (Unverified Allergy, Severe, 09/08/17) PROCHLORPERAZINE (Unverified Allergy, Severe, 09/08/17) VANCOMYCIN (Unverified Allergy, Severe, 09/08/17) ROS Limited/Unobtainable: No Constitutional: Reports: no symptoms HEENT: Reports: no symptoms Cardiovascular: Reports: no symptoms Respiratory: Reports: no symptoms Gastrointestinal/Abdominal: Reports: no symptoms Genitourinary: Reports: no symptoms Neurologic/Psychiatric: Reports: no symptoms Subjective 32 YO M admitted with abdominal pain. Now renal failure; S/P hemodialysis 09/15. Cover for Int Med-Dr Voss. Discharge held-see soc work note. Objective Last Vital Signs Date Time Temp Pulse Resp B/P (MAP) Pulse Ox O2 Delivery O2 Flow Rate FiO2 09/19/17 08:47 75 172/105 09/19/17 08:00 98.7 19 98 09/18/17 04:00 Room Air 09/13/17 12:30 3.0 Microbiology Date/Time Source Procedure Growth Status 09/17/17 17:30 Stool Stool Culture Pending Resulted 09/17/17 17:30 Stool Clostridium difficile Toxin Assay - Final Resulted Intake and Output 09/18/17 09/19/17 19:00 07:00 Intake Total 600 ml 680 ml Balance 600 ml 680 ml Intake Oral 600 ml 680 ml # Voids 4 3 # Bowel Movements 5 3 Objective General Appearance: WD/WN, alert, mild distress EENT: PERRL/EOMI, normal ENT inspection Neck: non-tender, normal alignment, supple, normal inspection Cardiovascular: normal peripheral pulses, normal rate, regular rhythm, no gallop/murmur, no JVD Respiratory/Chest: chest wall non-tender, lungs clear, normal breath sounds, no respiratory distress, no accessory muscle use Abdomen: no organomegaly, no mass, decreased bowel sounds, distended, guarding , tender Extremities: normal range of motion 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 See nephrology note. (2) Anemia of renal disease Assessment & Plan: S/P transfusion (3) HTN (hypertension) Assessment & Plan: Uncontrolled. Await cardiology consult. Cont coreg and norvasc. (4) Ascites Assessment & Plan: Await paracentesis. See GI note. (5) Abdominal pain (6) Abdominal distention (7) Diarrhea Assessment & Plan: C. Diff neg; await stool culture (8) Gastroparesis (9) Diabetes type 1, controlled Assessment & Plan: Continue novolog sliding scale. (10) Hypothyroidism Assessment & Plan: Continue levoxyl (11) CHF (congestive heart failure) Assessment & Plan: Volume overload. See cardiology note. await hemodialysis (12) Anemia Assessment & Plan: S/P transfusion 1 unit PRBC on 09/13/17 Status: stable Assessment/Plan Discharge planning. On hold-sse social work note. SANJIV TALBOT Sep 19, 2017 10:34
[2017-09-19] MEDS ORDERED: LORazepam Inj 2mg/ml 1ml IV ONE (10:45)
--- NOTE | 2017-09-19 10:54 | GI Progress Note ---
Assessment/Plan Problems: (1) Renal failure (ARF), acute on chronic ICD Codes: N17.9 - Acute kidney failure, unspecified; N18.9 - Chronic kidney disease, unspecified SNOMED: 273778472 (2) Diarrhea ICD Codes: R19.7 - Diarrhea, unspecified SNOMED: 61180308 (3) Vomiting ICD Codes: R11.10 - Vomiting, unspecified SNOMED: 147630178 (4) Diabetes type 1, controlled ICD Codes: E10.9 - Type 1 diabetes mellitus without complications SNOMED: 38596549, 795372519 (5) Gastroparesis ICD Codes: K31.84 - Gastroparesis SNOMED: 740381174 (6) Chronic pancreatitis ICD Codes: K86.1 - Other chronic pancreatitis SNOMED: 750844013 (7) Anemia ICD Codes: D64.9 - Anemia, unspecified SNOMED: 256413518 Status: stable Status Narrative Discussed with Dr. Schultz. Assessment/Plan abdominal U/S reviewed Hep panel >> negative cdiff / O&P >> negative anemia work 2/2 to renal disease agreed to paracentesis fu nephro recs renal diet DM mgmt Lomotil prn pain mgmt ppi fu labs Subjective Subjective generalized weakness and pain c/o of diarrhea BLE edema Objective Last 24 Hour Vital Signs Date Time Temp Pulse Resp B/P (MAP) Pulse Ox O2 Delivery O2 Flow Rate FiO2 09/19/17 08:47 75 172/105 09/19/17 08:43 75 172/105 09/19/17 08:42 172/105 09/19/17 08:00 98.7 75 19 172/105 98 09/19/17 07:15 98.6 09/19/17 06:48 79 176/105 09/19/17 06:40 190/110 09/19/17 06:39 98.6 09/19/17 04:00 98.4 81 19 190/110 98 09/19/17 02:34 98.6 09/19/17 00:33 98.6 84 20 198/120 98 09/18/17 23:26 98.8 09/18/17 23:21 82 170/100 09/18/17 20:00 98.8 82 19 170/100 98 09/18/17 19:53 170/100 09/18/17 17:35 72 125/72 2/18/18 17:35 125/72 09/18/17 12:00 98.1 72 20 125/72 95 Intake and Output 09/18/17 09/19/17 19:00 07:00 Intake Total 600 ml 680 ml Balance 600 ml 680 ml Intake Oral 600 ml 680 ml # Voids 4 3 # Bowel Movements 5 3 Height (Feet): 5 Height (Inches): 10.00 Weight (Pounds): 212 General Appearance: WD/WN, no apparent distress, alert, thin Cardiovascular: normal rate Respiratory/Chest: normal breath sounds, no respiratory distress Abdominal Exam: normal bowel sounds, non tender, soft Extremities: non-tender, other - BLE edema Amber Clark N.P. Sep 19, 2017 10:54
[2017-09-19 11:27] LABS: BASOPHILS % (AUTO) 1.2 % (0.0-2.0); EOSINOPHILS % (AUTO) 0.8 % (0.0-3.0); HEMATOCRIT 29.1 % (42.0-52.0); HEMOGLOBIN 9.5 G/DL (14.2-18.0); MEAN CORPUSCULAR VOLUME 94 FL (80-99); MONOCYTES % (AUTO) 11.4 % (1.0-10.0); NEUTROPHILS % (AUTO) 64.6 % (45.0-75.0); PLATELET COUNT 232 K/UL (150-450); RED CELL DISTRIBUTION WIDTH 14.7 % (11.6-14.8); WHITE BLOOD COUNT 6.2 K/UL (4.8-10.8)
[2017-09-19 11:32] LABS: INR 1.1 (0.9-1.1)
[2017-09-19 11:42] LABS: ALANINE AMINOTRANSFERASE 44 U/L (12-78); ALBUMIN 1.3 G/DL (3.4-5.0); ALBUMIN/GLOBULIN RATIO 0.4 (1.0-2.7); ALKALINE PHOSPHATASE 179 U/L (46-116); ANION GAP 6 mmol/L (5-15); ASPARTATE AMINO TRANSFERASE 32 U/L (15-37); BILIRUBIN,TOTAL 0.3 MG/DL (0.2-1.0); BLOOD UREA NITROGEN 23 mg/dL (7-18); CALCIUM 7.3 MG/DL (8.5-10.1); CARBON DIOXIDE 24 MMOL/L (21-32); CHLORIDE 111 MMOL/L (98-107); CREATININE 3.2 MG/DL (0.55-1.30); PHOSPHORUS 4.7 MG/DL (2.5-4.9); POTASSIUM 4.5 MMOL/L (3.5-5.1); SODIUM 141 MMOL/L (136-145)
[2017-09-19] MEDS: Lomotil 2.5mg tab ORAL PRN (11:58)
--- NOTE | 2017-09-19 12:11 | Nephrology Progress Note ---
Assessment/Plan Problem List: (1) Renal failure (ARF), acute on chronic (2) Nephrotic syndrome (3) Diabetic nephropathy (4) HTN (hypertension) Assessment: hypertensive kidney disease Assessment Advanced renal failure due to Type I DM DIabetic Nephropathy- Most likely NS -. Bilateral upper quadrant pain. -. Diarrhea. -. Diabetic gastroparesis. -. Diabetes type 1. -. Hypertension. -. Anemia. due to CKD -. HypoThyroid Plan Plan: Dialysed 09/17 , due again 09/19 Transfused , Add Coozar to BP meds Zestril Procardia and Clonidine to BP meds- adjust meds Per GI 24 h urine collection over 3 gram protein Monitor renal parameters , BS and BP Avoid nephrotoxics Due DC and OP HD 2D Echo : Left ventricular ejection fraction estimated to be 60 %. No evidence of left ventricular hypertrophy. Trace pericardial effusion . Moderate left atrial enlargement. OCTAVIO: Left kidney measures 11.8 cm in length. Right kidney measures 9.6 cm length. Kidneys demonstrate diffusely increased echogenicity. No hydronephrosis. there is a small left lower pole renal cyst Subjective ROS Limited/Unobtainable: No Constitutional: Reports: malaise Objective Objective Last 24 Hour Vital Signs Date Time Temp Pulse Resp B/P (MAP) Pulse Ox O2 Delivery O2 Flow Rate FiO2 09/19/17 08:47 75 172/105 09/19/17 08:43 75 172/105 09/19/17 08:42 172/105 09/19/17 08:00 98.7 75 19 172/105 98 09/19/17 07:15 98.6 09/19/17 06:48 79 176/105 09/19/17 06:40 190/110 09/19/17 06:39 98.6 09/19/17 04:00 98.4 81 19 190/110 98 09/19/17 02:34 98.6 09/19/17 00:33 98.6 84 20 198/120 98 09/18/17 23:26 98.8 09/18/17 23:21 82 170/100 09/18/17 20:00 98.8 82 19 170/100 98 09/18/17 19:53 170/100 09/18/17 17:35 72 125/72 09/18/17 17:35 125/72 Intake and Output 09/18/17 09/19/17 19:00 07:00 Intake Total 600 ml 680 ml Balance 600 ml 680 ml Intake Oral 600 ml 680 ml # Voids 4 3 # Bowel Movements 5 3 Laboratory Tests 09/19/17 11:10: White Blood Count 6.2, Red Blood Count 3.10L, Hemoglobin 9.5L, Hematocrit 29.1L , Mean Corpuscular Volume 94, Mean Corpuscular Hemoglobin 30.5, Mean Corpuscular Hemoglobin Concent 32.5, Red Cell Distribution Width 14.7, Platelet Count 232, Mean Platelet Volume 6.7, Neutrophils (%) (Auto) 64.6, Lymphocytes (% ) (Auto) 22.0, Monocytes (%) (Auto) 11.4H, Eosinophils (%) (Auto) 0.8, Basophils (%) (Auto) 1.2, Prothrombin Time 11.0, Prothromb Time International Ratio 1.1, Activated Partial Thromboplast Time 23, Sodium Level 141, Potassium Level 4.5, Chloride Level 111H, Carbon Dioxide Level 24, Anion Gap 6, Blood Urea Nitrogen 23H, Creatinine 3.2H, Estimat Glomerular Filtration Rate 22.8, Glucose Level 107H, Uric Acid 4.4, Calcium Level 7.3L, Phosphorus Level 4.7, Magnesium Level 1.6L, Total Bilirubin 0.3, Aspartate Amino Transf (AST/SGOT) 32 , Alanine Aminotransferase (ALT/SGPT) 44, Alkaline Phosphatase 179H, C-Reactive Protein, Quantitative 1.6H, Pro-B-Type Natriuretic Peptide 6092H, Total Protein 4.4L, Albumin 1.3L, Globulin 3.1, Albumin/Globulin Ratio 0.4L Height (Feet): 5 Height (Inches): 10.00 Weight (Pounds): 212 General Appearance: no apparent distress Objective no change LEXIS PRESTON Sep 19, 2017 12:11
[2017-09-19] MEDS ORDERED: Losartan 25mg tab ORAL ONE (12:15)
[2017-09-19] MEDS ORDERED: Lidocaine 1% MPF 10mg/ml 5ml INJ ONE (13:15)
--- NOTE | 2017-09-19 13:45 | Cardiac Electrophysiology PN ---
Assessment/Plan Assessment/Plan 1. Accelerated hypertension. On Procardia XL 60 bid, clonidine 0.1 mg q8, Losartan 50 bid, Coreg 25 mg bid and HD 2. Chronic kidney disease. On HD by Dr. Garrett. 3. Insulin-dependent diabetes. 4. Anemia of renal disease.S/P PRBC today 5. Abdominal pain and distention, diarrhea, and gastroparesis. Negative for C Diff. 6. Hypothyroidism, on Synthroid. DW RN Subjective Subjective No CP or SOB. Getting HD today. Objective Last 24 Hour Vital Signs Date Time Temp Pulse Resp B/P (MAP) Pulse Ox O2 Delivery O2 Flow Rate FiO2 09/19/17 12:43 172/105 09/19/17 12:00 98.1 116 19 226/102 97 09/19/17 08:47 75 172/105 09/19/17 08:43 75 172/105 09/19/17 08:42 172/105 09/19/17 08:00 98.7 75 19 172/105 98 09/19/17 07:15 98.6 09/19/17 06:48 79 176/105 09/19/17 06:40 190/110 09/19/17 06:39 98.6 09/19/17 04:00 98.4 81 19 190/110 98 09/19/17 02:34 98.6 09/19/17 00:33 98.6 84 20 198/120 98 09/18/17 23:26 98.8 09/18/17 23:21 82 170/100 09/18/17 20:00 98.8 82 19 170/100 98 09/18/17 19:53 170/100 09/18/17 17:35 72 125/72 09/18/17 17:35 125/72 Intake and Output 09/18/17 09/19/17 19:00 07:00 Intake Total 600 ml 680 ml Balance 600 ml 680 ml Intake Oral 600 ml 680 ml # Voids 4 3 # Bowel Movements 5 3 Laboratory Tests Test 09/19/17 11:10 White Blood Count 6.2 K/UL (4.8-10.8) Red Blood Count 3.10 M/UL (4.70-6.10) L Hemoglobin 9.5 G/DL (14.2-18.0) L Hematocrit 29.1 % (42.0-52.0) L Mean Corpuscular Volume 94 FL (80-99) Mean Corpuscular Hemoglobin 30.5 PG (27.0-31.0) Mean Corpuscular Hemoglobin Concent 32.5 G/DL (32.0-36.0) Red Cell Distribution Width 14.7 % (11.6-14.8) Platelet Count 232 K/UL (150-450) Mean Platelet Volume 6.7 FL (6.5-10.1) Neutrophils (%) (Auto) 64.6 % (45.0-75.0) Lymphocytes (%) (Auto) 22.0 % (20.0-45.0) Monocytes (%) (Auto) 11.4 % (1.0-10.0) H Eosinophils (%) (Auto) 0.8 % (0.0-3.0) Basophils (%) (Auto) 1.2 % (0.0-2.0) Prothrombin Time 11.0 SEC (9.30-11.50) Prothromb Time International Ratio 1.1 (0.9-1.1) Activated Partial Thromboplast Time 23 SEC (23-33) Sodium Level 141 MMOL/L (136-145) Potassium Level 4.5 MMOL/L (3.5-5.1) Chloride Level 111 MMOL/L (98-107) H Carbon Dioxide Level 24 MMOL/L (21-32) Anion Gap 6 mmol/L (5-15) Blood Urea Nitrogen 23 mg/dL (7-18) H Creatinine 3.2 MG/DL (0.55-1.30) H Estimat Glomerular Filtration Rate 22.8 mL/min (>60) Glucose Level 107 MG/DL (74-106) H Uric Acid 4.4 MG/DL (2.6-7.2) Calcium Level 7.3 MG/DL (8.5-10.1) L Phosphorus Level 4.7 MG/DL (2.5-4.9) Magnesium Level 1.6 MG/DL (1.8-2.4) L Total Bilirubin 0.3 MG/DL (0.2-1.0) Aspartate Amino Transf (AST/SGOT) 32 U/L (15-37) Alanine Aminotransferase (ALT/SGPT) 44 U/L (12-78) Alkaline Phosphatase 179 U/L (46-116) H C-Reactive Protein, Quantitative 1.6 mg/dL (0.00-0.90) H Pro-B-Type Natriuretic Peptide 6092 pg/mL (0-125) H Total Protein 4.4 G/DL (6.4-8.2) L Albumin 1.3 G/DL (3.4-5.0) L Globulin 3.1 g/dL Albumin/Globulin Ratio 0.4 (1.0-2.7) L Microbiology Date/Time Source Procedure Growth Status 09/17/17 17:30 Stool Stool Culture - Preliminary NORMAL FECAL JOSE L. Resulted 09/17/17 17:30 Stool Clostridium difficile Toxin Assay - Final Resulted Objective HEAD AND NECK: No JVD. Right IJ HD LUNGS: Clear. CARDIOVASCULAR: Regular S1 and S2. No gallop or murmur. ABDOMEN: Soft. EXTREMITIES: No pitting edema. MONICA DANGELO Sep 19, 2017 13:45
[2017-09-19] MEDS: Norco 5mg/325mg tab ORAL PRN (18:26)
--- NOTE | 2017-09-19 20:01 | Consultation ---
History of Present Illness General Chief Complaint: Abdominal Pain Referring physician: AMY PERSAUD Reason for Consultation: ABDOMINAL PAIN Present Illness HPI patient has a history of type 1 diabetes. The patient has a history of chronic renal failure. the pt has addiction to opioids and is anxious. the pt is not having any si/hi. the pt is asking for antianxiety meds Allergies: Coded Allergies: METOCLOPRAMIDE (Unverified Allergy, Severe, 09/08/17) PROCHLORPERAZINE (Unverified Allergy, Severe, 09/08/17) VANCOMYCIN (Unverified Allergy, Severe, 09/08/17) Patient History Healthcare decision maker Resuscitation status Full Code Advanced Directive on File Past Medical/Surgical History Past Medical/Surgical History: (1) Abdominal distention (2) Anemia (3) Renal disease (4) Chronic pancreatitis (5) Gastroparesis (6) Diabetes type 1, controlled (7) Renal failure (8) Vomiting (9) Diarrhea (10) Renal failure (ARF), acute on chronic (11) Diabetic nephropathy (12) Ascites (13) ESRD (end stage renal disease) (14) Abdominal pain (15) HTN (hypertension) (16) Anemia of renal disease (17) Hypothyroidism (18) CHF (congestive heart failure) (19) Nephrotic syndrome Review of Systems Psychiatric: Reports: see HPI, prior hx, anxiety, depressed feelings Physical Exam General Appearance: no apparent distress, alert Neurologic: alert, oriented x 3, responsive, depressed affect Last 24 Hour Vital Signs Date Time Temp Pulse Resp B/P (MAP) Pulse Ox O2 Delivery O2 Flow Rate FiO2 09/19/17 18:54 134/80 09/19/17 18:26 73 165/99 09/19/17 18:25 165/99 09/19/17 16:45 98.0 73 20 165/99 Room Air 09/19/17 16:30 Room Air 09/19/17 15:50 98.6 78 20 135/75 97 Room Air 09/19/17 13:00 Room Air 09/19/17 13:00 98.2 74 20 139/75 Room Air 09/19/17 12:43 172/105 09/19/17 12:00 98.1 116 19 226/102 97 09/19/17 08:47 75 172/105 09/19/17 08:43 75 172/105 09/19/17 08:42 172/105 09/19/17 08:00 98.7 75 19 172/105 98 09/19/17 07:15 98.6 09/19/17 06:48 79 176/105 09/19/17 06:40 190/110 09/19/17 06:39 98.6 09/19/17 04:00 98.4 81 19 190/110 98 09/19/17 02:34 98.6 09/19/17 00:33 98.6 84 20 198/120 98 09/18/17 23:26 98.8 09/18/17 23:21 82 170/100 09/18/17 20:00 98.8 82 19 170/100 98 Intake and Output 09/18/17 09/19/17 19:00 07:00 Intake Total 600 ml 680 ml Balance 600 ml 680 ml Intake Oral 600 ml 680 ml # Voids 4 3 # Bowel Movements 5 3 Laboratory Tests Test 09/19/17 11:10 White Blood Count 6.2 K/UL (4.8-10.8) Red Blood Count 3.10 M/UL (4.70-6.10) L Hemoglobin 9.5 G/DL (14.2-18.0) L Hematocrit 29.1 % (42.0-52.0) L Mean Corpuscular Volume 94 FL (80-99) Mean Corpuscular Hemoglobin 30.5 PG (27.0-31.0) Mean Corpuscular Hemoglobin Concent 32.5 G/DL (32.0-36.0) Red Cell Distribution Width 14.7 % (11.6-14.8) Platelet Count 232 K/UL (150-450) Mean Platelet Volume 6.7 FL (6.5-10.1) Neutrophils (%) (Auto) 64.6 % (45.0-75.0) Lymphocytes (%) (Auto) 22.0 % (20.0-45.0) Monocytes (%) (Auto) 11.4 % (1.0-10.0) H Eosinophils (%) (Auto) 0.8 % (0.0-3.0) Basophils (%) (Auto) 1.2 % (0.0-2.0) Prothrombin Time 11.0 SEC (9.30-11.50) Prothromb Time International Ratio 1.1 (0.9-1.1) Activated Partial Thromboplast Time 23 SEC (23-33) Sodium Level 141 MMOL/L (136-145) Potassium Level 4.5 MMOL/L (3.5-5.1) Chloride Level 111 MMOL/L (98-107) H Carbon Dioxide Level 24 MMOL/L (21-32) Anion Gap 6 mmol/L (5-15) Blood Urea Nitrogen 23 mg/dL (7-18) H Creatinine 3.2 MG/DL (0.55-1.30) H Estimat Glomerular Filtration Rate 22.8 mL/min (>60) Glucose Level 107 MG/DL (74-106) H Uric Acid 4.4 MG/DL (2.6-7.2) Calcium Level 7.3 MG/DL (8.5-10.1) L Phosphorus Level 4.7 MG/DL (2.5-4.9) Magnesium Level 1.6 MG/DL (1.8-2.4) L Total Bilirubin 0.3 MG/DL (0.2-1.0) Aspartate Amino Transf (AST/SGOT) 32 U/L (15-37) Alanine Aminotransferase (ALT/SGPT) 44 U/L (12-78) Alkaline Phosphatase 179 U/L (46-116) H C-Reactive Protein, Quantitative 1.6 mg/dL (0.00-0.90) H Pro-B-Type Natriuretic Peptide 6092 pg/mL (0-125) H Total Protein 4.4 G/DL (6.4-8.2) L Albumin 1.3 G/DL (3.4-5.0) L Globulin 3.1 g/dL Albumin/Globulin Ratio 0.4 (1.0-2.7) L Height (Feet): 5 Height (Inches): 10.00 Weight (Pounds): 212 Medications Current Medications Medications (Trade) Dose Ordered Sig/Michelle Route PRN Reason Start Time Stop Time Status Last Admin Dose Admin Acetaminophen (Tylenol) 650 mg Q4H PRN ORAL fever 09/09/17 23:45 10/08/17 15:44 Acetaminophen/ Hydrocodone Bitart ([place] 5/325) 1 tab Q4H PRN ORAL Moderate Pain (Pain Scale 4-6) 09/16/17 15:15 09/23/17 15:14 09/19/17 18:26 Aspirin (ASA) 81 mg DAILY ORAL 09/10/17 09:00 10/10/17 08:59 09/19/17 08:42 Carvedilol (Coreg) 25 mg EVERY 12 HOURS ORAL 09/17/17 09:00 10/17/17 08:59 09/19/17 08:43 Chlorhexidine Gluconate (Gail-Hex 2%) 1 applic DAILY@2000 TOPIC 09/18/17 20:00 10/18/17 19:59 09/18/17 23:21 Clonidine HCl (Catapres Tab) 0.1 mg Q4H PRN ORAL SYSTOLIC BP > 160 09/16/17 20:45 10/10/17 08:29 09/19/17 06:40 Dextrose (Dextrose 50%) STAT PRN IV Hypoglycemia 09/10/17 15:45 10/08/17 15:44 Diphenhydramine HCl (Benadryl) 25 mg Q6H PRN ORAL Itching/Pruritis 09/10/17 03:45 10/08/17 15:44 09/17/17 04:35 Diphenoxylate HCl/ Atropine (Lomotil) 2.5 mg Q4H PRN ORAL Diarrhea 09/19/17 10:45 10/19/17 10:44 09/19/17 11:58 Epoetin Curry (Procrit (for ESRD on dialysis)) 10,000 units TUE-TUE-TUE SUBQ 09/19/17 21:00 10/19/17 20:59 Guaifenesin/ Codeine Phosphate (Robitussin with codeine) 5 ml Q6H PRN ORAL For Cough 09/10/17 17:00 10/10/17 16:59 09/19/17 00:54 Heparin Sodium (Porcine) (Heparin 5000 units/ml) 5,000 units EVERY 12 HOURS SUBQ 09/10/17 09:00 10/08/17 20:59 09/19/17 08:44 Lansoprazole (Prevacid) 30 mg BID ORAL 09/17/17 18:00 10/11/17 08:59 09/19/17 18:27 Levothyroxine Sodium (Synthroid) 25 mcg DAILY@0630 ORAL 09/10/17 06:30 10/10/17 06:29 09/19/17 06:39 Lisinopril (Prinivil) 20 mg BID ORAL 09/16/17 09:00 10/16/17 08:59 09/19/17 18:25 Loperamide HCl (Imodium) 2 mg Q4H PRN ORAL Diarrhea 09/15/17 11:15 10/15/17 11:14 09/19/17 06:39 Lorazepam (Ativan 2mg/ml 1ml) 1 mg Q4H PRN IV For Anxiety 09/17/17 14:30 09/24/17 14:29 09/19/17 18:27 Losartan Potassium (Cozaar) 50 mg EVERY 12 HOURS ORAL 09/19/17 21:00 10/19/17 20:59 Nifedipine (Procardia XL) 60 mg BID ORAL 09/17/17 09:00 10/17/17 08:59 09/19/17 18:26 Polyethylene Glycol (Miralax) 17 gm HSPRN PRN ORAL Constipation 09/10/17 15:45 10/08/17 15:44 Sevelamer Carbonate (Renvela) 2,400 mg THREE TIMES A DAY ORAL 09/11/17 13:00 10/11/17 12:59 09/19/17 18:27 Assessment/Plan Status: stable Assessment/Plan mdd anxiety Charlie Morillo M.D. Sep 19, 2017 20:01
[2017-09-19] MEDS: Dyna-Hex 2% Top Sol 2oz TOPIC SCH (20:42)
[2017-09-19] MEDS: Losartan 50mg tab ORAL SCH (20:43)
[2017-09-19] MEDS: Epogen (for ESRD on dialysis) SUBQ SCH (20:44)
[2017-09-20] VITALS: BP 137/87
[2017-09-20] MEDS: LORazepam Inj 2mg/ml 1ml IV PRN ×3 (03:22→22:04)
[2017-09-20] MEDS: guaiFENesin w/Codeine 5ml Liq ud ORAL PRN (03:40)
[2017-09-20 04:00] VITALS: BP 131/78
[2017-09-20] MEDS: Levothyroxine 25mcg tab ORAL SCH (06:47)
[2017-09-20] MEDS: Norco 5mg/325mg tab ORAL PRN ×2 (06:47→20:57)
[2017-09-20 08:00] VITALS: BP 140/83
[2017-09-20 08:57] LABS: BASOPHILS % (AUTO) 0.9 % (0.0-2.0); EOSINOPHILS % (AUTO) 0.8 % (0.0-3.0); HEMATOCRIT 29.7 % (42.0-52.0); HEMOGLOBIN 9.5 G/DL (14.2-18.0); LYMPHOCYTES % (AUTO) 25.6 % (20.0-45.0); MEAN CORPUSCULAR VOLUME 94 FL (80-99); NEUTROPHILS % (AUTO) 63.7 % (45.0-75.0); PLATELET COUNT 262 K/UL (150-450); RED BLOOD COUNT 3.17 M/UL (4.70-6.10); RED CELL DISTRIBUTION WIDTH 14.6 % (11.6-14.8); WHITE BLOOD COUNT 6.1 K/UL (4.8-10.8)
[2017-09-20] MEDS: Aspirin Baby 81mg ORAL SCH (09:00)
[2017-09-20] MEDS: Heparin 5000 units/ml inj SUBQ SCH ×2 (09:00→20:56)
[2017-09-20] MEDS: Losartan 50mg tab ORAL SCH ×2 (09:04→20:57)
[2017-09-20] MEDS: Lisinopril 20mg tab ORAL SCH ×2 (09:04→18:01)
[2017-09-20] MEDS: Carvedilol 25mg Tab ORAL SCH ×2 (09:05→20:57)
[2017-09-20 09:25] LABS: ANION GAP 3 mmol/L (5-15); BLOOD UREA NITROGEN 17 mg/dL (7-18); CALCIUM 7.1 MG/DL (8.5-10.1); CARBON DIOXIDE 30 MMOL/L (21-32); CHLORIDE 108 MMOL/L (98-107); CREATININE 2.7 MG/DL (0.55-1.30); POTASSIUM 4.2 MMOL/L (3.5-5.1); SODIUM 141 MMOL/L (136-145)
--- NOTE | 2017-09-20 11:03 | Diagnostic Imaging Report ---
Indications: Ascites Technique: Ultrasound used to localize optimal puncture site. Sterile prepping and draping pelvic midline. Local anesthesia with 1% lidocaine. Under real-time ultrasound guidance, puncture peritoneal space just to the right of midline using paracentesis needle. Stylet removed. A specimen was obtained for laboratory analysis. Catheter placed to vacuum bottle suction. Total 3 liters of fluid aspirated. Patient tolerated procedure well, without immediate complication. Findings: Followup sonography demonstrates complete resolution of peritoneal fluid. Impression: Successful ultrasound-guided paracentesis, yielding 3 liters of fluid
[2017-09-20 12:00] VITALS: BP 170/106
--- NOTE | 2017-09-20 12:53 | GI Progress Note ---
Assessment/Plan Problems: (1) Renal failure (ARF), acute on chronic ICD Codes: N17.9 - Acute kidney failure, unspecified; N18.9 - Chronic kidney disease, unspecified SNOMED: 532338761 (2) Diarrhea ICD Codes: R19.7 - Diarrhea, unspecified SNOMED: 14498237 (3) Vomiting ICD Codes: R11.10 - Vomiting, unspecified SNOMED: 408048554 (4) Diabetes type 1, controlled ICD Codes: E10.9 - Type 1 diabetes mellitus without complications SNOMED: 03996856, 236417323 (5) Gastroparesis ICD Codes: K31.84 - Gastroparesis SNOMED: 819010447 (6) Chronic pancreatitis ICD Codes: K86.1 - Other chronic pancreatitis SNOMED: 771856015 (7) Anemia ICD Codes: D64.9 - Anemia, unspecified SNOMED: 504001032 Status: progressing, unchanged Status Narrative Discussed with Dr. Schultz. Assessment/Plan abdominal U/S reviewed Hep panel >> negative stool culture / cdiff / O&P >> negative anemia work 2/2 to renal disease s/p paracentesis yielding 3L of fluid >> r/o SBP fu nephro recs renal diet DM mgmt Lomotil prn pain mgmt ppi fu labs Subjective Subjective generalized weakness and pain c/o of diarrhea BLE edema Objective Last 24 Hour Vital Signs Date Time Temp Pulse Resp B/P (MAP) Pulse Ox O2 Delivery O2 Flow Rate FiO2 09/20/17 12:00 97.0 71 18 170/106 97 09/20/17 11:40 170/106 09/20/17 09:05 73 140/83 09/20/17 09:04 140/83 09/20/17 09:04 73 140/83 09/20/17 09:04 140/83 09/20/17 08:00 97.7 73 19 140/83 95 09/20/17 04:00 97.9 74 18 131/78 91 09/20/17 00:00 98.1 73 19 137/87 92 09/19/17 20:43 128/75 09/19/17 20:43 77 128/75 09/19/17 20:00 98.1 77 19 128/75 94 09/19/17 19:25 98.1 09/19/17 18:54 134/80 2/19/18 18:26 73 165/99 09/19/17 18:25 165/99 09/19/17 16:45 98.0 73 20 165/99 Room Air 09/19/17 16:30 Room Air 09/19/17 15:50 98.6 78 20 135/75 97 Room Air 09/19/17 13:00 Room Air 09/19/17 13:00 98.2 74 20 139/75 Room Air Intake and Output 09/19/17 09/20/17 19:00 07:00 Intake Total 840 ml 600 ml Output Total 3450 ml 475 ml Balance -2610 ml 125 ml Intake Oral 840 ml 600 ml Output Urine Total 450 ml 475 ml Hemodialysis UF 3000 ml # Voids 2 3 # Bowel Movements 3 Laboratory Tests Test 09/20/17 08:25 White Blood Count 6.1 K/UL (4.8-10.8) Red Blood Count 3.17 M/UL (4.70-6.10) L Hemoglobin 9.5 G/DL (14.2-18.0) L Hematocrit 29.7 % (42.0-52.0) L Mean Corpuscular Volume 94 FL (80-99) Mean Corpuscular Hemoglobin 30.1 PG (27.0-31.0) Mean Corpuscular Hemoglobin Concent 32.1 G/DL (32.0-36.0) Red Cell Distribution Width 14.6 % (11.6-14.8) Platelet Count 262 K/UL (150-450) Mean Platelet Volume 6.5 FL (6.5-10.1) Neutrophils (%) (Auto) 63.7 % (45.0-75.0) Lymphocytes (%) (Auto) 25.6 % (20.0-45.0) Monocytes (%) (Auto) 9.0 % (1.0-10.0) Eosinophils (%) (Auto) 0.8 % (0.0-3.0) Basophils (%) (Auto) 0.9 % (0.0-2.0) Sodium Level 141 MMOL/L (136-145) Potassium Level 4.2 MMOL/L (3.5-5.1) Chloride Level 108 MMOL/L (98-107) H Carbon Dioxide Level 30 MMOL/L (21-32) Anion Gap 3 mmol/L (5-15) L Blood Urea Nitrogen 17 mg/dL (7-18) Creatinine 2.7 MG/DL (0.55-1.30) H Estimat Glomerular Filtration Rate 27.7 mL/min (>60) Glucose Level 114 MG/DL (74-106) H Calcium Level 7.1 MG/DL (8.5-10.1) L Height (Feet): 5 Height (Inches): 10.00 Weight (Pounds): 212 General Appearance: WD/WN, no apparent distress, alert Cardiovascular: normal rate Respiratory/Chest: normal breath sounds, no respiratory distress Abdominal Exam: normal bowel sounds, non tender, soft Extremities: normal range of motion, non-tender Amber Clark N.P. Sep 20, 2017 12:53
--- NOTE | 2017-09-20 13:32 | Pulmonology Progress Note ---
Assessment/Plan Assessment/Plan ASSESSMENT Acute on chronic renal failure with new initiation of HD diabetic nephropathy nephrotic syndrome DM type 1 HTN chronic pancreatitis gastroparesis anemia of renal disease hypothyroidism HTN urgency fluid overload elevated LFT PLAN OF CARE MS floor started on HD after placement by IR Right jugular HD catheter nephro follows monitor renal parameters, correct lytes, avoid nephrotoxic 24 hr urine with > 3 gm protein, most likely nephrotic syndrome abdominal OCTAVIO with evidence of increased echogenicity c/w medical renal disease , no hydro On EPO monitor HH, transfuse today as per nephro and prn s/p 1 u PRBC 09/14, LFT trending down hep panel negative abdominal US no gallstones, no dilated ducts ECHO with pEF 60% and RVSP of 29 BP management with BB, CCB, Clonidine and Hydralazine, currently controlled bl and stool cx negative, stool for OP negative lipase stable pain management, off Morphibne bowel regimen on levothyroxine now, check TFT in 1 month dc plan, to continue HD will need HD arrangement pt has tunneled HD catheter inserted dc plan working with PT not able to be dc until Tuesday - per [facility] HD 09/19 and dc plan for today case discussed and evaluated by supervising physician Subjective Allergies: Coded Allergies: METOCLOPRAMIDE (Unverified Allergy, Severe, 09/08/17) PROCHLORPERAZINE (Unverified Allergy, Severe, 09/08/17) VANCOMYCIN (Unverified Allergy, Severe, 09/08/17) Subjective s/p initiation of HD, dialyzed 09/13 , 09/15 and 09/17 afebrile, no leucocytosis s/p 1 u PRBC 09/14 awaiting for disposition Morphine stopped Objective Last 24 Hour Vital Signs Date Time Temp Pulse Resp B/P (MAP) Pulse Ox O2 Delivery O2 Flow Rate FiO2 09/20/17 12:00 97.0 71 18 170/106 97 09/20/17 11:40 170/106 09/20/17 09:05 73 140/83 09/20/17 09:04 140/83 09/20/17 09:04 73 140/83 09/20/17 09:04 140/83 09/20/17 08:00 97.7 73 19 140/83 95 09/20/17 04:00 97.9 74 18 131/78 91 09/20/17 00:00 98.1 73 19 137/87 92 09/19/17 20:43 128/75 09/19/17 20:43 77 128/75 09/19/17 20:00 98.1 77 19 128/75 94 09/19/17 19:25 98.1 09/19/17 18:54 134/80 09/19/17 18:26 73 165/99 09/19/17 18:25 165/99 09/19/17 16:45 98.0 73 20 165/99 Room Air 09/19/17 16:30 Room Air 09/19/17 15:50 98.6 78 20 135/75 97 Room Air Intake and Output 09/19/17 09/20/17 19:00 07:00 Intake Total 840 ml 600 ml Output Total 3450 ml 475 ml Balance -2610 ml 125 ml Intake Oral 840 ml 600 ml Output Urine Total 450 ml 475 ml Hemodialysis UF 3000 ml # Voids 2 3 # Bowel Movements 3 Objective General Appearance: no acute distress HEENT: anicteric Respiratory/Chest: lungs clear, no respiratory distress Cardiovascular: normal rate, regular rhythm, R jugular tunneled HD catheter Abdomen: soft, non tender, non distended Extremities: no edema Neurologic/Psychiatric: no motor/sensory deficits, alert, oriented x 3, responsive Musculoskeletal: normal muscle bulk Microbiology Date/Time Source Procedure Growth Status 09/17/17 17:30 Stool Stool Culture - Preliminary Resulted 09/17/17 17:30 Stool Clostridium difficile Toxin Assay - Final Resulted Laboratory Tests 09/20/17 08:25: White Blood Count 6.1, Red Blood Count 3.17L, Hemoglobin 9.5L, Hematocrit 29.7L , Mean Corpuscular Volume 94, Mean Corpuscular Hemoglobin 30.1, Mean Corpuscular Hemoglobin Concent 32.1, Red Cell Distribution Width 14.6, Platelet Count 262, Mean Platelet Volume 6.5, Neutrophils (%) (Auto) 63.7, Lymphocytes (% ) (Auto) 25.6, Monocytes (%) (Auto) 9.0, Eosinophils (%) (Auto) 0.8, Basophils ( %) (Auto) 0.9, Sodium Level 141, Potassium Level 4.2, Chloride Level 108H, Carbon Dioxide Level 30, Anion Gap 3L, Blood Urea Nitrogen 17, Creatinine 2.7H, Estimat Glomerular Filtration Rate 27.7, Glucose Level 114H, Calcium Level 7.1L Current Medications Medications (Trade) Dose Ordered Sig/Michelle Route PRN Reason Start Time Stop Time Status Last Admin Dose Admin Acetaminophen (Tylenol) 650 mg Q4H PRN ORAL fever 09/09/17 23:45 10/08/17 15:44 Acetaminophen/ Hydrocodone Bitart ([place] 5/325) 1 tab Q4H PRN ORAL Moderate Pain (Pain Scale 4-6) 09/16/17 15:15 09/23/17 15:14 09/20/17 06:47 Aspirin (ASA) 81 mg DAILY ORAL 09/10/17 09:00 10/10/17 08:59 09/19/17 08:42 Carvedilol (Coreg) 25 mg EVERY 12 HOURS ORAL 09/17/17 09:00 10/17/17 08:59 09/20/17 09:05 Chlorhexidine Gluconate (Gail-Hex 2%) 1 applic DAILY@2000 TOPIC 09/18/17 20:00 10/18/17 19:59 09/19/17 20:42 Clonidine HCl (Catapres Tab) 0.1 mg Q4H PRN ORAL SYSTOLIC BP > 160 09/16/17 20:45 10/10/17 08:29 09/20/17 11:40 Dextrose (Dextrose 50%) STAT PRN IV Hypoglycemia 09/10/17 15:45 10/08/17 15:44 Diphenhydramine HCl (Benadryl) 25 mg Q6H PRN ORAL Itching/Pruritis 09/10/17 03:45 10/08/17 15:44 09/19/17 23:59 Diphenoxylate HCl/ Atropine (Lomotil) 2.5 mg Q4H PRN ORAL Diarrhea 09/19/17 10:45 10/19/17 10:44 09/19/17 11:58 Epoetin Curry (Procrit (for ESRD on dialysis)) 10,000 units MON-WED-TUE SUBQ 09/19/17 21:00 10/19/17 20:59 09/19/17 20:44 Guaifenesin/ Codeine Phosphate (Robitussin with codeine) 5 ml Q6H PRN ORAL For Cough 09/10/17 17:00 10/10/17 16:59 09/20/17 03:40 Heparin Sodium (Porcine) (Heparin 5000 units/ml) 5,000 units EVERY 12 HOURS SUBQ 09/10/17 09:00 10/08/17 20:59 09/19/17 08:44 Lansoprazole (Prevacid) 30 mg BID ORAL 09/17/17 18:00 10/11/17 08:59 09/20/17 09:04 Levothyroxine Sodium (Synthroid) 25 mcg DAILY@0630 ORAL 09/10/17 06:30 10/10/17 06:29 09/20/17 06:47 Lisinopril (Prinivil) 20 mg BID ORAL 09/16/17 09:00 10/16/17 08:59 09/20/17 09:04 Loperamide HCl (Imodium) 2 mg Q4H PRN ORAL Diarrhea 09/15/17 11:15 10/15/17 11:14 09/19/17 06:39 Lorazepam (Ativan 2mg/ml 1ml) 1 mg Q4H PRN IV For Anxiety 09/17/17 14:30 09/24/17 14:29 09/20/17 03:22 Losartan Potassium (Cozaar) 50 mg EVERY 12 HOURS ORAL 09/19/17 21:00 10/19/17 20:59 09/20/17 09:04 Nifedipine (Procardia XL) 60 mg BID ORAL 09/17/17 09:00 10/17/17 08:59 09/20/17 09:04 Polyethylene Glycol (Miralax) 17 gm HSPRN PRN ORAL Constipation 09/10/17 15:45 10/08/17 15:44 Sevelamer Carbonate (Renvela) 2,400 mg THREE TIMES A DAY ORAL 09/11/17 13:00 10/11/17 12:59 09/20/17 09:04 Jesse ([facility])Shama NP Sep 20, 2017 13:32
--- NOTE | 2017-09-20 13:53 | Nephrology Progress Note ---
Assessment/Plan Problem List: (1) Renal failure (ARF), acute on chronic (2) Nephrotic syndrome (3) Diabetic nephropathy (4) HTN (hypertension) Assessment: hypertensive kidney disease Assessment Advanced renal failure due to Type I DM DIabetic Nephropathy- Most likely NS -. Bilateral upper quadrant pain. -. Diarrhea. -. Diabetic gastroparesis. -. Diabetes type 1. -. Hypertension. -. Anemia. due to CKD -. HypoThyroid Plan Plan: Dialysed 09/19 next 09/22 Transfused , Add Coozar to BP meds due paracynthesis Zestril Procardia and Clonidine to BP meds- adjust meds Per GI 24 h urine collection over 3 gram protein Monitor renal parameters , BS and BP Avoid nephrotoxics Due DC and OP HD 2D Echo : Left ventricular ejection fraction estimated to be 60 %. No evidence of left ventricular hypertrophy. Trace pericardial effusion . Moderate left atrial enlargement. OCTAVIO: Left kidney measures 11.8 cm in length. Right kidney measures 9.6 cm length. Kidneys demonstrate diffusely increased echogenicity. No hydronephrosis. there is a small left lower pole renal cyst Subjective ROS Limited/Unobtainable: No Constitutional: Reports: malaise Objective Objective Last 24 Hour Vital Signs Date Time Temp Pulse Resp B/P (MAP) Pulse Ox O2 Delivery O2 Flow Rate FiO2 09/20/17 12:00 97.0 71 18 170/106 97 09/20/17 11:40 170/106 09/20/17 09:05 73 140/83 09/20/17 09:04 140/83 09/20/17 09:04 73 140/83 09/20/17 09:04 140/83 09/20/17 08:00 97.7 73 19 140/83 95 09/20/17 04:00 97.9 74 18 131/78 91 09/20/17 00:00 98.1 73 19 137/87 92 09/19/17 20:43 128/75 09/19/17 20:43 77 128/75 09/19/17 20:00 98.1 77 19 128/75 94 09/19/17 19:25 98.1 09/19/17 18:54 134/80 09/19/17 18:26 73 165/99 09/19/17 18:25 165/99 09/19/17 16:45 98.0 73 20 165/99 Room Air 09/19/17 16:30 Room Air 09/19/17 15:50 98.6 78 20 135/75 97 Room Air Intake and Output 09/19/17 09/20/17 19:00 07:00 Intake Total 840 ml 600 ml Output Total 3450 ml 475 ml Balance -2610 ml 125 ml Intake Oral 840 ml 600 ml Output Urine Total 450 ml 475 ml Hemodialysis UF 3000 ml # Voids 2 3 # Bowel Movements 3 Laboratory Tests 09/20/17 08:25: White Blood Count 6.1, Red Blood Count 3.17L, Hemoglobin 9.5L, Hematocrit 29.7L , Mean Corpuscular Volume 94, Mean Corpuscular Hemoglobin 30.1, Mean Corpuscular Hemoglobin Concent 32.1, Red Cell Distribution Width 14.6, Platelet Count 262, Mean Platelet Volume 6.5, Neutrophils (%) (Auto) 63.7, Lymphocytes (% ) (Auto) 25.6, Monocytes (%) (Auto) 9.0, Eosinophils (%) (Auto) 0.8, Basophils ( %) (Auto) 0.9, Sodium Level 141, Potassium Level 4.2, Chloride Level 108H, Carbon Dioxide Level 30, Anion Gap 3L, Blood Urea Nitrogen 17, Creatinine 2.7H, Estimat Glomerular Filtration Rate 27.7, Glucose Level 114H, Calcium Level 7.1L Height (Feet): 5 Height (Inches): 10.00 Weight (Pounds): 212 General Appearance: no apparent distress Cardiovascular: normal rate Respiratory/Chest: decreased breath sounds Abdomen: distended Objective no change LEXIS PRESTON Sep 20, 2017 13:53
[2017-09-20] MEDS ORDERED: Tubing IV Secondary IV ONE (15:53)
[2017-09-20 16:00] VITALS: BP 135/85
--- NOTE | 2017-09-20 17:17 | Internal Med Progress Note ---
Subjective Date of Service: Sep 20, 2017 Physician Name Talbot,Sanjiv Attending Physician Serafin Voss MD Current Medications Medications (Trade) Dose Ordered Sig/Michelle Route PRN Reason Start Time Stop Time Status Last Admin Dose Admin Acetaminophen (Tylenol) 650 mg Q4H PRN ORAL fever 09/09/17 23:45 10/08/17 15:44 Acetaminophen/ Hydrocodone Bitart ([place] 5/325) 1 tab Q4H PRN ORAL Moderate Pain (Pain Scale 4-6) 09/16/17 15:15 09/23/17 15:14 09/20/17 06:47 Aspirin (ASA) 81 mg DAILY ORAL 09/10/17 09:00 10/10/17 08:59 09/19/17 08:42 Carvedilol (Coreg) 25 mg EVERY 12 HOURS ORAL 09/17/17 09:00 10/17/17 08:59 09/20/17 09:05 Chlorhexidine Gluconate (Gail-Hex 2%) 1 applic DAILY@2000 TOPIC 09/18/17 20:00 10/18/17 19:59 09/19/17 20:42 Clonidine HCl (Catapres Tab) 0.1 mg Q4H PRN ORAL SYSTOLIC BP > 160 09/16/17 20:45 10/10/17 08:29 09/20/17 11:40 Dextrose (Dextrose 50%) STAT PRN IV Hypoglycemia 09/10/17 15:45 10/08/17 15:44 Diphenhydramine HCl (Benadryl) 25 mg Q6H PRN ORAL Itching/Pruritis 09/10/17 03:45 10/08/17 15:44 09/19/17 23:59 Diphenoxylate HCl/ Atropine (Lomotil) 2.5 mg Q4H PRN ORAL Diarrhea 09/19/17 10:45 10/19/17 10:44 09/19/17 11:58 Epoetin Curry (Procrit (for ESRD on dialysis)) 10,000 units TUE-WED-TUE SUBQ 09/19/17 21:00 10/19/17 20:59 09/19/17 20:44 Heparin Sodium (Porcine) (Heparin 5000 units/ml) 5,000 units EVERY 12 HOURS SUBQ 09/10/17 09:00 10/08/17 20:59 09/19/17 08:44 Lansoprazole (Prevacid) 30 mg BID ORAL 09/17/17 18:00 10/11/17 08:59 09/20/17 09:04 Levothyroxine Sodium (Synthroid) 25 mcg DAILY@0630 ORAL 09/10/17 06:30 10/10/17 06:29 09/20/17 06:47 Lisinopril (Prinivil) 20 mg BID ORAL 09/16/17 09:00 10/16/17 08:59 09/20/17 09:04 Loperamide HCl (Imodium) 2 mg Q4H PRN ORAL Diarrhea 09/15/17 11:15 10/15/17 11:14 09/19/17 06:39 Lorazepam (Ativan 2mg/ml 1ml) 1 mg Q4H PRN IV For Anxiety 09/17/17 14:30 09/24/17 14:29 09/20/17 03:22 Losartan Potassium (Cozaar) 50 mg EVERY 12 HOURS ORAL 09/19/17 21:00 10/19/17 20:59 09/20/17 09:04 Nifedipine (Procardia XL) 60 mg BID ORAL 09/17/17 09:00 10/17/17 08:59 09/20/17 09:04 Polyethylene Glycol (Miralax) 17 gm HSPRN PRN ORAL Constipation 09/10/17 15:45 10/08/17 15:44 Sevelamer Carbonate (Renvela) 2,400 mg THREE TIMES A DAY ORAL 09/11/17 13:00 10/11/17 12:59 09/20/17 14:26 Allergies: Coded Allergies: METOCLOPRAMIDE (Unverified Allergy, Severe, 09/08/17) PROCHLORPERAZINE (Unverified Allergy, Severe, 09/08/17) VANCOMYCIN (Unverified Allergy, Severe, 09/08/17) ROS Limited/Unobtainable: No Constitutional: Reports: no symptoms HEENT: Reports: no symptoms Cardiovascular: Reports: no symptoms Respiratory: Reports: no symptoms Gastrointestinal/Abdominal: Reports: no symptoms Genitourinary: Reports: no symptoms Neurologic/Psychiatric: Reports: no symptoms Subjective 32 YO M admitted with abdominal pain. Now renal failure on hemodialysis. Cover for Int Med-Dr Voss. Discharge held-see soc work note. S/P paracentesis today, 09/20/17 Objective Last Vital Signs Date Time Temp Pulse Resp B/P (MAP) Pulse Ox O2 Delivery O2 Flow Rate FiO2 09/20/17 16:00 97.5 76 19 135/85 93 97.5 09/19/17 16:45 Room Air 09/13/17 12:30 3.0 Laboratory Tests Test 09/20/17 08:25 09/20/17 10:30 White Blood Count 6.1 K/UL (4.8-10.8) Red Blood Count 3.17 M/UL (4.70-6.10) L Hemoglobin 9.5 G/DL (14.2-18.0) L Hematocrit 29.7 % (42.0-52.0) L Mean Corpuscular Volume 94 FL (80-99) Mean Corpuscular Hemoglobin 30.1 PG (27.0-31.0) Mean Corpuscular Hemoglobin Concent 32.1 G/DL (32.0-36.0) Red Cell Distribution Width 14.6 % (11.6-14.8) Platelet Count 262 K/UL (150-450) Mean Platelet Volume 6.5 FL (6.5-10.1) Neutrophils (%) (Auto) 63.7 % (45.0-75.0) Lymphocytes (%) (Auto) 25.6 % (20.0-45.0) Monocytes (%) (Auto) 9.0 % (1.0-10.0) Eosinophils (%) (Auto) 0.8 % (0.0-3.0) Basophils (%) (Auto) 0.9 % (0.0-2.0) Sodium Level 141 MMOL/L (136-145) Potassium Level 4.2 MMOL/L (3.5-5.1) Chloride Level 108 MMOL/L (98-107) H Carbon Dioxide Level 30 MMOL/L (21-32) Anion Gap 3 mmol/L (5-15) L Blood Urea Nitrogen 17 mg/dL (7-18) Creatinine 2.7 MG/DL (0.55-1.30) H Estimat Glomerular Filtration Rate 27.7 mL/min (>60) Glucose Level 114 MG/DL (74-106) H Calcium Level 7.1 MG/DL (8.5-10.1) L C-Reactive Protein, Quantitative 1.0 mg/dL (0.00-0.90) H Body Fluid Albumin Pending Microbiology Date/Time Source Procedure Growth Status 09/17/17 17:30 Stool Stool Culture - Preliminary Resulted 09/17/17 17:30 Stool Clostridium difficile Toxin Assay - Final Resulted Intake and Output 09/19/17 09/20/17 19:00 07:00 Intake Total 840 ml 600 ml Output Total 3450 ml 475 ml Balance -2610 ml 125 ml Intake Oral 840 ml 600 ml Output Urine Total 450 ml 475 ml Hemodialysis UF 3000 ml # Voids 2 3 # Bowel Movements 3 Objective General Appearance: WD/WN, alert, mild distress EENT: PERRL/EOMI, normal ENT inspection Neck: non-tender, normal alignment, supple, normal inspection Cardiovascular: normal peripheral pulses, normal rate, regular rhythm, no gallop/murmur, no JVD Respiratory/Chest: chest wall non-tender, lungs clear, normal breath sounds, no respiratory distress, no accessory muscle use Abdomen: no organomegaly, no mass, decreased bowel sounds, distended, guarding , tender Extremities: normal range of motion 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 See nephrology note. (2) Anemia of renal disease Assessment & Plan: S/P transfusion (3) HTN (hypertension) Assessment & Plan: Uncontrolled. Await cardiology consult. Cont coreg and norvasc. (4) Ascites Assessment & Plan: S/P paracentesis 09/20/17. See GI note. (5) Abdominal pain (6) Abdominal distention (7) Diarrhea Assessment & Plan: C. Diff neg; await stool culture (8) Gastroparesis (9) Diabetes type 1, controlled Assessment & Plan: Continue novolog sliding scale. (10) Hypothyroidism Assessment & Plan: Continue levoxyl (11) CHF (congestive heart failure) Assessment & Plan: Volume overload. See cardiology note. await hemodialysis (12) Anemia Assessment & Plan: S/P transfusion 1 unit PRBC on 09/13/17 Assessment/Plan Discharge planning. On hold-sse social work note. SANJIV TALBOT Sep 20, 2017 17:17
--- NOTE | 2017-09-20 17:30 | Progress Note ---
DATE: 09/20/2017 SUBJECTIVE: The patient was found in bed. Presents with depressed mood, anhedonia. Complains of pain and anxiety. Requesting more pain medication and antianxiety medications. He has poor insight and judgment into his mental condition. The patient has dependence on opiate pain medications and possibly benzodiazepine. MENTAL STATUS EXAMINATION: The patient is alert and oriented times self, place, situation, and time. Mood is depressed. Affect is constricted. Thought process is concrete. Thought content, no suicidal or homicidal ideation. ASSESSMENT: Depression, opiate pain dependence, and anxiety. PLAN: 1. We will recommend to change the short-acting opiate pain medication to longer-acting like methadone and discontinue the IV opiate pain meds. 2. Continue the BuSpar. 3. We will continue to follow and readjust the medications. Charlie Green M.D. DR: ARJUN JOB#: [id number] CC:
--- NOTE | 2017-09-20 17:42 | Cardiac Electrophysiology PN ---
Assessment/Plan Assessment/Plan 1. Accelerated hypertension. On Procardia XL 60 bid, clonidine 0.1 mg q8, Losartan 50 bid, Coreg 25 mg bid and HD 2. Chronic kidney disease. On HD by Dr. Garrett. 3. Insulin-dependent diabetes. 4. Anemia of renal disease.S/P PRBC today 5. Abdominal pain and diarrhea, Negative for C Diff. 6. Hypothyroidism, on Synthroid. DW RN Subjective Subjective No CP or SOB. Had HD yesterday. RN at bedside. Walked in hallway. Objective Last 24 Hour Vital Signs Date Time Temp Pulse Resp B/P (MAP) Pulse Ox O2 Delivery O2 Flow Rate FiO2 09/20/17 16:00 97.5 76 19 135/85 93 97.5 09/20/17 12:00 97.0 71 18 170/106 97 09/20/17 11:40 170/106 09/20/17 09:05 73 140/83 09/20/17 09:04 140/83 09/20/17 09:04 73 140/83 09/20/17 09:04 140/83 09/20/17 08:00 97.7 73 19 140/83 95 09/20/17 04:00 97.9 74 18 131/78 91 09/20/17 00:00 98.1 73 19 137/87 92 09/19/17 20:43 128/75 09/19/17 20:43 77 128/75 09/19/17 20:00 98.1 77 19 128/75 94 09/19/17 19:25 98.1 09/19/17 18:54 134/80 09/19/17 18:26 73 165/99 09/19/17 18:25 165/99 Intake and Output 09/19/17 09/20/17 19:00 07:00 Intake Total 840 ml 600 ml Output Total 3450 ml 475 ml Balance -2610 ml 125 ml Intake Oral 840 ml 600 ml Output Urine Total 450 ml 475 ml Hemodialysis UF 3000 ml # Voids 2 3 # Bowel Movements 3 Laboratory Tests Test 09/20/17 08:25 09/20/17 10:30 White Blood Count 6.1 K/UL (4.8-10.8) Red Blood Count 3.17 M/UL (4.70-6.10) L Hemoglobin 9.5 G/DL (14.2-18.0) L Hematocrit 29.7 % (42.0-52.0) L Mean Corpuscular Volume 94 FL (80-99) Mean Corpuscular Hemoglobin 30.1 PG (27.0-31.0) Mean Corpuscular Hemoglobin Concent 32.1 G/DL (32.0-36.0) Red Cell Distribution Width 14.6 % (11.6-14.8) Platelet Count 262 K/UL (150-450) Mean Platelet Volume 6.5 FL (6.5-10.1) Neutrophils (%) (Auto) 63.7 % (45.0-75.0) Lymphocytes (%) (Auto) 25.6 % (20.0-45.0) Monocytes (%) (Auto) 9.0 % (1.0-10.0) Eosinophils (%) (Auto) 0.8 % (0.0-3.0) Basophils (%) (Auto) 0.9 % (0.0-2.0) Sodium Level 141 MMOL/L (136-145) Potassium Level 4.2 MMOL/L (3.5-5.1) Chloride Level 108 MMOL/L (98-107) H Carbon Dioxide Level 30 MMOL/L (21-32) Anion Gap 3 mmol/L (5-15) L Blood Urea Nitrogen 17 mg/dL (7-18) Creatinine 2.7 MG/DL (0.55-1.30) H Estimat Glomerular Filtration Rate 27.7 mL/min (>60) Glucose Level 114 MG/DL (74-106) H Calcium Level 7.1 MG/DL (8.5-10.1) L C-Reactive Protein, Quantitative 1.0 mg/dL (0.00-0.90) H Body Fluid Albumin Pending Objective HEAD AND NECK: No JVD. Right IJ HD LUNGS: Clear. CARDIOVASCULAR: Regular S1 and S2. No gallop or murmur. ABDOMEN: Soft. EXTREMITIES: No pitting edema. MONICA DANGELO Sep 20, 2017 17:42
[2017-09-20] MEDS: Lomotil 2.5mg tab ORAL PRN ×2 (18:01→22:03)
[2017-09-20 20:00] VITALS: BP 137/83
[2017-09-20] MEDS: Dyna-Hex 2% Top Sol 2oz TOPIC SCH (20:57)
[2017-09-21] VITALS (7 sets, daily range): BP systolic 126–160; BP diastolic 73–102
[2017-09-21] MEDS: Norco 5mg/325mg tab ORAL PRN ×3 (01:17→23:17)
[2017-09-21] MEDS: LORazepam Inj 2mg/ml 1ml IV PRN ×4 (02:25→19:43)
[2017-09-21] MEDS: Levothyroxine 25mcg tab ORAL SCH (06:33)
[2017-09-21] MEDS: Carvedilol 25mg Tab ORAL SCH ×2 (08:52→23:02)
[2017-09-21] MEDS: Losartan 50mg tab ORAL SCH ×2 (08:53→23:02)
[2017-09-21] MEDS: Aspirin Baby 81mg ORAL SCH (08:53)
[2017-09-21] MEDS: Lisinopril 20mg tab ORAL SCH ×2 (08:53→17:21)
[2017-09-21] MEDS: Heparin 5000 units/ml inj SUBQ SCH ×2 (08:56→23:09)
[2017-09-21 10:41] LABS: BASOPHILS % (AUTO) 1.6 % (0.0-2.0); EOSINOPHILS % (AUTO) 0.9 % (0.0-3.0); HEMATOCRIT 29.2 % (42.0-52.0); HEMOGLOBIN 9.6 G/DL (14.2-18.0); LYMPHOCYTES % (AUTO) 25.3 % (20.0-45.0); MEAN CORPUSCULAR VOLUME 95 FL (80-99); MONOCYTES % (AUTO) 8.2 % (1.0-10.0); NEUTROPHILS % (AUTO) 64.1 % (45.0-75.0); PLATELET COUNT 236 K/UL (150-450); RED BLOOD COUNT 3.09 M/UL (4.70-6.10); RED CELL DISTRIBUTION WIDTH 14.7 % (11.6-14.8); WHITE BLOOD COUNT 6.7 K/UL (4.8-10.8)
[2017-09-21 11:07] LABS: ALANINE AMINOTRANSFERASE 40 U/L (12-78); ALBUMIN 1.3 G/DL (3.4-5.0); ALBUMIN/GLOBULIN RATIO 0.4 (1.0-2.7); ALKALINE PHOSPHATASE 182 U/L (46-116); ANION GAP 6 mmol/L (5-15); ASPARTATE AMINO TRANSFERASE 31 U/L (15-37); BILIRUBIN,TOTAL 0.3 MG/DL (0.2-1.0); BLOOD UREA NITROGEN 21 mg/dL (7-18); CALCIUM 7.4 MG/DL (8.5-10.1); CARBON DIOXIDE 26 MMOL/L (21-32); CHLORIDE 108 MMOL/L (98-107); POTASSIUM 4.5 MMOL/L (3.5-5.1); SODIUM 140 MMOL/L (136-145)
[2017-09-21 11:23] LABS: PHOSPHORUS 4.6 MG/DL (2.5-4.9)
--- NOTE | 2017-09-21 11:54 | Nephrology Progress Note ---
Assessment/Plan Problem List: (1) Renal failure (ARF), acute on chronic (2) Nephrotic syndrome (3) Diabetic nephropathy (4) HTN (hypertension) Assessment: hypertensive kidney disease Assessment Advanced renal failure due to Type I DM DIabetic Nephropathy- Most likely NS -. Bilateral upper quadrant pain. -. Diarrhea. -. Diabetic gastroparesis. -. Diabetes type 1. -. Hypertension. -. Anemia. due to CKD -. HypoThyroid Plan Plan: Dialysed 09/19 next 09/22 Transfused , Add Coozar to BP meds due paracynthesis Zestril Procardia and Clonidine to BP meds- adjust meds Per GI 24 h urine collection over 3 gram protein Monitor renal parameters , BS and BP Avoid nephrotoxics Due DC and OP HD 2D Echo : Left ventricular ejection fraction estimated to be 60 %. No evidence of left ventricular hypertrophy. Trace pericardial effusion . Moderate left atrial enlargement. OCTAVIO: Left kidney measures 11.8 cm in length. Right kidney measures 9.6 cm length. Kidneys demonstrate diffusely increased echogenicity. No hydronephrosis. there is a small left lower pole renal cyst Subjective ROS Limited/Unobtainable: No Constitutional: Reports: malaise Objective Objective Last 24 Hour Vital Signs Date Time Temp Pulse Resp B/P (MAP) Pulse Ox O2 Delivery O2 Flow Rate FiO2 09/21/17 08:53 126/73 09/21/17 08:53 78 126/73 09/21/17 08:53 126/73 09/21/17 08:52 78 126/73 09/21/17 05:49 98.1 78 18 126/73 95 Room Air 98.1 09/21/17 02:16 98.4 09/21/17 01:17 98.4 09/21/17 00:00 98.4 74 16 147/89 95 Room Air 98.4 09/20/17 20:57 137/83 09/20/17 20:57 78 137/83 09/20/17 20:57 97.5 09/20/17 20:00 97.7 78 19 137/83 95 97.7 09/20/17 18:01 135/85 09/20/17 18:00 76 135/85 09/20/17 16:00 97.5 76 19 135/85 93 97.5 09/20/17 12:00 97.0 71 18 170/106 97 Intake and Output 09/20/17 09/21/17 19:00 07:00 Intake Total 520 ml 800 ml Balance 520 ml 800 ml Intake Oral 520 ml 800 ml # Voids 3 # Bowel Movements 2 3 Laboratory Tests 09/21/17 09:34: White Blood Count 6.7, Red Blood Count 3.09L, Hemoglobin 9.6L, Hematocrit 29.2L , Mean Corpuscular Volume 95, Mean Corpuscular Hemoglobin 31.1H, Mean Corpuscular Hemoglobin Concent 32.8, Red Cell Distribution Width 14.7, Platelet Count 236, Mean Platelet Volume 6.3L, Neutrophils (%) (Auto) 64.1, Lymphocytes ( %) (Auto) 25.3, Monocytes (%) (Auto) 8.2, Eosinophils (%) (Auto) 0.9, Basophils (%) (Auto) 1.6, Sodium Level 140, Potassium Level 4.5, Chloride Level 108H, Carbon Dioxide Level 26, Anion Gap 6, Blood Urea Nitrogen 21H, Creatinine 3.0H, Estimat Glomerular Filtration Rate 24.5, Glucose Level 97, Uric Acid 4.3, Calcium Level 7.4L, Phosphorus Level 4.6, Magnesium Level 1.7L, Total Bilirubin 0.3, Aspartate Amino Transf (AST/SGOT) 31, Alanine Aminotransferase (ALT/SGPT) 40, Alkaline Phosphatase 182H, Pro-B-Type Natriuretic Peptide 3589H, Total Protein 4.4L, Albumin 1.3L, Globulin 3.1, Albumin/Globulin Ratio 0.4L Height (Feet): 5 Height (Inches): 10.00 Weight (Pounds): 216 General Appearance: no apparent distress Respiratory/Chest: decreased breath sounds Abdomen: distended Objective no change LEXIS PRESTON Sep 21, 2017 11:54
--- NOTE | 2017-09-21 12:21 | GI Progress Note ---
Assessment/Plan Problems: (1) Renal failure (ARF), acute on chronic ICD Codes: N17.9 - Acute kidney failure, unspecified; N18.9 - Chronic kidney disease, unspecified SNOMED: 105178374 (2) Diarrhea ICD Codes: R19.7 - Diarrhea, unspecified SNOMED: 00310043 (3) Vomiting ICD Codes: R11.10 - Vomiting, unspecified SNOMED: 515215229 (4) Diabetes type 1, controlled ICD Codes: E10.9 - Type 1 diabetes mellitus without complications SNOMED: 31436397, 052066990 (5) Gastroparesis ICD Codes: K31.84 - Gastroparesis SNOMED: 586896141 (6) Chronic pancreatitis ICD Codes: K86.1 - Other chronic pancreatitis SNOMED: 194686963 (7) Anemia ICD Codes: D64.9 - Anemia, unspecified SNOMED: 897895577 Status: progressing Status Narrative Discussed with Dr. Schultz. Assessment/Plan abdominal U/S reviewed Hep panel >> negative stool culture / cdiff / O&P >> negative anemia work 2/2 to renal disease s/p paracentesis yielding 3L of fluid >> r/o SBP fu nephro recs renal diet DM mgmt Lomotil prn pain mgmt ppi fu labs Subjective Subjective generalized weakness and pain c/o of diarrhea BLE edema Objective Last 24 Hour Vital Signs Date Time Temp Pulse Resp B/P (MAP) Pulse Ox O2 Delivery O2 Flow Rate FiO2 09/21/17 08:53 126/73 09/21/17 08:53 78 126/73 09/21/17 08:53 126/73 09/21/17 08:52 78 126/73 09/21/17 05:49 98.1 78 18 126/73 95 Room Air 98.1 09/21/17 02:16 98.4 09/21/17 01:17 98.4 09/21/17 00:00 98.4 74 16 147/89 95 Room Air 98.4 09/20/17 20:57 137/83 09/20/17 20:57 78 137/83 09/20/17 20:57 97.5 09/20/17 20:00 97.7 78 19 137/83 95 97.7 09/20/17 18:01 135/85 2/20/18 18:00 76 135/85 09/20/17 16:00 97.5 76 19 135/85 93 97.5 Intake and Output 09/20/17 09/21/17 19:00 07:00 Intake Total 520 ml 800 ml Balance 520 ml 800 ml Intake Oral 520 ml 800 ml # Voids 3 # Bowel Movements 2 3 Laboratory Tests Test 09/21/17 09:34 White Blood Count 6.7 K/UL (4.8-10.8) Red Blood Count 3.09 M/UL (4.70-6.10) L Hemoglobin 9.6 G/DL (14.2-18.0) L Hematocrit 29.2 % (42.0-52.0) L Mean Corpuscular Volume 95 FL (80-99) Mean Corpuscular Hemoglobin 31.1 PG (27.0-31.0) H Mean Corpuscular Hemoglobin Concent 32.8 G/DL (32.0-36.0) Red Cell Distribution Width 14.7 % (11.6-14.8) Platelet Count 236 K/UL (150-450) Mean Platelet Volume 6.3 FL (6.5-10.1) L Neutrophils (%) (Auto) 64.1 % (45.0-75.0) Lymphocytes (%) (Auto) 25.3 % (20.0-45.0) Monocytes (%) (Auto) 8.2 % (1.0-10.0) Eosinophils (%) (Auto) 0.9 % (0.0-3.0) Basophils (%) (Auto) 1.6 % (0.0-2.0) Sodium Level 140 MMOL/L (136-145) Potassium Level 4.5 MMOL/L (3.5-5.1) Chloride Level 108 MMOL/L (98-107) H Carbon Dioxide Level 26 MMOL/L (21-32) Anion Gap 6 mmol/L (5-15) Blood Urea Nitrogen 21 mg/dL (7-18) H Creatinine 3.0 MG/DL (0.55-1.30) H Estimat Glomerular Filtration Rate 24.5 mL/min (>60) Glucose Level 97 MG/DL (74-106) Uric Acid 4.3 MG/DL (2.6-7.2) Calcium Level 7.4 MG/DL (8.5-10.1) L Phosphorus Level 4.6 MG/DL (2.5-4.9) Magnesium Level 1.7 MG/DL (1.8-2.4) L Total Bilirubin 0.3 MG/DL (0.2-1.0) Aspartate Amino Transf (AST/SGOT) 31 U/L (15-37) Alanine Aminotransferase (ALT/SGPT) 40 U/L (12-78) Alkaline Phosphatase 182 U/L (46-116) H Pro-B-Type Natriuretic Peptide 3589 pg/mL (0-125) H Total Protein 4.4 G/DL (6.4-8.2) L Albumin 1.3 G/DL (3.4-5.0) L Globulin 3.1 g/dL Albumin/Globulin Ratio 0.4 (1.0-2.7) L Height (Feet): 5 Height (Inches): 10.00 Weight (Pounds): 216 General Appearance: WD/WN, no apparent distress, alert Cardiovascular: normal rate Respiratory/Chest: normal breath sounds, no respiratory distress Abdominal Exam: normal bowel sounds, non tender, soft Extremities: normal range of motion, non-tender Amber Clark N.P. Sep 21, 2017 12:20
--- NOTE | 2017-09-21 15:50 | Pulmonology Progress Note ---
Assessment/Plan Problems: (1) Renal failure (ARF), acute on chronic (2) Diabetic nephropathy (3) Diabetes type 1, controlled (4) Abdominal distention (5) Chronic pancreatitis (6) Gastroparesis Assessment/Plan paracentesis of 3 liter no new complains renal w/u pending check electrolytes getting Hd symptomatic treatment dvt prophylaxis dc planning Subjective ROS Limited/Unobtainable: No Constitutional: Reports: no symptoms HEENT: Repors: no symptoms Respiratory: Reports: no symptoms Allergies: Coded Allergies: METOCLOPRAMIDE (Unverified Allergy, Severe, 09/08/17) PROCHLORPERAZINE (Unverified Allergy, Severe, 09/08/17) VANCOMYCIN (Unverified Allergy, Severe, 09/08/17) Objective Last 24 Hour Vital Signs Date Time Temp Pulse Resp B/P (MAP) Pulse Ox O2 Delivery O2 Flow Rate FiO2 09/21/17 12:00 98.1 73 21 158/102 95 98.1 09/21/17 08:53 126/73 09/21/17 08:53 78 126/73 09/21/17 08:53 126/73 09/21/17 08:52 78 126/73 09/21/17 05:49 98.1 78 18 126/73 95 Room Air 98.1 09/21/17 02:16 98.4 09/21/17 01:17 98.4 09/21/17 00:00 98.4 74 16 147/89 95 Room Air 98.4 09/20/17 20:57 137/83 09/20/17 20:57 78 137/83 09/20/17 20:57 97.5 09/20/17 20:00 97.7 78 19 137/83 95 97.7 09/20/17 18:01 135/85 09/20/17 18:00 76 135/85 09/20/17 16:00 97.5 76 19 135/85 93 97.5 Intake and Output 09/20/17 09/21/17 19:00 07:00 Intake Total 520 ml 800 ml Balance 520 ml 800 ml Intake Oral 520 ml 800 ml # Voids 3 # Bowel Movements 2 3 Objective General Appearance: no apparent distress Head: normocephalic, atraumatic Eyes: bilateral eye PERRL, bilateral eye EOMI ENT: normal pharynx, no angioedema Neck: supple, thyroid normal Respiratory: lungs clear, normal breath sounds Cardiovascular #1: regular rate, rhythm Gastrointestinal: non tender, soft Microbiology Date/Time Source Procedure Growth Status 09/20/17 10:30 Abdominal Fluid Gram Stain - Final Resulted 09/20/17 10:30 Abdominal Fluid Body Fluid Culture - Preliminary NO GROWTH Resulted Laboratory Tests 09/21/17 09:34: White Blood Count 6.7, Red Blood Count 3.09L, Hemoglobin 9.6L, Hematocrit 29.2L , Mean Corpuscular Volume 95, Mean Corpuscular Hemoglobin 31.1H, Mean Corpuscular Hemoglobin Concent 32.8, Red Cell Distribution Width 14.7, Platelet Count 236, Mean Platelet Volume 6.3L, Neutrophils (%) (Auto) 64.1, Lymphocytes ( %) (Auto) 25.3, Monocytes (%) (Auto) 8.2, Eosinophils (%) (Auto) 0.9, Basophils (%) (Auto) 1.6, Sodium Level 140, Potassium Level 4.5, Chloride Level 108H, Carbon Dioxide Level 26, Anion Gap 6, Blood Urea Nitrogen 21H, Creatinine 3.0H, Estimat Glomerular Filtration Rate 24.5, Glucose Level 97, Uric Acid 4.3, Calcium Level 7.4L, Phosphorus Level 4.6, Magnesium Level 1.7L, Total Bilirubin 0.3, Aspartate Amino Transf (AST/SGOT) 31, Alanine Aminotransferase (ALT/SGPT) 40, Alkaline Phosphatase 182H, Pro-B-Type Natriuretic Peptide 3589H, Total Protein 4.4L, Albumin 1.3L, Globulin 3.1, Albumin/Globulin Ratio 0.4L Current Medications Medications (Trade) Dose Ordered Sig/Michelle Route PRN Reason Start Time Stop Time Status Last Admin Dose Admin Acetaminophen (Tylenol) 650 mg Q4H PRN ORAL fever 09/09/17 23:45 10/08/17 15:44 Acetaminophen/ Hydrocodone Bitart ([place] 5/325) 1 tab Q4H PRN ORAL Moderate Pain (Pain Scale 4-6) 09/16/17 15:15 09/23/17 15:14 09/21/17 01:17 Aspirin (ASA) 81 mg DAILY ORAL 09/10/17 09:00 10/10/17 08:59 09/21/17 08:53 Carvedilol (Coreg) 25 mg EVERY 12 HOURS ORAL 09/17/17 09:00 10/17/17 08:59 09/21/17 08:52 Chlorhexidine Gluconate (Gail-Hex 2%) 1 applic DAILY@2000 TOPIC 09/18/17 20:00 10/18/17 19:59 09/20/17 20:57 Clonidine HCl (Catapres Tab) 0.1 mg Q4H PRN ORAL SYSTOLIC BP > 160 09/16/17 20:45 10/10/17 08:29 09/20/17 11:40 Dextrose (Dextrose 50%) STAT PRN IV Hypoglycemia 09/10/17 15:45 10/08/17 15:44 Diphenhydramine HCl (Benadryl) 25 mg Q6H PRN ORAL Itching/Pruritis 09/10/17 03:45 10/08/17 15:44 09/21/17 01:16 Diphenoxylate HCl/ Atropine (Lomotil) 2.5 mg Q4H PRN ORAL Diarrhea 09/19/17 10:45 10/19/17 10:44 09/20/17 22:03 Epoetin Curry (Procrit (for ESRD on dialysis)) 10,000 units TUE-TUE-TUE SUBQ 09/19/17 21:00 10/19/17 20:59 09/19/17 20:44 Heparin Sodium (Porcine) (Heparin 5000 units/ml) 5,000 units EVERY 12 HOURS SUBQ 09/10/17 09:00 10/08/17 20:59 09/21/17 08:56 Lansoprazole (Prevacid) 30 mg BID ORAL 09/17/17 18:00 10/11/17 08:59 09/21/17 08:52 Levothyroxine Sodium (Synthroid) 25 mcg DAILY@0630 ORAL 09/10/17 06:30 10/10/17 06:29 09/21/17 06:33 Lisinopril (Prinivil) 20 mg BID ORAL 09/16/17 09:00 10/16/17 08:59 09/21/17 08:53 Loperamide HCl (Imodium) 2 mg Q4H PRN ORAL Diarrhea 09/15/17 11:15 10/15/17 11:14 09/19/17 06:39 Lorazepam (Ativan 2mg/ml 1ml) 1 mg Q4H PRN IV For Anxiety 09/17/17 14:30 09/24/17 14:29 09/21/17 13:37 Losartan Potassium (Cozaar) 50 mg EVERY 12 HOURS ORAL 09/19/17 21:00 10/19/17 20:59 09/21/17 08:53 Nifedipine (Procardia XL) 60 mg BID ORAL 09/17/17 09:00 10/17/17 08:59 09/21/17 08:53 Ondansetron HCl (Zofran) 4 mg Q4HR PRN IVP Nausea & Vomiting 09/21/17 07:30 10/21/17 07:29 Polyethylene Glycol (Miralax) 17 gm HSPRN PRN ORAL Constipation 09/10/17 15:45 10/08/17 15:44 Sevelamer Carbonate (Renvela) 2,400 mg THREE TIMES A DAY ORAL 09/11/17 13:00 10/11/17 12:59 09/21/17 13:37 RICARDO POLANCO Sep 21, 2017 15:50
--- NOTE | 2017-09-21 17:21 | Internal Med Progress Note ---
Subjective Date of Service: Sep 21, 2017 Physician Name Talbot,Sanjiv Attending Physician Serafin Voss MD Current Medications Medications (Trade) Dose Ordered Sig/Michelle Route PRN Reason Start Time Stop Time Status Last Admin Dose Admin Acetaminophen (Tylenol) 650 mg Q4H PRN ORAL fever 09/09/17 23:45 10/08/17 15:44 Acetaminophen/ Hydrocodone Bitart ([place] 5/325) 1 tab Q4H PRN ORAL Moderate Pain (Pain Scale 4-6) 09/16/17 15:15 09/23/17 15:14 09/21/17 01:17 Aspirin (ASA) 81 mg DAILY ORAL 09/10/17 09:00 10/10/17 08:59 09/21/17 08:53 Carvedilol (Coreg) 25 mg EVERY 12 HOURS ORAL 09/17/17 09:00 10/17/17 08:59 09/21/17 08:52 Chlorhexidine Gluconate (Gail-Hex 2%) 1 applic DAILY@2000 TOPIC 09/18/17 20:00 10/18/17 19:59 09/20/17 20:57 Clonidine HCl (Catapres Tab) 0.1 mg Q4H PRN ORAL SYSTOLIC BP > 160 09/16/17 20:45 10/10/17 08:29 09/20/17 11:40 Dextrose (Dextrose 50%) STAT PRN IV Hypoglycemia 09/10/17 15:45 10/08/17 15:44 Diphenhydramine HCl (Benadryl) 25 mg Q6H PRN ORAL Itching/Pruritis 09/10/17 03:45 10/08/17 15:44 09/21/17 01:16 Diphenoxylate HCl/ Atropine (Lomotil) 2.5 mg Q4H PRN ORAL Diarrhea 09/19/17 10:45 10/19/17 10:44 09/20/17 22:03 Epoetin Curry (Procrit (for ESRD on dialysis)) 10,000 units TUE-WED-TUE SUBQ 09/19/17 21:00 10/19/17 20:59 09/19/17 20:44 Heparin Sodium (Porcine) (Heparin 5000 units/ml) 5,000 units EVERY 12 HOURS SUBQ 09/10/17 09:00 10/08/17 20:59 09/21/17 08:56 Lansoprazole (Prevacid) 30 mg BID ORAL 09/17/17 18:00 10/11/17 08:59 09/21/17 08:52 Levothyroxine Sodium (Synthroid) 25 mcg DAILY@0630 ORAL 09/10/17 06:30 10/10/17 06:29 09/21/17 06:33 Lisinopril (Prinivil) 20 mg BID ORAL 09/16/17 09:00 10/16/17 08:59 09/21/17 08:53 Loperamide HCl (Imodium) 2 mg Q4H PRN ORAL Diarrhea 09/15/17 11:15 10/15/17 11:14 09/19/17 06:39 Lorazepam (Ativan 2mg/ml 1ml) 1 mg Q4H PRN IV For Anxiety 09/17/17 14:30 09/24/17 14:29 09/21/17 13:37 Losartan Potassium (Cozaar) 50 mg EVERY 12 HOURS ORAL 09/19/17 21:00 10/19/17 20:59 09/21/17 08:53 Nifedipine (Procardia XL) 60 mg BID ORAL 09/17/17 09:00 10/17/17 08:59 09/21/17 08:53 Ondansetron HCl (Zofran) 4 mg Q4HR PRN IVP Nausea & Vomiting 09/21/17 07:30 10/21/17 07:29 Polyethylene Glycol (Miralax) 17 gm HSPRN PRN ORAL Constipation 09/10/17 15:45 10/08/17 15:44 Sevelamer Carbonate (Renvela) 2,400 mg THREE TIMES A DAY ORAL 09/11/17 13:00 10/11/17 12:59 09/21/17 13:37 Allergies: Coded Allergies: METOCLOPRAMIDE (Unverified Allergy, Severe, 09/08/17) PROCHLORPERAZINE (Unverified Allergy, Severe, 09/08/17) VANCOMYCIN (Unverified Allergy, Severe, 09/08/17) ROS Limited/Unobtainable: No Constitutional: Reports: no symptoms HEENT: Reports: no symptoms Cardiovascular: Reports: no symptoms Respiratory: Reports: no symptoms Gastrointestinal/Abdominal: Reports: no symptoms Genitourinary: Reports: no symptoms Neurologic/Psychiatric: Reports: no symptoms Subjective 32 YO M admitted with abdominal pain. Now renal failure on hemodialysis. Cover for Int Med-Dr Voss. Discharge held-see soc work note. S/P paracentesis today, 09/20/17 Objective Last Vital Signs Date Time Temp Pulse Resp B/P (MAP) Pulse Ox O2 Delivery O2 Flow Rate FiO2 09/21/17 16:00 97.8 85 19 160/95 95 97.8 09/21/17 05:49 Room Air 09/13/17 12:30 3.0 Laboratory Tests Test 09/21/17 09:34 White Blood Count 6.7 K/UL (4.8-10.8) Red Blood Count 3.09 M/UL (4.70-6.10) L Hemoglobin 9.6 G/DL (14.2-18.0) L Hematocrit 29.2 % (42.0-52.0) L Mean Corpuscular Volume 95 FL (80-99) Mean Corpuscular Hemoglobin 31.1 PG (27.0-31.0) H Mean Corpuscular Hemoglobin Concent 32.8 G/DL (32.0-36.0) Red Cell Distribution Width 14.7 % (11.6-14.8) Platelet Count 236 K/UL (150-450) Mean Platelet Volume 6.3 FL (6.5-10.1) L Neutrophils (%) (Auto) 64.1 % (45.0-75.0) Lymphocytes (%) (Auto) 25.3 % (20.0-45.0) Monocytes (%) (Auto) 8.2 % (1.0-10.0) Eosinophils (%) (Auto) 0.9 % (0.0-3.0) Basophils (%) (Auto) 1.6 % (0.0-2.0) Sodium Level 140 MMOL/L (136-145) Potassium Level 4.5 MMOL/L (3.5-5.1) Chloride Level 108 MMOL/L (98-107) H Carbon Dioxide Level 26 MMOL/L (21-32) Anion Gap 6 mmol/L (5-15) Blood Urea Nitrogen 21 mg/dL (7-18) H Creatinine 3.0 MG/DL (0.55-1.30) H Estimat Glomerular Filtration Rate 24.5 mL/min (>60) Glucose Level 97 MG/DL (74-106) Uric Acid 4.3 MG/DL (2.6-7.2) Calcium Level 7.4 MG/DL (8.5-10.1) L Phosphorus Level 4.6 MG/DL (2.5-4.9) Magnesium Level 1.7 MG/DL (1.8-2.4) L Total Bilirubin 0.3 MG/DL (0.2-1.0) Aspartate Amino Transf (AST/SGOT) 31 U/L (15-37) Alanine Aminotransferase (ALT/SGPT) 40 U/L (12-78) Alkaline Phosphatase 182 U/L (46-116) H Pro-B-Type Natriuretic Peptide 3589 pg/mL (0-125) H Total Protein 4.4 G/DL (6.4-8.2) L Albumin 1.3 G/DL (3.4-5.0) L Globulin 3.1 g/dL Albumin/Globulin Ratio 0.4 (1.0-2.7) L Microbiology Date/Time Source Procedure Growth Status 09/20/17 10:30 Abdominal Fluid Gram Stain - Final Resulted 09/20/17 10:30 Abdominal Fluid Body Fluid Culture - Preliminary NO GROWTH Resulted Intake and Output 09/20/17 09/21/17 19:00 07:00 Intake Total 520 ml 800 ml Balance 520 ml 800 ml Intake Oral 520 ml 800 ml # Voids 3 # Bowel Movements 2 3 Objective General Appearance: WD/WN, alert, mild distress EENT: PERRL/EOMI, normal ENT inspection Neck: non-tender, normal alignment, supple, normal inspection Cardiovascular: normal peripheral pulses, normal rate, regular rhythm, no gallop/murmur, no JVD Respiratory/Chest: chest wall non-tender, lungs clear, normal breath sounds, no respiratory distress, no accessory muscle use Abdomen: no organomegaly, no mass, decreased bowel sounds, distended, guarding , tender Extremities: normal range of motion 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 See nephrology note. (2) Anemia of renal disease Assessment & Plan: S/P transfusion (3) HTN (hypertension) Assessment & Plan: Uncontrolled. Await cardiology consult. Cont coreg and norvasc. (4) Ascites Assessment & Plan: S/P paracentesis 09/20/17. See GI note. (5) Abdominal pain (6) Abdominal distention (7) Diarrhea Assessment & Plan: C. Diff neg; await stool culture (8) Gastroparesis (9) Diabetes type 1, controlled Assessment & Plan: Continue novolog sliding scale. (10) Hypothyroidism Assessment & Plan: Continue levoxyl (11) CHF (congestive heart failure) Assessment & Plan: Volume overload. See cardiology note. await hemodialysis (12) Anemia Assessment & Plan: S/P transfusion 1 unit PRBC on 09/13/17 Status: not improved Assessment/Plan Discharge planning. On hold-[facility] social work note. SANJIV TALBOT Sep 21, 2017 17:21
--- NOTE | 2017-09-21 17:40 | Cardiac Electrophysiology PN ---
Assessment/Plan Assessment/Plan 1. Accelerated hypertension. Better on Procardia XL 60 bid, clonidine 0.1 mg q8 , Losartan 50 bid, Coreg 25 mg bid and HD 2. Chronic kidney disease. On HD by Dr. Garrett.Next scheduled for tomorrow 3. Insulin-dependent diabetes. 4. Anemia of renal disease.S/P PRBC today 5. Abdominal pain and diarrhea, Negative for C Diff. 6. Hypothyroidism, on Synthroid. SUZANNA RN Subjective Subjective No CP or SOB. HD rescheduled for tomorrow. Objective Last 24 Hour Vital Signs Date Time Temp Pulse Resp B/P (MAP) Pulse Ox O2 Delivery O2 Flow Rate FiO2 09/21/17 17:21 160/95 09/21/17 17:20 85 160/95 09/21/17 16:00 97.8 85 19 160/95 95 97.8 09/21/17 12:00 98.1 73 21 158/102 95 98.1 09/21/17 08:53 126/73 09/21/17 08:53 78 126/73 09/21/17 08:53 126/73 09/21/17 08:52 78 126/73 09/21/17 05:49 98.1 78 18 126/73 95 Room Air 98.1 09/21/17 02:16 98.4 09/21/17 01:17 98.4 09/21/17 00:00 98.4 74 16 147/89 95 Room Air 98.4 09/20/17 20:57 137/83 09/20/17 20:57 78 137/83 09/20/17 20:57 97.5 09/20/17 20:00 97.7 78 19 137/83 95 97.7 09/20/17 18:01 135/85 09/20/17 18:00 76 135/85 Intake and Output 09/20/17 09/21/17 19:00 07:00 Intake Total 520 ml 800 ml Balance 520 ml 800 ml Intake Oral 520 ml 800 ml # Voids 3 # Bowel Movements 2 3 Laboratory Tests Test 09/21/17 09:34 White Blood Count 6.7 K/UL (4.8-10.8) Red Blood Count 3.09 M/UL (4.70-6.10) L Hemoglobin 9.6 G/DL (14.2-18.0) L Hematocrit 29.2 % (42.0-52.0) L Mean Corpuscular Volume 95 FL (80-99) Mean Corpuscular Hemoglobin 31.1 PG (27.0-31.0) H Mean Corpuscular Hemoglobin Concent 32.8 G/DL (32.0-36.0) Red Cell Distribution Width 14.7 % (11.6-14.8) Platelet Count 236 K/UL (150-450) Mean Platelet Volume 6.3 FL (6.5-10.1) L Neutrophils (%) (Auto) 64.1 % (45.0-75.0) Lymphocytes (%) (Auto) 25.3 % (20.0-45.0) Monocytes (%) (Auto) 8.2 % (1.0-10.0) Eosinophils (%) (Auto) 0.9 % (0.0-3.0) Basophils (%) (Auto) 1.6 % (0.0-2.0) Sodium Level 140 MMOL/L (136-145) Potassium Level 4.5 MMOL/L (3.5-5.1) Chloride Level 108 MMOL/L (98-107) H Carbon Dioxide Level 26 MMOL/L (21-32) Anion Gap 6 mmol/L (5-15) Blood Urea Nitrogen 21 mg/dL (7-18) H Creatinine 3.0 MG/DL (0.55-1.30) H Estimat Glomerular Filtration Rate 24.5 mL/min (>60) Glucose Level 97 MG/DL (74-106) Uric Acid 4.3 MG/DL (2.6-7.2) Calcium Level 7.4 MG/DL (8.5-10.1) L Phosphorus Level 4.6 MG/DL (2.5-4.9) Magnesium Level 1.7 MG/DL (1.8-2.4) L Total Bilirubin 0.3 MG/DL (0.2-1.0) Aspartate Amino Transf (AST/SGOT) 31 U/L (15-37) Alanine Aminotransferase (ALT/SGPT) 40 U/L (12-78) Alkaline Phosphatase 182 U/L (46-116) H Pro-B-Type Natriuretic Peptide 3589 pg/mL (0-125) H Total Protein 4.4 G/DL (6.4-8.2) L Albumin 1.3 G/DL (3.4-5.0) L Globulin 3.1 g/dL Albumin/Globulin Ratio 0.4 (1.0-2.7) L Microbiology Date/Time Source Procedure Growth Status 09/20/17 10:30 Abdominal Fluid Gram Stain - Final Resulted 09/20/17 10:30 Abdominal Fluid Body Fluid Culture - Preliminary NO GROWTH Resulted Objective HEAD AND NECK: No JVD. Right IJ HD LUNGS: Clear. CARDIOVASCULAR: Regular S1 and S2. No gallop or murmur. ABDOMEN: Soft. EXTREMITIES: No pitting edema. MONICA DANGELO Sep 21, 2017 17:40
[2017-09-21] MEDS: Dyna-Hex 2% Top Sol 2oz TOPIC SCH (19:42)
--- NOTE | 2017-09-21 22:00 | Progress Note ---
DATE: 09/21/2017 SUBJECTIVE: The patient is the same. Continues to present with medication seeking behavior, depressed, hopeless, helpless, and anxious. He has been complaining of anxiety, however, he looks calm. MENTAL STATUS EXAMINATION: The patient is alert, oriented times self, place, and situation he is in. Mood is depressed and irritable. Affect is constricted. Congruent with mood. Thought process is concrete. Thought content, no suicidal or homicidal ideations. ASSESSMENT: Depression. PLAN: We will continue with current medication. Provide the patient with supportive therapy and reality orientation. We will continue to follow and readjust the medications. Charlie Green M.D. DR: Radha JOB#: [id number] CC:
[2017-09-21] MEDS: Epogen (for ESRD on dialysis) SUBQ SCH (23:03)
[2017-09-21] MEDS: Lomotil 2.5mg tab ORAL PRN (23:12)
[2017-09-22] MEDS: LORazepam Inj 2mg/ml 1ml IV PRN ×4 (01:05→20:16)
[2017-09-22 04:37] VITALS: BP 149/96
[2017-09-22] MEDS: Levothyroxine 25mcg tab ORAL SCH (06:42)
[2017-09-22 07:25] LABS: BASOPHILS % (AUTO) 1.5 % (0.0-2.0); EOSINOPHILS % (AUTO) 1.2 % (0.0-3.0); HEMATOCRIT 30.6 % (42.0-52.0); HEMOGLOBIN 9.8 G/DL (14.2-18.0); LYMPHOCYTES % (AUTO) 24.7 % (20.0-45.0); MEAN CORPUSCULAR VOLUME 96 FL (80-99); MONOCYTES % (AUTO) 8.4 % (1.0-10.0); NEUTROPHILS % (AUTO) 64.1 % (45.0-75.0); PLATELET COUNT 238 K/UL (150-450); RED CELL DISTRIBUTION WIDTH 15.4 % (11.6-14.8); WHITE BLOOD COUNT 7.5 K/UL (4.8-10.8)
[2017-09-22 07:41] LABS: ANION GAP 7 mmol/L (5-15); BLOOD UREA NITROGEN 24 mg/dL (7-18); CALCIUM 7.4 MG/DL (8.5-10.1); CARBON DIOXIDE 24 MMOL/L (21-32); CHLORIDE 108 MMOL/L (98-107); CREATININE 3.5 MG/DL (0.55-1.30); PHOSPHORUS 4.5 MG/DL (2.5-4.9); POTASSIUM 4.9 MMOL/L (3.5-5.1); SODIUM 139 MMOL/L (136-145)
[2017-09-22 08:00] VITALS: BP 148/99
[2017-09-22] MEDS: Heparin 5000 units/ml inj SUBQ SCH ×2 (09:10→22:26)
[2017-09-22] MEDS: Norco 5mg/325mg tab ORAL PRN ×3 (09:13→15:29)
[2017-09-22] MEDS: Carvedilol 25mg Tab ORAL SCH ×2 (09:21→22:16)
[2017-09-22] MEDS: Losartan 50mg tab ORAL SCH ×2 (09:21→22:17)
[2017-09-22] MEDS: Lisinopril 20mg tab ORAL SCH ×3 (09:21→17:05)
[2017-09-22] MEDS: Aspirin Baby 81mg ORAL SCH (09:21)
--- NOTE | 2017-09-22 11:28 | GI Progress Note ---
Assessment/Plan Problems: (1) Renal failure (ARF), acute on chronic ICD Codes: N17.9 - Acute kidney failure, unspecified; N18.9 - Chronic kidney disease, unspecified SNOMED: 123009090 (2) Diarrhea ICD Codes: R19.7 - Diarrhea, unspecified SNOMED: 04469468 (3) Vomiting ICD Codes: R11.10 - Vomiting, unspecified SNOMED: 129864572 (4) Diabetes type 1, controlled ICD Codes: E10.9 - Type 1 diabetes mellitus without complications SNOMED: 07321134, 605562288 (5) Gastroparesis ICD Codes: K31.84 - Gastroparesis SNOMED: 938387828 (6) Chronic pancreatitis ICD Codes: K86.1 - Other chronic pancreatitis SNOMED: 945790929 (7) Anemia ICD Codes: D64.9 - Anemia, unspecified SNOMED: 569363033 Status: progressing Status Narrative Discussed with Dr. Schultz. Assessment/Plan abdominal U/S reviewed Hep panel >> negative stool culture / cdiff / O&P >> negative anemia work 2/2 to renal disease s/p paracentesis yielding 3L of fluid >> r/o SBP fu nephro recs renal diet DM mgmt Lomotil prn pain mgmt ppi fu labs Subjective Subjective generalized weakness and pain c/o of diarrhea BLE edema Objective Last 24 Hour Vital Signs Date Time Temp Pulse Resp B/P (MAP) Pulse Ox O2 Delivery O2 Flow Rate FiO2 09/22/17 09:21 148/99 09/22/17 09:21 87 148/99 09/22/17 08:00 97.7 87 20 148/99 96 97.7 09/22/17 04:37 97.9 94 18 149/96 95 97.9 09/21/17 23:59 97.7 91 18 146/94 95 97.7 09/21/17 23:02 154/98 09/21/17 23:02 84 154/98 09/21/17 20:00 98.0 84 18 154/98 92 98.0 09/21/17 17:58 20 153/91 95 Room Air 09/21/17 17:21 160/95 09/21/17 17:20 85 160/95 09/21/17 16:00 Room Air 09/21/17 16:00 97.8 85 19 160/95 95 97.8 09/21/17 12:00 Room Air 09/21/17 12:00 98.1 73 21 158/102 95 98.1 Intake and Output 09/21/17 09/22/17 19:00 07:00 Intake Total 1400 ml 780 ml Balance 1400 ml 780 ml Intake Oral 1400 ml 780 ml # Voids 3 2 # Bowel Movements 4 4 Laboratory Tests Test 09/22/17 05:20 White Blood Count 7.5 K/UL (4.8-10.8) Red Blood Count 3.20 M/UL (4.70-6.10) L Hemoglobin 9.8 G/DL (14.2-18.0) L Hematocrit 30.6 % (42.0-52.0) L Mean Corpuscular Volume 96 FL (80-99) Mean Corpuscular Hemoglobin 30.8 PG (27.0-31.0) Mean Corpuscular Hemoglobin Concent 32.1 G/DL (32.0-36.0) Red Cell Distribution Width 15.4 % (11.6-14.8) H Platelet Count 238 K/UL (150-450) Mean Platelet Volume 5.8 FL (6.5-10.1) L Neutrophils (%) (Auto) 64.1 % (45.0-75.0) Lymphocytes (%) (Auto) 24.7 % (20.0-45.0) Monocytes (%) (Auto) 8.4 % (1.0-10.0) Eosinophils (%) (Auto) 1.2 % (0.0-3.0) Basophils (%) (Auto) 1.5 % (0.0-2.0) Sodium Level 139 MMOL/L (136-145) Potassium Level 4.9 MMOL/L (3.5-5.1) Chloride Level 108 MMOL/L (98-107) H Carbon Dioxide Level 24 MMOL/L (21-32) Anion Gap 7 mmol/L (5-15) Blood Urea Nitrogen 24 mg/dL (7-18) H Creatinine 3.5 MG/DL (0.55-1.30) H Estimat Glomerular Filtration Rate 20.5 mL/min (>60) Glucose Level 182 MG/DL (74-106) H Calcium Level 7.4 MG/DL (8.5-10.1) L Phosphorus Level 4.5 MG/DL (2.5-4.9) Magnesium Level 1.6 MG/DL (1.8-2.4) L Height (Feet): 5 Height (Inches): 10.00 Weight (Pounds): 215 General Appearance: WD/WN, no apparent distress, alert Cardiovascular: normal rate Respiratory/Chest: normal breath sounds, no respiratory distress Abdominal Exam: normal bowel sounds, non tender, soft Extremities: normal range of motion, non-tender Amber Clark N.P. Sep 22, 2017 11:28
[2017-09-22] MEDS: HYDROcodone/Acetamin 10/325 tab ORAL PRN ×2 (12:02→18:48)
--- NOTE | 2017-09-22 12:16 | Nephrology Progress Note ---
Assessment/Plan Problem List: (1) Renal failure (ARF), acute on chronic (2) Nephrotic syndrome (3) Diabetic nephropathy (4) HTN (hypertension) Assessment: hypertensive kidney disease Assessment Advanced renal failure due to Type I DM DIabetic Nephropathy- Most likely NS -. Bilateral upper quadrant pain. -. Diarrhea. -. Diabetic gastroparesis. -. Diabetes type 1. -. Hypertension. -. Anemia. due to CKD -. HypoThyroid Plan Plan: Dialysed 09/19 next 09/22 Transfused , Add Coozar to BP meds placement issues Zestril Procardia and Clonidine to BP meds- adjust meds Per GI 24 h urine collection over 3 gram protein Monitor renal parameters , BS and BP Avoid nephrotoxics Due DC and OP HD 2D Echo : Left ventricular ejection fraction estimated to be 60 %. No evidence of left ventricular hypertrophy. Trace pericardial effusion . Moderate left atrial enlargement. OCTAVIO: Left kidney measures 11.8 cm in length. Right kidney measures 9.6 cm length. Kidneys demonstrate diffusely increased echogenicity. No hydronephrosis. there is a small left lower pole renal cyst Subjective ROS Limited/Unobtainable: No Constitutional: Reports: malaise Objective Objective Last 24 Hour Vital Signs Date Time Temp Pulse Resp B/P (MAP) Pulse Ox O2 Delivery O2 Flow Rate FiO2 09/22/17 12:02 97.7 09/22/17 09:21 148/99 09/22/17 09:21 87 148/99 09/22/17 08:00 97.7 87 20 148/99 96 97.7 09/22/17 04:37 97.9 94 18 149/96 95 97.9 09/21/17 23:59 97.7 91 18 146/94 95 97.7 09/21/17 23:02 154/98 09/21/17 23:02 84 154/98 09/21/17 20:00 98.0 84 18 154/98 92 98.0 09/21/17 17:58 20 153/91 95 Room Air 09/21/17 17:21 160/95 09/21/17 17:20 85 160/95 09/21/17 16:00 Room Air 09/21/17 16:00 97.8 85 19 160/95 95 97.8 Intake and Output 09/21/17 09/22/17 19:00 07:00 Intake Total 1400 ml 780 ml Balance 1400 ml 780 ml Intake Oral 1400 ml 780 ml # Voids 3 2 # Bowel Movements 4 4 Laboratory Tests 09/22/17 05:20: White Blood Count 7.5, Red Blood Count 3.20L, Hemoglobin 9.8L, Hematocrit 30.6L , Mean Corpuscular Volume 96, Mean Corpuscular Hemoglobin 30.8, Mean Corpuscular Hemoglobin Concent 32.1, Red Cell Distribution Width 15.4H, Platelet Count 238, Mean Platelet Volume 5.8L, Neutrophils (%) (Auto) 64.1, Lymphocytes (%) (Auto) 24.7, Monocytes (%) (Auto) 8.4, Eosinophils (%) (Auto) 1.2, Basophils (%) (Auto) 1.5, Sodium Level 139, Potassium Level 4.9, Chloride Level 108H, Carbon Dioxide Level 24, Anion Gap 7, Blood Urea Nitrogen 24H, Creatinine 3.5H, Estimat Glomerular Filtration Rate 20.5, Glucose Level 182H, Calcium Level 7.4L, Phosphorus Level 4.5, Magnesium Level 1.6L Height (Feet): 5 Height (Inches): 10.00 Weight (Pounds): 215 General Appearance: no apparent distress Objective no change LEXIS PRESTON Sep 22, 2017 12:16
[2017-09-22] MEDS: Lomotil 2.5mg tab ORAL PRN (15:21)
[2017-09-22 15:55] VITALS: BP 178/101
--- NOTE | 2017-09-22 17:05 | Pulmonology Progress Note ---
Assessment/Plan Problems: (1) Renal failure (ARF), acute on chronic (2) Diabetic nephropathy (3) Diabetes type 1, controlled (4) Abdominal distention (5) Chronic pancreatitis (6) Gastroparesis Assessment/Plan no new complains renal w/u pending check electrolytes getting Hd symptomatic treatment dvt prophylaxis dc planning Subjective ROS Limited/Unobtainable: No Allergies: Coded Allergies: METOCLOPRAMIDE (Unverified Allergy, Severe, 09/08/17) PROCHLORPERAZINE (Unverified Allergy, Severe, 09/08/17) VANCOMYCIN (Unverified Allergy, Severe, 09/08/17) Objective Last 24 Hour Vital Signs Date Time Temp Pulse Resp B/P (MAP) Pulse Ox O2 Delivery O2 Flow Rate FiO2 09/22/17 16:28 97.5 09/22/17 15:55 97.5 86 19 178/101 95 97.5 09/22/17 15:29 97.7 09/22/17 15:23 170/101 09/22/17 13:01 97.7 09/22/17 12:02 97.7 09/22/17 09:21 148/99 09/22/17 09:21 87 148/99 09/22/17 08:00 97.7 87 20 148/99 96 97.7 09/22/17 04:37 97.9 94 18 149/96 95 97.9 09/21/17 23:59 97.7 91 18 146/94 95 97.7 09/21/17 23:02 154/98 09/21/17 23:02 84 154/98 09/21/17 20:00 98.0 84 18 154/98 92 98.0 09/21/17 17:58 20 153/91 95 Room Air 09/21/17 17:21 160/95 09/21/17 17:20 85 160/95 Intake and Output 09/21/17 09/22/17 19:00 07:00 Intake Total 1400 ml 780 ml Balance 1400 ml 780 ml Intake Oral 1400 ml 780 ml # Voids 3 2 # Bowel Movements 4 4 Objective General Appearance: no apparent distress Head: normocephalic, atraumatic Eyes: bilateral eye PERRL, bilateral eye EOMI ENT: normal pharynx, no angioedema Neck: supple, thyroid normal Respiratory: lungs clear, normal breath sounds Cardiovascular #1: regular rate, rhythm Gastrointestinal: non tender, soft Microbiology Date/Time Source Procedure Growth Status 09/20/17 10:30 Abdominal Fluid Gram Stain - Final Resulted 09/20/17 10:30 Abdominal Fluid Body Fluid Culture - Preliminary NO GROWTH AFTER 24 HOURS Resulted Laboratory Tests 09/22/17 05:20: White Blood Count 7.5, Red Blood Count 3.20L, Hemoglobin 9.8L, Hematocrit 30.6L , Mean Corpuscular Volume 96, Mean Corpuscular Hemoglobin 30.8, Mean Corpuscular Hemoglobin Concent 32.1, Red Cell Distribution Width 15.4H, Platelet Count 238, Mean Platelet Volume 5.8L, Neutrophils (%) (Auto) 64.1, Lymphocytes (%) (Auto) 24.7, Monocytes (%) (Auto) 8.4, Eosinophils (%) (Auto) 1.2, Basophils (%) (Auto) 1.5, Sodium Level 139, Potassium Level 4.9, Chloride Level 108H, Carbon Dioxide Level 24, Anion Gap 7, Blood Urea Nitrogen 24H, Creatinine 3.5H, Estimat Glomerular Filtration Rate 20.5, Glucose Level 182H, Calcium Level 7.4L, Phosphorus Level 4.5, Magnesium Level 1.6L Current Medications Medications (Trade) Dose Ordered Sig/Michelle Route PRN Reason Start Time Stop Time Status Last Admin Dose Admin Acetaminophen (Tylenol) 650 mg Q4H PRN ORAL fever 09/09/17 23:45 10/08/17 15:44 Acetaminophen/ Hydrocodone Bitart ([place] 10/325) 1 tab Q6HR PRN ORAL severe pain 7-10 09/22/17 10:30 09/29/17 10:29 09/22/17 12:02 Acetaminophen/ Hydrocodone Bitart ([place] 5/325) 1 tab Q4H PRN ORAL Moderate Pain (Pain Scale 4-6) 09/16/17 15:15 09/23/17 15:14 09/22/17 15:29 Aspirin (ASA) 81 mg DAILY ORAL 09/10/17 09:00 10/10/17 08:59 09/22/17 09:21 Carvedilol (Coreg) 25 mg EVERY 12 HOURS ORAL 09/17/17 09:00 10/17/17 08:59 09/22/17 09:21 Chlorhexidine Gluconate (Gail-Hex 2%) 1 applic DAILY@2000 TOPIC 09/18/17 20:00 10/18/17 19:59 09/21/17 19:42 Clonidine HCl (Catapres Tab) 0.1 mg Q4H PRN ORAL SYSTOLIC BP > 160 09/16/17 20:45 10/10/17 08:29 09/22/17 15:23 Dextrose (Dextrose 50%) STAT PRN IV Hypoglycemia 09/10/17 15:45 10/08/17 15:44 Diphenhydramine HCl (Benadryl) 25 mg Q6H PRN ORAL Itching/Pruritis 09/10/17 03:45 10/08/17 15:44 09/21/17 01:16 Diphenoxylate HCl/ Atropine (Lomotil) 2.5 mg Q4H PRN ORAL Diarrhea 09/19/17 10:45 10/19/17 10:44 09/22/17 15:21 Epoetin Curry (Procrit (for ESRD on dialysis)) 10,000 units TUE-TUE-TUE SUBQ 09/19/17 21:00 10/19/17 20:59 09/21/17 23:03 Heparin Sodium (Porcine) (Heparin 5000 units/ml) 5,000 units EVERY 12 HOURS SUBQ 09/10/17 09:00 10/08/17 20:59 09/22/17 09:10 Lansoprazole (Prevacid) 30 mg BID ORAL 09/17/17 18:00 10/11/17 08:59 09/21/17 17:21 Levothyroxine Sodium (Synthroid) 25 mcg DAILY@0630 ORAL 09/10/17 06:30 10/10/17 06:29 09/22/17 06:42 Lisinopril (Prinivil) 20 mg BID ORAL 09/16/17 09:00 10/16/17 08:59 09/21/17 17:21 Loperamide HCl (Imodium) 2 mg Q4H PRN ORAL Diarrhea 09/15/17 11:15 10/15/17 11:14 09/19/17 06:39 Lorazepam (Ativan 2mg/ml 1ml) 1 mg Q4H PRN IV For Anxiety 09/17/17 14:30 09/24/17 14:29 09/22/17 09:32 Losartan Potassium (Cozaar) 50 mg EVERY 12 HOURS ORAL 09/19/17 21:00 10/19/17 20:59 09/22/17 09:21 Nifedipine (Procardia XL) 60 mg BID ORAL 09/17/17 09:00 10/17/17 08:59 09/21/17 17:20 Ondansetron HCl (Zofran) 4 mg Q4HR PRN IVP Nausea & Vomiting 09/21/17 07:30 10/21/17 07:29 Polyethylene Glycol (Miralax) 17 gm HSPRN PRN ORAL Constipation 09/10/17 15:45 10/08/17 15:44 Sevelamer Carbonate (Renvela) 2,400 mg THREE TIMES A DAY ORAL 09/11/17 13:00 10/11/17 12:59 09/22/17 12:07 RICARDO POLANCO Sep 22, 2017 17:05
--- NOTE | 2017-09-22 17:19 | Internal Med Progress Note ---
Subjective Date of Service: Sep 22, 2017 Physician Name Sanjiv Talbot Attending Physician Serafin Voss MD Current Medications Medications (Trade) Dose Ordered Sig/Michelle Route PRN Reason Start Time Stop Time Status Last Admin Dose Admin Acetaminophen (Tylenol) 650 mg Q4H PRN ORAL fever 09/09/17 23:45 10/08/17 15:44 Acetaminophen/ Hydrocodone Bitart ([place] 10/325) 1 tab Q6HR PRN ORAL severe pain 7-10 09/22/17 10:30 09/29/17 10:29 09/22/17 12:02 Acetaminophen/ Hydrocodone Bitart ([place] 5/325) 1 tab Q4H PRN ORAL Moderate Pain (Pain Scale 4-6) 09/16/17 15:15 09/23/17 15:14 09/22/17 15:29 Aspirin (ASA) 81 mg DAILY ORAL 09/10/17 09:00 10/10/17 08:59 09/22/17 09:21 Carvedilol (Coreg) 25 mg EVERY 12 HOURS ORAL 09/17/17 09:00 10/17/17 08:59 09/22/17 09:21 Chlorhexidine Gluconate (Gail-Hex 2%) 1 applic DAILY@2000 TOPIC 09/18/17 20:00 10/18/17 19:59 09/21/17 19:42 Clonidine HCl (Catapres Tab) 0.1 mg Q4H PRN ORAL SYSTOLIC BP > 160 09/16/17 20:45 10/10/17 08:29 09/22/17 15:23 Dextrose (Dextrose 50%) STAT PRN IV Hypoglycemia 09/10/17 15:45 10/08/17 15:44 Diphenhydramine HCl (Benadryl) 25 mg Q6H PRN ORAL Itching/Pruritis 09/10/17 03:45 10/08/17 15:44 09/21/17 01:16 Diphenoxylate HCl/ Atropine (Lomotil) 2.5 mg Q4H PRN ORAL Diarrhea 09/19/17 10:45 10/19/17 10:44 09/22/17 15:21 Epoetin Curry (Procrit (for ESRD on dialysis)) 10,000 units TUE-WED-TUE SUBQ 09/19/17 21:00 10/19/17 20:59 09/21/17 23:03 Heparin Sodium (Porcine) (Heparin 5000 units/ml) 5,000 units EVERY 12 HOURS SUBQ 09/10/17 09:00 10/08/17 20:59 09/22/17 09:10 Lansoprazole (Prevacid) 30 mg BID ORAL 09/17/17 18:00 10/11/17 08:59 09/22/17 17:05 Levothyroxine Sodium (Synthroid) 25 mcg DAILY@0630 ORAL 09/10/17 06:30 10/10/17 06:29 09/22/17 06:42 Lisinopril (Prinivil) 20 mg BID ORAL 09/16/17 09:00 10/16/17 08:59 09/22/17 17:05 Loperamide HCl (Imodium) 2 mg Q4H PRN ORAL Diarrhea 09/15/17 11:15 10/15/17 11:14 09/19/17 06:39 Lorazepam (Ativan 2mg/ml 1ml) 1 mg Q4H PRN IV For Anxiety 09/17/17 14:30 09/24/17 14:29 09/22/17 09:32 Losartan Potassium (Cozaar) 50 mg EVERY 12 HOURS ORAL 09/19/17 21:00 10/19/17 20:59 09/22/17 09:21 Nifedipine (Procardia XL) 60 mg BID ORAL 09/17/17 09:00 10/17/17 08:59 09/22/17 17:04 Ondansetron HCl (Zofran) 4 mg Q4HR PRN IVP Nausea & Vomiting 09/21/17 07:30 10/21/17 07:29 Polyethylene Glycol (Miralax) 17 gm HSPRN PRN ORAL Constipation 09/10/17 15:45 10/08/17 15:44 Sevelamer Carbonate (Renvela) 2,400 mg THREE TIMES A DAY ORAL 09/11/17 13:00 10/11/17 12:59 09/22/17 17:05 Allergies: Coded Allergies: METOCLOPRAMIDE (Unverified Allergy, Severe, 09/08/17) PROCHLORPERAZINE (Unverified Allergy, Severe, 09/08/17) VANCOMYCIN (Unverified Allergy, Severe, 09/08/17) ROS Limited/Unobtainable: No Constitutional: Reports: no symptoms HEENT: Reports: no symptoms Cardiovascular: Reports: no symptoms Respiratory: Reports: no symptoms Gastrointestinal/Abdominal: Reports: no symptoms Genitourinary: Reports: no symptoms Neurologic/Psychiatric: Reports: no symptoms Subjective 32 YO M admitted with abdominal pain. Now renal failure on hemodialysis. Cover for Int Med-Dr Voss. Discharge held-see soc work note. S/P paracentesis 09/20/17 Objective Last Vital Signs Date Time Temp Pulse Resp B/P (MAP) Pulse Ox O2 Delivery O2 Flow Rate FiO2 09/22/17 17:05 178/101 09/22/17 17:04 86 09/22/17 16:28 97.5 09/22/17 15:55 19 95 09/21/17 17:58 Room Air 09/13/17 12:30 3.0 Laboratory Tests Test 09/22/17 05:20 White Blood Count 7.5 K/UL (4.8-10.8) Red Blood Count 3.20 M/UL (4.70-6.10) L Hemoglobin 9.8 G/DL (14.2-18.0) L Hematocrit 30.6 % (42.0-52.0) L Mean Corpuscular Volume 96 FL (80-99) Mean Corpuscular Hemoglobin 30.8 PG (27.0-31.0) Mean Corpuscular Hemoglobin Concent 32.1 G/DL (32.0-36.0) Red Cell Distribution Width 15.4 % (11.6-14.8) H Platelet Count 238 K/UL (150-450) Mean Platelet Volume 5.8 FL (6.5-10.1) L Neutrophils (%) (Auto) 64.1 % (45.0-75.0) Lymphocytes (%) (Auto) 24.7 % (20.0-45.0) Monocytes (%) (Auto) 8.4 % (1.0-10.0) Eosinophils (%) (Auto) 1.2 % (0.0-3.0) Basophils (%) (Auto) 1.5 % (0.0-2.0) Sodium Level 139 MMOL/L (136-145) Potassium Level 4.9 MMOL/L (3.5-5.1) Chloride Level 108 MMOL/L (98-107) H Carbon Dioxide Level 24 MMOL/L (21-32) Anion Gap 7 mmol/L (5-15) Blood Urea Nitrogen 24 mg/dL (7-18) H Creatinine 3.5 MG/DL (0.55-1.30) H Estimat Glomerular Filtration Rate 20.5 mL/min (>60) Glucose Level 182 MG/DL (74-106) H Calcium Level 7.4 MG/DL (8.5-10.1) L Phosphorus Level 4.5 MG/DL (2.5-4.9) Magnesium Level 1.6 MG/DL (1.8-2.4) L Microbiology Date/Time Source Procedure Growth Status 09/20/17 10:30 Abdominal Fluid Gram Stain - Final Resulted 09/20/17 10:30 Abdominal Fluid Body Fluid Culture - Preliminary NO GROWTH AFTER 24 HOURS Resulted Intake and Output 09/21/17 09/22/17 19:00 07:00 Intake Total 1400 ml 780 ml Balance 1400 ml 780 ml Intake Oral 1400 ml 780 ml # Voids 3 2 # Bowel Movements 4 4 Objective General Appearance: WD/WN, alert, mild distress EENT: PERRL/EOMI, normal ENT inspection Neck: non-tender, normal alignment, supple, normal inspection Cardiovascular: normal peripheral pulses, normal rate, regular rhythm, no gallop/murmur, no JVD Respiratory/Chest: chest wall non-tender, lungs clear, normal breath sounds, no respiratory distress, no accessory muscle use Abdomen: no organomegaly, no mass, decreased bowel sounds, distended, guarding , tender Extremities: normal range of motion 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 See nephrology note. (2) Anemia of renal disease Assessment & Plan: S/P transfusion (3) HTN (hypertension) Assessment & Plan: Uncontrolled. Await cardiology consult. Cont coreg and norvasc. (4) Ascites Assessment & Plan: S/P paracentesis 09/20/17. See GI note. (5) Abdominal pain (6) Abdominal distention (7) Diarrhea Assessment & Plan: C. Diff neg; await stool culture (8) Gastroparesis (9) Diabetes type 1, controlled Assessment & Plan: Continue novolog sliding scale. (10) Hypothyroidism Assessment & Plan: Continue levoxyl (11) CHF (congestive heart failure) Assessment & Plan: Volume overload. See cardiology note. await hemodialysis (12) Anemia Assessment & Plan: S/P transfusion 1 unit PRBC on 09/13/17 Assessment/Plan Discharge planning. On hold-[facility] social work note. SANJIV TALBOT Sep 22, 2017 17:18
--- NOTE | 2017-09-22 18:26 | Cardiac Electrophysiology PN ---
Assessment/Plan Assessment/Plan 1. Accelerated hypertension. On Procardia XL 60 bid, clonidine 0.1 mg q8, Losartan 50 bid, Coreg 25 mg bid and HD 2. Chronic kidney disease. On HD by Dr. Garrett. 3. Insulin-dependent diabetes. 4. Anemia of renal disease.S/P PRBC today 5. Abdominal pain and diarrhea, Negative for C Diff. 6. Hypothyroidism, on Synthroid. 7. ARU eval at [facility] pending DW RN Subjective Subjective No CP or SOB. Had 2 episodes of diarrhea. Getting HD Objective Last 24 Hour Vital Signs Date Time Temp Pulse Resp B/P (MAP) Pulse Ox O2 Delivery O2 Flow Rate FiO2 09/22/17 17:05 178/101 09/22/17 17:04 86 178/101 09/22/17 16:28 97.5 09/22/17 15:55 97.5 86 19 178/101 95 97.5 09/22/17 15:29 97.7 09/22/17 15:23 170/101 09/22/17 13:01 97.7 09/22/17 12:02 97.7 09/22/17 09:21 148/99 09/22/17 09:21 87 148/99 09/22/17 08:00 97.7 87 20 148/99 96 97.7 09/22/17 04:37 97.9 94 18 149/96 95 97.9 09/21/17 23:59 97.7 91 18 146/94 95 97.7 09/21/17 23:02 154/98 09/21/17 23:02 84 154/98 09/21/17 20:00 98.0 84 18 154/98 92 98.0 Intake and Output 09/21/17 09/22/17 19:00 07:00 Intake Total 1400 ml 780 ml Balance 1400 ml 780 ml Intake Oral 1400 ml 780 ml # Voids 3 2 # Bowel Movements 4 4 Laboratory Tests Test 09/22/17 05:20 White Blood Count 7.5 K/UL (4.8-10.8) Red Blood Count 3.20 M/UL (4.70-6.10) L Hemoglobin 9.8 G/DL (14.2-18.0) L Hematocrit 30.6 % (42.0-52.0) L Mean Corpuscular Volume 96 FL (80-99) Mean Corpuscular Hemoglobin 30.8 PG (27.0-31.0) Mean Corpuscular Hemoglobin Concent 32.1 G/DL (32.0-36.0) Red Cell Distribution Width 15.4 % (11.6-14.8) H Platelet Count 238 K/UL (150-450) Mean Platelet Volume 5.8 FL (6.5-10.1) L Neutrophils (%) (Auto) 64.1 % (45.0-75.0) Lymphocytes (%) (Auto) 24.7 % (20.0-45.0) Monocytes (%) (Auto) 8.4 % (1.0-10.0) Eosinophils (%) (Auto) 1.2 % (0.0-3.0) Basophils (%) (Auto) 1.5 % (0.0-2.0) Sodium Level 139 MMOL/L (136-145) Potassium Level 4.9 MMOL/L (3.5-5.1) Chloride Level 108 MMOL/L (98-107) H Carbon Dioxide Level 24 MMOL/L (21-32) Anion Gap 7 mmol/L (5-15) Blood Urea Nitrogen 24 mg/dL (7-18) H Creatinine 3.5 MG/DL (0.55-1.30) H Estimat Glomerular Filtration Rate 20.5 mL/min (>60) Glucose Level 182 MG/DL (74-106) H Calcium Level 7.4 MG/DL (8.5-10.1) L Phosphorus Level 4.5 MG/DL (2.5-4.9) Magnesium Level 1.6 MG/DL (1.8-2.4) L Microbiology Date/Time Source Procedure Growth Status 09/20/17 10:30 Abdominal Fluid Gram Stain - Final Resulted 09/20/17 10:30 Abdominal Fluid Body Fluid Culture - Preliminary NO GROWTH AFTER 24 HOURS Resulted Objective HEAD AND NECK: No JVD. Right IJ HD LUNGS: Clear. CARDIOVASCULAR: Regular S1 and S2. No gallop or murmur. ABDOMEN: Soft. EXTREMITIES: No pitting edema. MONICA DANGELO Sep 22, 2017 18:26
[2017-09-22 19:50] VITALS: BP 182/118
[2017-09-22] MEDS: Dyna-Hex 2% Top Sol 2oz TOPIC SCH (20:16)
[2017-09-23] MEDS: LORazepam Inj 2mg/ml 1ml IV PRN ×2 (00:19→04:33)
[2017-09-23] MEDS: HYDROcodone/Acetamin 10/325 tab ORAL PRN ×2 (02:40→17:13)
[2017-09-23 03:45] VITALS: BP 139/86
[2017-09-23] MEDS: Levothyroxine 25mcg tab ORAL SCH (06:10)
[2017-09-23 06:31] LABS: BASOPHILS % (AUTO) 1.1 % (0.0-2.0); EOSINOPHILS % (AUTO) 2.1 % (0.0-3.0); HEMATOCRIT 26.7 % (42.0-52.0); HEMOGLOBIN 8.7 G/DL (14.2-18.0); LYMPHOCYTES % (AUTO) 24.4 % (20.0-45.0); MEAN CORPUSCULAR VOLUME 97 FL (80-99); MONOCYTES % (AUTO) 8.5 % (1.0-10.0); PLATELET COUNT 291 K/UL (150-450); RED BLOOD COUNT 2.76 M/UL (4.70-6.10); RED CELL DISTRIBUTION WIDTH 15.7 % (11.6-14.8); WHITE BLOOD COUNT 7.3 K/UL (4.8-10.8)
[2017-09-23 07:21] LABS: ANION GAP 6 mmol/L (5-15); BLOOD UREA NITROGEN 18 mg/dL (7-18); CALCIUM 7.6 MG/DL (8.5-10.1); CARBON DIOXIDE 26 MMOL/L (21-32); CHLORIDE 108 MMOL/L (98-107); CREATININE 2.7 MG/DL (0.55-1.30); PHOSPHORUS 3.9 MG/DL (2.5-4.9); POTASSIUM 4.4 MMOL/L (3.5-5.1); SODIUM 140 MMOL/L (136-145)
[2017-09-23 08:00] VITALS: BP 148/94
[2017-09-23] MEDS: Carvedilol 25mg Tab ORAL SCH ×2 (08:54→21:05)
[2017-09-23] MEDS: Lisinopril 20mg tab ORAL SCH ×2 (08:55→17:55)
[2017-09-23] MEDS: Losartan 50mg tab ORAL SCH ×2 (08:55→21:05)
[2017-09-23] MEDS: Lomotil 2.5mg tab ORAL PRN ×2 (08:56→17:52)
[2017-09-23] MEDS: Aspirin Baby 81mg ORAL SCH (09:08)
[2017-09-23] MEDS: Norco 5mg/325mg tab ORAL PRN (09:10)
[2017-09-23] MEDS: Heparin 5000 units/ml inj SUBQ SCH ×2 (09:13→21:14)
--- NOTE | 2017-09-23 10:18 | GI Progress Note ---
Assessment/Plan Problems: (1) Renal failure (ARF), acute on chronic ICD Codes: N17.9 - Acute kidney failure, unspecified; N18.9 - Chronic kidney disease, unspecified SNOMED: 497776502 (2) Diarrhea ICD Codes: R19.7 - Diarrhea, unspecified SNOMED: 44929184 (3) Vomiting ICD Codes: R11.10 - Vomiting, unspecified SNOMED: 434878039 (4) Diabetes type 1, controlled ICD Codes: E10.9 - Type 1 diabetes mellitus without complications SNOMED: 98872233, 700693082 (5) Gastroparesis ICD Codes: K31.84 - Gastroparesis SNOMED: 351075903 (6) Chronic pancreatitis ICD Codes: K86.1 - Other chronic pancreatitis SNOMED: 654652684 (7) Anemia ICD Codes: D64.9 - Anemia, unspecified SNOMED: 147459903 Status: stable, progressing Status Narrative Discussed with Dr. Schultz. Assessment/Plan abdominal U/S reviewed Hep panel >> negative stool culture / cdiff / O&P >> negative anemia work 2/2 to renal disease s/p paracentesis yielding 3L of fluid >> r/o SBP fu nephro recs renal diet DM mgmt Lomotil prn pain mgmt ppi fu labs Subjective Subjective generalized weakness and pain c/o of diarrhea BLE edema Objective Last 24 Hour Vital Signs Date Time Temp Pulse Resp B/P (MAP) Pulse Ox O2 Delivery O2 Flow Rate FiO2 09/23/17 08:56 84 148/94 09/23/17 08:55 148/94 09/23/17 08:55 148/94 09/23/17 08:54 84 148/94 09/23/17 08:00 98.2 84 20 148/94 94 98.2 09/23/17 03:45 97.7 81 20 139/86 92 Room Air 97.7 09/22/17 22:17 145/92 09/22/17 22:16 78 145/92 09/22/17 20:15 Room Air 09/22/17 19:50 97.9 77 20 182/118 97 97.9 09/22/17 18:48 97.5 09/22/17 17:10 Room Air 09/22/17 17:05 178/101 09/22/17 17:04 86 178/101 09/22/17 16:28 97.5 09/22/17 15:55 97.5 86 19 178/101 95 97.5 09/22/17 15:29 97.7 09/22/17 15:23 170/101 09/22/17 13:01 97.7 09/22/17 12:02 97.7 Intake and Output 09/22/17 09/23/17 19:00 07:00 Intake Total 720 ml Output Total 3975 ml Balance 720 ml -3975 ml Intake Oral 720 ml Output Urine Total 850 ml Hemodialysis UF 3125 ml # Voids 5 # Bowel Movements 2 2 Laboratory Tests Test 09/23/17 05:05 White Blood Count 7.3 K/UL (4.8-10.8) Red Blood Count 2.76 M/UL (4.70-6.10) L Hemoglobin 8.7 G/DL (14.2-18.0) L Hematocrit 26.7 % (42.0-52.0) L Mean Corpuscular Volume 97 FL (80-99) Mean Corpuscular Hemoglobin 31.5 PG (27.0-31.0) H Mean Corpuscular Hemoglobin Concent 32.5 G/DL (32.0-36.0) Red Cell Distribution Width 15.7 % (11.6-14.8) H Platelet Count 291 K/UL (150-450) Mean Platelet Volume 6.5 FL (6.5-10.1) Neutrophils (%) (Auto) 64.0 % (45.0-75.0) Lymphocytes (%) (Auto) 24.4 % (20.0-45.0) Monocytes (%) (Auto) 8.5 % (1.0-10.0) Eosinophils (%) (Auto) 2.1 % (0.0-3.0) Basophils (%) (Auto) 1.1 % (0.0-2.0) Sodium Level 140 MMOL/L (136-145) Potassium Level 4.4 MMOL/L (3.5-5.1) Chloride Level 108 MMOL/L (98-107) H Carbon Dioxide Level 26 MMOL/L (21-32) Anion Gap 6 mmol/L (5-15) Blood Urea Nitrogen 18 mg/dL (7-18) Creatinine 2.7 MG/DL (0.55-1.30) H Estimat Glomerular Filtration Rate 27.7 mL/min (>60) Glucose Level 140 MG/DL (74-106) H Calcium Level 7.6 MG/DL (8.5-10.1) L Phosphorus Level 3.9 MG/DL (2.5-4.9) Magnesium Level 1.5 MG/DL (1.8-2.4) L Height (Feet): 5 Height (Inches): 10.00 Weight (Pounds): 215 General Appearance: WD/WN, no apparent distress, alert Cardiovascular: normal rate Respiratory/Chest: normal breath sounds, no respiratory distress Abdominal Exam: normal bowel sounds, non tender, soft Extremities: normal range of motion, non-tender Amber Clark N.P. Sep 23, 2017 10:18
[2017-09-23 12:00] VITALS: BP 165/105
--- NOTE | 2017-09-23 14:24 | Nephrology Progress Note ---
Assessment/Plan Problem List: (1) Renal failure (ARF), acute on chronic (2) Nephrotic syndrome (3) Diabetic nephropathy (4) HTN (hypertension) Assessment: hypertensive kidney disease Assessment Advanced renal failure due to Type I DM DIabetic Nephropathy- Most likely NS -. Bilateral upper quadrant pain. -. Diarrhea. -. Diabetic gastroparesis. -. Diabetes type 1. -. Hypertension. -. Anemia. due to CKD -. HypoThyroid Plan Plan: Dialysed next 09/24 Transfused , Add Coozar to BP meds placement issues Zestril Procardia and Clonidine to BP meds- adjust meds Per GI 24 h urine collection over 3 gram protein Monitor renal parameters , BS and BP Avoid nephrotoxics Due DC and OP HD 2D Echo : Left ventricular ejection fraction estimated to be 60 %. No evidence of left ventricular hypertrophy. Trace pericardial effusion . Moderate left atrial enlargement. OCTAVIO: Left kidney measures 11.8 cm in length. Right kidney measures 9.6 cm length. Kidneys demonstrate diffusely increased echogenicity. No hydronephrosis. there is a small left lower pole renal cyst Subjective ROS Limited/Unobtainable: No Constitutional: Reports: malaise Objective Objective Last 24 Hour Vital Signs Date Time Temp Pulse Resp B/P (MAP) Pulse Ox O2 Delivery O2 Flow Rate FiO2 09/23/17 12:00 97.7 85 20 165/105 96 97.7 09/23/17 10:09 98.2 09/23/17 08:56 84 148/94 09/23/17 08:55 148/94 09/23/17 08:55 148/94 09/23/17 08:54 84 148/94 09/23/17 08:00 98.2 84 20 148/94 94 98.2 09/23/17 03:45 97.7 81 20 139/86 92 Room Air 97.7 09/22/17 22:17 145/92 09/22/17 22:16 78 145/92 09/22/17 20:15 Room Air 09/22/17 19:50 97.9 77 20 182/118 97 97.9 09/22/17 18:48 97.5 09/22/17 17:10 Room Air 09/22/17 17:05 178/101 09/22/17 17:04 86 178/101 09/22/17 15:55 97.5 86 19 178/101 95 97.5 09/22/17 15:29 97.7 09/22/17 15:23 170/101 Intake and Output 09/22/17 09/23/17 19:00 07:00 Intake Total 720 ml Output Total 3975 ml Balance 720 ml -3975 ml Intake Oral 720 ml Output Urine Total 850 ml Hemodialysis UF 3125 ml # Voids 5 # Bowel Movements 2 2 Laboratory Tests 09/23/17 05:05: White Blood Count 7.3, Red Blood Count 2.76L, Hemoglobin 8.7L, Hematocrit 26.7L , Mean Corpuscular Volume 97, Mean Corpuscular Hemoglobin 31.5H, Mean Corpuscular Hemoglobin Concent 32.5, Red Cell Distribution Width 15.7H, Platelet Count 291, Mean Platelet Volume 6.5, Neutrophils (%) (Auto) 64.0, Lymphocytes (%) (Auto) 24.4, Monocytes (%) (Auto) 8.5, Eosinophils (%) (Auto) 2.1, Basophils (%) (Auto) 1.1, Sodium Level 140, Potassium Level 4.4, Chloride Level 108H, Carbon Dioxide Level 26, Anion Gap 6, Blood Urea Nitrogen 18, Creatinine 2.7H, Estimat Glomerular Filtration Rate 27.7, Glucose Level 140H, Calcium Level 7.6L, Phosphorus Level 3.9, Magnesium Level 1.5L Height (Feet): 5 Height (Inches): 10.00 Weight (Pounds): 215 General Appearance: no apparent distress Objective no change LEXIS PRESTON Sep 23, 2017 14:24
[2017-09-23] MEDS: LORazepam 1mg tab ORAL PRN ×2 (14:52→21:04)
--- NOTE | 2017-09-23 15:55 | Internal Med Progress Note ---
Subjective Date of Service: Sep 23, 2017 Physician Name SarabiaSanjiv jurado Attending Physician Serafin Voss MD Current Medications Medications (Trade) Dose Ordered Sig/Michelle Route PRN Reason Start Time Stop Time Status Last Admin Dose Admin Acetaminophen (Tylenol) 650 mg Q4H PRN ORAL fever 09/09/17 23:45 10/08/17 15:44 Acetaminophen/ Hydrocodone Bitart ([place] 10/325) 1 tab Q6HR PRN ORAL severe pain 7-10 09/22/17 10:30 09/29/17 10:29 09/23/17 02:40 Aspirin (ASA) 81 mg DAILY ORAL 09/10/17 09:00 10/10/17 08:59 09/23/17 09:08 Carvedilol (Coreg) 25 mg EVERY 12 HOURS ORAL 09/17/17 09:00 10/17/17 08:59 09/23/17 08:54 Chlorhexidine Gluconate (Gail-Hex 2%) 1 applic DAILY@2000 TOPIC 09/18/17 20:00 10/18/17 19:59 09/22/17 20:16 Clonidine HCl (Catapres Tab) 0.1 mg Q4H PRN ORAL SYSTOLIC BP > 160 09/16/17 20:45 10/10/17 08:29 09/22/17 15:23 Dextrose (Dextrose 50%) STAT PRN IV Hypoglycemia 09/10/17 15:45 10/08/17 15:44 Diphenhydramine HCl (Benadryl) 25 mg Q6H PRN ORAL Itching/Pruritis 09/10/17 03:45 10/08/17 15:44 09/23/17 14:52 Diphenoxylate HCl/ Atropine (Lomotil) 2.5 mg Q4H PRN ORAL Diarrhea 09/19/17 10:45 10/19/17 10:44 09/23/17 08:56 Epoetin Curry (Procrit (for ESRD on dialysis)) 10,000 units MON-WED-TUE SUBQ 09/19/17 21:00 10/19/17 20:59 09/21/17 23:03 Heparin Sodium (Porcine) (Heparin 5000 units/ml) 5,000 units EVERY 12 HOURS SUBQ 09/10/17 09:00 10/08/17 20:59 09/23/17 09:13 Lansoprazole (Prevacid) 30 mg BID ORAL 09/17/17 18:00 10/11/17 08:59 09/23/17 08:55 Levothyroxine Sodium (Synthroid) 25 mcg DAILY@0630 ORAL 09/10/17 06:30 10/10/17 06:29 09/23/17 06:10 Lisinopril (Prinivil) 20 mg BID ORAL 09/16/17 09:00 10/16/17 08:59 09/23/17 08:55 Loperamide HCl (Imodium) 2 mg Q4H PRN ORAL Diarrhea 09/15/17 11:15 10/15/17 11:14 09/19/17 06:39 Lorazepam (Ativan) 1 mg Q6H PRN ORAL For Anxiety 09/23/17 14:00 09/30/17 13:59 09/23/17 14:52 Losartan Potassium (Cozaar) 50 mg EVERY 12 HOURS ORAL 09/19/17 21:00 10/19/17 20:59 09/23/17 08:55 Nifedipine (Procardia XL) 60 mg BID ORAL 09/17/17 09:00 10/17/17 08:59 09/23/17 08:56 Ondansetron HCl (Zofran ODT) 4 mg Q6H PRN ORAL Nausea & Vomiting 09/23/17 10:45 10/23/17 10:44 09/23/17 12:12 Ondansetron HCl (Zofran) 4 mg Q4H PRN IVP Nausea & Vomiting 09/23/17 10:45 10/21/17 07:29 Polyethylene Glycol (Miralax) 17 gm HSPRN PRN ORAL Constipation 09/10/17 15:45 10/08/17 15:44 Sevelamer Carbonate (Renvela) 2,400 mg THREE TIMES A DAY ORAL 09/11/17 13:00 10/11/17 12:59 09/23/17 13:50 Allergies: Coded Allergies: METOCLOPRAMIDE (Unverified Allergy, Severe, 09/08/17) PROCHLORPERAZINE (Unverified Allergy, Severe, 09/08/17) VANCOMYCIN (Unverified Allergy, Severe, 09/08/17) ROS Limited/Unobtainable: No Constitutional: Reports: no symptoms HEENT: Reports: no symptoms Cardiovascular: Reports: no symptoms Respiratory: Reports: no symptoms Gastrointestinal/Abdominal: Reports: no symptoms Genitourinary: Reports: no symptoms Neurologic/Psychiatric: Reports: no symptoms Subjective 32 YO M admitted with abdominal pain. Now renal failure on hemodialysis. Cover for Int Med-Dr Voss. Discharge held-see soc work note. S/P paracentesis 09/20/17 Objective Last Vital Signs Date Time Temp Pulse Resp B/P (MAP) Pulse Ox O2 Delivery O2 Flow Rate FiO2 09/23/17 12:00 97.7 85 20 165/105 96 97.7 09/23/17 03:45 Room Air Laboratory Tests Test 09/23/17 05:05 White Blood Count 7.3 K/UL (4.8-10.8) Red Blood Count 2.76 M/UL (4.70-6.10) L Hemoglobin 8.7 G/DL (14.2-18.0) L Hematocrit 26.7 % (42.0-52.0) L Mean Corpuscular Volume 97 FL (80-99) Mean Corpuscular Hemoglobin 31.5 PG (27.0-31.0) H Mean Corpuscular Hemoglobin Concent 32.5 G/DL (32.0-36.0) Red Cell Distribution Width 15.7 % (11.6-14.8) H Platelet Count 291 K/UL (150-450) Mean Platelet Volume 6.5 FL (6.5-10.1) Neutrophils (%) (Auto) 64.0 % (45.0-75.0) Lymphocytes (%) (Auto) 24.4 % (20.0-45.0) Monocytes (%) (Auto) 8.5 % (1.0-10.0) Eosinophils (%) (Auto) 2.1 % (0.0-3.0) Basophils (%) (Auto) 1.1 % (0.0-2.0) Sodium Level 140 MMOL/L (136-145) Potassium Level 4.4 MMOL/L (3.5-5.1) Chloride Level 108 MMOL/L (98-107) H Carbon Dioxide Level 26 MMOL/L (21-32) Anion Gap 6 mmol/L (5-15) Blood Urea Nitrogen 18 mg/dL (7-18) Creatinine 2.7 MG/DL (0.55-1.30) H Estimat Glomerular Filtration Rate 27.7 mL/min (>60) Glucose Level 140 MG/DL (74-106) H Calcium Level 7.6 MG/DL (8.5-10.1) L Phosphorus Level 3.9 MG/DL (2.5-4.9) Magnesium Level 1.5 MG/DL (1.8-2.4) L Intake and Output 09/22/17 09/23/17 19:00 07:00 Intake Total 720 ml Output Total 3975 ml Balance 720 ml -3975 ml Intake Oral 720 ml Output Urine Total 850 ml Hemodialysis UF 3125 ml # Voids 5 # Bowel Movements 2 2 Objective General Appearance: WD/WN, alert, mild distress EENT: PERRL/EOMI, normal ENT inspection Neck: non-tender, normal alignment, supple, normal inspection Cardiovascular: normal peripheral pulses, normal rate, regular rhythm, no gallop/murmur, no JVD Respiratory/Chest: chest wall non-tender, lungs clear, normal breath sounds, no respiratory distress, no accessory muscle use Abdomen: no organomegaly, no mass, decreased bowel sounds, distended, guarding , tender Extremities: normal range of motion 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 See nephrology note. (2) Anemia of renal disease Assessment & Plan: S/P transfusion (3) HTN (hypertension) Assessment & Plan: Uncontrolled. Await cardiology consult. Cont coreg and norvasc. (4) Ascites Assessment & Plan: S/P paracentesis 09/20/17. See GI note. (5) Abdominal pain (6) Abdominal distention (7) Diarrhea Assessment & Plan: C. Diff neg; await stool culture (8) Gastroparesis (9) Diabetes type 1, controlled Assessment & Plan: Continue novolog sliding scale. (10) Hypothyroidism Assessment & Plan: Continue levoxyl (11) CHF (congestive heart failure) Assessment & Plan: Volume overload. See cardiology note. await hemodialysis (12) Anemia Assessment & Plan: S/P transfusion 1 unit PRBC on 09/13/17 Assessment/Plan Discharge planning. On hold-[facility] social work note. SARABIA,SANJIV Sep 23, 2017 15:55
[2017-09-23 16:00] VITALS: BP 157/91
--- NOTE | 2017-09-23 16:21 | Cardiac Electrophysiology PN ---
Assessment/Plan Assessment/Plan 1. Accelerated hypertension. Better on Procardia XL 60 bid, clonidine 0.1 mg q8 , Losartan 50 bid, Coreg 25 mg bid and HD 2. Chronic kidney disease. On HD by Dr. Garrett. 3. Insulin-dependent diabetes. 4. Anemia of renal disease.S/P PRBC 5. Abdominal pain and diarrhea, Negative for C Diff. 6. Hypothyroidism, on Synthroid. 7. ARU eval at [facility] pending DW RN Subjective Subjective No CP or SOB.. Had HD yesterday. RN at bedside. Objective Last 24 Hour Vital Signs Date Time Temp Pulse Resp B/P (MAP) Pulse Ox O2 Delivery O2 Flow Rate FiO2 09/23/17 16:00 97.9 78 20 157/91 95 97.9 09/23/17 12:00 97.7 85 20 165/105 96 97.7 09/23/17 10:09 98.2 09/23/17 08:56 84 148/94 09/23/17 08:55 148/94 09/23/17 08:55 148/94 09/23/17 08:54 84 148/94 09/23/17 08:00 98.2 84 20 148/94 94 98.2 09/23/17 03:45 97.7 81 20 139/86 92 Room Air 97.7 09/22/17 22:17 145/92 09/22/17 22:16 78 145/92 09/22/17 20:15 Room Air 09/22/17 19:50 97.9 77 20 182/118 97 97.9 09/22/17 18:48 97.5 09/22/17 17:10 Room Air 09/22/17 17:05 178/101 09/22/17 17:04 86 178/101 Intake and Output 09/22/17 09/23/17 19:00 07:00 Intake Total 720 ml Output Total 3975 ml Balance 720 ml -3975 ml Intake Oral 720 ml Output Urine Total 850 ml Hemodialysis UF 3125 ml # Voids 5 # Bowel Movements 2 2 Laboratory Tests Test 09/23/17 05:05 White Blood Count 7.3 K/UL (4.8-10.8) Red Blood Count 2.76 M/UL (4.70-6.10) L Hemoglobin 8.7 G/DL (14.2-18.0) L Hematocrit 26.7 % (42.0-52.0) L Mean Corpuscular Volume 97 FL (80-99) Mean Corpuscular Hemoglobin 31.5 PG (27.0-31.0) H Mean Corpuscular Hemoglobin Concent 32.5 G/DL (32.0-36.0) Red Cell Distribution Width 15.7 % (11.6-14.8) H Platelet Count 291 K/UL (150-450) Mean Platelet Volume 6.5 FL (6.5-10.1) Neutrophils (%) (Auto) 64.0 % (45.0-75.0) Lymphocytes (%) (Auto) 24.4 % (20.0-45.0) Monocytes (%) (Auto) 8.5 % (1.0-10.0) Eosinophils (%) (Auto) 2.1 % (0.0-3.0) Basophils (%) (Auto) 1.1 % (0.0-2.0) Sodium Level 140 MMOL/L (136-145) Potassium Level 4.4 MMOL/L (3.5-5.1) Chloride Level 108 MMOL/L (98-107) H Carbon Dioxide Level 26 MMOL/L (21-32) Anion Gap 6 mmol/L (5-15) Blood Urea Nitrogen 18 mg/dL (7-18) Creatinine 2.7 MG/DL (0.55-1.30) H Estimat Glomerular Filtration Rate 27.7 mL/min (>60) Glucose Level 140 MG/DL (74-106) H Calcium Level 7.6 MG/DL (8.5-10.1) L Phosphorus Level 3.9 MG/DL (2.5-4.9) Magnesium Level 1.5 MG/DL (1.8-2.4) L Objective HEAD AND NECK: No JVD. Right IJ HD LUNGS: Clear. CARDIOVASCULAR: Regular S1 and S2. No gallop or murmur. ABDOMEN: Soft. EXTREMITIES: No pitting edema. MONICA DANGELO Sep 23, 2017 16:21
[2017-09-23] MEDS: Dyna-Hex 2% Top Sol 2oz TOPIC SCH (20:55)
[2017-09-23] MEDS: Epogen (for ESRD on dialysis) SUBQ SCH (21:58)
--- NOTE | 2017-09-23 22:34 | Pulmonology Progress Note ---
Assessment/Plan Problems: (1) Renal failure (ARF), acute on chronic (2) Diabetic nephropathy (3) Diabetes type 1, controlled (4) Abdominal distention (5) Chronic pancreatitis (6) Gastroparesis Assessment/Plan no new complains renal w/u pending check electrolytes getting Hd symptomatic treatment dvt prophylaxis dc planning Subjective ROS Limited/Unobtainable: No Constitutional: Reports: no symptoms HEENT: Repors: no symptoms Respiratory: Reports: no symptoms Allergies: Coded Allergies: METOCLOPRAMIDE (Unverified Allergy, Severe, 09/08/17) PROCHLORPERAZINE (Unverified Allergy, Severe, 09/08/17) VANCOMYCIN (Unverified Allergy, Severe, 09/08/17) Objective Last 24 Hour Vital Signs Date Time Temp Pulse Resp B/P (MAP) Pulse Ox O2 Delivery O2 Flow Rate FiO2 09/23/17 21:05 152/96 09/23/17 21:05 82 152/96 09/23/17 18:12 97.9 09/23/17 17:55 157/91 09/23/17 17:52 78 157/91 09/23/17 16:00 97.9 78 20 157/91 95 97.9 09/23/17 12:00 97.7 85 20 165/105 96 97.7 09/23/17 10:09 98.2 09/23/17 08:56 84 148/94 09/23/17 08:55 148/94 09/23/17 08:55 148/94 09/23/17 08:54 84 148/94 09/23/17 08:00 98.2 84 20 148/94 94 98.2 09/23/17 03:45 97.7 81 20 139/86 92 Room Air 97.7 Intake and Output 09/22/17 09/23/17 19:00 07:00 Intake Total 720 ml Output Total 3975 ml Balance 720 ml -3975 ml Intake Oral 720 ml Output Urine Total 850 ml Hemodialysis UF 3125 ml # Voids 5 # Bowel Movements 2 2 Objective General Appearance: no apparent distress Head: normocephalic, atraumatic Eyes: bilateral eye PERRL, bilateral eye EOMI ENT: normal pharynx, no angioedema Neck: supple, thyroid normal Respiratory: lungs clear, normal breath sounds Cardiovascular #1: regular rate, rhythm Gastrointestinal: non tender, soft Laboratory Tests 2/23/18 05:05: White Blood Count 7.3, Red Blood Count 2.76L, Hemoglobin 8.7L, Hematocrit 26.7L , Mean Corpuscular Volume 97, Mean Corpuscular Hemoglobin 31.5H, Mean Corpuscular Hemoglobin Concent 32.5, Red Cell Distribution Width 15.7H, Platelet Count 291, Mean Platelet Volume 6.5, Neutrophils (%) (Auto) 64.0, Lymphocytes (%) (Auto) 24.4, Monocytes (%) (Auto) 8.5, Eosinophils (%) (Auto) 2.1, Basophils (%) (Auto) 1.1, Sodium Level 140, Potassium Level 4.4, Chloride Level 108H, Carbon Dioxide Level 26, Anion Gap 6, Blood Urea Nitrogen 18, Creatinine 2.7H, Estimat Glomerular Filtration Rate 27.7, Glucose Level 140H, Calcium Level 7.6L, Phosphorus Level 3.9, Magnesium Level 1.5L Current Medications Medications (Trade) Dose Ordered Sig/Michelle Route PRN Reason Start Time Stop Time Status Last Admin Dose Admin Acetaminophen (Tylenol) 650 mg Q4H PRN ORAL fever 09/09/17 23:45 10/08/17 15:44 Acetaminophen/ Hydrocodone Bitart ([place] 10325) 1 tab Q6HR PRN ORAL severe pain 7-10 09/22/17 10:30 09/29/17 10:29 09/23/17 17:13 Aspirin (ASA) 81 mg DAILY ORAL 09/10/17 09:00 10/10/17 08:59 09/23/17 09:08 Carvedilol (Coreg) 25 mg EVERY 12 HOURS ORAL 09/17/17 09:00 10/17/17 08:59 09/23/17 21:05 Chlorhexidine Gluconate (Gail-Hex 2%) 1 applic DAILY@1999 TOPIC 09/18/17 20:00 10/18/17 19:59 09/23/17 20:55 Clonidine HCl (Catapres Tab) 0.1 mg Q4H PRN ORAL SYSTOLIC BP > 160 09/16/17 20:45 10/10/17 08:29 09/22/17 15:23 Dextrose (Dextrose 50%) STAT PRN IV Hypoglycemia 09/10/17 15:45 10/08/17 15:44 Diphenhydramine HCl (Benadryl) 25 mg Q6H PRN ORAL Itching/Pruritis 09/10/17 03:45 10/08/17 15:44 09/23/17 14:52 Diphenoxylate HCl/ Atropine (Lomotil) 2.5 mg Q4H PRN ORAL Diarrhea 09/19/17 10:45 10/19/17 10:44 09/23/17 17:52 Epoetin Curry (Procrit (for ESRD on dialysis)) 10,000 units TUE-TUE-TUE SUBQ 09/19/17 21:00 10/19/17 20:59 09/23/17 21:58 Heparin Sodium (Porcine) (Heparin 5000 units/ml) 5,000 units EVERY 12 HOURS SUBQ 09/10/17 09:00 10/08/17 20:59 09/23/17 21:14 Lansoprazole (Prevacid) 30 mg BID ORAL 09/17/17 18:00 10/11/17 08:59 09/23/17 17:52 Levothyroxine Sodium (Synthroid) 25 mcg DAILY@0630 ORAL 09/10/17 06:30 10/10/17 06:29 09/23/17 06:10 Lisinopril (Prinivil) 20 mg BID ORAL 09/16/17 09:00 10/16/17 08:59 09/23/17 17:55 Loperamide HCl (Imodium) 2 mg Q4H PRN ORAL Diarrhea 09/15/17 11:15 10/15/17 11:14 09/19/17 06:39 Lorazepam (Ativan 2mg/ml 1ml) 1 mg Q4H PRN IV For Anxiety 09/23/17 22:30 09/30/17 22:29 Losartan Potassium (Cozaar) 50 mg EVERY 12 HOURS ORAL 09/19/17 21:00 10/19/17 20:59 09/23/17 21:05 Nifedipine (Procardia XL) 60 mg BID ORAL 09/17/17 09:00 10/17/17 08:59 09/23/17 17:52 Ondansetron HCl (Zofran ODT) 4 mg Q6H PRN ORAL Nausea & Vomiting 09/23/17 10:45 10/23/17 10:44 09/23/17 12:12 Ondansetron HCl (Zofran) 4 mg Q4H PRN IVP Nausea & Vomiting 09/23/17 10:45 10/21/17 07:29 Polyethylene Glycol (Miralax) 17 gm HSPRN PRN ORAL Constipation 09/10/17 15:45 10/08/17 15:44 Sevelamer Carbonate (Renvela) 2,400 mg THREE TIMES A DAY ORAL 09/11/17 13:00 10/11/17 12:59 09/23/17 17:52 RICARDO POLANCO Sep 23, 2017 22:34
[2017-09-24] MEDS: LORazepam Inj 2mg/ml 1ml IV PRN ×3 (00:23→17:50)
[2017-09-24] MEDS: HYDROcodone/Acetamin 10/325 tab ORAL PRN ×3 (02:31→21:32)
[2017-09-24 03:27] VITALS: BP 114/71
[2017-09-24] MEDS: Levothyroxine 25mcg tab ORAL SCH (06:04)
[2017-09-24 07:22] LABS: HEMATOCRIT 24.3 % (42.0-52.0); HEMOGLOBIN 7.9 G/DL (14.2-18.0); MEAN CORPUSCULAR VOLUME 97 FL (80-99); PLATELET COUNT 286 K/UL (150-450); RED BLOOD COUNT 2.51 M/UL (4.70-6.10); RED CELL DISTRIBUTION WIDTH 16.4 % (11.6-14.8)
[2017-09-24 07:26] LABS: ANION GAP 4 mmol/L (5-15); BLOOD UREA NITROGEN 20 mg/dL (7-18); CALCIUM 7.2 MG/DL (8.5-10.1); CARBON DIOXIDE 26 MMOL/L (21-32); CHLORIDE 108 MMOL/L (98-107); CREATININE 3.5 MG/DL (0.55-1.30); PHOSPHORUS 4.7 MG/DL (2.5-4.9); POTASSIUM 4.6 MMOL/L (3.5-5.1); SODIUM 138 MMOL/L (136-145)
[2017-09-24 08:00] VITALS: BP 131/74
[2017-09-24] MEDS: Lisinopril 20mg tab ORAL SCH ×2 (08:42→18:00)
[2017-09-24] MEDS: Losartan 50mg tab ORAL SCH ×2 (08:42→21:33)
[2017-09-24] MEDS: Aspirin Baby 81mg ORAL SCH (08:42)
[2017-09-24] MEDS: Heparin 5000 units/ml inj SUBQ SCH ×2 (08:47→21:39)
[2017-09-24] MEDS: Carvedilol 25mg Tab ORAL SCH ×2 (08:51→21:33)
[2017-09-24] MEDS ORDERED: NS 275ml ONE (11:13)
--- NOTE | 2017-09-24 11:32 | Nephrology Progress Note ---
Assessment/Plan Problem List: (1) Renal failure (ARF), acute on chronic (2) Nephrotic syndrome (3) Diabetic nephropathy (4) HTN (hypertension) Assessment: hypertensive kidney disease Assessment Advanced renal failure due to Type I DM DIabetic Nephropathy- Most likely NS -. Bilateral upper quadrant pain. -. Diarrhea. -. Diabetic gastroparesis. -. Diabetes type 1. -. Hypertension. -. Anemia. due to CKD -. HypoThyroid Plan Plan: Dialysed next 09/24 Transfused , Add Coozar to BP meds placement issues Zestril Procardia and Clonidine to BP meds- adjust meds Per GI 24 h urine collection over 3 gram protein Monitor renal parameters , BS and BP Avoid nephrotoxics Due DC and OP HD 2D Echo : Left ventricular ejection fraction estimated to be 60 %. No evidence of left ventricular hypertrophy. Trace pericardial effusion . Moderate left atrial enlargement. OCTAVIO: Left kidney measures 11.8 cm in length. Right kidney measures 9.6 cm length. Kidneys demonstrate diffusely increased echogenicity. No hydronephrosis. there is a small left lower pole renal cyst Subjective ROS Limited/Unobtainable: No Objective Objective Last 24 Hour Vital Signs Date Time Temp Pulse Resp B/P (MAP) Pulse Ox O2 Delivery O2 Flow Rate FiO2 09/24/17 10:25 97.0 09/24/17 09:26 97.0 09/24/17 08:51 69 131/74 09/24/17 08:44 69 131/74 09/24/17 08:42 131/74 09/24/17 08:42 131/74 09/24/17 08:00 97.0 69 20 131/74 93 97.0 09/24/17 03:27 98.2 78 20 114/71 91 Room Air 98.2 09/23/17 21:05 152/96 09/23/17 21:05 82 152/96 09/23/17 17:55 157/91 09/23/17 17:52 78 157/91 09/23/17 16:00 97.9 78 20 157/91 95 97.9 09/23/17 12:00 97.7 85 20 165/105 96 97.7 Intake and Output 09/23/17 09/24/17 19:00 07:00 Intake Total 1240 ml Balance 1240 ml Intake Oral 1240 ml # Voids 2 8 # Bowel Movements 2 Laboratory Tests 2/24/18 05:50: White Blood Count 8.0, Red Blood Count 2.51L, Hemoglobin 7.9L, Hematocrit 24.3L , Mean Corpuscular Volume 97, Mean Corpuscular Hemoglobin 31.6H, Mean Corpuscular Hemoglobin Concent 32.7, Red Cell Distribution Width 16.4H, Platelet Count 286, Mean Platelet Volume 6.3L, Neutrophils (%) (Auto) , Lymphocytes (%) (Auto) , Monocytes (%) (Auto) , Eosinophils (%) (Auto) , Basophils (%) (Auto) , Differential Total Cells Counted 100, Neutrophils % ( Manual) 75, Lymphocytes % (Manual) 16L, Monocytes % (Manual) 8, Eosinophils % ( Manual) 1, Basophils % (Manual) 0, Band Neutrophils 0, Platelet Estimate Adequate, Platelet Morphology Normal, Polychromasia 2+, Hypochromasia 1+, Anisocytosis 1+, Sodium Level 138, Potassium Level 4.6, Chloride Level 108H, Carbon Dioxide Level 26, Anion Gap 4L, Blood Urea Nitrogen 20H, Creatinine 3.5H , Estimat Glomerular Filtration Rate 20.5, Glucose Level 90, Calcium Level 7.2L , Phosphorus Level 4.7, Magnesium Level 1.5L Height (Feet): 5 Height (Inches): 10.00 Weight (Pounds): 219 General Appearance: no apparent distress, lethargic Cardiovascular: normal rate Respiratory/Chest: decreased breath sounds Abdomen: soft Objective no change LEXIS PRESTON Sep 24, 2017 11:32
[2017-09-24 12:00] VITALS: BP 129/79
--- NOTE | 2017-09-24 14:34 | Internal Med Progress Note ---
Subjective Date of Service: Sep 24, 2017 Physician Name Sanjiv Talbot Attending Physician Serafin Voss MD Current Medications Medications (Trade) Dose Ordered Sig/Michelle Route PRN Reason Start Time Stop Time Status Last Admin Dose Admin Acetaminophen (Tylenol) 650 mg Q4H PRN ORAL fever 09/09/17 23:45 10/08/17 15:44 Acetaminophen/ Hydrocodone Bitart ([place] 10/325) 1 tab Q6HR PRN ORAL severe pain 7-10 09/22/17 10:30 09/29/17 10:29 09/24/17 09:26 Aspirin (ASA) 81 mg DAILY ORAL 09/10/17 09:00 10/10/17 08:59 09/24/17 08:42 Carvedilol (Coreg) 25 mg EVERY 12 HOURS ORAL 09/17/17 09:00 10/17/17 08:59 09/24/17 08:51 Chlorhexidine Gluconate (Gail-Hex 2%) 1 applic DAILY@2000 TOPIC 09/18/17 20:00 10/18/17 19:59 09/23/17 20:55 Clonidine HCl (Catapres Tab) 0.1 mg Q4H PRN ORAL SYSTOLIC BP > 160 09/16/17 20:45 10/10/17 08:29 09/22/17 15:23 Dextrose (Dextrose 50%) STAT PRN IV Hypoglycemia 09/10/17 15:45 10/08/17 15:44 Diphenhydramine HCl (Benadryl) 25 mg Q6H PRN ORAL Itching/Pruritis 09/10/17 03:45 10/08/17 15:44 09/23/17 14:52 Diphenoxylate HCl/ Atropine (Lomotil) 2.5 mg Q4H PRN ORAL Diarrhea 09/19/17 10:45 10/19/17 10:44 09/23/17 17:52 Epoetin Curry (Procrit (for ESRD on dialysis)) 10,000 units MON-WED-TUE SUBQ 09/19/17 21:00 10/19/17 20:59 09/23/17 21:58 Heparin Sodium (Porcine) (Heparin 5000 units/ml) 5,000 units EVERY 12 HOURS SUBQ 09/10/17 09:00 10/08/17 20:59 09/24/17 08:47 Lansoprazole (Prevacid) 30 mg BID ORAL 09/17/17 18:00 10/11/17 08:59 09/24/17 08:43 Levothyroxine Sodium (Synthroid) 25 mcg DAILY@0630 ORAL 09/10/17 06:30 10/10/17 06:29 09/24/17 06:04 Lisinopril (Prinivil) 20 mg BID ORAL 09/16/17 09:00 10/16/17 08:59 09/24/17 08:42 Loperamide HCl (Imodium) 2 mg Q4H PRN ORAL Diarrhea 09/15/17 11:15 10/15/17 11:14 09/19/17 06:39 Lorazepam (Ativan 2mg/ml 1ml) 1 mg Q4H PRN IV For Anxiety 09/23/17 22:30 09/30/17 22:29 09/24/17 04:14 Losartan Potassium (Cozaar) 50 mg EVERY 12 HOURS ORAL 09/19/17 21:00 10/19/17 20:59 09/24/17 08:42 Nifedipine (Procardia XL) 60 mg BID ORAL 09/17/17 09:00 10/17/17 08:59 09/24/17 08:44 Ondansetron HCl (Zofran ODT) 4 mg Q6H PRN ORAL Nausea & Vomiting 09/23/17 10:45 10/23/17 10:44 09/23/17 12:12 Ondansetron HCl (Zofran) 4 mg Q4H PRN IVP Nausea & Vomiting 09/23/17 10:45 10/21/17 07:29 Polyethylene Glycol (Miralax) 17 gm HSPRN PRN ORAL Constipation 09/10/17 15:45 10/08/17 15:44 Sevelamer Carbonate (Renvela) 2,400 mg THREE TIMES A DAY ORAL 09/11/17 13:00 10/11/17 12:59 09/24/17 12:58 Allergies: Coded Allergies: METOCLOPRAMIDE (Unverified Allergy, Severe, 09/08/17) PROCHLORPERAZINE (Unverified Allergy, Severe, 09/08/17) VANCOMYCIN (Unverified Allergy, Severe, 09/08/17) ROS Limited/Unobtainable: No Constitutional: Reports: no symptoms HEENT: Reports: no symptoms Cardiovascular: Reports: no symptoms Respiratory: Reports: no symptoms Gastrointestinal/Abdominal: Reports: no symptoms Genitourinary: Reports: no symptoms Neurologic/Psychiatric: Reports: no symptoms Subjective 32 YO M admitted with abdominal pain. Now renal failure on hemodialysis. Cover for Int Med-Dr Voss. Discharge held-see soc work note. S/P paracentesis 09/20/17 Objective Last Vital Signs Date Time Temp Pulse Resp B/P (MAP) Pulse Ox O2 Delivery O2 Flow Rate FiO2 09/24/17 12:00 93 Room Air 09/24/17 12:00 98.1 68 18 129/79 98.1 Laboratory Tests Test 09/24/17 05:50 White Blood Count 8.0 K/UL (4.8-10.8) Red Blood Count 2.51 M/UL (4.70-6.10) L Hemoglobin 7.9 G/DL (14.2-18.0) L Hematocrit 24.3 % (42.0-52.0) L Mean Corpuscular Volume 97 FL (80-99) Mean Corpuscular Hemoglobin 31.6 PG (27.0-31.0) H Mean Corpuscular Hemoglobin Concent 32.7 G/DL (32.0-36.0) Red Cell Distribution Width 16.4 % (11.6-14.8) H Platelet Count 286 K/UL (150-450) Mean Platelet Volume 6.3 FL (6.5-10.1) L Neutrophils (%) (Auto) % (45.0-75.0) Lymphocytes (%) (Auto) % (20.0-45.0) Monocytes (%) (Auto) % (1.0-10.0) Eosinophils (%) (Auto) % (0.0-3.0) Basophils (%) (Auto) % (0.0-2.0) Differential Total Cells Counted 100 Neutrophils % (Manual) 75 % (45-75) Lymphocytes % (Manual) 16 % (20-45) L Monocytes % (Manual) 8 % (1-10) Eosinophils % (Manual) 1 % (0-3) Basophils % (Manual) 0 % (0-2) Band Neutrophils 0 % (0-8) Platelet Estimate Adequate Platelet Morphology Normal Polychromasia 2+ Hypochromasia 1+ Anisocytosis 1+ Sodium Level 138 MMOL/L (136-145) Potassium Level 4.6 MMOL/L (3.5-5.1) Chloride Level 108 MMOL/L (98-107) H Carbon Dioxide Level 26 MMOL/L (21-32) Anion Gap 4 mmol/L (5-15) L Blood Urea Nitrogen 20 mg/dL (7-18) H Creatinine 3.5 MG/DL (0.55-1.30) H Estimat Glomerular Filtration Rate 20.5 mL/min (>60) Glucose Level 90 MG/DL (74-106) Calcium Level 7.2 MG/DL (8.5-10.1) L Phosphorus Level 4.7 MG/DL (2.5-4.9) Magnesium Level 1.5 MG/DL (1.8-2.4) L Intake and Output 09/23/17 09/24/17 19:00 07:00 Intake Total 1240 ml Balance 1240 ml Intake Oral 1240 ml # Voids 2 8 # Bowel Movements 2 Objective General Appearance: WD/WN, alert, mild distress EENT: PERRL/EOMI, normal ENT inspection Neck: non-tender, normal alignment, supple, normal inspection Cardiovascular: normal peripheral pulses, normal rate, regular rhythm, no gallop/murmur, no JVD Respiratory/Chest: chest wall non-tender, lungs clear, normal breath sounds, no respiratory distress, no accessory muscle use Abdomen: no organomegaly, no mass, decreased bowel sounds, distended, guarding , tender Extremities: normal range of motion 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 See nephrology note. (2) Anemia of renal disease Assessment & Plan: S/P transfusion (3) HTN (hypertension) Assessment & Plan: Uncontrolled. Await cardiology consult. Cont coreg and norvasc. (4) Ascites Assessment & Plan: S/P paracentesis 09/20/17. See GI note. (5) Abdominal pain (6) Abdominal distention (7) Diarrhea Assessment & Plan: C. Diff neg; await stool culture (8) Gastroparesis (9) Diabetes type 1, controlled Assessment & Plan: Continue novolog sliding scale. (10) Hypothyroidism Assessment & Plan: Continue levoxyl (11) CHF (congestive heart failure) Assessment & Plan: Volume overload. See cardiology note. await hemodialysis (12) Anemia Assessment & Plan: S/P transfusion 1 unit PRBC on 09/13/17 Assessment/Plan Discharge planning. On hold-sse social work note. SANJIV TALBOT Sep 24, 2017 14:34
--- NOTE | 2017-09-24 15:01 | Cardiac Electrophysiology PN ---
Assessment/Plan Assessment/Plan 1. Accelerated hypertension. On Procardia XL 60 bid, clonidine 0.1 mg q8, Losartan 50 bid, Coreg 25 mg bid and HD 2. Chronic kidney disease. On HD 3. Insulin-dependent diabetes. 4. Anemia of renal disease.S/P PRBC 5. Abdominal pain and diarrhea, Negative for C Diff. 6. Hypothyroidism, on Synthroid. 7. ARU eval at [facility] pending DW RN Subjective Subjective No CP or SOB.. Awaiting HD today. RN at bedside. Objective Last 24 Hour Vital Signs Date Time Temp Pulse Resp B/P (MAP) Pulse Ox O2 Delivery O2 Flow Rate FiO2 09/24/17 12:00 93 Room Air 09/24/17 12:00 98.1 68 18 129/79 93 98.1 09/24/17 10:25 97.0 09/24/17 09:26 97.0 09/24/17 08:51 69 131/74 09/24/17 08:44 69 131/74 09/24/17 08:42 131/74 09/24/17 08:42 131/74 09/24/17 08:00 97.0 69 20 131/74 93 97.0 09/24/17 08:00 93 Room Air 09/24/17 03:27 98.2 78 20 114/71 91 Room Air 98.2 09/23/17 21:05 152/96 09/23/17 21:05 82 152/96 09/23/17 17:55 157/91 09/23/17 17:52 78 157/91 09/23/17 16:00 97.9 78 20 157/91 95 97.9 Intake and Output 09/23/17 09/24/17 19:00 07:00 Intake Total 1240 ml Balance 1240 ml Intake Oral 1240 ml # Voids 2 8 # Bowel Movements 2 Laboratory Tests Test 09/24/17 05:50 White Blood Count 8.0 K/UL (4.8-10.8) Red Blood Count 2.51 M/UL (4.70-6.10) L Hemoglobin 7.9 G/DL (14.2-18.0) L Hematocrit 24.3 % (42.0-52.0) L Mean Corpuscular Volume 97 FL (80-99) Mean Corpuscular Hemoglobin 31.6 PG (27.0-31.0) H Mean Corpuscular Hemoglobin Concent 32.7 G/DL (32.0-36.0) Red Cell Distribution Width 16.4 % (11.6-14.8) H Platelet Count 286 K/UL (150-450) Mean Platelet Volume 6.3 FL (6.5-10.1) L Neutrophils (%) (Auto) % (45.0-75.0) Lymphocytes (%) (Auto) % (20.0-45.0) Monocytes (%) (Auto) % (1.0-10.0) Eosinophils (%) (Auto) % (0.0-3.0) Basophils (%) (Auto) % (0.0-2.0) Differential Total Cells Counted 100 Neutrophils % (Manual) 75 % (45-75) Lymphocytes % (Manual) 16 % (20-45) L Monocytes % (Manual) 8 % (1-10) Eosinophils % (Manual) 1 % (0-3) Basophils % (Manual) 0 % (0-2) Band Neutrophils 0 % (0-8) Platelet Estimate Adequate Platelet Morphology Normal Polychromasia 2+ Hypochromasia 1+ Anisocytosis 1+ Sodium Level 138 MMOL/L (136-145) Potassium Level 4.6 MMOL/L (3.5-5.1) Chloride Level 108 MMOL/L (98-107) H Carbon Dioxide Level 26 MMOL/L (21-32) Anion Gap 4 mmol/L (5-15) L Blood Urea Nitrogen 20 mg/dL (7-18) H Creatinine 3.5 MG/DL (0.55-1.30) H Estimat Glomerular Filtration Rate 20.5 mL/min (>60) Glucose Level 90 MG/DL (74-106) Calcium Level 7.2 MG/DL (8.5-10.1) L Phosphorus Level 4.7 MG/DL (2.5-4.9) Magnesium Level 1.5 MG/DL (1.8-2.4) L Objective HEAD AND NECK: No JVD. Right IJ HD LUNGS: Clear. CARDIOVASCULAR: Regular S1 and S2. No gallop or murmur. ABDOMEN: Soft. EXTREMITIES: No pitting edema. MONICA DANGELO Sep 24, 2017 15:01
[2017-09-24 16:00] VITALS: BP 141/87
[2017-09-24 16:30] VITALS: BP 143/90
[2017-09-24 20:01] VITALS: BP 150/96
[2017-09-24] MEDS: Dyna-Hex 2% Top Sol 2oz TOPIC SCH (21:32)
[2017-09-25] VITALS (7 sets, daily range): BP systolic 115–179; BP diastolic 74–114
[2017-09-25] MEDS: LORazepam Inj 2mg/ml 1ml IV PRN ×3 (00:06→17:41)
[2017-09-25] MEDS: Levothyroxine 25mcg tab ORAL SCH (06:35)
[2017-09-25 07:27] LABS: BASOPHILS % (AUTO) 0.8 % (0.0-2.0); EOSINOPHILS % (AUTO) 1.6 % (0.0-3.0); LYMPHOCYTES % (AUTO) 25.4 % (20.0-45.0); MEAN CORPUSCULAR VOLUME 99 FL (80-99); MONOCYTES % (AUTO) 8.2 % (1.0-10.0); NEUTROPHILS % (AUTO) 63.9 % (45.0-75.0); PLATELET COUNT 306 K/UL (150-450); RED BLOOD COUNT 2.54 M/UL (4.70-6.10); WHITE BLOOD COUNT 6.9 K/UL (4.8-10.8)
[2017-09-25 08:12] LABS: ANION GAP 3 mmol/L (5-15); BLOOD UREA NITROGEN 20 mg/dL (7-18); CALCIUM 7.2 MG/DL (8.5-10.1); CARBON DIOXIDE 28 MMOL/L (21-32); CHLORIDE 108 MMOL/L (98-107); CREATININE 3.2 MG/DL (0.55-1.30); POTASSIUM 4.8 MMOL/L (3.5-5.1); SODIUM 139 MMOL/L (136-145)
[2017-09-25] MEDS: Losartan 50mg tab ORAL SCH ×2 (09:28→21:44)
[2017-09-25] MEDS: Heparin 5000 units/ml inj SUBQ SCH ×2 (09:28→21:49)
[2017-09-25] MEDS: Carvedilol 25mg Tab ORAL SCH ×2 (09:29→21:44)
[2017-09-25] MEDS: Lisinopril 20mg tab ORAL SCH ×2 (09:29→17:41)
[2017-09-25] MEDS: Aspirin Baby 81mg ORAL SCH (09:29)
[2017-09-25] MEDS: Lomotil 2.5mg tab ORAL PRN ×2 (09:30→21:52)
[2017-09-25] MEDS: HYDROcodone/Acetamin 10/325 tab ORAL PRN ×4 (09:31→21:45)
--- NOTE | 2017-09-25 11:32 | Nephrology Progress Note ---
Assessment/Plan Problem List: (1) Renal failure (ARF), acute on chronic (2) Nephrotic syndrome (3) Diabetic nephropathy (4) HTN (hypertension) Assessment: hypertensive kidney disease Assessment Advanced renal failure due to Type I DM DIabetic Nephropathy- Most likely NS -. Bilateral upper quadrant pain. -. Diarrhea. -. Diabetic gastroparesis. -. Diabetes type 1. -. Hypertension. -. Anemia. due to CKD -. HypoThyroid Plan Plan: Dialysed next 09/27 Transfused , Add Coozar to BP meds placement issues Zestril Procardia and Clonidine to BP meds- adjust meds Per GI 24 h urine collection over 3 gram protein Monitor renal parameters , BS and BP Avoid nephrotoxics Due DC and OP HD 2D Echo : Left ventricular ejection fraction estimated to be 60 %. No evidence of left ventricular hypertrophy. Trace pericardial effusion . Moderate left atrial enlargement. OCTAVIO: Left kidney measures 11.8 cm in length. Right kidney measures 9.6 cm length. Kidneys demonstrate diffusely increased echogenicity. No hydronephrosis. there is a small left lower pole renal cyst Subjective ROS Limited/Unobtainable: No Constitutional: Reports: malaise Objective Objective Last 24 Hour Vital Signs Date Time Temp Pulse Resp B/P (MAP) Pulse Ox O2 Delivery O2 Flow Rate FiO2 09/25/17 10:30 98.1 09/25/17 09:31 98.1 09/25/17 09:30 72 179/99 09/25/17 09:29 72 179/99 09/25/17 09:29 179/99 09/25/17 09:28 179/99 09/25/17 08:00 98.1 72 20 179/99 97 98.1 09/25/17 05:00 145/95 09/25/17 04:23 161/100 09/25/17 04:00 97.3 88 18 161/100 95 Room Air 97.3 09/25/17 00:00 98.2 84 18 146/93 91 Room Air 98.2 09/24/17 21:33 150/96 09/24/17 21:33 84 150/96 09/24/17 21:32 97.5 09/24/17 20:03 Room Air 09/24/17 20:01 97.5 84 20 150/96 Room Air 97.5 2/24/18 18:00 75 141/87 09/24/17 18:00 141/87 09/24/17 16:30 97.7 80 20 143/90 97.7 09/24/17 16:30 Room Air 09/24/17 16:00 95 Room Air 09/24/17 16:00 97.5 75 18 141/87 95 97.5 09/24/17 12:00 93 Room Air 09/24/17 12:00 98.1 68 18 129/79 93 98.1 Intake and Output 09/24/17 09/25/17 19:00 07:00 Intake Total 560 ml Output Total 3000 ml Balance 560 ml -3000 ml Intake Oral 560 ml Hemodialysis UF 3000 ml # Voids 1 # Bowel Movements 3 3 Laboratory Tests 09/25/17 06:00: White Blood Count 6.9, Red Blood Count 2.54L, Hemoglobin 8.0L, Hematocrit 25.0L , Mean Corpuscular Volume 99, Mean Corpuscular Hemoglobin 31.7H, Mean Corpuscular Hemoglobin Concent 32.1, Red Cell Distribution Width 17.0H, Platelet Count 306, Mean Platelet Volume 6.1L, Neutrophils (%) (Auto) 63.9, Lymphocytes (%) (Auto) 25.4, Monocytes (%) (Auto) 8.2, Eosinophils (%) (Auto) 1.6, Basophils (%) (Auto) 0.8, Sodium Level 139, Potassium Level 4.8, Chloride Level 108H, Carbon Dioxide Level 28, Anion Gap 3L, Blood Urea Nitrogen 20H, Creatinine 3.2H, Estimat Glomerular Filtration Rate 22.8, Glucose Level 81, Calcium Level 7.2L Height (Feet): 5 Height (Inches): 10.00 Weight (Pounds): 215 General Appearance: no apparent distress Objective no change LEXIS PRESTON Sep 25, 2017 11:31
--- NOTE | 2017-09-25 15:01 | Cardiac Electrophysiology PN ---
Assessment/Plan Assessment/Plan 1. Accelerated hypertension. Continue Procardia XL 60 bid, clonidine 0.1 mg q8, Losartan 50 bid, Coreg 25 mg bid and HD 2. Chronic kidney disease. On HD 3. Insulin-dependent diabetes. 4. Anemia of renal disease. S/P PRBC 5. Abdominal pain and diarrhea, Negative for C Diff. 6. Hypothyroidism, on Synthroid. 7. Awaiting transfer to ARU at [facility] RN Subjective Subjective No CP or SOB.Had HD yesterday. RN at bedside. Objective Last 24 Hour Vital Signs Date Time Temp Pulse Resp B/P (MAP) Pulse Ox O2 Delivery O2 Flow Rate FiO2 09/25/17 13:55 178/114 09/25/17 11:51 98.7 64 19 178/114 96 98.7 09/25/17 10:30 98.1 09/25/17 09:31 98.1 09/25/17 09:30 72 179/99 09/25/17 09:29 72 179/99 09/25/17 09:29 179/99 09/25/17 09:28 179/99 09/25/17 08:00 98.1 72 20 179/99 97 98.1 09/25/17 05:00 145/95 09/25/17 04:23 161/100 09/25/17 04:00 97.3 88 18 161/100 95 Room Air 97.3 09/25/17 00:00 98.2 84 18 146/93 91 Room Air 98.2 09/24/17 21:33 150/96 09/24/17 21:33 84 150/96 09/24/17 21:32 97.5 09/24/17 20:03 Room Air 09/24/17 20:01 97.5 84 20 150/96 Room Air 97.5 09/24/17 18:00 75 141/87 09/24/17 18:00 141/87 09/24/17 16:30 97.7 80 20 143/90 97.7 09/24/17 16:30 Room Air 09/24/17 16:00 95 Room Air 09/24/17 16:00 97.5 75 18 141/87 95 97.5 Intake and Output 09/24/17 09/25/17 19:00 07:00 Intake Total 560 ml Output Total 3000 ml Balance 560 ml -3000 ml Intake Oral 560 ml Hemodialysis UF 3000 ml # Voids 1 # Bowel Movements 3 3 Laboratory Tests Test 09/25/17 06:00 White Blood Count 6.9 K/UL (4.8-10.8) Red Blood Count 2.54 M/UL (4.70-6.10) L Hemoglobin 8.0 G/DL (14.2-18.0) L Hematocrit 25.0 % (42.0-52.0) L Mean Corpuscular Volume 99 FL (80-99) Mean Corpuscular Hemoglobin 31.7 PG (27.0-31.0) H Mean Corpuscular Hemoglobin Concent 32.1 G/DL (32.0-36.0) Red Cell Distribution Width 17.0 % (11.6-14.8) H Platelet Count 306 K/UL (150-450) Mean Platelet Volume 6.1 FL (6.5-10.1) L Neutrophils (%) (Auto) 63.9 % (45.0-75.0) Lymphocytes (%) (Auto) 25.4 % (20.0-45.0) Monocytes (%) (Auto) 8.2 % (1.0-10.0) Eosinophils (%) (Auto) 1.6 % (0.0-3.0) Basophils (%) (Auto) 0.8 % (0.0-2.0) Sodium Level 139 MMOL/L (136-145) Potassium Level 4.8 MMOL/L (3.5-5.1) Chloride Level 108 MMOL/L (98-107) H Carbon Dioxide Level 28 MMOL/L (21-32) Anion Gap 3 mmol/L (5-15) L Blood Urea Nitrogen 20 mg/dL (7-18) H Creatinine 3.2 MG/DL (0.55-1.30) H Estimat Glomerular Filtration Rate 22.8 mL/min (>60) Glucose Level 81 MG/DL (74-106) Calcium Level 7.2 MG/DL (8.5-10.1) L Objective HEAD AND NECK: No JVD. Right IJ HD LUNGS: Clear. CARDIOVASCULAR: Regular S1 and S2. No gallop or murmur. ABDOMEN: Soft. EXTREMITIES: No pitting edema. MONICA DANGELO Sep 25, 2017 15:01
--- NOTE | 2017-09-25 15:21 | Internal Med Progress Note ---
Subjective Date of Service: Sep 25, 2017 Physician Name Sanjiv Talbot Attending Physician Serafin Voss MD Current Medications Medications (Trade) Dose Ordered Sig/Michelle Route PRN Reason Start Time Stop Time Status Last Admin Dose Admin Acetaminophen (Tylenol) 650 mg Q4H PRN ORAL fever 09/09/17 23:45 10/08/17 15:44 Acetaminophen/ Hydrocodone Bitart ([place] 10/325) 1 tab Q6HR PRN ORAL severe pain 7-10 09/22/17 10:30 09/29/17 10:29 09/25/17 09:31 Aspirin (ASA) 81 mg DAILY ORAL 09/10/17 09:00 10/10/17 08:59 09/25/17 09:29 Carvedilol (Coreg) 25 mg EVERY 12 HOURS ORAL 09/17/17 09:00 10/17/17 08:59 09/25/17 09:29 Chlorhexidine Gluconate (Gail-Hex 2%) 1 applic DAILY@2000 TOPIC 09/18/17 20:00 10/18/17 19:59 09/24/17 21:32 Clonidine HCl (Catapres Tab) 0.1 mg Q4H PRN ORAL SYSTOLIC BP > 160 09/16/17 20:45 10/10/17 08:29 09/25/17 13:55 Dextrose (Dextrose 50%) STAT PRN IV Hypoglycemia 09/10/17 15:45 10/08/17 15:44 Diphenhydramine HCl (Benadryl) 25 mg Q6H PRN ORAL Itching/Pruritis 09/10/17 03:45 10/08/17 15:44 09/24/17 21:32 Diphenoxylate HCl/ Atropine (Lomotil) 2.5 mg Q4H PRN ORAL Diarrhea 09/19/17 10:45 10/19/17 10:44 09/25/17 09:30 Epoetin Curry (Procrit (for ESRD on dialysis)) 10,000 units MON-WED-TUE SUBQ 09/19/17 21:00 10/19/17 20:59 09/23/17 21:58 Heparin Sodium (Porcine) (Heparin 5000 units/ml) 5,000 units EVERY 12 HOURS SUBQ 09/10/17 09:00 10/08/17 20:59 09/25/17 09:28 Iron Sucrose 200 mg/Sodium Chloride 120 ml @ 240 mls/hr ONCE ONCE IV 09/25/17 21:00 09/25/17 21:29 Lansoprazole (Prevacid) 30 mg BID ORAL 09/17/17 18:00 10/11/17 08:59 09/25/17 09:29 Levothyroxine Sodium (Synthroid) 25 mcg DAILY@0630 ORAL 09/10/17 06:30 10/10/17 06:29 09/25/17 06:35 Lisinopril (Prinivil) 20 mg BID ORAL 09/16/17 09:00 10/16/17 08:59 09/25/17 09:29 Loperamide HCl (Imodium) 2 mg Q4H PRN ORAL Diarrhea 09/15/17 11:15 10/15/17 11:14 09/19/17 06:39 Lorazepam (Ativan 2mg/ml 1ml) 1 mg Q4H PRN IV For Anxiety 09/23/17 22:30 09/30/17 22:29 09/25/17 04:23 Losartan Potassium (Cozaar) 50 mg EVERY 12 HOURS ORAL 09/19/17 21:00 10/19/17 20:59 09/25/17 09:28 Nifedipine (Procardia XL) 60 mg BID ORAL 09/17/17 09:00 10/17/17 08:59 09/25/17 09:30 Ondansetron HCl (Zofran ODT) 4 mg Q6H PRN ORAL Nausea & Vomiting 09/23/17 10:45 10/23/17 10:44 09/23/17 12:12 Ondansetron HCl (Zofran) 4 mg Q4H PRN IVP Nausea & Vomiting 09/23/17 10:45 10/21/17 07:29 Polyethylene Glycol (Miralax) 17 gm HSPRN PRN ORAL Constipation 09/10/17 15:45 10/08/17 15:44 Sevelamer Carbonate (Renvela) 2,400 mg THREE TIMES A DAY ORAL 09/11/17 13:00 10/11/17 12:59 09/25/17 13:55 Allergies: Coded Allergies: METOCLOPRAMIDE (Unverified Allergy, Severe, 09/08/17) PROCHLORPERAZINE (Unverified Allergy, Severe, 09/08/17) VANCOMYCIN (Unverified Allergy, Severe, 09/08/17) ROS Limited/Unobtainable: No Constitutional: Reports: no symptoms HEENT: Reports: no symptoms Cardiovascular: Reports: no symptoms Respiratory: Reports: no symptoms Gastrointestinal/Abdominal: Reports: no symptoms Genitourinary: Reports: no symptoms Subjective 32 YO M admitted with abdominal pain. Now renal failure on hemodialysis. Cover for Int Med-Dr Voss. Discharge held-see soc work note. Objective Last Vital Signs Date Time Temp Pulse Resp B/P (MAP) Pulse Ox O2 Delivery O2 Flow Rate FiO2 09/25/17 13:55 178/114 09/25/17 11:51 98.7 64 19 96 98.7 09/25/17 04:00 Room Air Laboratory Tests Test 09/25/17 06:00 White Blood Count 6.9 K/UL (4.8-10.8) Red Blood Count 2.54 M/UL (4.70-6.10) L Hemoglobin 8.0 G/DL (14.2-18.0) L Hematocrit 25.0 % (42.0-52.0) L Mean Corpuscular Volume 99 FL (80-99) Mean Corpuscular Hemoglobin 31.7 PG (27.0-31.0) H Mean Corpuscular Hemoglobin Concent 32.1 G/DL (32.0-36.0) Red Cell Distribution Width 17.0 % (11.6-14.8) H Platelet Count 306 K/UL (150-450) Mean Platelet Volume 6.1 FL (6.5-10.1) L Neutrophils (%) (Auto) 63.9 % (45.0-75.0) Lymphocytes (%) (Auto) 25.4 % (20.0-45.0) Monocytes (%) (Auto) 8.2 % (1.0-10.0) Eosinophils (%) (Auto) 1.6 % (0.0-3.0) Basophils (%) (Auto) 0.8 % (0.0-2.0) Sodium Level 139 MMOL/L (136-145) Potassium Level 4.8 MMOL/L (3.5-5.1) Chloride Level 108 MMOL/L (98-107) H Carbon Dioxide Level 28 MMOL/L (21-32) Anion Gap 3 mmol/L (5-15) L Blood Urea Nitrogen 20 mg/dL (7-18) H Creatinine 3.2 MG/DL (0.55-1.30) H Estimat Glomerular Filtration Rate 22.8 mL/min (>60) Glucose Level 81 MG/DL (74-106) Calcium Level 7.2 MG/DL (8.5-10.1) L Intake and Output 09/24/17 09/25/17 19:00 07:00 Intake Total 560 ml Output Total 3000 ml Balance 560 ml -3000 ml Intake Oral 560 ml Hemodialysis UF 3000 ml # Voids 1 # Bowel Movements 3 3 Objective General Appearance: WD/WN, alert, mild distress EENT: PERRL/EOMI, normal ENT inspection Neck: non-tender, normal alignment, supple, normal inspection Cardiovascular: normal peripheral pulses, normal rate, regular rhythm, no gallop/murmur, no JVD Respiratory/Chest: chest wall non-tender, lungs clear, normal breath sounds, no respiratory distress, no accessory muscle use Abdomen: no organomegaly, no mass, decreased bowel sounds, distended, guarding , tender Extremities: normal range of motion 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 See nephrology note. (2) Anemia of renal disease Assessment & Plan: S/P transfusion (3) HTN (hypertension) Assessment & Plan: Uncontrolled. Await cardiology consult. Cont coreg and norvasc. (4) Ascites Assessment & Plan: S/P paracentesis 09/20/17. See GI note. (5) Abdominal pain (6) Abdominal distention (7) Diarrhea Assessment & Plan: C. Diff neg; await stool culture (8) Gastroparesis (9) Diabetes type 1, controlled Assessment & Plan: Continue novolog sliding scale. (10) Hypothyroidism Assessment & Plan: Continue levoxyl (11) CHF (congestive heart failure) Assessment & Plan: Volume overload. See cardiology note. await hemodialysis (12) Anemia Assessment & Plan: S/P transfusion 1 unit PRBC on 09/13/17 Status: stable Assessment/Plan Discharge planning. On hold-sse social work note. SANJIV TALBOT Sep 25, 2017 15:20
--- NOTE | 2017-09-25 17:46 | Pulmonology Progress Note ---
Assessment/Plan Problems: (1) Renal failure (ARF), acute on chronic (2) Diabetic nephropathy (3) Diabetes type 1, controlled (4) Abdominal distention (5) Chronic pancreatitis (6) Gastroparesis Assessment/Plan no new complains renal w/u pending check electrolytes getting Hd symptomatic treatment dvt prophylaxis dc planning Subjective Allergies: Coded Allergies: METOCLOPRAMIDE (Unverified Allergy, Severe, 09/08/17) PROCHLORPERAZINE (Unverified Allergy, Severe, 09/08/17) VANCOMYCIN (Unverified Allergy, Severe, 09/08/17) Objective Last 24 Hour Vital Signs Date Time Temp Pulse Resp B/P (MAP) Pulse Ox O2 Delivery O2 Flow Rate FiO2 09/25/17 17:41 70 121/84 09/25/17 17:41 121/84 09/25/17 16:37 97.9 09/25/17 16:00 97.9 70 20 121/84 95 97.9 09/25/17 15:38 98.7 09/25/17 13:55 178/114 09/25/17 11:51 98.7 64 19 178/114 96 98.7 09/25/17 09:31 98.1 09/25/17 09:30 72 179/99 09/25/17 09:29 72 179/99 09/25/17 09:29 179/99 09/25/17 09:28 179/99 09/25/17 08:00 98.1 72 20 179/99 97 98.1 09/25/17 05:00 145/95 09/25/17 04:23 161/100 09/25/17 04:00 97.3 88 18 161/100 95 Room Air 97.3 09/25/17 00:00 98.2 84 18 146/93 91 Room Air 98.2 09/24/17 21:33 150/96 09/24/17 21:33 84 150/96 09/24/17 21:32 97.5 09/24/17 20:03 Room Air 09/24/17 20:01 97.5 84 20 150/96 Room Air 97.5 09/24/17 18:00 75 141/87 09/24/17 18:00 141/87 Intake and Output 09/24/17 09/25/17 19:00 07:00 Intake Total 560 ml Output Total 3000 ml Balance 560 ml -3000 ml Intake Oral 560 ml Hemodialysis UF 3000 ml # Voids 1 # Bowel Movements 3 3 Objective General Appearance: no apparent distress Head: normocephalic, atraumatic Eyes: bilateral eye PERRL, bilateral eye EOMI ENT: normal pharynx, no angioedema Neck: supple, thyroid normal Respiratory: lungs clear, normal breath sounds Cardiovascular #1: regular rate, rhythm Gastrointestinal: non tender, soft Laboratory Tests 09/25/17 06:00: White Blood Count 6.9, Red Blood Count 2.54L, Hemoglobin 8.0L, Hematocrit 25.0L , Mean Corpuscular Volume 99, Mean Corpuscular Hemoglobin 31.7H, Mean Corpuscular Hemoglobin Concent 32.1, Red Cell Distribution Width 17.0H, Platelet Count 306, Mean Platelet Volume 6.1L, Neutrophils (%) (Auto) 63.9, Lymphocytes (%) (Auto) 25.4, Monocytes (%) (Auto) 8.2, Eosinophils (%) (Auto) 1.6, Basophils (%) (Auto) 0.8, Sodium Level 139, Potassium Level 4.8, Chloride Level 108H, Carbon Dioxide Level 28, Anion Gap 3L, Blood Urea Nitrogen 20H, Creatinine 3.2H, Estimat Glomerular Filtration Rate 22.8, Glucose Level 81, Calcium Level 7.2L Current Medications Medications (Trade) Dose Ordered Sig/Michelle Route PRN Reason Start Time Stop Time Status Last Admin Dose Admin Acetaminophen (Tylenol) 650 mg Q4H PRN ORAL fever 09/09/17 23:45 10/08/17 15:44 Acetaminophen/ Hydrocodone Bitart ([place] 10/325) 1 tab Q6HR PRN ORAL severe pain 7-10 09/22/17 10:30 09/29/17 10:29 09/25/17 15:38 Aspirin (ASA) 81 mg DAILY ORAL 09/10/17 09:00 10/10/17 08:59 09/25/17 09:29 Carvedilol (Coreg) 25 mg EVERY 12 HOURS ORAL 09/17/17 09:00 10/17/17 08:59 09/25/17 09:29 Chlorhexidine Gluconate (Gail-Hex 2%) 1 applic DAILY@1999 TOPIC 09/18/17 20:00 10/18/17 19:59 09/24/17 21:32 Clonidine HCl (Catapres Tab) 0.1 mg Q4H PRN ORAL SYSTOLIC BP > 160 09/16/17 20:45 10/10/17 08:29 09/25/17 13:55 Dextrose (Dextrose 50%) STAT PRN IV Hypoglycemia 09/10/17 15:45 10/08/17 15:44 Diphenhydramine HCl (Benadryl) 25 mg Q6H PRN ORAL Itching/Pruritis 09/10/17 03:45 10/08/17 15:44 09/24/17 21:32 Diphenoxylate HCl/ Atropine (Lomotil) 2.5 mg Q4H PRN ORAL Diarrhea 09/19/17 10:45 10/19/17 10:44 09/25/17 09:30 Epoetin Curry (Procrit (for ESRD on dialysis)) 10,000 units TUE-TUE-TUE SUBQ 09/19/17 21:00 10/19/17 20:59 09/23/17 21:58 Heparin Sodium (Porcine) (Heparin 5000 units/ml) 5,000 units EVERY 12 HOURS SUBQ 09/10/17 09:00 10/08/17 20:59 09/25/17 09:28 Iron Sucrose 200 mg/Sodium Chloride 120 ml @ 240 mls/hr ONCE ONCE IV 09/25/17 21:00 09/25/17 21:29 Lansoprazole (Prevacid) 30 mg BID ORAL 09/17/17 18:00 10/11/17 08:59 09/25/17 17:41 Levothyroxine Sodium (Synthroid) 25 mcg DAILY@0630 ORAL 09/10/17 06:30 10/10/17 06:29 09/25/17 06:35 Lisinopril (Prinivil) 20 mg BID ORAL 09/16/17 09:00 10/16/17 08:59 09/25/17 17:41 Loperamide HCl (Imodium) 2 mg Q4H PRN ORAL Diarrhea 09/15/17 11:15 10/15/17 11:14 09/19/17 06:39 Lorazepam (Ativan 2mg/ml 1ml) 1 mg Q4H PRN IV For Anxiety 09/23/17 22:30 09/30/17 22:29 09/25/17 17:41 Losartan Potassium (Cozaar) 50 mg EVERY 12 HOURS ORAL 09/19/17 21:00 10/19/17 20:59 09/25/17 09:28 Nifedipine (Procardia XL) 60 mg BID ORAL 09/17/17 09:00 10/17/17 08:59 09/25/17 17:41 Ondansetron HCl (Zofran ODT) 4 mg Q6H PRN ORAL Nausea & Vomiting 09/23/17 10:45 10/23/17 10:44 09/23/17 12:12 Ondansetron HCl (Zofran) 4 mg Q4H PRN IVP Nausea & Vomiting 09/23/17 10:45 10/21/17 07:29 Polyethylene Glycol (Miralax) 17 gm HSPRN PRN ORAL Constipation 09/10/17 15:45 10/08/17 15:44 Sevelamer Carbonate (Renvela) 2,400 mg THREE TIMES A DAY ORAL 09/11/17 13:00 10/11/17 12:59 09/25/17 17:40 RICARDO POLANCO Sep 25, 2017 17:46
[2017-09-25] MEDS ORDERED: Iron Sucrose 200 MG in NS 110 ML IV ONE (21:00)
[2017-09-25] MEDS: Loperamide 2mg cap ORAL PRN (21:44)
[2017-09-25] MEDS: Dyna-Hex 2% Top Sol 2oz TOPIC SCH (21:45)
[2017-09-26] VITALS: BP 129/79
[2017-09-26] MEDS: LORazepam Inj 2mg/ml 1ml IV PRN ×2 (00:28→04:48)
[2017-09-26 04:00] VITALS: BP 129/85
[2017-09-26] MEDS: Levothyroxine 25mcg tab ORAL SCH (04:48)
[2017-09-26] MEDS: Lomotil 2.5mg tab ORAL PRN (04:51)
[2017-09-26] MEDS: Loperamide 2mg cap ORAL PRN ×2 (04:51→08:59)
[2017-09-26 08:00] VITALS: BP 139/98
[2017-09-26] MEDS: HYDROcodone/Acetamin 10/325 tab ORAL PRN ×3 (08:50→23:11)
[2017-09-26] MEDS: Aspirin Baby 81mg ORAL SCH (08:51)
[2017-09-26] MEDS: Losartan 50mg tab ORAL SCH ×2 (08:58→21:41)
[2017-09-26] MEDS: Lisinopril 20mg tab ORAL SCH ×2 (08:59→17:36)
[2017-09-26] MEDS: Carvedilol 25mg Tab ORAL SCH ×2 (08:59→21:40)
[2017-09-26] MEDS: Heparin 5000 units/ml inj SUBQ SCH ×2 (09:00→21:42)
--- NOTE | 2017-09-26 10:46 | Nephrology Progress Note ---
Assessment/Plan Problem List: (1) Renal failure (ARF), acute on chronic (2) Nephrotic syndrome (3) Diabetic nephropathy (4) HTN (hypertension) Assessment: hypertensive kidney disease Assessment Advanced renal failure due to Type I DM DIabetic Nephropathy- Most likely NS -. Bilateral upper quadrant pain. -. Diarrhea. -. Diabetic gastroparesis. -. Diabetes type 1. -. Hypertension. -. Anemia. due to CKD -. HypoThyroid Plan Plan: Dialysed next 09/27 Transfused , Add Coozar to BP meds placement issues Zestril Procardia and Clonidine to BP meds- adjust meds Per GI 24 h urine collection over 3 gram protein Monitor renal parameters , BS and BP Avoid nephrotoxics Due DC and OP HD 2D Echo : Left ventricular ejection fraction estimated to be 60 %. No evidence of left ventricular hypertrophy. Trace pericardial effusion . Moderate left atrial enlargement. OCTAVIO: Left kidney measures 11.8 cm in length. Right kidney measures 9.6 cm length. Kidneys demonstrate diffusely increased echogenicity. No hydronephrosis. there is a small left lower pole renal cyst Subjective ROS Limited/Unobtainable: No Constitutional: Reports: malaise Objective Objective Last 24 Hour Vital Signs Date Time Temp Pulse Resp B/P (MAP) Pulse Ox O2 Delivery O2 Flow Rate FiO2 09/26/17 08:59 73 139/98 09/26/17 08:59 139/98 09/26/17 08:58 139/98 09/26/17 08:58 73 139/98 09/26/17 08:00 98.1 73 20 139/98 95 98.1 09/26/17 04:00 97.8 70 19 129/85 90 Room Air 97.8 09/26/17 00:00 97.8 73 18 129/79 93 Room Air 97.8 09/25/17 22:44 97.9 09/25/17 21:45 97.9 09/25/17 21:44 115/74 09/25/17 21:44 61 115/74 09/25/17 20:00 97.9 61 20 115/74 94 Room Air 97.9 09/25/17 17:41 70 121/84 09/25/17 17:41 121/84 09/25/17 16:00 97.9 70 20 121/84 95 97.9 09/25/17 15:38 98.7 09/25/17 13:55 178/114 09/25/17 11:51 98.7 64 19 178/114 96 98.7 Intake and Output 09/25/17 09/26/17 19:00 07:00 Intake Total 240 ml Output Total 0 ml Balance 240 ml 0 ml Intake Oral 240 ml Output Urine Total 0 ml # Voids 1 # Bowel Movements 4 Height (Feet): 5 Height (Inches): 10.00 Weight (Pounds): 220 General Appearance: no apparent distress Objective no change LEXIS PRESTON Sep 26, 2017 10:46
--- NOTE | 2017-09-26 10:58 | Internal Med Progress Note ---
Subjective Date of Service: Sep 26, 2017 Physician Name SarabiaSanjiv jurado Attending Physician Serafin Voss MD Current Medications Medications (Trade) Dose Ordered Sig/Michelle Route PRN Reason Start Time Stop Time Status Last Admin Dose Admin Acetaminophen (Tylenol) 650 mg Q4H PRN ORAL fever 09/09/17 23:45 10/08/17 15:44 Acetaminophen/ Hydrocodone Bitart ([place] 10/325) 1 tab Q6HR PRN ORAL severe pain 7-10 09/22/17 10:30 09/29/17 10:29 09/26/17 08:50 Aspirin (ASA) 81 mg DAILY ORAL 09/10/17 09:00 10/10/17 08:59 09/26/17 08:51 Carvedilol (Coreg) 25 mg EVERY 12 HOURS ORAL 09/17/17 09:00 10/17/17 08:59 09/26/17 08:59 Chlorhexidine Gluconate ([place]ail-Hex 2%) 1 applic DAILY@2000 TOPIC 09/18/17 20:00 10/18/17 19:59 09/25/17 21:45 Clonidine HCl (Catapres Tab) 0.1 mg Q4H PRN ORAL SYSTOLIC BP > 160 09/16/17 20:45 10/10/17 08:29 09/25/17 13:55 Dextrose (Dextrose 50%) STAT PRN IV Hypoglycemia 09/10/17 15:45 10/08/17 15:44 Diphenhydramine HCl (Benadryl) 25 mg Q6H PRN ORAL Itching/Pruritis 09/10/17 03:45 10/08/17 15:44 09/24/17 21:32 Diphenoxylate HCl/ Atropine (Lomotil) 2.5 mg Q4H PRN ORAL Diarrhea 09/19/17 10:45 10/19/17 10:44 09/26/17 04:51 Epoetin Curry (Procrit (for ESRD on dialysis)) 10,000 units MON-WED-TUE SUBQ 09/19/17 21:00 10/19/17 20:59 09/23/17 21:58 Heparin Sodium (Porcine) (Heparin 5000 units/ml) 5,000 units EVERY 12 HOURS SUBQ 09/10/17 09:00 10/08/17 20:59 09/26/17 09:00 Lansoprazole (Prevacid) 30 mg BID ORAL 09/17/17 18:00 10/11/17 08:59 09/26/17 08:51 Levothyroxine Sodium (Synthroid) 25 mcg DAILY@0630 ORAL 09/10/17 06:30 10/10/17 06:29 09/26/17 04:48 Lisinopril (Prinivil) 20 mg BID ORAL 09/16/17 09:00 10/16/17 08:59 09/26/17 08:59 Loperamide HCl (Imodium) 2 mg Q4H PRN ORAL Diarrhea 09/15/17 11:15 10/15/17 11:14 09/26/17 08:59 Lorazepam (Ativan 2mg/ml 1ml) 1 mg Q4H PRN IV For Anxiety 09/23/17 22:30 09/30/17 22:29 09/26/17 04:48 Lorazepam (Ativan) 1 mg EVERY 4 HOURS PRN ORAL For Anxiety 09/26/17 10:45 10/03/17 10:44 Losartan Potassium (Cozaar) 50 mg EVERY 12 HOURS ORAL 09/19/17 21:00 10/19/17 20:59 09/26/17 08:58 Nifedipine (Procardia XL) 60 mg BID ORAL 09/17/17 09:00 10/17/17 08:59 09/26/17 08:58 Ondansetron HCl (Zofran ODT) 4 mg Q6H PRN ORAL Nausea & Vomiting 09/23/17 10:45 10/23/17 10:44 09/23/17 12:12 Ondansetron HCl (Zofran) 4 mg Q4H PRN IVP Nausea & Vomiting 09/23/17 10:45 10/21/17 07:29 Polyethylene Glycol (Miralax) 17 gm HSPRN PRN ORAL Constipation 09/10/17 15:45 10/08/17 15:44 Sevelamer Carbonate (Renvela) 2,400 mg THREE TIMES A DAY ORAL 09/11/17 13:00 10/11/17 12:59 09/26/17 08:51 Allergies: Coded Allergies: METOCLOPRAMIDE (Unverified Allergy, Severe, 09/08/17) PROCHLORPERAZINE (Unverified Allergy, Severe, 09/08/17) VANCOMYCIN (Unverified Allergy, Severe, 09/08/17) ROS Limited/Unobtainable: No Constitutional: Reports: no symptoms HEENT: Reports: no symptoms Cardiovascular: Reports: no symptoms Respiratory: Reports: no symptoms Gastrointestinal/Abdominal: Reports: no symptoms Genitourinary: Reports: no symptoms Neurologic/Psychiatric: Reports: no symptoms Subjective 32 YO M admitted with abdominal pain. Now renal failure on hemodialysis. Cover for Int Med-Dr Voss. Discharge held-see soc work note. Objective Last Vital Signs Date Time Temp Pulse Resp B/P (MAP) Pulse Ox O2 Delivery O2 Flow Rate FiO2 09/26/17 08:59 73 139/98 09/26/17 08:00 98.1 20 95 98.1 09/26/17 04:00 Room Air Intake and Output 09/25/17 09/26/17 19:00 07:00 Intake Total 240 ml Output Total 0 ml Balance 240 ml 0 ml Intake Oral 240 ml Output Urine Total 0 ml # Voids 1 # Bowel Movements 4 Objective General Appearance: WD/WN, alert, mild distress EENT: PERRL/EOMI, normal ENT inspection Neck: non-tender, normal alignment, supple, normal inspection Cardiovascular: normal peripheral pulses, normal rate, regular rhythm, no gallop/murmur, no JVD Respiratory/Chest: chest wall non-tender, lungs clear, normal breath sounds, no respiratory distress, no accessory muscle use Abdomen: no organomegaly, no mass, decreased bowel sounds, distended, guarding , tender Extremities: normal range of motion 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 See nephrology note. (2) Anemia of renal disease Assessment & Plan: S/P transfusion (3) HTN (hypertension) Assessment & Plan: Uncontrolled. Await cardiology consult. Cont coreg and norvasc. (4) Ascites Assessment & Plan: S/P paracentesis 09/20/17. See GI note. (5) Abdominal pain (6) Abdominal distention (7) Diarrhea Assessment & Plan: C. Diff neg; await stool culture (8) Gastroparesis (9) Diabetes type 1, controlled Assessment & Plan: Continue novolog sliding scale. (10) Hypothyroidism Assessment & Plan: Continue levoxyl (11) CHF (congestive heart failure) Assessment & Plan: Volume overload. See cardiology note. await hemodialysis (12) Anemia Assessment & Plan: S/P transfusion 1 unit PRBC on 09/13/17 Status: stable Assessment/Plan Discharge planning: Recuperative care-see soc work note. SANJIV SARABIA Sep 26, 2017 10:58
[2017-09-26] MEDS ORDERED: LORazepam Inj 2mg/ml 1ml IV PRN (11:15)
--- NOTE | 2017-09-26 11:45 | GI Progress Note ---
Assessment/Plan Problems: (1) Renal failure (ARF), acute on chronic ICD Codes: N17.9 - Acute kidney failure, unspecified; N18.9 - Chronic kidney disease, unspecified SNOMED: 596825702 (2) Diarrhea ICD Codes: R19.7 - Diarrhea, unspecified SNOMED: 93127227 (3) Vomiting ICD Codes: R11.10 - Vomiting, unspecified SNOMED: 146124772 (4) Diabetes type 1, controlled ICD Codes: E10.9 - Type 1 diabetes mellitus without complications SNOMED: 28415327, 056153953 (5) Gastroparesis ICD Codes: K31.84 - Gastroparesis SNOMED: 975198406 (6) Chronic pancreatitis ICD Codes: K86.1 - Other chronic pancreatitis SNOMED: 737319903 (7) Anemia ICD Codes: D64.9 - Anemia, unspecified SNOMED: 791002433 Status: unchanged Status Narrative Discussed with Dr. Schultz. Assessment/Plan abdominal U/S reviewed Hep panel >> negative stool culture / cdiff / O&P >> negative anemia work 2/2 to renal disease s/p paracentesis yielding 3L of fluid >> r/o SBP >> negative fu nephro recs renal diet DM mgmt Lomotil prn pain mgmt ppi fu labs Subjective Subjective generalized weakness and pain c/o of diarrhea BLE edema Objective Last 24 Hour Vital Signs Date Time Temp Pulse Resp B/P (MAP) Pulse Ox O2 Delivery O2 Flow Rate FiO2 09/26/17 08:59 73 139/98 09/26/17 08:59 139/98 09/26/17 08:58 139/98 09/26/17 08:58 73 139/98 09/26/17 08:00 98.1 73 20 139/98 95 98.1 09/26/17 04:00 97.8 70 19 129/85 90 Room Air 97.8 09/26/17 00:00 97.8 73 18 129/79 93 Room Air 97.8 09/25/17 22:44 97.9 09/25/17 21:45 97.9 09/25/17 21:44 115/74 09/25/17 21:44 61 115/74 09/25/17 20:00 97.9 61 20 115/74 94 Room Air 97.9 09/25/17 17:41 70 121/84 09/25/17 17:41 121/84 09/25/17 16:00 97.9 70 20 121/84 95 97.9 09/25/17 15:38 98.7 09/25/17 13:55 178/114 09/25/17 11:51 98.7 64 19 178/114 96 98.7 Intake and Output 09/25/17 09/26/17 19:00 07:00 Intake Total 240 ml Output Total 0 ml Balance 240 ml 0 ml Intake Oral 240 ml Output Urine Total 0 ml # Voids 1 # Bowel Movements 4 Height (Feet): 5 Height (Inches): 10.00 Weight (Pounds): 220 General Appearance: WD/WN, no apparent distress, alert Cardiovascular: normal rate Respiratory/Chest: normal breath sounds, no respiratory distress Abdominal Exam: normal bowel sounds, non tender, soft Extremities: normal range of motion, non-tender Amber Clark N.P. Sep 26, 2017 11:45
[2017-09-26 12:00] VITALS: BP 130/84
--- NOTE | 2017-09-26 13:43 | Cardiac Electrophysiology PN ---
Assessment/Plan Assessment/Plan 1. Accelerated hypertension. Continue Procardia XL 60 bid, clonidine 0.1 mg q8, Losartan 50 bid, Coreg 25 mg bid and HD 2. Chronic kidney disease. On HD. Next scheduled tomorrow 3. Insulin-dependent diabetes. 4. Anemia of renal disease. S/P PRBC 5. Abdominal pain and diarrhea, Negative for C Diff. 6. Hypothyroidism, on Synthroid. SUZANNA RN Subjective Subjective No CP or SOB. RN at bedside. Comfortable Objective Last 24 Hour Vital Signs Date Time Temp Pulse Resp B/P (MAP) Pulse Ox O2 Delivery O2 Flow Rate FiO2 09/26/17 12:00 97.3 70 19 130/84 97 97.3 09/26/17 08:59 73 139/98 09/26/17 08:59 139/98 09/26/17 08:58 139/98 09/26/17 08:58 73 139/98 09/26/17 08:00 98.1 73 20 139/98 95 98.1 09/26/17 04:00 97.8 70 19 129/85 90 Room Air 97.8 09/26/17 00:00 97.8 73 18 129/79 93 Room Air 97.8 09/25/17 22:44 97.9 09/25/17 21:45 97.9 09/25/17 21:44 115/74 09/25/17 21:44 61 115/74 09/25/17 20:00 97.9 61 20 115/74 94 Room Air 97.9 09/25/17 17:41 70 121/84 09/25/17 17:41 121/84 09/25/17 16:00 97.9 70 20 121/84 95 97.9 09/25/17 15:38 98.7 09/25/17 13:55 178/114 Intake and Output 09/25/17 09/26/17 19:00 07:00 Intake Total 240 ml Output Total 0 ml Balance 240 ml 0 ml Intake Oral 240 ml Output Urine Total 0 ml # Voids 1 # Bowel Movements 4 Objective HEAD AND NECK: No JVD. Right IJ HD LUNGS: Clear. CARDIOVASCULAR: Regular S1 and S2. No gallop or murmur. ABDOMEN: Soft. EXTREMITIES: No pitting edema. MONICA DANGELO Sep 26, 2017 13:43
[2017-09-26] MEDS: LORazepam 1mg tab ORAL PRN ×2 (14:38→21:42)
[2017-09-26 16:00] VITALS: BP 126/78
[2017-09-26 17:20] LABS: BASOPHILS % (AUTO) 0.7 % (0.0-2.0); EOSINOPHILS % (AUTO) 1.2 % (0.0-3.0); HEMATOCRIT 29.4 % (42.0-52.0); HEMOGLOBIN 9.3 G/DL (14.2-18.0); LYMPHOCYTES % (AUTO) 17.4 % (20.0-45.0); MEAN CORPUSCULAR VOLUME 99 FL (80-99); MONOCYTES % (AUTO) 6.9 % (1.0-10.0); NEUTROPHILS % (AUTO) 73.7 % (45.0-75.0); PLATELET COUNT 334 K/UL (150-450); RED BLOOD COUNT 2.97 M/UL (4.70-6.10); RED CELL DISTRIBUTION WIDTH 17.2 % (11.6-14.8); WHITE BLOOD COUNT 8.9 K/UL (4.8-10.8)
--- NOTE | 2017-09-26 17:30 | Pulmonology Progress Note ---
Assessment/Plan Problems: (1) Renal failure (ARF), acute on chronic (2) Diabetic nephropathy (3) Diabetes type 1, controlled (4) Abdominal distention (5) Chronic pancreatitis (6) Gastroparesis Assessment/Plan no new complains renal w/u pending check electrolytes getting Hd symptomatic treatment dvt prophylaxis dc planning Subjective Allergies: Coded Allergies: METOCLOPRAMIDE (Unverified Allergy, Severe, 09/08/17) PROCHLORPERAZINE (Unverified Allergy, Severe, 09/08/17) VANCOMYCIN (Unverified Allergy, Severe, 09/08/17) Objective Last 24 Hour Vital Signs Date Time Temp Pulse Resp B/P (MAP) Pulse Ox O2 Delivery O2 Flow Rate FiO2 09/26/17 16:00 97.2 74 18 126/78 94 Room Air 97.2 09/26/17 12:00 97.3 70 19 130/84 97 97.3 09/26/17 08:59 73 139/98 09/26/17 08:59 139/98 09/26/17 08:58 139/98 09/26/17 08:58 73 139/98 09/26/17 08:00 98.1 73 20 139/98 95 98.1 09/26/17 04:00 97.8 70 19 129/85 90 Room Air 97.8 09/26/17 00:00 97.8 73 18 129/79 93 Room Air 97.8 09/25/17 22:44 97.9 09/25/17 21:45 97.9 09/25/17 21:44 115/74 09/25/17 21:44 61 115/74 09/25/17 20:00 97.9 61 20 115/74 94 Room Air 97.9 09/25/17 17:41 70 121/84 09/25/17 17:41 121/84 Intake and Output 09/25/17 09/26/17 19:00 07:00 Intake Total 240 ml Output Total 0 ml Balance 240 ml 0 ml Intake Oral 240 ml Output Urine Total 0 ml # Voids 1 # Bowel Movements 4 Objective General Appearance: no apparent distress Head: normocephalic, atraumatic Eyes: bilateral eye PERRL, bilateral eye EOMI ENT: normal pharynx, no angioedema Neck: supple, thyroid normal Respiratory: lungs clear, normal breath sounds Cardiovascular #1: regular rate, rhythm Gastrointestinal: non tender, soft Laboratory Tests 09/26/17 16:45: White Blood Count 8.9, Red Blood Count 2.97L, Hemoglobin 9.3L, Hematocrit 29.4L , Mean Corpuscular Volume 99, Mean Corpuscular Hemoglobin 31.3H, Mean Corpuscular Hemoglobin Concent 31.6L, Red Cell Distribution Width 17.2H, Platelet Count 334, Mean Platelet Volume 6.2L, Neutrophils (%) (Auto) 73.7, Lymphocytes (%) (Auto) 17.4L, Monocytes (%) (Auto) 6.9, Eosinophils (%) (Auto) 1.2, Basophils (%) (Auto) 0.7, Sodium Level [Pending], Potassium Level [Pending] , Chloride Level [Pending], Carbon Dioxide Level [Pending], Blood Urea Nitrogen [Pending], Creatinine [Pending], Estimat Glomerular Filtration Rate [Pending], Glucose Level [Pending], Calcium Level [Pending], Phosphorus Level [Pending], Magnesium Level [Pending], Total Bilirubin [Pending], Aspartate Amino Transf ( AST/SGOT) [Pending], Alanine Aminotransferase (ALT/SGPT) [Pending], Alkaline Phosphatase [Pending], C-Reactive Protein, Quantitative [Pending], Pro-B-Type Natriuretic Peptide [Pending], Total Protein [Pending], Albumin [Pending], Globulin [Pending] Current Medications Medications (Trade) Dose Ordered Sig/Michelle Route PRN Reason Start Time Stop Time Status Last Admin Dose Admin Acetaminophen (Tylenol) 650 mg Q4H PRN ORAL fever 09/09/17 23:45 10/08/17 15:44 Acetaminophen/ Hydrocodone Bitart ([place] 10/325) 1 tab Q6HR PRN ORAL severe pain 7-10 09/22/17 10:30 09/29/17 10:29 09/26/17 16:51 Aspirin (ASA) 81 mg DAILY ORAL 09/10/17 09:00 10/10/17 08:59 09/26/17 08:51 Carvedilol (Coreg) 25 mg EVERY 12 HOURS ORAL 09/17/17 09:00 10/17/17 08:59 09/26/17 08:59 Chlorhexidine Gluconate (Gail-Hex 2%) 1 applic DAILY@1999 TOPIC 09/18/17 20:00 10/18/17 19:59 09/25/17 21:45 Clonidine HCl (Catapres Tab) 0.1 mg Q4H PRN ORAL SYSTOLIC BP > 160 09/16/17 20:45 10/10/17 08:29 09/25/17 13:55 Dextrose (Dextrose 50%) STAT PRN IV Hypoglycemia 09/10/17 15:45 10/08/17 15:44 Diphenhydramine HCl (Benadryl) 25 mg Q6H PRN ORAL Itching/Pruritis 09/10/17 03:45 10/08/17 15:44 09/24/17 21:32 Diphenoxylate HCl/ Atropine (Lomotil) 2.5 mg Q4H PRN ORAL Diarrhea 09/19/17 10:45 10/19/17 10:44 09/26/17 04:51 Epoetin Curry (Procrit (for ESRD on dialysis)) 10,000 units TUE-TUE-TUE SUBQ 09/19/17 21:00 10/19/17 20:59 09/23/17 21:58 Heparin Sodium (Porcine) (Heparin 5000 units/ml) 5,000 units EVERY 12 HOURS SUBQ 09/10/17 09:00 10/08/17 20:59 09/26/17 09:00 Lansoprazole (Prevacid) 30 mg BID ORAL 09/17/17 18:00 10/11/17 08:59 09/26/17 08:51 Levothyroxine Sodium (Synthroid) 25 mcg DAILY@0630 ORAL 09/10/17 06:30 10/10/17 06:29 09/26/17 04:48 Lisinopril (Prinivil) 20 mg BID ORAL 09/16/17 09:00 10/16/17 08:59 09/26/17 08:59 Loperamide HCl (Imodium) 2 mg Q4H PRN ORAL Diarrhea 09/15/17 11:15 10/15/17 11:14 09/26/17 08:59 Lorazepam (Ativan 2mg/ml 1ml) 1 mg Q4H PRN IV For Anxiety 09/26/17 11:15 09/30/17 22:29 Lorazepam (Ativan) 1 mg EVERY 4 HOURS PRN ORAL For Anxiety 09/26/17 10:45 10/03/17 10:44 09/26/17 14:38 Losartan Potassium (Cozaar) 50 mg EVERY 12 HOURS ORAL 09/19/17 21:00 10/19/17 20:59 09/26/17 08:58 Nifedipine (Procardia XL) 60 mg BID ORAL 09/17/17 09:00 10/17/17 08:59 09/26/17 08:58 Ondansetron HCl (Zofran ODT) 4 mg Q6H PRN ORAL Nausea & Vomiting 09/23/17 10:45 10/23/17 10:44 09/23/17 12:12 Ondansetron HCl (Zofran) 4 mg Q4H PRN IVP Nausea & Vomiting 09/23/17 10:45 10/21/17 07:29 Polyethylene Glycol (Miralax) 17 gm HSPRN PRN ORAL Constipation 09/10/17 15:45 10/08/17 15:44 Sevelamer Carbonate (Renvela) 2,400 mg THREE TIMES A DAY ORAL 09/11/17 13:00 10/11/17 12:59 09/26/17 12:23 RICARDO POLANCO Sep 26, 2017 17:30
[2017-09-26 17:55] LABS: ALANINE AMINOTRANSFERASE 44 U/L (12-78); ALBUMIN 1.3 G/DL (3.4-5.0); ALBUMIN/GLOBULIN RATIO 0.5 (1.0-2.7); ALKALINE PHOSPHATASE 181 U/L (46-116); ANION GAP 5 mmol/L (5-15); ASPARTATE AMINO TRANSFERASE 33 U/L (15-37); BILIRUBIN,TOTAL 0.3 MG/DL (0.2-1.0); BLOOD UREA NITROGEN 23 mg/dL (7-18); CALCIUM 7.2 MG/DL (8.5-10.1); CARBON DIOXIDE 25 MMOL/L (21-32); CHLORIDE 108 MMOL/L (98-107); CREATININE 3.5 MG/DL (0.55-1.30); PHOSPHORUS 4.9 MG/DL (2.5-4.9); POTASSIUM 5.1 MMOL/L (3.5-5.1); SODIUM 138 MMOL/L (136-145)
[2017-09-26 20:15] VITALS: BP 118/71
[2017-09-26] MEDS: Epogen (for ESRD on dialysis) SUBQ SCH (21:42)
[2017-09-26] MEDS: Dyna-Hex 2% Top Sol 2oz TOPIC SCH (21:43)
[2017-09-27] VITALS (9 sets, daily range): BP systolic 117–157; BP diastolic 77–115
[2017-09-27] MEDS ORDERED: Carvedilol 25mg Tab ORAL SCH
[2017-09-27] MEDS ORDERED: Lisinopril 20mg tab ORAL SCH
[2017-09-27] MEDS: LORazepam 1mg tab ORAL PRN (01:33)
[2017-09-27] MEDS: Levothyroxine 25mcg tab ORAL SCH (06:18)
[2017-09-27] MEDS: HYDROcodone/Acetamin 10/325 tab ORAL PRN ×2 (06:19→22:35)
[2017-09-27 06:47] LABS: BASOPHILS % (AUTO) 1.4 % (0.0-2.0); EOSINOPHILS % (AUTO) 1.3 % (0.0-3.0); HEMATOCRIT 31.5 % (42.0-52.0); HEMOGLOBIN 10.1 G/DL (14.2-18.0); LYMPHOCYTES % (AUTO) 19.5 % (20.0-45.0); MEAN CORPUSCULAR VOLUME 101 FL (80-99); MONOCYTES % (AUTO) 7.2 % (1.0-10.0); NEUTROPHILS % (AUTO) 70.6 % (45.0-75.0); PLATELET COUNT 339 K/UL (150-450); RED BLOOD COUNT 3.14 M/UL (4.70-6.10); RED CELL DISTRIBUTION WIDTH 17.3 % (11.6-14.8); WHITE BLOOD COUNT 9.6 K/UL (4.8-10.8)
[2017-09-27 07:08] LABS: ALANINE AMINOTRANSFERASE 42 U/L (12-78); ALBUMIN 1.2 G/DL (3.4-5.0); ALBUMIN/GLOBULIN RATIO 0.4 (1.0-2.7); ALKALINE PHOSPHATASE 201 U/L (46-116); ANION GAP 7 mmol/L (5-15); ASPARTATE AMINO TRANSFERASE 33 U/L (15-37); BILIRUBIN,TOTAL 0.3 MG/DL (0.2-1.0); BLOOD UREA NITROGEN 28 mg/dL (7-18); CALCIUM 7.3 MG/DL (8.5-10.1); CARBON DIOXIDE 20 MMOL/L (21-32); CHLORIDE 108 MMOL/L (98-107); CREATININE 3.7 MG/DL (0.55-1.30); PHOSPHORUS 5.3 MG/DL (2.5-4.9); POTASSIUM 5.4 MMOL/L (3.5-5.1); SODIUM 135 MMOL/L (136-145)
[2017-09-27] MEDS: Aspirin Baby 81mg ORAL SCH (08:59)
[2017-09-27] MEDS: Carvedilol 25mg Tab ORAL SCH ×2 (09:00→22:35)
[2017-09-27] MEDS: Lisinopril 20mg tab ORAL SCH ×2 (09:00→18:00)
[2017-09-27] MEDS: Losartan 50mg tab ORAL SCH ×2 (09:00→22:35)
[2017-09-27] MEDS: Heparin 5000 units/ml inj SUBQ SCH (09:02)
[2017-09-27] MEDS: Loperamide 2mg cap ORAL PRN (09:08)
--- NOTE | 2017-09-27 11:58 | Nephrology Progress Note ---
Assessment/Plan Problem List: (1) Renal failure (ARF), acute on chronic (2) Nephrotic syndrome (3) Diabetic nephropathy (4) HTN (hypertension) Assessment: hypertensive kidney disease Assessment Advanced renal failure due to Type I DM DIabetic Nephropathy- Most likely NS -. Bilateral upper quadrant pain. -. Diarrhea. -. Diabetic gastroparesis. -. Diabetes type 1. -. Hypertension. -. Anemia. due to CKD -. HypoThyroid Plan Plan: Dialysed next 09/27 Transfused , Add Coozar to BP meds placement issues Zestril Procardia and Clonidine to BP meds- adjust meds Per GI 24 h urine collection over 3 gram protein Monitor renal parameters , BS and BP Avoid nephrotoxics Due DC and OP HD 2D Echo : Left ventricular ejection fraction estimated to be 60 %. No evidence of left ventricular hypertrophy. Trace pericardial effusion . Moderate left atrial enlargement. OCTAVIO: Left kidney measures 11.8 cm in length. Right kidney measures 9.6 cm length. Kidneys demonstrate diffusely increased echogenicity. No hydronephrosis. there is a small left lower pole renal cyst Subjective ROS Limited/Unobtainable: No Constitutional: Reports: malaise Objective Objective Last 24 Hour Vital Signs Date Time Temp Pulse Resp B/P (MAP) Pulse Ox O2 Delivery O2 Flow Rate FiO2 09/27/17 09:01 68 117/77 09/27/17 09:00 117/77 09/27/17 09:00 68 117/77 09/27/17 09:00 117/77 09/27/17 08:00 97.7 68 20 117/77 93 97.7 09/27/17 06:19 98.1 09/27/17 04:00 98.1 73 19 124/78 91 Room Air 98.1 09/27/17 00:21 97.5 09/27/17 00:00 97.9 81 20 134/82 95 97.9 09/26/17 23:11 97.5 09/26/17 21:41 118/71 09/26/17 21:40 72 118/71 09/26/17 20:15 97.5 72 18 118/71 95 Room Air 97.5 09/26/17 17:37 74 126/78 09/26/17 17:36 126/78 09/26/17 16:00 97.2 74 18 126/78 94 Room Air 97.2 09/26/17 12:00 97.3 70 19 130/84 97 97.3 Intake and Output 09/26/17 09/27/17 19:00 07:00 Intake Total 840 ml Balance 840 ml Intake Oral 840 ml # Voids 1 1 # Bowel Movements 3 4 Current Medications Medications (Trade) Dose Ordered Sig/Michelle Route PRN Reason Start Time Stop Time Status Last Admin Dose Admin Acetaminophen (Tylenol) 650 mg Q4H PRN ORAL fever 09/09/17 23:45 10/08/17 15:44 Acetaminophen/ Hydrocodone Bitart ([place] [address]) 1 tab Q6HR PRN ORAL severe pain 7-10 09/22/17 10:30 09/29/17 10:29 09/27/17 06:19 Aspirin (ASA) 81 mg DAILY ORAL 09/10/17 09:00 10/10/17 08:59 09/27/17 08:59 Carvedilol (Coreg) 25 mg EVERY 12 HOURS ORAL 09/17/17 09:00 10/17/17 08:59 09/27/17 09:00 Chlorhexidine Gluconate (Gail-Hex 2%) 1 applic DAILY@2000 TOPIC 09/18/17 20:00 10/18/17 19:59 09/26/17 21:43 Clonidine HCl (Catapres Tab) 0.1 mg Q4H PRN ORAL SYSTOLIC BP > 160 09/16/17 20:45 10/10/17 08:29 09/25/17 13:55 Dextrose (Dextrose 50%) STAT PRN IV Hypoglycemia 09/10/17 15:45 10/08/17 15:44 Diphenhydramine HCl (Benadryl) 25 mg Q6H PRN ORAL Itching/Pruritis 09/10/17 03:45 10/08/17 15:44 09/24/17 21:32 Diphenoxylate HCl/ Atropine (Lomotil) 2.5 mg Q4H PRN ORAL Diarrhea 09/19/17 10:45 10/19/17 10:44 09/26/17 04:51 Epoetin Curry (Procrit (for ESRD on dialysis)) 10,000 units MON-WED-TUE SUBQ 09/19/17 21:00 10/19/17 20:59 09/26/17 21:42 Heparin Sodium (Porcine) (Heparin 5000 units/ml) 5,000 units EVERY 12 HOURS SUBQ 09/10/17 09:00 10/08/17 20:59 09/27/17 09:02 Lansoprazole (Prevacid) 30 mg BID ORAL 09/17/17 18:00 10/11/17 08:59 09/27/17 08:59 Levothyroxine Sodium (Synthroid) 25 mcg DAILY@0630 ORAL 09/10/17 06:30 10/10/17 06:29 09/27/17 06:18 Lisinopril (Prinivil) 20 mg BID ORAL 09/16/17 09:00 10/16/17 08:59 09/27/17 09:00 Loperamide HCl (Imodium) 2 mg Q4H PRN ORAL Diarrhea 09/15/17 11:15 10/15/17 11:14 09/27/17 09:08 Lorazepam (Ativan 2mg/ml 1ml) 1 mg Q4H PRN IV For Anxiety 09/26/17 11:15 09/30/17 22:29 09/27/17 10:26 Lorazepam (Ativan) 1 mg EVERY 4 HOURS PRN ORAL For Anxiety 09/26/17 10:45 10/03/17 10:44 09/26/17 21:42 Losartan Potassium (Cozaar) 50 mg EVERY 12 HOURS ORAL 09/19/17 21:00 10/19/17 20:59 09/27/17 09:00 Nifedipine (Procardia XL) 60 mg BID ORAL 09/17/17 09:00 10/17/17 08:59 09/27/17 09:01 Ondansetron HCl (Zofran ODT) 4 mg Q6H PRN ORAL Nausea & Vomiting 09/23/17 10:45 10/23/17 10:44 09/23/17 12:12 Ondansetron HCl (Zofran) 4 mg Q4H PRN IVP Nausea & Vomiting 09/23/17 10:45 10/21/17 07:29 Polyethylene Glycol (Miralax) 17 gm HSPRN PRN ORAL Constipation 09/10/17 15:45 10/08/17 15:44 Sevelamer Carbonate (Renvela) 2,400 mg THREE TIMES A DAY ORAL 09/11/17 13:00 10/11/17 12:59 09/27/17 08:59 Laboratory Tests 09/26/17 16:45: White Blood Count 8.9, Red Blood Count 2.97L, Hemoglobin 9.3L, Hematocrit 29.4L , Mean Corpuscular Volume 99, Mean Corpuscular Hemoglobin 31.3H, Mean Corpuscular Hemoglobin Concent 31.6L, Red Cell Distribution Width 17.2H, Platelet Count 334, Mean Platelet Volume 6.2L, Neutrophils (%) (Auto) 73.7, Lymphocytes (%) (Auto) 17.4L, Monocytes (%) (Auto) 6.9, Eosinophils (%) (Auto) 1.2, Basophils (%) (Auto) 0.7, Sodium Level 138, Potassium Level 5.1, Chloride Level 108H, Carbon Dioxide Level 25, Anion Gap 5, Blood Urea Nitrogen 23H, Creatinine 3.5H, Estimat Glomerular Filtration Rate 20.5, Glucose Level 135H, Calcium Level 7.2L, Phosphorus Level 4.9, Magnesium Level 1.6L, Total Bilirubin 0.3, Aspartate Amino Transf (AST/SGOT) 33, Alanine Aminotransferase (ALT/SGPT) 44, Alkaline Phosphatase 181H, C-Reactive Protein, Quantitative 0.6, Pro-B-Type Natriuretic Peptide 3084H, Total Protein 4.0L, Albumin 1.3L, Globulin 2.7, Albumin/Globulin Ratio 0.5L 09/27/17 05:50: White Blood Count 9.6, Red Blood Count 3.14L, Hemoglobin 10.1L, Hematocrit 31.5L , Mean Corpuscular Volume 101H, Mean Corpuscular Hemoglobin 32.2H, Mean Corpuscular Hemoglobin Concent 32.0, Red Cell Distribution Width 17.3H, Platelet Count 339, Mean Platelet Volume 6.0L, Neutrophils (%) (Auto) 70.6, Lymphocytes (%) (Auto) 19.5L, Monocytes (%) (Auto) 7.2, Eosinophils (%) (Auto) 1.3, Basophils (%) (Auto) 1.4, Sodium Level 135L, Potassium Level 5.4H, Chloride Level 108H, Carbon Dioxide Level 20L, Anion Gap 7, Blood Urea Nitrogen 28H, Creatinine 3.7H, Estimat Glomerular Filtration Rate 19.3, Glucose Level 80 , Calcium Level 7.3L, Phosphorus Level 5.3H, Magnesium Level 1.6L, Total Bilirubin 0.3, Aspartate Amino Transf (AST/SGOT) 33, Alanine Aminotransferase ( ALT/SGPT) 42, Alkaline Phosphatase 201H, Total Protein 4.5L, Albumin 1.2L, Globulin 3.3, Albumin/Globulin Ratio 0.4L Height (Feet): 5 Height (Inches): 10.00 Weight (Pounds): 220 General Appearance: no apparent distress Respiratory/Chest: decreased breath sounds Abdomen: soft Objective no change LEXIS PRESTON Sep 27, 2017 11:58
--- NOTE | 2017-09-27 14:07 | GI Progress Note ---
Assessment/Plan Problems: (1) Renal failure (ARF), acute on chronic ICD Codes: N17.9 - Acute kidney failure, unspecified; N18.9 - Chronic kidney disease, unspecified SNOMED: 142403164 (2) Diarrhea ICD Codes: R19.7 - Diarrhea, unspecified SNOMED: 12647111 (3) Vomiting ICD Codes: R11.10 - Vomiting, unspecified SNOMED: 554760985 (4) Diabetes type 1, controlled ICD Codes: E10.9 - Type 1 diabetes mellitus without complications SNOMED: 99584536, 990302728 (5) Gastroparesis ICD Codes: K31.84 - Gastroparesis SNOMED: 785636321 (6) Chronic pancreatitis ICD Codes: K86.1 - Other chronic pancreatitis SNOMED: 258274134 (7) Anemia ICD Codes: D64.9 - Anemia, unspecified SNOMED: 025258825 Status: stable Status Narrative Discussed with Dr. Schultz. Assessment/Plan abdominal U/S reviewed Hep panel >> negative stool culture / cdiff / O&P >> negative anemia work 2/2 to renal disease s/p paracentesis yielding 3L of fluid >> r/o SBP >> negative symptomatic treatment fu nephro recs renal diet DM mgmt Lomotil prn pain mgmt ppi fu labs Subjective Subjective generalized weakness and pain c/o of diarrhea BLE edema Objective Last 24 Hour Vital Signs Date Time Temp Pulse Resp B/P (MAP) Pulse Ox O2 Delivery O2 Flow Rate FiO2 09/27/17 12:00 97.2 69 19 129/87 96 97.2 09/27/17 09:01 68 117/77 09/27/17 09:00 117/77 09/27/17 09:00 68 117/77 09/27/17 09:00 117/77 09/27/17 08:00 97.7 68 20 117/77 93 97.7 09/27/17 06:19 98.1 09/27/17 04:00 98.1 73 19 124/78 91 Room Air 98.1 09/27/17 00:21 97.5 09/27/17 00:00 97.9 81 20 134/82 95 97.9 09/26/17 23:11 97.5 09/26/17 21:41 118/71 2/26/18 21:40 72 118/71 09/26/17 20:15 97.5 72 18 118/71 95 Room Air 97.5 09/26/17 17:37 74 126/78 09/26/17 17:36 126/78 09/26/17 16:00 97.2 74 18 126/78 94 Room Air 97.2 Intake and Output 09/26/17 09/27/17 19:00 07:00 Intake Total 840 ml Balance 840 ml Intake Oral 840 ml # Voids 1 1 # Bowel Movements 3 4 Laboratory Tests Test 09/26/17 16:45 09/27/17 05:50 White Blood Count 8.9 K/UL (4.8-10.8) 9.6 K/UL (4.8-10.8) Red Blood Count 2.97 M/UL (4.70-6.10) L 3.14 M/UL (4.70-6.10) L Hemoglobin 9.3 G/DL (14.2-18.0) L 10.1 G/DL (14.2-18.0) L Hematocrit 29.4 % (42.0-52.0) L 31.5 % (42.0-52.0) L Mean Corpuscular Volume 99 FL (80-99) 101 FL (80-99) H Mean Corpuscular Hemoglobin 31.3 PG (27.0-31.0) H 32.2 PG (27.0-31.0) H Mean Corpuscular Hemoglobin Concent 31.6 G/DL (32.0-36.0) L 32.0 G/DL (32.0-36.0) Red Cell Distribution Width 17.2 % (11.6-14.8) H 17.3 % (11.6-14.8) H Platelet Count 334 K/UL (150-450) 339 K/UL (150-450) Mean Platelet Volume 6.2 FL (6.5-10.1) L 6.0 FL (6.5-10.1) L Neutrophils (%) (Auto) 73.7 % (45.0-75.0) 70.6 % (45.0-75.0) Lymphocytes (%) (Auto) 17.4 % (20.0-45.0) L 19.5 % (20.0-45.0) L Monocytes (%) (Auto) 6.9 % (1.0-10.0) 7.2 % (1.0-10.0) Eosinophils (%) (Auto) 1.2 % (0.0-3.0) 1.3 % (0.0-3.0) Basophils (%) (Auto) 0.7 % (0.0-2.0) 1.4 % (0.0-2.0) Sodium Level 138 MMOL/L (136-145) 135 MMOL/L (136-145) L Potassium Level 5.1 MMOL/L (3.5-5.1) 5.4 MMOL/L (3.5-5.1) H Chloride Level 108 MMOL/L (98-107) H 108 MMOL/L (98-107) H Carbon Dioxide Level 25 MMOL/L (21-32) 20 MMOL/L (21-32) L Anion Gap 5 mmol/L (5-15) 7 mmol/L (5-15) Blood Urea Nitrogen 23 mg/dL (7-18) H 28 mg/dL (7-18) H Creatinine 3.5 MG/DL (0.55-1.30) H 3.7 MG/DL (0.55-1.30) H Estimat Glomerular Filtration Rate 20.5 mL/min (>60) 19.3 mL/min (>60) Glucose Level 135 MG/DL (74-106) H 80 MG/DL (74-106) Calcium Level 7.2 MG/DL (8.5-10.1) L 7.3 MG/DL (8.5-10.1) L Phosphorus Level 4.9 MG/DL (2.5-4.9) 5.3 MG/DL (2.5-4.9) H Magnesium Level 1.6 MG/DL (1.8-2.4) L 1.6 MG/DL (1.8-2.4) L Total Bilirubin 0.3 MG/DL (0.2-1.0) 0.3 MG/DL (0.2-1.0) Aspartate Amino Transf (AST/SGOT) 33 U/L (15-37) 33 U/L (15-37) Alanine Aminotransferase (ALT/SGPT) 44 U/L (12-78) 42 U/L (12-78) Alkaline Phosphatase 181 U/L (46-116) H 201 U/L (46-116) H C-Reactive Protein, Quantitative 0.6 mg/dL (0.00-0.90) Pro-B-Type Natriuretic Peptide 3084 pg/mL (0-125) H Total Protein 4.0 G/DL (6.4-8.2) L 4.5 G/DL (6.4-8.2) L Albumin 1.3 G/DL (3.4-5.0) L 1.2 G/DL (3.4-5.0) L Globulin 2.7 g/dL 3.3 g/dL Albumin/Globulin Ratio 0.5 (1.0-2.7) L 0.4 (1.0-2.7) L Height (Feet): 5 Height (Inches): 10.00 Weight (Pounds): 220 General Appearance: WD/WN, no apparent distress, alert Cardiovascular: normal rate Respiratory/Chest: normal breath sounds, no respiratory distress Abdominal Exam: normal bowel sounds, non tender, soft Extremities: normal range of motion, non-tender Amber Clark N.P. Sep 27, 2017 14:07
[2017-09-27] MEDS ORDERED: LORazepam Inj 2mg/ml 1ml IV ONE (16:30)
--- NOTE | 2017-09-27 16:51 | Cardiac Electrophysiology PN ---
Assessment/Plan Assessment/Plan 1. Accelerated hypertension. Better on Procardia XL 60 bid, clonidine 0.1 mg q8 , Losartan 50 bid, Coreg 25 mg bid and HD 2. Chronic kidney disease. On HD. Today pending. 3. Insulin-dependent diabetes. 4. Anemia of renal disease. S/P PRBC 5. Abdominal pain and diarrhea, Negative for C Diff. 6. Hypothyroidism, on Synthroid. SUZANNA RN Subjective Subjective No CP or SOB. RN at bedside. Getting ready for HD. Comfortable Objective Last 24 Hour Vital Signs Date Time Temp Pulse Resp B/P (MAP) Pulse Ox O2 Delivery O2 Flow Rate FiO2 09/27/17 12:00 97.2 69 19 129/87 96 97.2 09/27/17 09:01 68 117/77 09/27/17 09:00 117/77 09/27/17 09:00 68 117/77 09/27/17 09:00 117/77 09/27/17 08:00 97.7 68 20 117/77 93 97.7 09/27/17 06:19 98.1 09/27/17 04:00 98.1 73 19 124/78 91 Room Air 98.1 09/27/17 00:21 97.5 09/27/17 00:00 97.9 81 20 134/82 95 97.9 09/26/17 23:11 97.5 09/26/17 21:41 118/71 09/26/17 21:40 72 118/71 09/26/17 20:15 97.5 72 18 118/71 95 Room Air 97.5 09/26/17 17:37 74 126/78 09/26/17 17:36 126/78 Intake and Output 09/26/17 09/27/17 19:00 07:00 Intake Total 840 ml Balance 840 ml Intake Oral 840 ml # Voids 1 1 # Bowel Movements 3 4 Laboratory Tests Test 09/27/17 05:50 White Blood Count 9.6 K/UL (4.8-10.8) Red Blood Count 3.14 M/UL (4.70-6.10) L Hemoglobin 10.1 G/DL (14.2-18.0) L Hematocrit 31.5 % (42.0-52.0) L Mean Corpuscular Volume 101 FL (80-99) H Mean Corpuscular Hemoglobin 32.2 PG (27.0-31.0) H Mean Corpuscular Hemoglobin Concent 32.0 G/DL (32.0-36.0) Red Cell Distribution Width 17.3 % (11.6-14.8) H Platelet Count 339 K/UL (150-450) Mean Platelet Volume 6.0 FL (6.5-10.1) L Neutrophils (%) (Auto) 70.6 % (45.0-75.0) Lymphocytes (%) (Auto) 19.5 % (20.0-45.0) L Monocytes (%) (Auto) 7.2 % (1.0-10.0) Eosinophils (%) (Auto) 1.3 % (0.0-3.0) Basophils (%) (Auto) 1.4 % (0.0-2.0) Sodium Level 135 MMOL/L (136-145) L Potassium Level 5.4 MMOL/L (3.5-5.1) H Chloride Level 108 MMOL/L (98-107) H Carbon Dioxide Level 20 MMOL/L (21-32) L Anion Gap 7 mmol/L (5-15) Blood Urea Nitrogen 28 mg/dL (7-18) H Creatinine 3.7 MG/DL (0.55-1.30) H Estimat Glomerular Filtration Rate 19.3 mL/min (>60) Glucose Level 80 MG/DL (74-106) Calcium Level 7.3 MG/DL (8.5-10.1) L Phosphorus Level 5.3 MG/DL (2.5-4.9) H Magnesium Level 1.6 MG/DL (1.8-2.4) L Total Bilirubin 0.3 MG/DL (0.2-1.0) Aspartate Amino Transf (AST/SGOT) 33 U/L (15-37) Alanine Aminotransferase (ALT/SGPT) 42 U/L (12-78) Alkaline Phosphatase 201 U/L (46-116) H Total Protein 4.5 G/DL (6.4-8.2) L Albumin 1.2 G/DL (3.4-5.0) L Globulin 3.3 g/dL Albumin/Globulin Ratio 0.4 (1.0-2.7) L Objective HEAD AND NECK: No JVD. Right IJ HD LUNGS: Clear. CARDIOVASCULAR: Regular S1 and S2. No gallop or murmur. ABDOMEN: Soft. EXTREMITIES: No pitting edema. MONICA DANGELO Sep 27, 2017 16:51
--- NOTE | 2017-09-27 17:22 | Internal Med Progress Note ---
Subjective Date of Service: Sep 27, 2017 Physician Name Ozzy Talbot Attending Physician Serafin Voss MD Current Medications Medications (Trade) Dose Ordered Sig/Michelle Route PRN Reason Start Time Stop Time Status Last Admin Dose Admin Acetaminophen (Tylenol) 650 mg Q4H PRN ORAL fever 09/09/17 23:45 10/08/17 15:44 Acetaminophen/ Hydrocodone Bitart ([place] 10/325) 1 tab Q6HR PRN ORAL severe pain 7-10 09/22/17 10:30 09/29/17 10:29 09/27/17 06:19 Aspirin (ASA) 81 mg DAILY ORAL 09/10/17 09:00 10/10/17 08:59 09/27/17 08:59 Carvedilol (Coreg) 25 mg BID ORAL 09/27/17 00:00 09/29/17 23:59 Carvedilol (Coreg) 25 mg EVERY 12 HOURS ORAL 09/17/17 09:00 10/17/17 08:59 09/27/17 09:00 Clonidine HCl (Catapres Tab) 0.1 mg Q4H PRN ORAL SYSTOLIC BP > 160 09/16/17 20:45 10/10/17 08:29 09/25/17 13:55 Lansoprazole (Prevacid) 30 mg BID ORAL 09/17/17 18:00 10/11/17 08:59 09/27/17 08:59 Levothyroxine Sodium (Synthroid) 25 mcg DAILY@0630 ORAL 09/10/17 06:30 10/10/17 06:29 09/27/17 06:18 Lisinopril (Prinivil) 20 mg BID ORAL 09/16/17 09:00 10/16/17 08:59 09/27/17 09:00 Lisinopril (Prinivil) 20 mg BID ORAL 09/27/17 00:00 09/29/17 23:59 Loperamide HCl (Imodium) 2 mg Q4H PRN ORAL Diarrhea 09/15/17 11:15 10/15/17 11:14 09/27/17 09:08 Losartan Potassium (Cozaar) 50 mg EVERY 12 HOURS ORAL 09/19/17 21:00 10/19/17 20:59 09/27/17 09:00 Nifedipine (Procardia XL) 60 mg BID ORAL 09/17/17 09:00 10/17/17 08:59 09/27/17 09:01 Nifedipine (Procardia XL) 60 mg BID ORAL 09/27/17 00:00 09/29/17 23:59 Ondansetron HCl (Zofran ODT) 4 mg Q6H PRN ORAL Nausea & Vomiting 09/23/17 10:45 10/23/17 10:44 09/23/17 12:12 Ondansetron HCl (Zofran) 4 mg Q4H PRN IVP Nausea & Vomiting 09/23/17 10:45 10/21/17 07:29 Sevelamer Carbonate (Renvela) 1,600 mg QID ORAL 09/27/17 00:00 09/29/17 23:59 Sevelamer Carbonate (Renvela) 2,400 mg THREE TIMES A DAY ORAL 09/11/17 13:00 10/11/17 12:59 09/27/17 12:22 Allergies: Coded Allergies: METOCLOPRAMIDE (Unverified Allergy, Severe, 09/08/17) PROCHLORPERAZINE (Unverified Allergy, Severe, 09/08/17) VANCOMYCIN (Unverified Allergy, Severe, 09/08/17) ROS Limited/Unobtainable: No Constitutional: Reports: no symptoms HEENT: Reports: no symptoms Cardiovascular: Reports: no symptoms Respiratory: Reports: no symptoms Gastrointestinal/Abdominal: Reports: no symptoms Genitourinary: Reports: no symptoms Neurologic/Psychiatric: Reports: no symptoms Subjective 32 YO M admitted with abdominal pain. Now renal failure on hemodialysis. Cover for Int Med-Dr Voss. Await Discharge to Recuperative Care Objective Last Vital Signs Date Time Temp Pulse Resp B/P (MAP) Pulse Ox O2 Delivery O2 Flow Rate FiO2 09/27/17 12:00 97.2 69 19 129/87 96 97.2 09/27/17 04:00 Room Air Laboratory Tests Test 09/27/17 05:50 White Blood Count 9.6 K/UL (4.8-10.8) Red Blood Count 3.14 M/UL (4.70-6.10) L Hemoglobin 10.1 G/DL (14.2-18.0) L Hematocrit 31.5 % (42.0-52.0) L Mean Corpuscular Volume 101 FL (80-99) H Mean Corpuscular Hemoglobin 32.2 PG (27.0-31.0) H Mean Corpuscular Hemoglobin Concent 32.0 G/DL (32.0-36.0) Red Cell Distribution Width 17.3 % (11.6-14.8) H Platelet Count 339 K/UL (150-450) Mean Platelet Volume 6.0 FL (6.5-10.1) L Neutrophils (%) (Auto) 70.6 % (45.0-75.0) Lymphocytes (%) (Auto) 19.5 % (20.0-45.0) L Monocytes (%) (Auto) 7.2 % (1.0-10.0) Eosinophils (%) (Auto) 1.3 % (0.0-3.0) Basophils (%) (Auto) 1.4 % (0.0-2.0) Sodium Level 135 MMOL/L (136-145) L Potassium Level 5.4 MMOL/L (3.5-5.1) H Chloride Level 108 MMOL/L (98-107) H Carbon Dioxide Level 20 MMOL/L (21-32) L Anion Gap 7 mmol/L (5-15) Blood Urea Nitrogen 28 mg/dL (7-18) H Creatinine 3.7 MG/DL (0.55-1.30) H Estimat Glomerular Filtration Rate 19.3 mL/min (>60) Glucose Level 80 MG/DL (74-106) Calcium Level 7.3 MG/DL (8.5-10.1) L Phosphorus Level 5.3 MG/DL (2.5-4.9) H Magnesium Level 1.6 MG/DL (1.8-2.4) L Total Bilirubin 0.3 MG/DL (0.2-1.0) Aspartate Amino Transf (AST/SGOT) 33 U/L (15-37) Alanine Aminotransferase (ALT/SGPT) 42 U/L (12-78) Alkaline Phosphatase 201 U/L (46-116) H Total Protein 4.5 G/DL (6.4-8.2) L Albumin 1.2 G/DL (3.4-5.0) L Globulin 3.3 g/dL Albumin/Globulin Ratio 0.4 (1.0-2.7) L Intake and Output 09/26/17 09/27/17 19:00 07:00 Intake Total 840 ml Balance 840 ml Intake Oral 840 ml # Voids 1 1 # Bowel Movements 3 4 Objective General Appearance: WD/WN, alert, mild distress EENT: PERRL/EOMI, normal ENT inspection Neck: non-tender, normal alignment, supple, normal inspection Cardiovascular: normal peripheral pulses, normal rate, regular rhythm, no gallop/murmur, no JVD Respiratory/Chest: chest wall non-tender, lungs clear, normal breath sounds, no respiratory distress, no accessory muscle use Abdomen: no organomegaly, no mass, decreased bowel sounds, distended, guarding , tender Extremities: normal range of motion 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 See nephrology note. (2) Anemia of renal disease Assessment & Plan: S/P transfusion (3) HTN (hypertension) Assessment & Plan: Uncontrolled. Await cardiology consult. Cont coreg and norvasc. (4) Ascites Assessment & Plan: S/P paracentesis 09/20/17. See GI note. (5) Abdominal pain (6) Abdominal distention (7) Diarrhea Assessment & Plan: C. Diff neg; await stool culture (8) Gastroparesis (9) Diabetes type 1, controlled Assessment & Plan: Continue novolog sliding scale. (10) Hypothyroidism Assessment & Plan: Continue levoxyl (11) CHF (congestive heart failure) Assessment & Plan: Volume overload. See cardiology note. await hemodialysis (12) Anemia Assessment & Plan: S/P transfusion 1 unit PRBC on 09/13/17 Status: stable Assessment/Plan Discharge planning: Recuperative care after dialysis today OZZY TALBOT Sep 27, 2017 17:22
--- NOTE | 2017-09-27 19:31 | Pulmonology Progress Note ---
Assessment/Plan Problems: (1) Renal failure (ARF), acute on chronic (2) Diabetic nephropathy (3) Diabetes type 1, controlled (4) Abdominal distention (5) Chronic pancreatitis (6) Gastroparesis Assessment/Plan no new complains renal w/u pending check electrolytes getting Hd symptomatic treatment dvt prophylaxis dc planning Subjective Allergies: Coded Allergies: METOCLOPRAMIDE (Unverified Allergy, Severe, 09/08/17) PROCHLORPERAZINE (Unverified Allergy, Severe, 09/08/17) VANCOMYCIN (Unverified Allergy, Severe, 09/08/17) Objective Last 24 Hour Vital Signs Date Time Temp Pulse Resp B/P (MAP) Pulse Ox O2 Delivery O2 Flow Rate FiO2 09/27/17 16:00 97.5 86 20 144/94 94 97.5 09/27/17 14:00 97.5 86 20 144/94 94 97.5 09/27/17 12:00 97.2 69 19 129/87 96 97.2 09/27/17 09:01 68 117/77 09/27/17 09:00 117/77 09/27/17 09:00 68 117/77 09/27/17 09:00 117/77 09/27/17 08:00 97.7 68 20 117/77 93 97.7 09/27/17 06:19 98.1 09/27/17 04:00 98.1 73 19 124/78 91 Room Air 98.1 09/27/17 00:21 97.5 09/27/17 00:00 97.9 81 20 134/82 95 97.9 09/26/17 23:11 97.5 09/26/17 21:41 118/71 09/26/17 21:40 72 118/71 09/26/17 20:15 97.5 72 18 118/71 95 Room Air 97.5 Intake and Output 09/26/17 09/27/17 19:00 07:00 Intake Total 840 ml Balance 840 ml Intake Oral 840 ml # Voids 1 1 # Bowel Movements 3 4 Objective General Appearance: no apparent distress Head: normocephalic, atraumatic Eyes: bilateral eye PERRL, bilateral eye EOMI ENT: normal pharynx, no angioedema Neck: supple, thyroid normal Respiratory: lungs clear, normal breath sounds Cardiovascular #1: regular rate, rhythm Gastrointestinal: non tender, soft Laboratory Tests 09/27/17 05:50: White Blood Count 9.6, Red Blood Count 3.14L, Hemoglobin 10.1L, Hematocrit 31.5L , Mean Corpuscular Volume 101H, Mean Corpuscular Hemoglobin 32.2H, Mean Corpuscular Hemoglobin Concent 32.0, Red Cell Distribution Width 17.3H, Platelet Count 339, Mean Platelet Volume 6.0L, Neutrophils (%) (Auto) 70.6, Lymphocytes (%) (Auto) 19.5L, Monocytes (%) (Auto) 7.2, Eosinophils (%) (Auto) 1.3, Basophils (%) (Auto) 1.4, Sodium Level 135L, Potassium Level 5.4H, Chloride Level 108H, Carbon Dioxide Level 20L, Anion Gap 7, Blood Urea Nitrogen 28H, Creatinine 3.7H, Estimat Glomerular Filtration Rate 19.3, Glucose Level 80 , Calcium Level 7.3L, Phosphorus Level 5.3H, Magnesium Level 1.6L, Total Bilirubin 0.3, Aspartate Amino Transf (AST/SGOT) 33, Alanine Aminotransferase ( ALT/SGPT) 42, Alkaline Phosphatase 201H, Total Protein 4.5L, Albumin 1.2L, Globulin 3.3, Albumin/Globulin Ratio 0.4L Current Medications Medications (Trade) Dose Ordered Sig/Michelle Route PRN Reason Start Time Stop Time Status Last Admin Dose Admin Acetaminophen (Tylenol) 650 mg Q4H PRN ORAL fever 09/09/17 23:45 10/08/17 15:44 Acetaminophen/ Hydrocodone Bitart ([place] 10/325) 1 tab Q6HR PRN ORAL severe pain 7-10 09/22/17 10:30 09/29/17 10:29 09/27/17 06:19 Aspirin (ASA) 81 mg DAILY ORAL 09/10/17 09:00 10/10/17 08:59 09/27/17 08:59 Carvedilol (Coreg) 25 mg BID ORAL 09/27/17 00:00 09/29/17 23:59 Carvedilol (Coreg) 25 mg EVERY 12 HOURS ORAL 09/17/17 09:00 10/17/17 08:59 09/27/17 09:00 Clonidine HCl (Catapres Tab) 0.1 mg Q4H PRN ORAL SYSTOLIC BP > 160 09/16/17 20:45 10/10/17 08:29 09/25/17 13:55 Lansoprazole (Prevacid) 30 mg BID ORAL 09/17/17 18:00 10/11/17 08:59 09/27/17 17:46 Levothyroxine Sodium (Synthroid) 25 mcg DAILY@0630 ORAL 09/10/17 06:30 10/10/17 06:29 09/27/17 06:18 Lisinopril (Prinivil) 20 mg BID ORAL 09/16/17 09:00 10/16/17 08:59 09/27/17 09:00 Lisinopril (Prinivil) 20 mg BID ORAL 09/27/17 00:00 09/29/17 23:59 Loperamide HCl (Imodium) 2 mg Q4H PRN ORAL Diarrhea 09/15/17 11:15 10/15/17 11:14 09/27/17 09:08 Losartan Potassium (Cozaar) 50 mg EVERY 12 HOURS ORAL 09/19/17 21:00 10/19/17 20:59 09/27/17 09:00 Nifedipine (Procardia XL) 60 mg BID ORAL 09/17/17 09:00 10/17/17 08:59 09/27/17 09:01 Nifedipine (Procardia XL) 60 mg BID ORAL 09/27/17 00:00 09/29/17 23:59 Ondansetron HCl (Zofran ODT) 4 mg Q6H PRN ORAL Nausea & Vomiting 09/23/17 10:45 10/23/17 10:44 09/23/17 12:12 Ondansetron HCl (Zofran) 4 mg Q4H PRN IVP Nausea & Vomiting 09/23/17 10:45 10/21/17 07:29 Sevelamer Carbonate (Renvela) 1,600 mg QID ORAL 09/27/17 00:00 09/29/17 23:59 Sevelamer Carbonate (Renvela) 2,400 mg THREE TIMES A DAY ORAL 09/11/17 13:00 10/11/17 12:59 09/27/17 17:46 RICARDO POLANCO Sep 27, 2017 19:26
[2017-09-28] VITALS (9 sets, daily range): BP systolic 114–201; BP diastolic 65–118
[2017-09-28] MEDS: HYDROcodone/Acetamin 10/325 tab ORAL PRN ×4 (04:24→22:29)
[2017-09-28] MEDS ORDERED: OMEPRAZOLE20 M3 ORAL (05:38)
[2017-09-28] MEDS ORDERED: LISINOPRIL20 MG ORAL (05:39)
[2017-09-28] MEDS ORDERED: IMODIUM A-D2 M2 PO (05:40)
[2017-09-28] MEDS ORDERED: NORVASC10 MG ORAL (05:40)
[2017-09-28] MEDS ORDERED: CARVEDILOL12.5 MG ORAL (05:41)
[2017-09-28] MEDS ORDERED: CATAPRES0.1 MG ORAL (05:42)
[2017-09-28] MEDS ORDERED: RENVELA0.8 GM ORAL (05:43)
[2017-09-28] MEDS ORDERED: BENADRYL25 MG ORAL (05:43)
[2017-09-28] MEDS ORDERED: RENVELA800 MG ORAL (05:45)
[2017-09-28] MEDS: Levothyroxine 25mcg tab ORAL SCH (06:21)
[2017-09-28] MEDS: Loperamide 2mg cap ORAL PRN (06:25)
[2017-09-28 07:35] LABS: HEMATOCRIT 23.8 % (42.0-52.0); HEMOGLOBIN 7.7 G/DL (14.2-18.0); MEAN CORPUSCULAR VOLUME 100 FL (80-99); PLATELET COUNT 296 K/UL (150-450); RED BLOOD COUNT 2.37 M/UL (4.70-6.10); RED CELL DISTRIBUTION WIDTH 16.9 % (11.6-14.8); WHITE BLOOD COUNT 6.6 K/UL (4.8-10.8)
[2017-09-28 07:48] LABS: ANION GAP 7 mmol/L (5-15); BLOOD UREA NITROGEN 24 mg/dL (7-18); CALCIUM 6.9 MG/DL (8.5-10.1); CARBON DIOXIDE 26 MMOL/L (21-32); CHLORIDE 106 MMOL/L (98-107); CREATININE 3.4 MG/DL (0.55-1.30); POTASSIUM 4.4 MMOL/L (3.5-5.1); SODIUM 139 MMOL/L (136-145)
[2017-09-28] MEDS: Aspirin Baby 81mg ORAL SCH (09:31)
[2017-09-28] MEDS: Carvedilol 25mg Tab ORAL SCH ×2 (09:31→21:23)
[2017-09-28] MEDS: Lisinopril 20mg tab ORAL SCH ×2 (09:33→17:22)
[2017-09-28] MEDS: Losartan 50mg tab ORAL SCH ×2 (09:33→21:23)
--- NOTE | 2017-09-28 10:15 | GI Progress Note ---
Assessment/Plan Problems: (1) Renal failure (ARF), acute on chronic ICD Codes: N17.9 - Acute kidney failure, unspecified; N18.9 - Chronic kidney disease, unspecified SNOMED: 809828363 (2) Diarrhea ICD Codes: R19.7 - Diarrhea, unspecified SNOMED: 54782660 (3) Vomiting ICD Codes: R11.10 - Vomiting, unspecified SNOMED: 888292524 (4) Diabetes type 1, controlled ICD Codes: E10.9 - Type 1 diabetes mellitus without complications SNOMED: 31041150, 597160931 (5) Gastroparesis ICD Codes: K31.84 - Gastroparesis SNOMED: 819879168 (6) Chronic pancreatitis ICD Codes: K86.1 - Other chronic pancreatitis SNOMED: 554345549 (7) Anemia ICD Codes: D64.9 - Anemia, unspecified SNOMED: 496612736 Status: stable Status Narrative Discussed with Dr. Schultz. Assessment/Plan abdominal U/S reviewed Hep panel >> negative stool culture / cdiff / O&P >> negative anemia work 2/2 to renal disease s/p paracentesis yielding 3L of fluid >> r/o SBP >> negative symptomatic treatment fu nephro recs renal diet DM mgmt Lomotil prn pain mgmt ppi fu labs Subjective Subjective generalized weakness and pain c/o of diarrhea BLE edema Objective Last 24 Hour Vital Signs Date Time Temp Pulse Resp B/P (MAP) Pulse Ox O2 Delivery O2 Flow Rate FiO2 09/28/17 09:34 99.9 09/28/17 09:33 188/112 09/28/17 09:33 70 188/112 09/28/17 09:33 188/112 09/28/17 09:31 70 188/112 09/28/17 08:00 99.0 64 21 170/94 97 99.0 09/28/17 06:21 188/112 09/28/17 05:55 70 188/112 Room Air 09/28/17 05:47 Room Air 09/28/17 05:23 99.9 09/28/17 04:24 99.9 09/28/17 04:00 99.3 69 18 191/96 97 99.3 09/28/17 01:13 180/96 09/28/17 00:00 Room Air 09/28/17 00:00 99.9 82 18 180/96 96 99.9 09/27/17 22:35 98.1 09/27/17 22:35 146/88 09/27/17 22:35 86 146/88 09/27/17 20:15 Room Air 09/27/17 20:10 98.1 86 20 146/88 Room Air 98.1 09/27/17 20:00 Room Air 09/27/17 19:59 98.1 86 18 146/97 95 98.1 09/27/17 17:00 Room Air 09/27/17 17:00 97.5 79 20 157/115 Room Air 97.5 09/27/17 16:00 97.5 86 20 144/94 94 97.5 09/27/17 14:00 97.5 86 20 144/94 94 97.5 09/27/17 12:00 97.2 69 19 129/87 96 97.2 Intake and Output 09/27/17 09/28/17 19:00 07:00 Intake Total 1040 ml 360 ml Output Total 6002 ml 3000 ml Balance -4962 ml -2640 ml Intake Oral 840 ml 360 ml IV Total 200 ml Output Urine Total 0 ml Stool Total 2 ml Hemodialysis UF 6000 ml 3000 ml # Voids 1 2 # Bowel Movements 7 4 Laboratory Tests Test 09/28/17 06:10 White Blood Count 6.6 K/UL (4.8-10.8) Red Blood Count 2.37 M/UL (4.70-6.10) L Hemoglobin 7.7 G/DL (14.2-18.0) L Hematocrit 23.8 % (42.0-52.0) L Mean Corpuscular Volume 100 FL (80-99) H Mean Corpuscular Hemoglobin 32.4 PG (27.0-31.0) H Mean Corpuscular Hemoglobin Concent 32.2 G/DL (32.0-36.0) Red Cell Distribution Width 16.9 % (11.6-14.8) H Platelet Count 296 K/UL (150-450) Mean Platelet Volume 5.9 FL (6.5-10.1) L Neutrophils (%) (Auto) % (45.0-75.0) Lymphocytes (%) (Auto) % (20.0-45.0) Monocytes (%) (Auto) % (1.0-10.0) Eosinophils (%) (Auto) % (0.0-3.0) Basophils (%) (Auto) % (0.0-2.0) Neutrophils % (Manual) Pending Lymphocytes % (Manual) Pending Platelet Estimate Pending Platelet Morphology Pending Sodium Level 139 MMOL/L (136-145) Potassium Level 4.4 MMOL/L (3.5-5.1) Chloride Level 106 MMOL/L (98-107) Carbon Dioxide Level 26 MMOL/L (21-32) Anion Gap 7 mmol/L (5-15) Blood Urea Nitrogen 24 mg/dL (7-18) H Creatinine 3.4 MG/DL (0.55-1.30) H Estimat Glomerular Filtration Rate 21.2 mL/min (>60) Glucose Level 137 MG/DL (74-106) H Calcium Level 6.9 MG/DL (8.5-10.1) L Height (Feet): 5 Height (Inches): 10.00 Weight (Pounds): 228 General Appearance: WD/WN, no apparent distress, alert Cardiovascular: normal rate Respiratory/Chest: normal breath sounds, no respiratory distress Abdominal Exam: normal bowel sounds, non tender, soft Extremities: normal range of motion, non-tender Amber Clark N.P. Sep 28, 2017 10:15
--- NOTE | 2017-09-28 11:53 | Internal Med Progress Note ---
Subjective Date of Service: Sep 28, 2017 Physician Name TalbotOzzy Attending Physician Serafin Voss MD Current Medications Medications (Trade) Dose Ordered Sig/Michelle Route PRN Reason Start Time Stop Time Status Last Admin Dose Admin Acetaminophen (Tylenol) 650 mg Q4H PRN ORAL fever 09/09/17 23:45 10/08/17 15:44 Acetaminophen/ Hydrocodone Bitart ([place] 10/325) 1 tab Q6HR PRN ORAL severe pain 7-10 09/22/17 10:30 09/29/17 10:29 09/28/17 09:34 Aspirin (ASA) 81 mg DAILY ORAL 09/10/17 09:00 10/10/17 08:59 09/28/17 09:31 Carvedilol (Coreg) 25 mg BID ORAL 09/27/17 00:00 09/29/17 23:59 Carvedilol (Coreg) 25 mg EVERY 12 HOURS ORAL 09/17/17 09:00 10/17/17 08:59 09/28/17 09:31 Clonidine HCl (Catapres Tab) 0.1 mg Q4H PRN ORAL SYSTOLIC BP > 160 09/16/17 20:45 10/10/17 08:29 09/28/17 06:21 Lansoprazole (Prevacid) 30 mg BID ORAL 09/17/17 18:00 10/11/17 08:59 09/28/17 09:33 Levothyroxine Sodium (Synthroid) 25 mcg DAILY@0630 ORAL 09/10/17 06:30 10/10/17 06:29 09/28/17 06:21 Lisinopril (Prinivil) 20 mg BID ORAL 09/16/17 09:00 10/16/17 08:59 09/28/17 09:33 Lisinopril (Prinivil) 20 mg BID ORAL 09/27/17 00:00 09/29/17 23:59 Loperamide HCl (Imodium) 2 mg Q4H PRN ORAL Diarrhea 09/15/17 11:15 10/15/17 11:14 09/28/17 06:25 Losartan Potassium (Cozaar) 50 mg EVERY 12 HOURS ORAL 09/19/17 21:00 10/19/17 20:59 09/28/17 09:33 Nifedipine (Procardia XL) 60 mg BID ORAL 09/17/17 09:00 10/17/17 08:59 09/28/17 09:33 Nifedipine (Procardia XL) 60 mg BID ORAL 09/27/17 00:00 09/29/17 23:59 Ondansetron HCl (Zofran ODT) 4 mg Q6H PRN ORAL Nausea & Vomiting 09/23/17 10:45 10/23/17 10:44 09/23/17 12:12 Ondansetron HCl (Zofran) 4 mg Q4H PRN IVP Nausea & Vomiting 09/23/17 10:45 10/21/17 07:29 Sevelamer Carbonate (Renvela) 1,600 mg QID ORAL 09/27/17 00:00 09/29/17 23:59 Sevelamer Carbonate (Renvela) 2,400 mg THREE TIMES A DAY ORAL 09/11/17 13:00 10/11/17 12:59 09/27/17 17:46 Allergies: Coded Allergies: METOCLOPRAMIDE (Unverified Allergy, Severe, 09/08/17) PROCHLORPERAZINE (Unverified Allergy, Severe, 09/08/17) VANCOMYCIN (Unverified Allergy, Severe, 09/08/17) ROS Limited/Unobtainable: No Constitutional: Reports: no symptoms HEENT: Reports: no symptoms Cardiovascular: Reports: no symptoms Respiratory: Reports: no symptoms Gastrointestinal/Abdominal: Reports: no symptoms Genitourinary: Reports: no symptoms Neurologic/Psychiatric: Reports: no symptoms Subjective 32 YO M admitted with abdominal pain. Now renal failure on hemodialysis. Cover for Int Med-Dr Voss. Discharge to Recuperative Care held for transfusion today Objective Last Vital Signs Date Time Temp Pulse Resp B/P (MAP) Pulse Ox O2 Delivery O2 Flow Rate FiO2 09/28/17 10:33 99.9 09/28/17 09:33 188/112 09/28/17 09:33 70 09/28/17 08:00 21 97 09/28/17 05:55 Room Air Laboratory Tests Test 09/28/17 06:10 White Blood Count 6.6 K/UL (4.8-10.8) Red Blood Count 2.37 M/UL (4.70-6.10) L Hemoglobin 7.7 G/DL (14.2-18.0) L Hematocrit 23.8 % (42.0-52.0) L Mean Corpuscular Volume 100 FL (80-99) H Mean Corpuscular Hemoglobin 32.4 PG (27.0-31.0) H Mean Corpuscular Hemoglobin Concent 32.2 G/DL (32.0-36.0) Red Cell Distribution Width 16.9 % (11.6-14.8) H Platelet Count 296 K/UL (150-450) Mean Platelet Volume 5.9 FL (6.5-10.1) L Neutrophils (%) (Auto) % (45.0-75.0) Lymphocytes (%) (Auto) % (20.0-45.0) Monocytes (%) (Auto) % (1.0-10.0) Eosinophils (%) (Auto) % (0.0-3.0) Basophils (%) (Auto) % (0.0-2.0) Differential Total Cells Counted 100 Neutrophils % (Manual) 71 % (45-75) Lymphocytes % (Manual) 22 % (20-45) Monocytes % (Manual) 6 % (1-10) Eosinophils % (Manual) 1 % (0-3) Basophils % (Manual) 0 % (0-2) Band Neutrophils 0 % (0-8) Platelet Estimate Adequate Platelet Morphology Normal Hypochromasia 1+ Poikilocytosis 1+ Anisocytosis 1+ Macrocytosis 1+ Sodium Level 139 MMOL/L (136-145) Potassium Level 4.4 MMOL/L (3.5-5.1) Chloride Level 106 MMOL/L (98-107) Carbon Dioxide Level 26 MMOL/L (21-32) Anion Gap 7 mmol/L (5-15) Blood Urea Nitrogen 24 mg/dL (7-18) H Creatinine 3.4 MG/DL (0.55-1.30) H Estimat Glomerular Filtration Rate 21.2 mL/min (>60) Glucose Level 137 MG/DL (74-106) H Calcium Level 6.9 MG/DL (8.5-10.1) L Intake and Output 09/27/17 09/28/17 19:00 07:00 Intake Total 1040 ml 360 ml Output Total 6002 ml 3000 ml Balance -4962 ml -2640 ml Intake Oral 840 ml 360 ml IV Total 200 ml Output Urine Total 0 ml Stool Total 2 ml Hemodialysis UF 6000 ml 3000 ml # Voids 1 2 # Bowel Movements 7 4 Objective General Appearance: WD/WN, alert, mild distress EENT: PERRL/EOMI, normal ENT inspection Neck: non-tender, normal alignment, supple, normal inspection Cardiovascular: normal peripheral pulses, normal rate, regular rhythm, no gallop/murmur, no JVD Respiratory/Chest: chest wall non-tender, lungs clear, normal breath sounds, no respiratory distress, no accessory muscle use Abdomen: no organomegaly, no mass, decreased bowel sounds, distended, guarding , tender Extremities: normal range of motion 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 See nephrology note. (2) Anemia of renal disease Assessment & Plan: S/P transfusion (3) HTN (hypertension) Assessment & Plan: Uncontrolled. Await cardiology consult. Cont coreg and norvasc. (4) Ascites Assessment & Plan: S/P paracentesis 09/20/17. See GI note. (5) Abdominal pain (6) Abdominal distention (7) Diarrhea Assessment & Plan: C. Diff neg; await stool culture (8) Gastroparesis (9) Diabetes type 1, controlled Assessment & Plan: Continue novolog sliding scale. (10) Hypothyroidism Assessment & Plan: Continue levoxyl (11) CHF (congestive heart failure) Assessment & Plan: Volume overload. See cardiology note. await hemodialysis (12) Anemia Assessment & Plan: S/P transfusion 1 unit PRBC on 09/13/17 Assessment/Plan Discharge planning: Recuperative care after transfusion today OZZY TALBOT Sep 28, 2017 11:53
--- NOTE | 2017-09-28 12:57 | Nephrology Progress Note ---
Assessment/Plan Problem List: (1) Renal failure (ARF), acute on chronic (2) Nephrotic syndrome (3) Diabetic nephropathy (4) HTN (hypertension) Assessment: hypertensive kidney disease Assessment Advanced renal failure due to Type I DM DIabetic Nephropathy- Most likely NS -. Bilateral upper quadrant pain. -. Diarrhea. -. Diabetic gastroparesis. -. Diabetes type 1. -. Hypertension. -. Anemia. due to CKD -. HypoThyroid Plan Plan: Dialysed next 09/29 Transfuse today Add Coozar to BP meds placement issues Zestril Procardia and Clonidine to BP meds- adjust meds Per GI 24 h urine collection over 3 gram protein Monitor renal parameters , BS and BP Avoid nephrotoxics Due DC and OP HD 2D Echo : Left ventricular ejection fraction estimated to be 60 %. No evidence of left ventricular hypertrophy. Trace pericardial effusion . Moderate left atrial enlargement. OCTAVIO: Left kidney measures 11.8 cm in length. Right kidney measures 9.6 cm length. Kidneys demonstrate diffusely increased echogenicity. No hydronephrosis. there is a small left lower pole renal cyst Subjective ROS Limited/Unobtainable: No Constitutional: Reports: malaise Objective Objective Last 24 Hour Vital Signs Date Time Temp Pulse Resp B/P (MAP) Pulse Ox O2 Delivery O2 Flow Rate FiO2 09/28/17 12:22 201/118 09/28/17 12:17 97.5 64 21 201/118 97 Room Air 97.5 09/28/17 10:33 99.9 09/28/17 09:34 99.9 09/28/17 09:33 188/112 09/28/17 09:33 70 188/112 09/28/17 09:33 188/112 09/28/17 09:31 70 188/112 09/28/17 08:00 99.0 64 21 170/94 97 99.0 09/28/17 06:21 188/112 09/28/17 05:55 70 188/112 Room Air 09/28/17 05:47 Room Air 09/28/17 04:24 99.9 09/28/17 04:00 99.3 69 18 191/96 97 99.3 09/28/17 01:13 180/96 09/28/17 00:00 Room Air 09/28/17 00:00 99.9 82 18 180/96 96 99.9 09/27/17 22:35 98.1 09/27/17 22:35 146/88 09/27/17 22:35 86 146/88 09/27/17 20:15 Room Air 09/27/17 20:10 98.1 86 20 146/88 Room Air 98.1 09/27/17 20:00 Room Air 09/27/17 19:59 98.1 86 18 146/97 95 98.1 09/27/17 17:00 Room Air 09/27/17 17:00 97.5 79 20 157/115 Room Air 97.5 09/27/17 16:00 97.5 86 20 144/94 94 97.5 09/27/17 14:00 97.5 86 20 144/94 94 97.5 Intake and Output 09/27/17 09/28/17 19:00 07:00 Intake Total 1040 ml 360 ml Output Total 6002 ml 3000 ml Balance -4962 ml -2640 ml Intake Oral 840 ml 360 ml IV Total 200 ml Output Urine Total 0 ml Stool Total 2 ml Hemodialysis UF 6000 ml 3000 ml # Voids 1 2 # Bowel Movements 7 4 Laboratory Tests 09/28/17 06:10: White Blood Count 6.6, Red Blood Count 2.37L, Hemoglobin 7.7L, Hematocrit 23.8L , Mean Corpuscular Volume 100H, Mean Corpuscular Hemoglobin 32.4H, Mean Corpuscular Hemoglobin Concent 32.2, Red Cell Distribution Width 16.9H, Platelet Count 296, Mean Platelet Volume 5.9L, Neutrophils (%) (Auto) , Lymphocytes (%) (Auto) , Monocytes (%) (Auto) , Eosinophils (%) (Auto) , Basophils (%) (Auto) , Differential Total Cells Counted 100, Neutrophils % ( Manual) 71, Lymphocytes % (Manual) 22, Monocytes % (Manual) 6, Eosinophils % ( Manual) 1, Basophils % (Manual) 0, Band Neutrophils 0, Platelet Estimate Adequate, Platelet Morphology Normal, Hypochromasia 1+, Poikilocytosis 1+, Anisocytosis 1+, Macrocytosis 1+, Sodium Level 139, Potassium Level 4.4, Chloride Level 106, Carbon Dioxide Level 26, Anion Gap 7, Blood Urea Nitrogen 24H, Creatinine 3.4H, Estimat Glomerular Filtration Rate 21.2, Glucose Level 137H, Calcium Level 6.9L Height (Feet): 5 Height (Inches): 10.00 Weight (Pounds): 228 General Appearance: no apparent distress Objective no change LEXIS PRESTON Sep 28, 2017 12:57
--- NOTE | 2017-09-28 14:44 | Pulmonology Progress Note ---
Assessment/Plan Assessment/Plan ASSESSMENT Acute on chronic renal failure with new initiation of HD diabetic nephropathy nephrotic syndrome HTN kidney disease HTN urgency DM type 1 chronic pancreatitis gastroparesis anemia of renal disease hypothyroidism fluid overload elevated LFT PLAN OF CARE MS floor started on HD after placement by IR Right jugular HD catheter nephro follows monitor renal parameters, correct lytes, avoid nephrotoxic 24 hr urine with > 3 gm protein, most likely nephrotic syndrome abdominal OCTAVIO with evidence of increased echogenicity c/w medical renal disease , no hydro On EPO monitor HH, transfuse today as per nephro and prn s/p 1 u PRBC 09/14, LFT trending down hep panel negative abdominal US no gallstones, no dilated ducts ECHO with pEF 60% and RVSP of 29 BP management with BB, CCB, Clonidine and Hydralazine, currently controlled bl and stool cx negative, stool for OP negative lipase stable pain management, off Morphibne bowel regimen on levothyroxine now, check TFT in 1 month dc plan, to continue HD will need HD arrangement pt has tunneled HD catheter inserted working with PT HD today, transfuse as ordered by nephro dc plan case discussed and evaluated by supervising physician Subjective Allergies: Coded Allergies: METOCLOPRAMIDE (Unverified Allergy, Severe, 09/08/17) PROCHLORPERAZINE (Unverified Allergy, Severe, 09/08/17) VANCOMYCIN (Unverified Allergy, Severe, 09/08/17) Subjective s/p initiation of HD, afebrile, no leucocytosis Hgb down to 7.7 today HD today Objective Last 24 Hour Vital Signs Date Time Temp Pulse Resp B/P (MAP) Pulse Ox O2 Delivery O2 Flow Rate FiO2 09/28/17 13:45 175/112 09/28/17 12:22 201/118 09/28/17 12:17 97.5 64 21 201/118 97 Room Air 97.5 09/28/17 10:33 99.9 09/28/17 09:34 99.9 09/28/17 09:33 188/112 09/28/17 09:33 70 188/112 09/28/17 09:33 188/112 09/28/17 09:31 70 188/112 09/28/17 08:00 99.0 64 21 170/94 97 99.0 09/28/17 06:21 188/112 09/28/17 05:55 70 188/112 Room Air 09/28/17 05:47 Room Air 09/28/17 04:24 99.9 09/28/17 04:00 99.3 69 18 191/96 97 99.3 09/28/17 01:13 180/96 09/28/17 00:00 Room Air 09/28/17 00:00 99.9 82 18 180/96 96 99.9 09/27/17 22:35 98.1 09/27/17 22:35 146/88 09/27/17 22:35 86 146/88 09/27/17 20:15 Room Air 09/27/17 20:10 98.1 86 20 146/88 Room Air 98.1 09/27/17 20:00 Room Air 09/27/17 19:59 98.1 86 18 146/97 95 98.1 09/27/17 17:00 Room Air 09/27/17 17:00 97.5 79 20 157/115 Room Air 97.5 09/27/17 16:00 97.5 86 20 144/94 94 97.5 Intake and Output 09/27/17 09/28/17 19:00 07:00 Intake Total 1040 ml 360 ml Output Total 6002 ml 3000 ml Balance -4962 ml -2640 ml Intake Oral 840 ml 360 ml IV Total 200 ml Output Urine Total 0 ml Stool Total 2 ml Hemodialysis UF 6000 ml 3000 ml # Voids 1 2 # Bowel Movements 7 4 Objective General Appearance: no acute distress HEENT: anicteric Respiratory/Chest: lungs clear, no respiratory distress Cardiovascular: normal rate, regular rhythm, R jugular tunneled HD catheter Abdomen: soft, non tender, non distended Extremities: no edema Neurologic/Psychiatric: no motor/sensory deficits, alert, oriented x 3, responsive Musculoskeletal: normal muscle bulk Laboratory Tests 09/28/17 06:10: White Blood Count 6.6, Red Blood Count 2.37L, Hemoglobin 7.7L, Hematocrit 23.8L , Mean Corpuscular Volume 100H, Mean Corpuscular Hemoglobin 32.4H, Mean Corpuscular Hemoglobin Concent 32.2, Red Cell Distribution Width 16.9H, Platelet Count 296, Mean Platelet Volume 5.9L, Neutrophils (%) (Auto) , Lymphocytes (%) (Auto) , Monocytes (%) (Auto) , Eosinophils (%) (Auto) , Basophils (%) (Auto) , Differential Total Cells Counted 100, Neutrophils % ( Manual) 71, Lymphocytes % (Manual) 22, Monocytes % (Manual) 6, Eosinophils % ( Manual) 1, Basophils % (Manual) 0, Band Neutrophils 0, Platelet Estimate Adequate, Platelet Morphology Normal, Hypochromasia 1+, Poikilocytosis 1+, Anisocytosis 1+, Macrocytosis 1+, Sodium Level 139, Potassium Level 4.4, Chloride Level 106, Carbon Dioxide Level 26, Anion Gap 7, Blood Urea Nitrogen 24H, Creatinine 3.4H, Estimat Glomerular Filtration Rate 21.2, Glucose Level 137H, Calcium Level 6.9L Current Medications Medications (Trade) Dose Ordered Sig/Michelle Route PRN Reason Start Time Stop Time Status Last Admin Dose Admin Acetaminophen (Tylenol) 650 mg Q4H PRN ORAL fever 09/09/17 23:45 10/08/17 15:44 Acetaminophen/ Hydrocodone Bitart ([place]well 10/325) 1 tab Q6HR PRN ORAL severe pain 7-10 09/22/17 10:30 09/29/17 10:29 09/28/17 09:34 Aspirin (ASA) 81 mg DAILY ORAL 09/10/17 09:00 10/10/17 08:59 09/28/17 09:31 Carvedilol (Coreg) 25 mg BID ORAL 09/27/17 00:00 09/29/17 23:59 Carvedilol (Coreg) 25 mg EVERY 12 HOURS ORAL 09/17/17 09:00 10/17/17 08:59 09/28/17 09:31 Clonidine HCl (Catapres Tab) 0.1 mg Q4H PRN ORAL SYSTOLIC BP > 160 09/16/17 20:45 10/10/17 08:29 09/28/17 12:22 Lansoprazole (Prevacid) 30 mg BID ORAL 09/17/17 18:00 10/11/17 08:59 09/28/17 09:33 Levothyroxine Sodium (Synthroid) 25 mcg DAILY@0630 ORAL 09/10/17 06:30 10/10/17 06:29 09/28/17 06:21 Lisinopril (Prinivil) 20 mg BID ORAL 09/16/17 09:00 10/16/17 08:59 09/28/17 09:33 Lisinopril (Prinivil) 20 mg BID ORAL 09/27/17 00:00 09/29/17 23:59 Loperamide HCl (Imodium) 2 mg Q4H PRN ORAL Diarrhea 09/15/17 11:15 10/15/17 11:14 09/28/17 06:25 Losartan Potassium (Cozaar) 50 mg EVERY 12 HOURS ORAL 09/19/17 21:00 10/19/17 20:59 09/28/17 09:33 Nifedipine (Procardia XL) 60 mg BID ORAL 09/17/17 09:00 10/17/17 08:59 09/28/17 09:33 Nifedipine (Procardia XL) 60 mg BID ORAL 09/27/17 00:00 09/29/17 23:59 Ondansetron HCl (Zofran ODT) 4 mg Q6H PRN ORAL Nausea & Vomiting 09/23/17 10:45 10/23/17 10:44 09/23/17 12:12 Ondansetron HCl (Zofran) 4 mg Q4H PRN IVP Nausea & Vomiting 09/23/17 10:45 10/21/17 07:29 Sevelamer Carbonate (Renvela) 1,600 mg QID ORAL 09/27/17 00:00 09/29/17 23:59 Sevelamer Carbonate (Renvela) 2,400 mg THREE TIMES A DAY ORAL 09/11/17 13:00 10/11/17 12:59 09/27/17 17:46 Jesse GarciaShama alejandre NP Sep 28, 2017 14:44
--- NOTE | 2017-09-28 18:06 | Cardiac Electrophysiology PN ---
Assessment/Plan Assessment/Plan 1. Accelerated hypertension.On Procardia XL 60 bid, clonidine 0.1 mg q8, Losartan 50 bid, Coreg 25 mg bid and HD 2. Chronic kidney disease. On HD. 3. Insulin-dependent diabetes. 4. Anemia of renal disease. S/P PRBC 5. Abdominal pain and diarrhea, Negative for C Diff. 6. Hypothyroidism, on Synthroid. DW RN DC planning today Subjective Subjective No CP or SOB. RN at bedside. Had HD. Comfortable. Awaiting discharge. Objective Last 24 Hour Vital Signs Date Time Temp Pulse Resp B/P (MAP) Pulse Ox O2 Delivery O2 Flow Rate FiO2 09/28/17 17:23 61 180/111 09/28/17 17:22 180/111 09/28/17 17:02 97.5 09/28/17 16:03 97.5 09/28/17 16:00 98.1 61 18 180/111 97 98.1 09/28/17 13:45 175/112 09/28/17 12:22 201/118 09/28/17 12:17 97.5 64 21 201/118 97 Room Air 97.5 09/28/17 09:34 99.9 09/28/17 09:33 188/112 09/28/17 09:33 70 188/112 09/28/17 09:33 188/112 09/28/17 09:31 70 188/112 09/28/17 08:00 99.0 64 21 170/94 97 99.0 09/28/17 06:21 188/112 09/28/17 05:55 70 188/112 Room Air 09/28/17 05:47 Room Air 09/28/17 04:24 99.9 09/28/17 04:00 99.3 69 18 191/96 97 99.3 09/28/17 01:13 180/96 09/28/17 00:00 Room Air 09/28/17 00:00 99.9 82 18 180/96 96 99.9 09/27/17 22:35 98.1 09/27/17 22:35 146/88 09/27/17 22:35 86 146/88 09/27/17 20:15 Room Air 09/27/17 20:10 98.1 86 20 146/88 Room Air 98.1 09/27/17 20:00 Room Air 09/27/17 19:59 98.1 86 18 146/97 95 98.1 Intake and Output 09/27/17 09/28/17 19:00 07:00 Intake Total 1040 ml 360 ml Output Total 6002 ml 3000 ml Balance -4962 ml -2640 ml Intake Oral 840 ml 360 ml IV Total 200 ml Output Urine Total 0 ml Stool Total 2 ml Hemodialysis UF 6000 ml 3000 ml # Voids 1 2 # Bowel Movements 7 4 Laboratory Tests Test 09/28/17 06:10 White Blood Count 6.6 K/UL (4.8-10.8) Red Blood Count 2.37 M/UL (4.70-6.10) L Hemoglobin 7.7 G/DL (14.2-18.0) L Hematocrit 23.8 % (42.0-52.0) L Mean Corpuscular Volume 100 FL (80-99) H Mean Corpuscular Hemoglobin 32.4 PG (27.0-31.0) H Mean Corpuscular Hemoglobin Concent 32.2 G/DL (32.0-36.0) Red Cell Distribution Width 16.9 % (11.6-14.8) H Platelet Count 296 K/UL (150-450) Mean Platelet Volume 5.9 FL (6.5-10.1) L Neutrophils (%) (Auto) % (45.0-75.0) Lymphocytes (%) (Auto) % (20.0-45.0) Monocytes (%) (Auto) % (1.0-10.0) Eosinophils (%) (Auto) % (0.0-3.0) Basophils (%) (Auto) % (0.0-2.0) Differential Total Cells Counted 100 Neutrophils % (Manual) 71 % (45-75) Lymphocytes % (Manual) 22 % (20-45) Monocytes % (Manual) 6 % (1-10) Eosinophils % (Manual) 1 % (0-3) Basophils % (Manual) 0 % (0-2) Band Neutrophils 0 % (0-8) Platelet Estimate Adequate Platelet Morphology Normal Hypochromasia 1+ Poikilocytosis 1+ Anisocytosis 1+ Macrocytosis 1+ Sodium Level 139 MMOL/L (136-145) Potassium Level 4.4 MMOL/L (3.5-5.1) Chloride Level 106 MMOL/L (98-107) Carbon Dioxide Level 26 MMOL/L (21-32) Anion Gap 7 mmol/L (5-15) Blood Urea Nitrogen 24 mg/dL (7-18) H Creatinine 3.4 MG/DL (0.55-1.30) H Estimat Glomerular Filtration Rate 21.2 mL/min (>60) Glucose Level 137 MG/DL (74-106) H Calcium Level 6.9 MG/DL (8.5-10.1) L Objective HEAD AND NECK: No JVD. Right IJ HD LUNGS: Clear. CARDIOVASCULAR: Regular S1 and S2. No gallop or murmur. ABDOMEN: Soft. EXTREMITIES: No pitting edema. MONICA DANGELO Sep 28, 2017 18:06
[2017-09-28] MEDS ORDERED: HydrALAZINE 25mg tab ORAL PRN (19:00)
[2017-09-29 03:33] VITALS: BP 110/75
[2017-09-29] MEDS: HYDROcodone/Acetamin 10/325 tab ORAL PRN (06:13)
[2017-09-29] MEDS: Levothyroxine 25mcg tab ORAL SCH (06:13)
[2017-09-29 08:00] VITALS: BP 127/77
[2017-09-29] MEDS: Aspirin Baby 81mg ORAL SCH (09:55)
[2017-09-29] MEDS: Carvedilol 25mg Tab ORAL SCH (09:57)
[2017-09-29] MEDS: Losartan 50mg tab ORAL SCH (09:57)
[2017-09-29] MEDS: Loperamide 2mg cap ORAL PRN (09:59)
[2017-09-29] MEDS: Lisinopril 20mg tab ORAL SCH ×2 (10:05→18:08)
--- NOTE | 2017-09-29 11:51 | GI Progress Note ---
Assessment/Plan Problems: (1) Renal failure (ARF), acute on chronic ICD Codes: N17.9 - Acute kidney failure, unspecified; N18.9 - Chronic kidney disease, unspecified SNOMED: 030009514 (2) Diarrhea ICD Codes: R19.7 - Diarrhea, unspecified SNOMED: 47624481 (3) Vomiting ICD Codes: R11.10 - Vomiting, unspecified SNOMED: 699980736 (4) Diabetes type 1, controlled ICD Codes: E10.9 - Type 1 diabetes mellitus without complications SNOMED: 05614894, 386823504 (5) Gastroparesis ICD Codes: K31.84 - Gastroparesis SNOMED: 917939526 (6) Chronic pancreatitis ICD Codes: K86.1 - Other chronic pancreatitis SNOMED: 200768582 (7) Anemia ICD Codes: D64.9 - Anemia, unspecified SNOMED: 858623844 Status: stable Status Narrative Discussed with Dr. Schultz. Assessment/Plan abdominal U/S reviewed Hep panel >> negative stool culture / cdiff / O&P >> negative anemia work 2/2 to renal disease s/p paracentesis yielding 3L of fluid >> r/o SBP >> negative symptomatic treatment fu nephro recs renal diet DM mgmt Lomotil prn pain mgmt ppi fu labs Subjective Subjective generalized weakness and pain c/o of diarrhea BLE edema Objective Last 24 Hour Vital Signs Date Time Temp Pulse Resp B/P (MAP) Pulse Ox O2 Delivery O2 Flow Rate FiO2 09/29/17 10:05 127/77 09/29/17 09:57 127/77 09/29/17 09:57 63 127/77 09/29/17 09:57 63 127/77 09/29/17 08:00 97.0 63 20 127/77 97 97.0 09/29/17 03:33 98.2 70 20 110/75 95 Room Air 98.2 09/28/17 23:31 97.0 20 114/65 94 Room Air 97.0 09/28/17 21:23 148/102 09/28/17 21:23 72 148/102 09/28/17 19:26 97.7 72 20 148/102 94 Room Air 97.7 09/28/17 17:23 61 180/111 09/28/17 17:22 180/111 09/28/17 17:02 97.5 09/28/17 16:03 97.5 09/28/17 16:00 98.1 61 18 180/111 97 98.1 09/28/17 13:45 175/112 09/28/17 12:22 201/118 09/28/17 12:17 97.5 64 21 201/118 97 Room Air 97.5 Intake and Output 09/28/17 09/29/17 19:00 07:00 Intake Total 930 ml Output Total 450 ml Balance 480 ml Intake Oral 930 ml Output Urine Total 450 ml # Voids 2 8 # Bowel Movements 1 6 Height (Feet): 5 Height (Inches): 10.00 Weight (Pounds): 226 General Appearance: WD/WN, no apparent distress, alert Cardiovascular: normal rate Respiratory/Chest: normal breath sounds, no respiratory distress Abdominal Exam: normal bowel sounds, non tender, soft Extremities: normal range of motion, non-tender Amber Clark N.P. Sep 29, 2017 11:50
[2017-09-29 12:00] VITALS: BP 118/77
[2017-09-29] MEDS: BusPIRone 5mg Tab ORAL SCH ×2 (12:11→18:09)
[2017-09-29] MEDS ORDERED: Tubing IV Secondary IV ONE (15:18)
[2017-09-29] MEDS ORDERED: NS 275ml ONE (15:18)
--- NOTE | 2017-09-29 15:23 | Pulmonology Progress Note ---
Assessment/Plan Problems: (1) Renal failure (ARF), acute on chronic (2) Diabetic nephropathy (3) Diabetes type 1, controlled (4) Abdominal distention (5) Chronic pancreatitis (6) Gastroparesis Assessment/Plan no new complains renal w/u pending check electrolytes getting Hd symptomatic treatment dvt prophylaxis dc planning Subjective ROS Limited/Unobtainable: No Constitutional: Reports: no symptoms Respiratory: Reports: no symptoms Allergies: Coded Allergies: METOCLOPRAMIDE (Unverified Allergy, Severe, 09/08/17) PROCHLORPERAZINE (Unverified Allergy, Severe, 09/08/17) VANCOMYCIN (Unverified Allergy, Severe, 09/08/17) Objective Last 24 Hour Vital Signs Date Time Temp Pulse Resp B/P (MAP) Pulse Ox O2 Delivery O2 Flow Rate FiO2 09/29/17 12:00 97.2 69 20 118/77 99 97.2 09/29/17 11:40 Room Air 09/29/17 10:05 127/77 09/29/17 09:57 127/77 09/29/17 09:57 63 127/77 09/29/17 09:57 63 127/77 09/29/17 08:00 97.0 63 20 127/77 97 97.0 09/29/17 03:33 98.2 70 20 110/75 95 Room Air 98.2 09/28/17 23:31 97.0 20 114/65 94 Room Air 97.0 09/28/17 21:23 148/102 09/28/17 21:23 72 148/102 09/28/17 19:26 97.7 72 20 148/102 94 Room Air 97.7 09/28/17 17:23 61 180/111 09/28/17 17:22 180/111 09/28/17 17:02 97.5 09/28/17 16:03 97.5 09/28/17 16:00 98.1 61 18 180/111 97 98.1 Intake and Output 09/28/17 09/29/17 19:00 07:00 Intake Total 930 ml Output Total 450 ml Balance 480 ml Intake Oral 930 ml Output Urine Total 450 ml # Voids 2 8 # Bowel Movements 1 6 Objective General Appearance: no apparent distress Head: normocephalic, atraumatic Eyes: bilateral eye PERRL, bilateral eye EOMI ENT: normal pharynx, no angioedema Neck: supple, thyroid normal Respiratory: lungs clear, normal breath sounds Cardiovascular #1: regular rate, rhythm Gastrointestinal: non tender, soft Current Medications Medications (Trade) Dose Ordered Sig/Michelle Route PRN Reason Start Time Stop Time Status Last Admin Dose Admin Acetaminophen (Tylenol) 650 mg Q4H PRN ORAL fever 09/09/17 23:45 10/08/17 15:44 Aspirin (ASA) 81 mg DAILY ORAL 09/10/17 09:00 10/10/17 08:59 09/29/17 09:55 Buspirone HCl (Buspar) 10 mg BID ORAL 09/29/17 11:30 10/29/17 11:29 09/29/17 12:11 Carvedilol (Coreg) 25 mg BID ORAL 09/27/17 00:00 09/29/17 23:59 Carvedilol (Coreg) 25 mg EVERY 12 HOURS ORAL 09/17/17 09:00 10/17/17 08:59 09/29/17 09:57 Clonidine HCl (Catapres Tab) 0.1 mg Q4H PRN ORAL SYSTOLIC BP > 160 09/16/17 20:45 10/10/17 08:29 09/28/17 12:22 Hydralazine HCl (Apresoline) 25 mg Q8H PRN ORAL SBP >150 and/or DBP>100 09/28/17 19:00 10/28/17 18:59 Lansoprazole (Prevacid) 30 mg BID ORAL 09/17/17 18:00 10/11/17 08:59 09/29/17 09:55 Levothyroxine Sodium (Synthroid) 25 mcg DAILY@0630 ORAL 09/10/17 06:30 10/10/17 06:29 09/29/17 06:13 Lisinopril (Prinivil) 20 mg BID ORAL 09/16/17 09:00 10/16/17 08:59 09/29/17 10:05 Lisinopril (Prinivil) 20 mg BID ORAL 09/27/17 00:00 09/29/17 23:59 Loperamide HCl (Imodium) 2 mg Q4H PRN ORAL Diarrhea 09/15/17 11:15 10/15/17 11:14 09/29/17 09:59 Losartan Potassium (Cozaar) 50 mg EVERY 12 HOURS ORAL 09/19/17 21:00 10/19/17 20:59 09/29/17 09:57 Nifedipine (Procardia XL) 60 mg BID ORAL 09/17/17 09:00 10/17/17 08:59 09/29/17 09:57 Nifedipine (Procardia XL) 60 mg BID ORAL 09/27/17 00:00 09/29/17 23:59 Ondansetron HCl (Zofran ODT) 4 mg Q6H PRN ORAL Nausea & Vomiting 09/23/17 10:45 10/23/17 10:44 09/23/17 12:12 Ondansetron HCl (Zofran) 4 mg Q4H PRN IVP Nausea & Vomiting 09/23/17 10:45 10/21/17 07:29 Sevelamer Carbonate (Renvela) 1,600 mg QID ORAL 09/27/17 00:00 09/29/17 23:59 Sevelamer Carbonate (Renvela) 2,400 mg THREE TIMES A DAY ORAL 09/11/17 13:00 10/11/17 12:59 09/29/17 09:54 Temazepam (Restoril) 30 mg HSPRN PRN ORAL Insomnia 09/28/17 20:45 10/05/17 20:44 09/28/17 21:24 RICARDO POLANCO Sep 29, 2017 15:23
[2017-09-29 16:00] VITALS: BP 137/86
--- NOTE | 2017-09-29 16:31 | Internal Med Progress Note ---
Subjective Date of Service: Sep 29, 2017 Physician Name Ozzy Talbot Attending Physician Serafin Voss MD Current Medications Medications (Trade) Dose Ordered Sig/Michelle Route PRN Reason Start Time Stop Time Status Last Admin Dose Admin Acetaminophen (Tylenol) 650 mg Q4H PRN ORAL fever 09/09/17 23:45 10/08/17 15:44 Aspirin (ASA) 81 mg DAILY ORAL 09/10/17 09:00 10/10/17 08:59 09/29/17 09:55 Buspirone HCl (Buspar) 10 mg BID ORAL 09/29/17 11:30 10/29/17 11:29 09/29/17 12:11 Carvedilol (Coreg) 25 mg BID ORAL 09/27/17 00:00 09/29/17 23:59 Carvedilol (Coreg) 25 mg EVERY 12 HOURS ORAL 09/17/17 09:00 10/17/17 08:59 09/29/17 09:57 Clonidine HCl (Catapres Tab) 0.1 mg Q4H PRN ORAL SYSTOLIC BP > 160 09/16/17 20:45 10/10/17 08:29 09/28/17 12:22 Hydralazine HCl (Apresoline) 25 mg Q8H PRN ORAL SBP >150 and/or DBP>100 09/28/17 19:00 10/28/17 18:59 Lansoprazole (Prevacid) 30 mg BID ORAL 09/17/17 18:00 10/11/17 08:59 09/29/17 09:55 Levothyroxine Sodium (Synthroid) 25 mcg DAILY@0630 ORAL 09/10/17 06:30 10/10/17 06:29 09/29/17 06:13 Lisinopril (Prinivil) 20 mg BID ORAL 09/16/17 09:00 10/16/17 08:59 09/29/17 10:05 Lisinopril (Prinivil) 20 mg BID ORAL 09/27/17 00:00 09/29/17 23:59 Loperamide HCl (Imodium) 2 mg Q4H PRN ORAL Diarrhea 09/15/17 11:15 10/15/17 11:14 09/29/17 09:59 Losartan Potassium (Cozaar) 50 mg EVERY 12 HOURS ORAL 09/19/17 21:00 10/19/17 20:59 09/29/17 09:57 Nifedipine (Procardia XL) 60 mg BID ORAL 09/17/17 09:00 10/17/17 08:59 09/29/17 09:57 Nifedipine (Procardia XL) 60 mg BID ORAL 09/27/17 00:00 09/29/17 23:59 Ondansetron HCl (Zofran ODT) 4 mg Q6H PRN ORAL Nausea & Vomiting 09/23/17 10:45 10/23/17 10:44 09/23/17 12:12 Ondansetron HCl (Zofran) 4 mg Q4H PRN IVP Nausea & Vomiting 09/23/17 10:45 10/21/17 07:29 Sevelamer Carbonate (Renvela) 1,600 mg QID ORAL 09/27/17 00:00 09/29/17 23:59 Sevelamer Carbonate (Renvela) 2,400 mg THREE TIMES A DAY ORAL 09/11/17 13:00 10/11/17 12:59 09/29/17 09:54 Temazepam (Restoril) 30 mg HSPRN PRN ORAL Insomnia 09/28/17 20:45 10/05/17 20:44 09/28/17 21:24 Allergies: Coded Allergies: METOCLOPRAMIDE (Unverified Allergy, Severe, 09/08/17) PROCHLORPERAZINE (Unverified Allergy, Severe, 09/08/17) VANCOMYCIN (Unverified Allergy, Severe, 09/08/17) Subjective 32 YO M admitted with abdominal pain. Now renal failure on hemodialysis. Cover for [facility] Voss. Discharge to Recuperative Care held for hypertension Objective Last Vital Signs Date Time Temp Pulse Resp B/P (MAP) Pulse Ox O2 Delivery O2 Flow Rate FiO2 09/29/17 14:45 Room Air 09/29/17 12:00 97.2 69 20 118/77 99 97.2 Intake and Output 09/28/17 09/29/17 19:00 07:00 Intake Total 930 ml Output Total 450 ml Balance 480 ml Intake Oral 930 ml Output Urine Total 450 ml # Voids 2 8 # Bowel Movements 1 6 Objective General Appearance: WD/WN, alert, mild distress EENT: PERRL/EOMI, normal ENT inspection Neck: non-tender, normal alignment, supple, normal inspection Cardiovascular: normal peripheral pulses, normal rate, regular rhythm, no gallop/murmur, no JVD Respiratory/Chest: chest wall non-tender, lungs clear, normal breath sounds, no respiratory distress, no accessory muscle use Abdomen: no organomegaly, no mass, decreased bowel sounds, distended, guarding , tender Extremities: normal range of motion 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 See nephrology note. (2) Anemia of renal disease Assessment & Plan: S/P transfusion (3) HTN (hypertension) Assessment & Plan: Uncontrolled. See cardiology consult. Cont coreg and norvasc. Add hydralazine (4) Ascites Assessment & Plan: S/P paracentesis 09/20/17. See GI note. (5) Abdominal pain (6) Abdominal distention (7) Diarrhea Assessment & Plan: C. Diff neg; await stool culture (8) Gastroparesis (9) Diabetes type 1, controlled Assessment & Plan: Continue novolog sliding scale. (10) Hypothyroidism Assessment & Plan: Continue levoxyl (11) CHF (congestive heart failure) Assessment & Plan: Volume overload. See cardiology note. await hemodialysis (12) Anemia Assessment & Plan: S/P transfusion 1 unit PRBC on 09/13/17 Status: stable Assessment/Plan Discharge planning: Recuperative care today OZZY TALBOT Sep 29, 2017 16:31
--- NOTE | 2017-09-29 17:08 | Cardiac Electrophysiology PN ---
Assessment/Plan Assessment/Plan 1. Accelerated hypertension.On Procardia XL 60 bid, clonidine 0.1 mg q8, Losartan 50 bid, Coreg 25 mg bid and HD 2. Chronic kidney disease. On HD. 3. Insulin-dependent diabetes. 4. Anemia of renal disease. S/P PRBC 5. Abdominal pain and diarrhea, Negative for C Diff. 6. Hypothyroidism, on Synthroid. SUZANNA RN DC today Subjective Subjective No CP or SOB. Had HD. Comfortable. DC planning today Objective Last 24 Hour Vital Signs Date Time Temp Pulse Resp B/P (MAP) Pulse Ox O2 Delivery O2 Flow Rate FiO2 09/29/17 16:00 97.7 74 20 137/86 92 97.7 09/29/17 14:45 Room Air 09/29/17 12:00 97.2 69 20 118/77 99 97.2 09/29/17 11:40 Room Air 09/29/17 10:05 127/77 09/29/17 09:57 127/77 09/29/17 09:57 63 127/77 09/29/17 09:57 63 127/77 09/29/17 08:00 97.0 63 20 127/77 97 97.0 09/29/17 03:33 98.2 70 20 110/75 95 Room Air 98.2 09/28/17 23:31 97.0 20 114/65 94 Room Air 97.0 09/28/17 21:23 148/102 09/28/17 21:23 72 148/102 09/28/17 19:26 97.7 72 20 148/102 94 Room Air 97.7 09/28/17 17:23 61 180/111 09/28/17 17:22 180/111 Intake and Output 09/28/17 09/29/17 19:00 07:00 Intake Total 930 ml Output Total 450 ml Balance 480 ml Intake Oral 930 ml Output Urine Total 450 ml # Voids 2 8 # Bowel Movements 1 6 Objective HEAD AND NECK: No JVD. Right IJ HD LUNGS: Clear. CARDIOVASCULAR: Regular S1 and S2. No gallop or murmur. ABDOMEN: Soft.Scrotal edema EXTREMITIES: 1 plus pitting edema. MONICA DANGELO Sep 29, 2017 17:08
--- NOTE | 2017-09-29 17:09 | Nephrology Progress Note ---
Assessment/Plan Problem List: (1) Renal failure (ARF), acute on chronic (2) Nephrotic syndrome (3) Diabetic nephropathy (4) HTN (hypertension) Assessment: hypertensive kidney disease Assessment Advanced renal failure due to Type I DM DIabetic Nephropathy- Most likely NS -. Bilateral upper quadrant pain. -. Diarrhea. -. Diabetic gastroparesis. -. Diabetes type 1. -. Hypertension. -. Anemia. due to CKD -. HypoThyroid Plan Plan: Dialysed next 09/29 Transfuse today Add Coozar to BP meds placement issues Zestril Procardia and Clonidine to BP meds- adjust meds Per GI 24 h urine collection over 3 gram protein Monitor renal parameters , BS and BP Avoid nephrotoxics Due DC and OP HD 2D Echo : Left ventricular ejection fraction estimated to be 60 %. No evidence of left ventricular hypertrophy. Trace pericardial effusion . Moderate left atrial enlargement. OCTAVIO: Left kidney measures 11.8 cm in length. Right kidney measures 9.6 cm length. Kidneys demonstrate diffusely increased echogenicity. No hydronephrosis. there is a small left lower pole renal cyst Subjective ROS Limited/Unobtainable: No Objective Objective Last 24 Hour Vital Signs Date Time Temp Pulse Resp B/P (MAP) Pulse Ox O2 Delivery O2 Flow Rate FiO2 09/29/17 16:00 97.7 74 20 137/86 92 97.7 09/29/17 14:45 Room Air 09/29/17 12:00 97.2 69 20 118/77 99 97.2 09/29/17 11:40 Room Air 09/29/17 10:05 127/77 09/29/17 09:57 127/77 09/29/17 09:57 63 127/77 09/29/17 09:57 63 127/77 09/29/17 08:00 97.0 63 20 127/77 97 97.0 09/29/17 03:33 98.2 70 20 110/75 95 Room Air 98.2 09/28/17 23:31 97.0 20 114/65 94 Room Air 97.0 09/28/17 21:23 148/102 09/28/17 21:23 72 148/102 09/28/17 19:26 97.7 72 20 148/102 94 Room Air 97.7 09/28/17 17:23 61 180/111 2/28/18 17:22 180/111 Intake and Output 09/28/17 09/29/17 19:00 07:00 Intake Total 930 ml Output Total 450 ml Balance 480 ml Intake Oral 930 ml Output Urine Total 450 ml # Voids 2 8 # Bowel Movements 1 6 Height (Feet): 5 Height (Inches): 10.00 Weight (Pounds): 226 General Appearance: no apparent distress Objective no change LEXIS PRESTON Sep 29, 2017 17:09
[2017-09-29 18:09] VITALS: BP 137/86
--- NOTE | 2017-09-30 13:06 | Discharge Summary ---
Discharge Summary Hospital Course Date of Admission Sep 08, 2017 at 11:44 Date of Discharge Sep 29, 2017 at 20:15 Admitting Diagnosis RENAL FAILURE, DIARRHEA HPI Paul Howe is a 32 year old male who was admitted on Sep 08, 2017 at 11:44 for Renal Failure,Diarrhea Hospital Course [id number] Discharge Discharge Disposition Patient was discharged to Recup Care Discharge Diagnoses: Nadeen Richards NP Sep 30, 2017 13:06
--- NOTE | 2017-10-01 03:30 | Discharge Summary 2 SIG ---
DATE OF ADMISSION: 09/08/2017 DATE OF DISCHARGE: 09/29/2017 CONSULTS: 1. Jeanmarie Garrett M.D. 2. Aly Acharya M.D. 3. Medardo Valentin M.D. 4. Demetrius Schultz M.D. 5. Charlie Green M.D. BRIEF HOSPITAL COURSE: The patient is a 32-year-old male with history of end-stage renal disease presented to ED for complaints of abdominal pain. He has history of type 1 diabetes and chronic renal failure. Symptoms started approximately two months prior to admission. The patient began to have profuse watery stools up to eight stools per day. Stools were watery and liquid in nature. He also had left upper quadrant abdominal pain. On evaluation at ED, blood work did not show leukocytosis, however creatinine was elevated to 4.4 and BUN was 56. He continued to be vomiting at ED. He had a chest x-ray done that showed low lung volumes with questionable atelectasis or scarring in the peripheral left [id number] lung. Abdominal ultrasound done showed ascites, negative for gallstones with mild gallbladder thickening. He was admitted for acute renal failure, nausea, and vomiting for evaluation of bilateral upper quadrant pain and diarrhea and hypertension. His urinalysis showed 4+ protein, 2+ glucose, 1+ ketones and 1+ occult blood. He was followed by Dr. Garrett. Kidney ultrasound showed increased renal echogenicity bilaterally consistent with medical renal disease. The patient had advanced renal failure due to type 1 diabetes mellitus. A 24-hour urine collection done. Urine was over 3 grams. On 09/13/2017, a tunneled right jugular hemodialysis catheter was inserted and he was started on hemodialysis. There was also noted drop in hemoglobin. He was given one unit packed RBC blood transfusion. Again there was a drop of hemoglobin on September 17, another unit was again given as well as on 09/28/2017. He was followed by GI. Anemia was secondary to renal disease. He was having diarrhea, stool culture, ova and parasites were negative. He was given Lomotil. He had abdominal CT that showed moderate ascites. On 09/20/2017, he underwent ultrasound-guided paracentesis yielding three liters of fluid. Cytology was negative for malignant cells. He came in with elevated blood pressure systolic on 200. He was initially started on Norvasc 10 mg daily, clonidine 0.1 q.8 h. and Coreg 12.5 mg b.i.d. Unable to be started on David or ARB due to renal failure and hyperkalemia. Blood pressure medications were adjusted as there was no adequate blood pressure control. Norvasc was eventually discontinued and was switched to Procardia XL 60 mg b.i.d. He was eventually restarted on losartan 50 mg b.i.d. He was continued on hemodialysis and was unable to be discharged as the patient required more physical therapy and more mobilization. Finally on 09/29/2017, he was ambulating better with PT. Bed was confirmed at [facility]. He was provided with medication through [facility] and was discharged with a front-wheel walker. He was discharged via taxi. FINAL DIAGNOSES: 1. End-stage renal disease, on hemodialysis. 2. Anemia of renal disease. 3. Accelerated hypertension. 4. Acute anemia, requiring blood transfusion. 5. Ascites status post paracentesis. 6. Diarrhea, Clostridium diff negative. 7. Gastroparesis. 8. Type 1 diabetes. 9. Hypothyroidism. 10. Fluid overload with congestive heart failure. 11. Nephrotic syndrome. 12. Diabetes with diabetic nephropathy and hypertensive kidney disease. 13. Chronic pancreatitis. 14. Acute renal failure with initiation of hemodialysis. 15. Elevated liver transaminases. 16. Hypertensive urgency. DISPOSITION: The patient was discharged to [facility]. DISCHARGE MEDICATIONS: Refer to medication list. DISCHARGE INSTRUCTIONS: Follow up with PMD in a week. Ozzy Sarabia M.D. I have been assigned to dictate discharge summary on this account and I was not involved in the patient's management. Nadeen Richards N.P. DR: Karen JOB#: [id number] CC: AMANDA
== END 2017-09-29 20:15 | DRG 469 ==
LOC: EDBD 10:29 → EMR 11:38 → 2E 11:44 → EDBEDREQ 12:14 → 4W 09-09 23:35
PROC: 5A1D70Z Performance of Urinary Filtration, Intermittent, Less than 6 Hours Per Day (ICD-10-PCS; 2017-09-11)
PROC: B513ZZA Fluoroscopy of Right Jugular Veins, Guidance (ICD-10-PCS; principal; 2017-09-13)
PROC: 05HM33Z Insertion of Infusion Device into Right Internal Jugular Vein, Percutaneous Approach (ICD-10-PCS; principal; 2017-09-13)
PROC: 0W9G3ZZ Drainage of Peritoneal Cavity, Percutaneous Approach (ICD-10-PCS; 2017-09-20)
DX: N17.9 Acute kidney failure, unspecified (principal); I13.2 Hypertensive heart and chronic kidney disease with heart failure and with stage 5 chronic kidney disease, or end stage renal disease; E10.21 Type 1 diabetes mellitus with diabetic nephropathy; R18.8 Other ascites; I12.0 Hypertensive chronic kidney disease with stage 5 chronic kidney disease or end stage renal disease; R71.0 Precipitous drop in hematocrit; E10.43 Type 1 diabetes mellitus with diabetic autonomic (poly)neuropathy; K31.84 Gastroparesis; N18.6 End stage renal disease; K86.1 Other chronic pancreatitis; D63.1 Anemia in chronic kidney disease; E10.22 Type 1 diabetes mellitus with diabetic chronic kidney disease; Z79.4 Long term (current) use of insulin; I16.0 Hypertensive urgency; R11.10 Vomiting, unspecified; R19.7 Diarrhea, unspecified; E03.9 Hypothyroidism, unspecified; F32.9 Major depressive disorder, single episode, unspecified; F41.9 Anxiety disorder, unspecified; I50.9 Heart failure, unspecified; E87.5 Hyperkalemia
CPT/HCPCS: 36415; 71045; 74176; 76000; 76700; 76942; 80048; 80053; 80061; 80307; 81003; 81050; 82150; 82550; 82553; 82575; 82607; 82728; 82746; 82962; 82977; 83036; 83540; 83550; 83605; 83690; 83735; 83880; 84100; 84156; 84439; 84443; 84550; 85007; 85025; 85610; 85730; 86140; 86705; 86706; 86707; 86709; 86803; 86850; 86900; 86901; 86920; 87040; 87045; 87070; 87081; 87205; 87324; 87340; 88104; 93005; 93306; 99285; J2250; J2405

== ENCOUNTER 2018-10-22 14:04 | Emergency (ER) | payer MEDICARE, OTHER ==
[~2018-10-22] VITALS: Ht 175.3 cm; Wt 65.8 kg
[~2018-10-22 14:04] MED LIST: BENADRYL25 MG ORAL; CARVEDILOL12.5 MG ORAL; CATAPRES0.1 MG ORAL; IMODIUM A-D2 M2 PO; LISINOPRIL20 MG ORAL; NORVASC10 MG ORAL; OMEPRAZOLE20 M3 ORAL; RENVELA0.8 GM ORAL; RENVELA800 MG ORAL
--- NOTE | 2018-10-22 14:10 | NUR ---
Note patricia in EDM - 10/22/18 at 1528 by [email or web address] ED Nurse Note: pt was brought in to ER from [facility] by ambulance due to scrotum pain 05/10. pt aao x 4 and refusing changing to gown. ERMD at bedside and was able to assess scrotum area.
--- NOTE | 2018-10-22 14:10 | NUR ---
ED Nurse Note: pt was brought in to ER from [facility] by ambulance due to scrotum pain /. pt aao x 4 and refusing changing to gown. ERMD at bedside and was able to assess scrotum area.
[2018-10-22] MEDS ORDERED: PROTONIX20 MG ORAL (14:11)
[2018-10-22] MEDS ORDERED: ZOLPIDEM TARTRAT5 MG ORAL (14:11)
[2018-10-22] MEDS ORDERED: SYNTHROID137 MCG ORAL (14:11)
--- NOTE | 2018-10-22 14:15 | NUR ---
ED Nurse Note: pt aao x4. pt refused x3 changing to gown, pain medication, FC, blood drawn, urine sample collect. ERMD made aware.
--- NOTE | 2018-10-22 14:36 | Emergency Room Report ---
History of Present Illness General Chief Complaint: Male Urogenital Problems Source: Patient, EMS Present Illness HPI Patient presents with reports of testicular swelling Patient also reports she had complained of some discomfort Ongoing for the past 2 weeks Patient reports that he was given Tylenol however does not help significantly Denies any chest pain or shortness of breath Patient has history of liver cirrhosis with ascites along with renal failure Denies any fevers or chills denies any vomiting or diarrhea Allergies: Coded Allergies: METOCLOPRAMIDE (Unverified Allergy, Severe, 09/08/17) PROCHLORPERAZINE (Unverified Allergy, Severe, 09/08/17) VANCOMYCIN (Unverified Allergy, Severe, 09/08/17) Patient History Past Medical History: see triage record Pertinent Family History: none Reviewed Nursing Documentation: PMH: Agreed; PSxH: Agreed Nursing Documentation-PMH Hx Cardiac Problems: No Hx Diabetes: Yes - Type 1 Hx Cancer: No Hx Gastrointestinal Problems: Yes - Gastroparesis Hx Neurological Problems: No Review of Systems All Other Systems: negative except mentioned in HPI Physical Exam Vital Signs Date Time Temp Pulse Resp B/P (MAP) Pulse Ox O2 Delivery O2 Flow Rate FiO2 10/22/18 14:04 94.1 57 19 105/78 98 Room Air Sp02 EP Interpretation: reviewed, normal General Appearance: no apparent distress Head: normocephalic, atraumatic Eyes: bilateral eye PERRL, bilateral eye EOMI ENT: normal pharynx Neck: supple Respiratory: lungs clear, no respiratory distress, no retraction Cardiovascular #1: regular rate, rhythm Gastrointestinal: other - Patient has a distended abdomen with ascites Genitourinary: other - Testicular swelling with some erythema noted, no obvious open lesions appears to be dependent edema Musculoskeletal: back normal Neurologic: alert, oriented x3 Skin: other - As above Lymphatic: no adenopathy Medical Decision Making Diagnostic Impression: Primary Impression: Ascites Additional Impressions: Testicular swelling Rash ER Course We were able to perform a minimal evaluation The evaluation as performed, show ascites also dependent edema in the scrotal area Contact erythema Patient is provided prescription Also note regarding close jail patient follow-up along with pain management and dermatology consultation Last Vital Signs Date Time Temp Pulse Resp B/P (MAP) Pulse Ox O2 Delivery O2 Flow Rate FiO2 10/22/18 14:04 94.1 57 19 105/78 98 Room Air Status: improved Disposition: XFER SNF Condition: Improved Scripts Nystatin/Triamcin (NYSTATIN-TRIAMCINOLONE CREAM) 15 Gm Cream..g. 2 INCH TP BID for 10 Days, GM Prov: Rosalina Ojeda DO 10/22/18 Additional Instructions: Patient is provided with the discharge instructions notified to follow up with primary doctor in the next 2-3 days otherwise return to the er with any worsening symptoms. Please note that this report is being documented using [employer] technology. This can lead to erroneous entry secondary to incorrect interpretation by the dictating instrument. Rosalina Ojeda DO Oct 22, 2018 14:36
--- NOTE | 2018-10-22 14:40 | NUR ---
ED Nurse Note: pt had 2x large BM and it was cleaned.
[2018-10-22] MEDS: Morphine Sulfate 2mg/ml Inj(IV/IM USE ONLY) IM ONE ×2 (14:50→14:52)
--- NOTE | 2018-10-22 15:00 | NUR ---
ED Nurse Note: transportation to take pt back to SNF arrived. VSS.
[2018-10-22 15:06] VITALS: BP 105/78
[2018-10-22] MEDS ORDERED: NYSTATIN-TRIAMC15 G2 TP (15:06)
--- NOTE | 2018-10-22 15:06 | NUR ---
Note maricarmencorey in EDM - 10/22/18 at 1526 by [email or web address] ED Nurse Note: pt was brought in to ER from [facility] by ambulance due to scrotum pain 05/10. pt aao x 4 and refusing changing to gown. ERMD at bedside and was able to assess scrotum area.
--- NOTE | 2018-10-22 15:10 | NUR ---
Note patricia in EDM - 10/22/18 at 1530 by [email or web address] ED Nurse Note: pt aao x4. pt refused x3 changing to gown, pain medication, FC, blood drawn, urine sample collect. BOLA made aware.
--- NOTE | 2018-10-22 15:20 | NUR ---
ED Nurse Note: pt refused to leave. pt urinated and nurse convinced him. pt refused to get treated and going back to SNF either.
[2018-10-22 16:00] VITALS: BP 104/70
--- NOTE | 2018-10-22 16:00 | NUR ---
ER DISCHARGE NOTE: Patient is cleared to be discharged per ERMD since SNF is able to manage the pain, pt is aox4, on room air, with stable vital signs. pt had BM x2 large and it was cleaned. pt was given dc and prescription instructions, pt was able to verbalize understanding, pt id band removed and pt agreed with going back to SNF. pt is going back to SNF by ambulance. pt took all belongings.
== END 2018-10-22 16:00 ==
LOC: EDUNIT# 14:04 → EDBD 14:04 → EMR 14:35
DX: R18.8 Other ascites (principal); N50.89 Other specified disorders of the male genital organs; R21 Rash and other nonspecific skin eruption; E10.9 Type 1 diabetes mellitus without complications; Z88.1 Allergy status to other antibiotic agents
CPT/HCPCS: 99283